=== PATIENT | female | born 1940 | race Caucasian/White ===

== ENCOUNTER 2017-01-10 18:18 | Emergency (ER) | payer OTHER ==
[~2017-01-10] VITALS: Ht 165.1 cm; Wt 108.5 kg
[~2017-01-10 18:18] MED LIST: BCTO EXT; CYAN1TAB4 PO; CYM/30 PO; EPP3/2 IM; FURO40TA3 PO; LEVO175T3 PO; LOSA50TA54 PO; OMEP40CA PO
[2017-01-10 18:26] VITALS: TEMP 36.3; Ht 165.1 cm; Wt 108.5 kg
[2017-01-10 19:00] VITALS: O2SAT 93
[2017-01-10 19:36] LABS: BASO % 0.5 %; BASO ABS # 0.05 K/uL (0-0.2); COMPLETE YES; EOS % 2.1 %; HEMATOCRIT 43.5 % (37-47); IG% 0.2 %; LYMPH % 28.7 %; LYMPH ABS # 3.02 K/uL (1.2-3.4); MEAN CELL VOLUME 85.1 fL (80-100); MEAN PLATELET VOLUME 12.6 fL (7.4-10.4); MONO % 10.7 %; NEUT % 57.8 %; PLATELET COUNT 202 K/uL (130-400); RED BLOOD COUNT 5.11 M/uL (4.2-5.4); WHITE BLOOD COUNT 10.53 K/uL (4.8-10.8)
[2017-01-10 19:45] LABS: ALT/SGPT 30 U/L (12-78); AST/SGOT 19 U/L (15-37); BLOOD UREA NITROGEN 15 mg/dl (7-18); BUN/CREATININE RATIO 13.4 (10-20); CALCIUM 8.9 mg/dl (8.5-10.1); CARBON DIOXIDE 29 mmol/L (21-32); CHLORIDE 103 mmol/L (98-107); GLUCOSE 190 mg/dl (70-99); POTASSIUM 3.9 mmol/L (3.5-5.1); SODIUM 136 mmol/L (136-145)
[2017-01-10 19:50] LABS: ALKALINE PHOSPHATASE 100 U/L (45-117)
--- NOTE | 2017-01-10 19:53 | DIAGNOSTIC IMAGING REPORT ---
CHEST ONE VIEW PORTABLE CLINICAL HISTORY: 76 years-old Female presenting with chest pain. TECHNIQUE: Portable upright AP view of the chest was obtained. COMPARISON: 06/24/2015. FINDINGS: Cardiac silhouette top normal in size allowing for AP technique. Lungs and pleural spaces clear. Degenerative changes of the thoracic spine. Upper abdomen normal. IMPRESSION: 1. No acute cardiopulmonary disease. Electronically signed by: Juan Mckay M.D. 01/10/2017 7:51 PM Dictated Date/Time: 01/10/2017 7:50 PM
[2017-01-10 19:54] LABS: URINE APPEARANCE CLEAR (CLEAR); URINE BILIRUBIN NEG (NEG); URINE COLOR YELLOW; URINE NITRITE NEG (NEG); URINE PH 5.5 (4.5-7.5); UROBILINOGEN NEG (NEG); ZZUR CULT IF INDIC CLEAN CATCH NO
[2017-01-10 19:56] LABS: MANUAL MICROSCOPIC REQUIRED? NO; REVIEW REQ? NO
--- NOTE | 2017-01-10 20:01 | DIAGNOSTIC IMAGING REPORT ---
HEAD WITHOUT CONTRAST (CT) CLINICAL HISTORY: 76 years-old Female presenting with headache, htn. TECHNIQUE: Multidetector CT imaging of the head was performed after the administration of intravenous contrast. IV contrast: None. A dose lowering technique was used consistent with the principles of ALARA (as low as reasonably achievable). COMPARISON: 06/24/2015. CT DOSE (mGy.cm): The estimated cumulative dose is 537.48 mGy.cm. FINDINGS: Spoon Maker topogram: Unremarkable. Proportional ventricular and sulcal prominence, likely age-related parenchymal volume loss. Periventricular and subcortical white matter hypoattenuation, nonspecific but likely indicative of chronic small vessel ischemic change. No mass effect or midline shift. No hemorrhage or acute territorial infarct. No extra-axial fluid collection. Paranasal sinuses and mastoid air cells clear. Calvarium intact. IMPRESSION: 1. No acute intracranial pathology. Electronically signed by: Juan Mckay M.D. 01/10/2017 8:00 PM Dictated Date/Time: 01/10/2017 7:57 PM
[2017-01-10] MEDS ORDERED: BUPR-79 PO (20:07)
--- NOTE | 2017-01-10 20:15 | DIAGNOSTIC IMAGING REPORT ---
ABD/PELVIS NO IV OR ORAL CONT CLINICAL HISTORY: 76 years-old Female presenting with back pain, urinary symptoms. TECHNIQUE: Multidetector CT of the abdomen and pelvis was performed without the use of intravenous contrast. IV contrast: None. A dose lowering technique was used consistent with the principles of ALARA (as low as reasonably achievable). COMPARISON: 06/08/2010. CT DOSE (mGy.cm): The estimated cumulative dose is 1254.29 mGy.cm. FINDINGS: Sprinkler Installer topogram: Unremarkable. Lung bases: Minimal dependent changes likely atelectasis. Irregular branching diminutive punctate nodule at the right lung base (series 3 image 67). Mild multichamber enlargement of the heart. No pericardial or pleural effusion. Liver: Normal morphology. Density consistent with hepatic steatosis. Biliary: No gross biliary ductal dilatation allowing for noncontrast technique. Normal gallbladder. Pancreas: Mild parenchymal atrophy. Spleen: Punctate calcification in the splenic parenchyma could be vascular in etiology or suggest prior granulomatous infection. Adrenal glands: Normal noncontrast appearance. Kidneys and ureters: Normal noncontrast appearance. No hydronephrosis. Bladder: Allowing for underdistention, mild circumferential bladder wall thickening. Pelvic organs: Uterus surgically absent. No adnexal masses. Bowel: Mild stool burden. Few scattered diverticula in the colon. No pericolonic fat stranding. No bowel obstruction. Persistent linear metallic density at the level of the pylorus, unchanged in position from prior and of uncertain etiology. Small duodenal diverticulum at the level of the pancreatic head. Peritoneal cavity: No free fluid or intraperitoneal gas. Lymph nodes: Multiple scattered subcentimeter lymph nodes in the small bowel mesentery with minimal associated fat infiltration. Vasculature: Atherosclerosis of the normal caliber abdominal aorta. Abdominal wall: Postsurgical changes of the midline infraumbilical abdominal wall. Musculoskeletal: Degenerative changes of the spine. IMPRESSION: 1. Bladder wall thickening could suggest cystitis correlate with urinalysis. 2. Hepatic steatosis. 3. Few prominent small bowel mesentery lymph nodes with minimal associated fat infiltration could suggest mesenteric panniculitis. This can be variably symptomatic. Electronically signed by: Juan Mckay M.D. 01/10/2017 8:13 PM Dictated Date/Time: 01/10/2017 8:05 PM
[2017-01-10] MEDS ORDERED: ACETAMINOPHEN 500 MG TAB PO STA (22:42)
[2017-01-10] MEDS ORDERED: CEPHALEXIN MONOHYDRATE 250 MG CAP PO ONE (22:45)
[2017-01-10] MEDS ORDERED: TPRSR/50 PO (22:54)
[2017-01-10] MEDS ORDERED: ASPI81TA28 PO (22:54)
[2017-01-10] MEDS ORDERED: PHENAZOPYRIDINE HCL 200 MG TAB PO STA (23:13)
--- NOTE | 2017-01-10 23:13 | EMERGENCY ROOM VISIT NOTE ---
History Report prepared by Cruz: Sommer Rivera Under the Supervision of: Dr. Jennifer Mercado D.O. First contact with patient: 18:48 Chief Complaint: HYPERTENSION Stated Complaint: HIGH BLOOD PRESSURE,HEADACHE, PAIN URINARY/BACK History of Present Illness The patient is a 76 year old female who presents to the Emergency Room with complaints of persistent hypertension starting earlier today. The patient went to urgent care this afternoon because she has been having sharp pain with urination. She also reports some itching. She went to urgent care and found that her blood pressure was 187. She has also had a headache so she was sent to the ED. She has had lower back pain for the past 1.5-2 weeks. She normally does not have headaches. She started having pressure on the top of her head a couple days ago. She has some incontinence at baseline, but it has worsened. She notes that her urine has a stronger odor. She has had UTIs in the past, but usually does not have the sharp pain. She had an episode of chest tightness several nights ago which she thinks might have been indigestion. She has had some leg swelling. She notes she is always thirsty. She denies any fever, chills, nausea , vomiting, change in bowel movements, or abdominal pain. She denies any history of kidney problems. She is on metoprolol and losartan. She denies any changes in medications. She denies any missed or skipped medications. She was borderline diabetic previously. Source of History: patient Onset: earlier today Position: other (global) Symptom Intensity: 187 Quality: other (hypertension) Timing: other (persistent) Associated Symptoms: + headache, + chest pain (episodic), + urinary symptoms , No fevers, No chills, No nausea, No vomiting, No abdominal pain Note: Pt reports thirst, leg swelling. Pt denies change in bowel movement. Review of Systems See HPI for pertinent positives & negatives. A total of 10 systems reviewed and were otherwise negative. Past Medical & Surgical Medical Problems: (1) Asthma (2) C1 cervical fracture (3) Depression (4) HTN (hypertension) (5) Hypothyroidism (6) Osteoporosis (7) Panic disorder (8) Sepsis Surgical Problems: (1) History of esophagogastroduodenoscopy (2) Hx of vaginal hysterectomy Family History No pertinent family history Social History Smoking Status: Never Smoker Marital Status: Housing Status: lives with family Current/Historical Medications Scheduled Aspirin (Aspirin Ec), 81 MG PO QAM Bupropion (Wellbutrin Sr), 150 MG PO QAM Cephalexin (Keflex), 1 CAP PO BID Cyanocobalamin (B-12), 1 TAB PO QD Duloxetine HCl (Cymbalta), 30 MG PO BID Levothyroxine Sodium (Levothyroxine Sodium), 175 MCG PO QAM Losartan Potassium (Cozaar), 50 MG PO QAM Metoprolol Succinate (Metoprolol Succinate ER), 50 MG PO QAM Scheduled PRN Epinephrine (Epipen), 0.3 MG IM UD PRN for ALLERGIC REACTION Furosemide (Lasix), 40 MG PO QAM PRN for EDEMA Allergies Coded Allergies: Sulfa Antibiotics (Verified Allergy, Intermediate, HIVES AND ITCHING, 06/23) BEE STING (Verified Allergy, Mild, ANAPHYLAXIS, 06/24/15) Amlodipine (Verified Allergy, Unknown, RASH, 06/24/15) Clarithromycin (Verified Allergy, Unknown, RASH, 06/24/15) Gabapentin (Verified Allergy, Unknown, UNKNOWN, 06/24/15) Iodine (Verified Allergy, Unknown, ANAPHYLAXIS, 06/24/15) Uncoded Allergies: INHALERS (Allergy, Unknown, SENSITIVE TO INHALERS, PERFUMES, ETC..., 06/08/10 ) PER PT, SHE HAS HX OF LEGIONAIRE'S PNX, NOT A TRUE ALLERGY SHELLED SEAFOOD (Allergy, Unknown, ., 04/12/15) Physical Exam Vital Signs Date Time Temp Pulse Resp B/P (MAP) Pulse Ox O2 Delivery O2 Flow Rate FiO2 01/10/17 23:18 73 18 179/89 92 Room Air 01/10/17 20:11 75 20 148/88 92 Room Air 01/10/17 19:12 78 01/10/17 19:00 93 Room Air 01/10/17 18:26 36.3 83 18 173/67 93 Room Air Physical Exam GENERAL: alert, well appearing, well nourished, no distress, non-toxic EYE EXAM: normal conjunctiva, PERRL and EOM's grossly intact OROPHARYNX: no exudate, no erythema, lips, buccal mucosa, and tongue normal and mucous membranes are moist NECK: supple, no nuchal rigidity, no adenopathy, non-tender LUNGS: Clear to auscultation. Normal chest wall mechanics HEART: no murmurs, S1 normal and S2 normal ABDOMEN: abdomen soft, non-tender, normo-active bowel sounds, no masses, no rebound or guarding. BACK: Back is symmetrical on inspection and there is no deformity, no CVA tenderness, bilateral low back pain. SKIN: no rashes and no bruising UPPER EXTREMITIES: upper extremities are grossly normal. LOWER EXTREMITIES: No pitting edema. NEURO EXAM: Normal sensorium, cranial nerves II-XII grossly intact, normal speech, no gross weakness of arms, no gross weakness of legs. Medical Decision & Procedures ER Provider Diagnostic Interpretation: Radiology results have been interpreted by the radiologist and reviewed by me. CHEST ONE VIEW PORTABLE CLINICAL HISTORY: 76 years-old Female presenting with chest pain. TECHNIQUE: Portable upright AP view of the chest was obtained. COMPARISON: 06/24/2015. FINDINGS: Cardiac silhouette top normal in size allowing for AP technique. Lungs and pleural spaces clear. Degenerative changes of the thoracic spine. Upper abdomen normal. IMPRESSION: 1. No acute cardiopulmonary disease. Electronically signed by: Juan Mckay M.D. 01/10/2017 7:51 PM Dictated Date/Time: 01/10/2017 7:50 PM ABD/PELVIS NO IV OR ORAL CONT CLINICAL HISTORY: 76 years-old Female presenting with back pain, urinary symptoms. TECHNIQUE: Multidetector CT of the abdomen and pelvis was performed without the use of intravenous contrast. IV contrast: None. A dose lowering technique was used consistent with the principles of ALARA (as low as reasonably achievable). COMPARISON: 06/08/2010. CT DOSE (mGy.cm): The estimated cumulative dose is 1254.29 mGy.cm. FINDINGS: Department Operations Manager topogram: Unremarkable. Lung bases: Minimal dependent changes likely atelectasis. Irregular branching diminutive punctate nodule at the right lung base (series 3 image 67). Mild multichamber enlargement of the heart. No pericardial or pleural effusion. Liver: Normal morphology. Density consistent with hepatic steatosis. Biliary: No gross biliary ductal dilatation allowing for noncontrast technique. Normal gallbladder. Pancreas: Mild parenchymal atrophy. Spleen: Punctate calcification in the splenic parenchyma could be vascular in etiology or suggest prior granulomatous infection. Adrenal glands: Normal noncontrast appearance. Kidneys and ureters: Normal noncontrast appearance. No hydronephrosis. Bladder: Allowing for underdistention, mild circumferential bladder wall thickening. Pelvic organs: Uterus surgically absent. No adnexal masses. Bowel: Mild stool burden. Few scattered diverticula in the colon. No pericolonic fat stranding. No bowel obstruction. Persistent linear metallic density at the level of the pylorus, unchanged in position from prior and of uncertain etiology. Small duodenal diverticulum at the level of the pancreatic head. Peritoneal cavity: No free fluid or intraperitoneal gas. Lymph nodes: Multiple scattered subcentimeter lymph nodes in the small bowel mesentery with minimal associated fat infiltration. Vasculature: Atherosclerosis of the normal caliber abdominal aorta. Abdominal wall: Postsurgical changes of the midline infraumbilical abdominal wall. Musculoskeletal: Degenerative changes of the spine. IMPRESSION: 1. Bladder wall thickening could suggest cystitis correlate with urinalysis. 2. Hepatic steatosis. 3. Few prominent small bowel mesentery lymph nodes with minimal associated fat infiltration could suggest mesenteric panniculitis. This can be variably symptomatic. Electronically signed by: Juan Mckay M.D. 01/10/2017 8:13 PM Dictated Date/Time: 01/10/2017 8:05 PM HEAD WITHOUT CONTRAST (CT) CLINICAL HISTORY: 76 years-old Female presenting with headache, htn. TECHNIQUE: Multidetector CT imaging of the head was performed after the administration of intravenous contrast. IV contrast: None. A dose lowering technique was used consistent with the principles of ALARA (as low as reasonably achievable). COMPARISON: 06/24/2015. CT DOSE (mGy.cm): The estimated cumulative dose is 537.48 mGy.cm. FINDINGS: Department Operations Manager topogram: Unremarkable. Proportional ventricular and sulcal prominence, likely age-related parenchymal volume loss. Periventricular and subcortical white matter hypoattenuation, nonspecific but likely indicative of chronic small vessel ischemic change. No mass effect or midline shift. No hemorrhage or acute territorial infarct. No extra-axial fluid collection. Paranasal sinuses and mastoid air cells clear. Calvarium intact. IMPRESSION: 1. No acute intracranial pathology. Electronically signed by: Juan Mckay M.D. 01/10/2017 8:00 PM Dictated Date/Time: 01/10/2017 7:57 PM Laboratory Results 01/10/17 18:57 Red Blood Count 5.11, Mean Corpuscular Volume 85.1, Mean Corpuscular Hemoglobin 29.0, Mean Corpuscular Hemoglobin Concent 34.0, Mean Platelet Volume 12.6, Neutrophils (%) (Auto) 57.8, Lymphocytes (%) (Auto) 28.7, Monocytes (%) (Auto) 10.7, Eosinophils (%) (Auto) 2.1, Basophils (%) (Auto) 0.5, Neutrophils # (Auto ) 6.09, Lymphocytes # (Auto) 3.02, Monocytes # (Auto) 1.13, Eosinophils # (Auto ) 0.22, Basophils # (Auto) 0.05 01/10/17 18:57 Test 01/10/17 18:57 01/10/17 19:40 01/10/17 21:14 White Blood Count 10.53 K/uL (4.8-10.8) Red Blood Count 5.11 M/uL (4.2-5.4) Hemoglobin 14.8 g/dL (12.0-16.0) Hematocrit 43.5 % (37-47) Mean Corpuscular Volume 85.1 fL (80-100) Mean Corpuscular Hemoglobin 29.0 pg (25-34) Mean Corpuscular Hemoglobin Concent 34.0 g/dl (32-36) Platelet Count 202 K/uL (130-400) Mean Platelet Volume 12.6 fL (7.4-10.4) Neutrophils (%) (Auto) 57.8 % Lymphocytes (%) (Auto) 28.7 % Monocytes (%) (Auto) 10.7 % Eosinophils (%) (Auto) 2.1 % Basophils (%) (Auto) 0.5 % Neutrophils # (Auto) 6.09 K/uL (1.4-6.5) Lymphocytes # (Auto) 3.02 K/uL (1.2-3.4) Monocytes # (Auto) 1.13 K/uL (0.11-0.59) Eosinophils # (Auto) 0.22 K/uL (0-0.5) Basophils # (Auto) 0.05 K/uL (0-0.2) RDW Standard Deviation 44.7 fL (36.4-46.3) RDW Coefficient of Variation 14.3 % (11.5-14.5) Immature Granulocyte % (Auto) 0.2 % Immature Granulocyte # (Auto) 0.02 K/uL (0.00-0.02) Anion Gap 4.0 mmol/L (3-11) Est Creatinine Clear Calc Drug Dose 55.0 ml/min Estimated GFR () 57.3 Estimated GFR (Non- 49.4 BUN/Creatinine Ratio 13.4 (10-20) Calcium Level 8.9 mg/dl (8.5-10.1) Total Bilirubin 0.4 mg/dl (0.2-1) Aspartate Amino Transf (AST/SGOT) 19 U/L (15-37) Alanine Aminotransferase (ALT/SGPT) 30 U/L (12-78) Alkaline Phosphatase 100 U/L (45-117) Troponin I < 0.015 ng/ml (0-0.045) Pro-B-Type Natriuretic Peptide 105 pg/ml (0-900) Total Protein 7.3 gm/dl (6.4-8.2) Albumin 3.6 gm/dl (3.4-5.0) Globulin 3.7 gm/dl (2.5-4.0) Albumin/Globulin Ratio 1.0 (0.9-2) Urine Color YELLOW Urine Appearance CLEAR (CLEAR) Urine pH 5.5 (4.5-7.5) Urine Specific Cameron 1.010 (1.000-1.030) Urine Protein NEG (NEG) Urine Glucose (UA) NEG (NEG) Urine Ketones NEG (NEG) Urine Occult Blood NEG (NEG) Urine Nitrite NEG (NEG) Urine Bilirubin NEG (NEG) Urine Urobilinogen NEG (NEG) Urine Leukocyte Esterase NEG (NEG) Lactic Acid Level 1.1 mmol/L (0.4-2.0) Laboratory results per my review. Medications Administered Medications (Trade) Dose Ordered Sig/Kristina Route Start Time Stop Time Status Last Admin Dose Admin Cephalexin Monohydrate (Keflex Cap) 500 mg NOW ONCE PO 01/10/17 22:45 01/10/17 22:46 DC 01/10/17 23:11 500 MG Acetaminophen (Tylenol Tab) 1,000 mg NOW STAT PO 01/10/17 22:42 01/10/17 22:43 DC 01/10/17 23:11 1,000 MG Phenazopyridine HCl (Pyridium Tab) 200 mg NOW STAT PO 01/10/17 23:13 01/10/17 23:14 DC 01/10/17 23:20 200 MG ECG Indication: chest pain Rate (beats per minute): 80 Rhythm: sinus rhythm Findings: Q waves (lead 3, aVF), no acute ischemic change, other (normal axis, normal intervals) ED Course 1900: The patient was evaluated in room C5. A complete history and physical exam was performed. 2215: Upon reevaluation, the patient is feeling better. I discussed the findings and the treatment plan with the patient. She verbalizes agreement and understanding. She was discharged home. 2242: Acetaminophen 1000 mg PO. 2245: Keflex Cap 500 mg PO. 2313: Pyridium Tab 200 mg PO. Medical Decision Differential diagnoses includes but is not limited to lumbar radiculopathy, muscle strain, facture, cauda equina, mass, and disc herniation. Patient with multiple complaints, most notably dysuria and back pain. Given urinary symptoms, patient underwent labs as well as CAT scan as precaution. Additional imaging and labs added due to patient's isolated episode of chest pain 4 days prior. Patient's UA here unremarkable, however given age and symptoms culture will be sent and patient treated as a precaution. Imaging otherwise unremarkable, no evidence of obstructing stone or pyelonephritis. No other acute pathology noted. Discussed with patient and daughter back pain could be due to arthritis and degenerative changes given advanced age as well as recent initiation of additional exercise program. Patient able to ambulate here, no other symptoms to suggest acute cauda equina, nerve impingement, epidural abscess or hematoma. No other acute GI pathology noted. No evidence of vascular etiology to explain back pain. No evidence of bacteremia/sepsis. Labs otherwise reassuring, mild hyperglycemia noted and this was discussed with patient and daughter states she was previously told she was a "borderline diabetic". No evidence of acute renal insufficiency. Discussed with patient use of antibiotics, close follow-up with family doctor, continued use of routine medications, symptoms to watch and return for, treatment of her back pain, she and daughter verbalized understanding were agreeable with plan. Medication Reconcilliation Current Medication List: was personally reviewed by me Blood Pressure Screening Patient's blood pressure: Elevated blood pressure Blood pressure disposition: Referred to PCP Impression Primary Impression: Dysuria Additional Impressions: Back pain Hypertension Headache Scribe Attestation The scribe's documentation has been prepared under my direction and personally reviewed by me in its entirety. I confirm that the note above accurately reflects all work, treatment, procedures, and medical decision making performed by me. Departure Information Dispostion Home / Self-Care Prescriptions Cephalexin (KEFLEX) 500 Mg Cap 1 CAP PO BID for 7 Days, #14 CAP Prov: Jennifer Mercado, DO 01/10/17 Referrals Larissa Manzo M.D. (PCP) Patient Instructions My [facility] Additional Instructions Please follow up with your family doctor. Please take the antibiotics as prescribed. You may use Tylenol or ibuprofen as needed for your back pain. If you have any worsening pain, develop fevers, noticed a change in your urine or stools, develop vomiting, vision changes, dizziness, or you've any other new concerns, please return the emergency room. Please have your family doctor recheck your blood pressure given the elevated levels seen yesterday and today. Please monitor the amount of salt in your diet as this can contribute to having high blood pressure. Problem Qualifiers Additional Impressions: Back pain Back pain location: low back pain Chronicity: acute Back pain laterality: bilateral Sciatica presence: without sciatica Qualified Codes: M54.5 - Low back pain Hypertension Hypertension type: essential hypertension Qualified Codes: I10 - Essential ( primary) hypertension Headache Headache type: unspecified Headache chronicity pattern: episodic headache Intractability: not intractable Qualified Codes: R51 - Headache
[2017-01-10] MEDS ORDERED: CEPH-571 PO (23:14)
[2017-01-10 23:18] VITALS: BP 179/89; PULSE 73; O2SAT 92
== END 2017-01-10 23:30 | disposition home or self-care (01) ==
LOC: C.EDB 18:20 → C.EDC 23:30
DX: R30.0 Dysuria (principal); M54.5 Low back pain; I10 Essential (primary) hypertension; R51 Headache; J45.909 Unspecified asthma, uncomplicated; F32.9 Major depressive disorder, single episode, unspecified; E03.9 Hypothyroidism, unspecified; M81.0 Age-related osteoporosis without current pathological fracture; F41.0 Panic disorder [episodic paroxysmal anxiety]; Z79.82 Long term (current) use of aspirin; Z79.899 Other long term (current) drug therapy

== ENCOUNTER 2018-02-25 16:13 | Inpatient (IN) ==
--- NOTE | 2018-02-25 17:01 | XRay Report ---
XR chest 1V portable HISTORY: 77 years-old Female Chest Pain acute atypical chest pain COMPARISON: Chest radiograph 01/10/2017 TECHNIQUE: Portable AP view of the chest FINDINGS: Cardiac silhouette is enlarged, unchanged. No pneumothorax, pleural effusion, focal airspace consolid ation or overt pulmonary edema. Degenerative changes of the shoulders and spine. IMPRESSION: No acute process. The above report was generated using voice recognition software. It may contain grammatical, syntax o r spelling errors. Electronically signed by: Silverio Tao M.D. 02/25/2018 5:00 PM
[2018-02-25 17:06] LABS: Base Excess VBG 1.9 mEq/L; Oxygen Saturation VBG 80.4 %; pH VBG 7.39 (7.36-7.41)
[2018-02-25 17:12] LABS: Basophils # (auto) 0.02 K/uL (0-0.2); Basophils % (auto) 0.1 %; Hematocrit (blood only) 41.3 % (37-47); Immature Granulocytes # (auto) 0.06 K/uL (0.00-0.02); Immature Granulocytes % (auto) 0.4 %; Lymphocytes # (auto) 1.59 K/uL (1.2-3.4); Lymphocytes % (auto) 9.4 %; Mean Corpuscular Hgb Conc 33.9 g/dL (32-36); Mean Corpuscular Volume 83.9 fL (80-100); Mean Platelet Volume 13.2 fL (7.4-10.4); Monocytes # (auto) 1.28 K/uL (0.11-0.59); Monocytes % (auto) 7.6 %; Neutrophils # (auto) 13.91 K/uL (1.4-6.5); Neutrophils % (auto) 82.5 %; Platelet Count 250 K/uL (130-400); RDW Coefficient of Variation 14.4 % (11.5-14.5); RDW Standard Deviation 44.2 fL (36.4-46.3); Red Blood Count 4.92 M/uL (4.2-5.4); White Blood Count 16.86 K/uL (4.8-10.8)
[2018-02-25 17:36] LABS: Alanine Aminotransferase 32 U/L (12-78); Albumin Globulin Ratio 0.9 (0.9-2); Albumin Level 3.2 gm/dl (3.4-5.0); Alkaline Phosphatase 107 U/L (45-117); Aspartate Aminotransferase 26 U/L (15-37); BUN Creatinine Ratio 17.9 (10-20); Bilirubin,Total 0.5 mg/dl (0.1-1); Blood Urea Nitrogen 24 mg/dl (7-18); Calcium 8.8 mg/dl (8.5-10.1); Carbon Dioxide 28 mmol/L (21-32); Chloride 98 mmol/L (98-107); Creatinine Clr Calc Pharmacy 44.1 ml/min; Est GFR (African American) 44.8; Est GFR (Non-African American) 38.7; Glucose 440 mg/dl (70-99); Magnesium 1.7 mg/dl (1.8-2.4); NT Pro B Type Natriuretic Pept 494 pg/ml (0-900); Potassium 4.2 mmol/L (3.5-5.1); Sodium 134 mmol/L (136-145); Total Protein 6.9 gm/dl (6.4-8.2); Troponin I < 0.015 ng/ml (0-0.045)
[2018-02-25 17:47] LABS: Influenza A virus by PCR Neg for Influ A (Neg); Influenza B virus by PCR Neg for Influ B (Neg)
[2018-02-25] MEDS ORDERED: MAGNESIUM SULFATE / D5W 1 GM/100 ML BAG IV ONE (18:04)
[2018-02-25] MEDS ORDERED: SODIUM CHLORIDE 0.9% 500 ML IV ONE (18:04)
[2018-02-25] MEDS ORDERED: ACETAMINOPHEN 1,000 MG/100 ML VIAL IV ONE (18:04)
[2018-02-25] MEDS ORDERED: KETOROLAC TROMETHAMINE 15 MG/ML VIAL IV STA (18:07)
[2018-02-25 18:28] LABS: Globulin 3.7 gm/dl (2.5-4.0)
[2018-02-25] MEDS ORDERED: ALBUT/IPRATROP 3MG/0.5MG NEB 3 ML VIAL NEB STA (18:55)
[2018-02-25] MEDS ORDERED: INSULIN ASPART 100 UNITS/ML 3 ML PEN SC STA (20:13)
[2018-02-25] MEDS ORDERED: INSULIN ASPART PER UNIT ONE (20:20)
[2018-02-25] MEDS ORDERED: KETOROLAC TROMETHAMINE 15 MG/ML VIAL ONE (21:28)
--- NOTE | 2018-02-26 00:21 | History and Physical Report ---
DATE OF ADMISSION: 02/25/2018 CHIEF COMPLAINT: Chest pain, not feeling well. HISTORY OF PRESENT ILLNESS: This is a 77-year-old female with past medical history significant for osteoporosis, hypothyroidism, depression, panic disorder, vitamin B12 deficiency, hypertension, chronic kidney stage III, and also borderline diabetes presents with chest pain and not feeling well. The patient had a steroid shot to her right knee yesterday and also she was eating lot of sugars lately for the holidays and today she was feeling very hot, not feeling well. Has some chest pain and she thought she could not breathe for 20 minutes. The daughter was at bedside. Daughter thinks that the patient might have had a panic attack.In the ER, her sugars are running in 440s. Troponin was negative. Currently, patient says she still does not feel that great, feels dry and hot, and patient also keeps on talking and daughter thinks that she might be developing some memory issues. She lives with her . She walks without any help. Appetite is okay. Currently, she says there is no chest pain, but she does not know how she feels when she walks. No dizziness. Has some blurred vision since the last 2 weeks. No sore throat. She says occasionally she has difficulty swallowing. She was treated recently for bronchitis, but she still has some dry cough. No nausea, no vomiting, no abdominal pain. Normal bowel and bladder movements. Currently, resting comfortably and hemodynamically stable. ALLERGIES: SHELLFISH, WASP VENOM, JACK INHIBITORS, AMLODIPINE, CLARITHROMYCIN, GABAPENTIN, INDERAL, IODINE, AND SULFA ANTIBIOTICS. PAST MEDICAL HISTORY: As mentioned above. PAST SURGICAL HISTORY: Endoscopic ultrasound, excision of lipoma of the left thigh, hysterectomy. MEDICATIONS: The patient is on diltiazem CD 240 mg p.o. daily, losartan 100 mg p.o. daily, levothyroxine 175 mcg p.o. daily, omeprazole 20 mg p.o. daily, Cymbalta 30 mg p.o. b.i.d., Fosamax 70 mg p.o. weekly, tramadol 50 mg p.o. q. 6 hours p.r.n., Wellbutrin SR 150 mg p.o. b.i.d., Lasix 40 mg p.o. daily, Enablex 7.5 mg p.o. daily, vitamin B12 500 mcg p.o. daily, epinephrine injection as needed, aspirin 81 mg p.o. daily. FAMILY HISTORY: Significant for father had heart disorder and mother had stroke. SOCIAL HISTORY: , no smoking abuse, no alcohol use, no drug use. REVIEW OF SYMPTOMS: As per HPI. Rest of the review of symptoms negative. PHYSICAL EXAMINATION: GENERAL: The patient is obese, not in acute distress. VITAL SIGNS: Temperature 36.8, pulse 78, respiratory rate 21, blood pressure 133/68, oxygen 93% on room air. HEENT: No pallor, no icterus. Pupils equal, round, and react to light. NECK: No JVD, no neck masses, no carotid bruits. CARDIOVASCULAR: S1, S2 heard, regular rate and rhythm, no murmur, no gallop. RESPIRATORY SYSTEM: Normal AP diameter. No accessory muscle use. No wheezing, no crackles. ABDOMEN: Soft, bowel sounds present. Nontender. No distention. CENTRAL NERVOUS SYSTEM: Cranial nerves II-XII grossly intact. Nonfocal. EXTREMITIES: No edema, no erythema. LABORATORY DATA: WBC 6.8, hemoglobin 14, hematocrit 41.3, platelets ____. Venous blood gases pH of 7.3, pCO2 of 47, pO2 of 46, bicarbonate 28. Sodium 134, potassium 4.2, chloride 98, bicarbonate 28, BUN 24, creatinine 1.34, serum glucose 440, calcium 8.8, phosphorus 3, magnesium 1.7, total bilirubin 0.5, AST 26, ALT 32, alkaline phosphatase 107. Troponin I less than 0.015. BNP 494, lipase 173, beta hydroxy acid 1.08. Influenza A and B negative. IMAGING DATA: Chest x-ray, no acute process seen. ASSESSMENT AND PLAN: This is a 77-year-old female who presents with not feeling well, chest pain, and possible panic attack and also hyperglycemia. 1. Chest pain, shortness of breath. Initial troponin negative. follow EKG . hemodynamically stable. Could be panic attack as per daughter. Because of her diabetes and risk factors, we will check serial troponins, monitor in tele floor. EKGs and echocardiogram and consult cardiology in the a.m. 2. Hyperglycemia, although her presenting symptoms could be from high blood sugars. Yesterday, she got a steroid shot to the right knee. Her HbA1c in september 2017 7.6 . She had a steroid shot yesterday. We will place on Lantus insulin sliding scale. The patient is not in DKA. pharmacy consult and diabetic education. We will closely monitor and give intravenous fluids. 3. Hypertension. The patient is on Cardizem. Recently metoprolol was changed to Cardizem by family doctor. Patient is also on losartan and diuretics. Diuretics on hold. We will monitor the blood pressure 4. History of major depression, on Cymbalta and Wellbutrin, which she will continue. 5. Osteoporosis, on Fosamax. 6. Vitamin B12 deficiency, on supplements. 7. Chronic kidney disease stage III. Will follow the labs. 8. Some questionable memory issues, could be from uncontrolled diabetes. Will monitor. If necessary, will consult neurology. 9. Deep venous thrombosis prophylaxis, sequential compression devices for now. 10. Disposition: Observation in tele floor. Expect to discharge home and follow with family doctor. Level 1 full code. MTDD
[2018-02-26] MEDS ORDERED: NITROGLYCERIN SL 0.4 MG/TAB TAB SL PRN (00:25)
[2018-02-26] MEDS ORDERED: INSULIN GLARGINE SOLOSTAR 100 UNITS/ML 3 ML PEN SC SCH ×3 (00:25→09:00)
[2018-02-26] MEDS ORDERED: EPINEPHRINE ADULT AUTO-INJECT 0.3 MG SYR IM PRN (00:25)
[2018-02-26] MEDS ORDERED: ONDANSETRON INJ 2 MG/ML 2 ML VIAL IV PRN (00:25)
[2018-02-26] MEDS ORDERED: ALUMINUM/MAGNESIUM SUSP 30 ML UDC PO PRN (00:25)
[2018-02-26] MEDS ORDERED: PHARMACY GLYCEMIC MGMT CONSULT PRN (00:38)
[2018-02-26] MEDS ORDERED: INSULIN ASPART 100 UNITS/ML 3 ML PEN SC SCH (01:00)
[2018-02-26] MEDS ORDERED: MoRPHine SULFATE 2 MG/ML CARP IV PRN (01:50)
[2018-02-26] MEDS ORDERED: LORazepam 1 MG TAB PO STA (01:51)
[2018-02-26] MEDS: SODIUM CHLORIDE 0.9% 1000ML 1,000 ML IV SCH ×3 (02:17→17:03)
[2018-02-26] MEDS: DULOXETINE HCL 30 MG CAP PO SCH ×3 (02:18→21:15)
[2018-02-26] MEDS: BuPROPion SR 150 MG TABCR PO SCH ×2 (02:19→21:15)
[2018-02-26] MEDS ORDERED: CARBOHYDRATES FOR HYPOGLYCEMIA PO PRN (02:41)
[2018-02-26] MEDS ORDERED: GLUCOSE 40% GEL 15 GM TUBE PO PRN (02:41)
[2018-02-26] MEDS ORDERED: GLUCAGON FOR INJ 1 MG VIAL SQ PRN (02:41)
[2018-02-26] MEDS ORDERED: DEXTROSE 50% 50 ML SYRINGE IV PRN (02:41)
[2018-02-26] MEDS ORDERED: GLUCOSE 10 TABS/TUBE PO PRN (02:41)
[2018-02-26] MEDS: LEVOTHYROXINE SODIUM 175 MCG TABLET PO SCH (05:17)
[2018-02-26 05:32] LABS: Basophils # (auto) 0.03 K/uL (0-0.2); Basophils % (auto) 0.2 %; Eosinophils # (auto) 0.04 K/uL (0-0.5); Eosinophils % (auto) 0.2 %; Hemoglobin 13.2 g/dL (12.0-16.0); Immature Granulocytes # (auto) 0.06 K/uL (0.00-0.02); Immature Granulocytes % (auto) 0.3 %; Lymphocytes # (auto) 2.51 K/uL (1.2-3.4); Lymphocytes % (auto) 14.5 %; Mean Corpuscular Hgb Conc 33.8 g/dL (32-36); Mean Corpuscular Volume 84.2 fL (80-100); Mean Platelet Volume 12.2 fL (7.4-10.4); Monocytes # (auto) 1.33 K/uL (0.11-0.59); Monocytes % (auto) 7.7 %; Neutrophils # (auto) 13.29 K/uL (1.4-6.5); Neutrophils % (auto) 77.1 %; Platelet Count 218 K/uL (130-400); RDW Coefficient of Variation 14.4 % (11.5-14.5); RDW Standard Deviation 44.7 fL (36.4-46.3); Red Blood Count 4.63 M/uL (4.2-5.4); White Blood Count 17.26 K/uL (4.8-10.8)
[2018-02-26 05:52] LABS: Estimated Average Glucose 206 mg/dl
[2018-02-26 05:57] LABS: BUN Creatinine Ratio 23.5 (10-20); Calcium 8.3 mg/dl (8.5-10.1); Creatinine Clr Calc Pharmacy 52.1 ml/min; Est GFR (African American) 56.9; Est GFR (Non-African American) 49.1; Magnesium 1.9 mg/dl (1.8-2.4); Potassium 3.9 mmol/L (3.5-5.1)
[2018-02-26 06:08] LABS: Troponin I 0.053 ng/ml (0-0.045)
--- NOTE | 2018-02-26 07:02 | Emergency Department Note ---
Entered by Jeffry Lockhart acting as a scribe for History of Present Illness General Chief complaint: Cardiac Assessment Stated complaint: CHEST TIGHTNESS, HOT, TROUBLE BREATHING Time Seen by Provider: 02/25/18 16:23 Source: patient and family (daughter) History of Present Illness Provider complaint: dyspnea Onset (ago): day(s) (today) Location: chest Pain Consistency: + other (sudden) Quality: + other (dyspnea) Exacerbated By: not by other (not exacerbated by laying down) Associated symptoms: + other (tightness in chest) The patient is a 77 year old female who presents to the Emergency Room with a complaints of difficulty breathing and tightness in her chest that started suddenly around 1300 today. The patient states she took a nap after lunch due to her symptoms and when she woke up she reports her face was hot and she couldn 't breathe. The patient reports no history of heart attacks. The patient reports that she has bronchitis for three weeks that she got over about a week ago through the use of an antibiotic. The patient reports that she is not on any blood thinners. She reports that she takes Lasix because she retains fluid. She reports that she was also taking high blood pressure medication, but her blood pressure last week was 130/100. The patient family reports that she had a traumatic head injury which resulted in a C1 cervical fracture and nerve damage about a year ago. The patient denies having any shortness of breath when laying down. The patient reports taking Tramadol at 0300 this morning for her knee that she got an injection in yesterday. Home Medications Home Medications Medication Instructions Recorded Confirmed Type Enablex 7.5 mg PO DAILY 02/25/18 02/25/18 History Fosamax 70 mg PO WK 02/25/18 02/25/18 History aspirin [Aspirin Low Dose] 81 mg PO DAILY 02/25/18 02/25/18 History bupropion HCl 150 mg PO BID 02/25/18 02/25/18 History cyanocobalamin (vitamin B-12) 1,000 mcg PO DAILY 02/25/18 02/25/18 History diltiazem HCl 240 mg PO DAILY 02/25/18 02/25/18 History duloxetine 30 mg PO BID 02/25/18 02/25/18 History epinephrine 0.3 mg IM UD PRN 02/25/18 02/25/18 History furosemide [Lasix] 40 mg PO DAILY 02/25/18 02/25/18 History levothyroxine 175 mg PO DAILY 02/25/18 02/25/18 History losartan 100 mg PO DAILY 02/25/18 02/25/18 History triamcinolone acetonide 1 applic TOPICAL DAILY 02/25/18 02/25/18 History Allergies Allergy/AdvReac Type Severity Reaction Status Date / Time Sulfa (Sulfonamide Allergy Intermediate HIVES AND Verified 02/25/18 17:17 Antibiotics) ITCHING bee venom protein (honey bee) Allergy Mild ANAPHYLAXIS Verified 02/25/18 17:17 amlodipine Allergy Unknown RASH Verified 02/25/18 17:17 clarithromycin Allergy Unknown RASH Verified 02/25/18 17:17 gabapentin Allergy Unknown UNKNOWN Verified 02/25/18 17:17 iodine Allergy Unknown ANAPHYLAXIS Verified 02/25/18 17:17 INHALERS Allergy Unknown SENSITIVE Uncoded 02/25/18 17:17 TO INHALERS, PERFUMES, ETC... SHELLED SEAFOOD Allergy Unknown . Uncoded 02/25/18 17:17 Past Med/Surg History Medical History Hypothyroidism (Acute) C1 cervical fracture (Resolved) Family History Other No pertinent family history Social History Current Living Situation: Spouse Other Information That Helps Us Care for You: No Feels Safe at Home: Yes Safety Concerns: Feels Safe At This Time Smoking Status: Never smoker Do You Dip or Chew Tobacco: No Hx Alcohol Use: No Hx Substance Use: No Beliefs That Will Affect Care: None Preferred Language: Chadian Communication Ability: Effective Review of Systems See HPI for pertinent positives & negatives. and A total of 10 systems reviewed and were otherwise negative Physical Exam Vital Signs Vital Signs - 24 hr 02/25/18 16:22 02/25/18 16:56 02/25/18 16:57 Temperature 36.8 C Temperature Source Oral Sepsis Recent Fever Within 48 Hours No Sepsis Action Taken by Nursing No Action Required Pulse Rate 91 H Pulse Rate [Left Finger] Pulse Rhythm [Left Finger] Pulse Strength [Left Finger] Respiratory Rate 22 Respiratory Effort / Characteristics Respiratory Depth Normal Blood Pressure 135/70 Blood Pressure [Right Arm] Blood Pressure Mean 91 Blood Pressure Mean [Right Arm] Blood Pressure Position [Right Arm] Pulse Oximetry 91 93 93 Pulse Oximetry [Right Index Finger] Oxygen Delivery Method Room Air Room Air Room Air Oxygen Delivery Method [Right Index Finger] 02/25/18 16:59 02/25/18 18:05 02/25/18 19:35 Temperature Temperature Source Sepsis Recent Fever Within 48 Hours Sepsis Action Taken by Nursing Pulse Rate Pulse Rate [Left Finger] 81 76 80 Pulse Rhythm [Left Finger] Pulse Strength [Left Finger] Respiratory Rate 19 18 22 Respiratory Effort / Characteristics Respiratory Depth Blood Pressure Blood Pressure [Right Arm] 152/61 H 125/60 143/70 H Blood Pressure Mean Blood Pressure Mean [Right Arm] 91 81 94 Blood Pressure Position [Right Arm] Pulse Oximetry 95 93 Pulse Oximetry [Right Index Finger] Oxygen Delivery Method Room Air Room Air Oxygen Delivery Method [Right Index Finger] 02/25/18 20:39 02/25/18 21:59 02/25/18 22:30 Temperature Temperature Source Sepsis Recent Fever Within 48 Hours Sepsis Action Taken by Nursing Pulse Rate Pulse Rate [Left Finger] 77 80 78 Pulse Rhythm [Left Finger] Pulse Strength [Left Finger] Respiratory Rate 26 H 20 21 Respiratory Effort / Characteristics Respiratory Depth Blood Pressure Blood Pressure [Right Arm] 151/65 H 126/76 133/68 Blood Pressure Mean Blood Pressure Mean [Right Arm] 93 92 89 Blood Pressure Position [Right Arm] Pulse Oximetry 94 93 Pulse Oximetry [Right Index Finger] Oxygen Delivery Method Room Air Room Air Oxygen Delivery Method [Right Index Finger] 02/25/18 23:32 02/26/18 00:45 02/26/18 00:47 Temperature 36.7 C Temperature Source Oral Sepsis Recent Fever Within 48 Hours Sepsis Action Taken by Nursing Pulse Rate 79 70 Pulse Rate [Left Finger] 77 Pulse Rhythm [Left Finger] Regular Pulse Strength [Left Finger] Normal Respiratory Rate 16 Respiratory Effort / Characteristics Non-Labored Spontaneous Respiratory Depth Normal Blood Pressure 132/61 Blood Pressure [Right Arm] 165/73 H Blood Pressure Mean Blood Pressure Mean [Right Arm] 103 Blood Pressure Position [Right Arm] Lying Pulse Oximetry 96 93 Pulse Oximetry [Right Index Finger] Oxygen Delivery Method Room Air Room Air Oxygen Delivery Method [Right Index Finger] 02/26/18 00:50 02/26/18 04:00 Temperature 36.5 C Temperature Source Oral Sepsis Recent Fever Within 48 Hours Sepsis Action Taken by Nursing Pulse Rate Pulse Rate [Left Finger] 77 Pulse Rhythm [Left Finger] Pulse Strength [Left Finger] Respiratory Rate 18 Respiratory Effort / Characteristics Respiratory Depth Blood Pressure Blood Pressure [Right Arm] 155/75 H Blood Pressure Mean Blood Pressure Mean [Right Arm] 101 Blood Pressure Position [Right Arm] Lying Pulse Oximetry 93 Pulse Oximetry [Right Index Finger] 93 Oxygen Delivery Method Room Air Oxygen Delivery Method [Right Index Finger] Room Air GENERAL: Awake, alert, anxious appearing, in no distress HENT: Normocephalic, atraumatic. Oropharynx with dry mucous membranes and otherwise unremarkable. EYES: Normal conjunctiva. Sclera non-icteric. NECK: Supple. No nuchal rigidity. FROM. No JVD. RESPIRATORY: Diminished breath sounds at the bases and otherwise clear. CARDIAC: Regular rate, normal rhythm. Extremities warm and well perfused. Pulses equal. ABDOMEN: Soft, non-distended. No tenderness to palpation. No rebound or guarding. No masses. RECTAL: Deferred. MUSCULOSKELETAL: Mild reproducible left anterior chest wall tenderness. The back is symmetrical on inspection without obvious abnormality. There is no CVA tenderness to palpation. No joint edema. LOWER EXTREMITIES: Calves are equal size bilaterally and non-tender. No edema. No discoloration. NEURO: Normal sensorium. No sensory or motor deficits noted. 1+ bilateral edema. SKIN: No rash or jaundice noted. Course 1625: Past medical records reviewed. The patient was evaluated in room A4B, and a complete history and physical examination were performed. 2339: Upon reevaluation, the patient appeared to have improvement of her symptoms. I discussed chiloight's findings with her. She verbalized agreement of the treatment plan. She was discharged home. Administered Medications Bupropion HCl (Wellbutrin-Sr) 150 mg PO BID [facility] Stop: 03/28/18 08:59 Last Admin: 02/26/18 02:19 Dose: 150 mg Duloxetine HCl (Cymbalta) 30 mg PO BID BRYCE Stop: 03/28/18 00:24 Last Admin: 02/26/18 02:18 Dose: 30 mg Sodium Chloride (Nss 1000ml) 1,000 mls @ 125 mls/hr IV .Q8H BRYCE Stop: 03/28/18 00:24 Last Admin: 02/26/18 02:17 Dose: 125 mls/hr Levothyroxine Sodium (Synthroid) 175 mcg PO DAILYBB BRYCE Stop: 03/28/18 06:29 Last Admin: 02/26/18 05:17 Dose: 175 mcg Discontinued Medications Albuterol (Duoneb) 3 ml NEB NOW STA Stop: 02/25/18 18:56 Last Admin: 02/25/18 22:09 Dose: Not Given Magnesium Sulfate/Dextrose (Magnesium Sulfate / D5w) 1 gm in 100 mls @ 100 mls/ hr IV ONE ONE Stop: 02/25/18 19:03 Last Infusion: 02/25/18 19:37 Dose: 0 mls/hr Admin: 02/25/18 18:37 Dose: 100 mls/hr Sodium Chloride (Nss) 500 mls @ 999 mls/hr IV .Q31M ONE Stop: 02/25/18 18:34 Last Infusion: 02/25/18 19:20 Dose: 0 mls/hr Admin: 02/25/18 18:41 Dose: 999 mls/hr Acetaminophen (Ofirmev) 1,000 mg in 100 mls @ 400 mls/hr IV NOW ONE Stop: 02/25/18 18:18 Last Infusion: 02/25/18 22:22 Dose: Admin: 02/25/18 21:58 Dose: 400 mls/hr Insulin Aspart (Novolog Flexpen) 8 units SC NOW STA Stop: 02/25/18 20:14 Last Admin: 02/25/18 21:27 Dose: Not Given Insulin Aspart (Novolog Per Unit) Confirm Administered Dose 1 units .ROUTE .STK- MED ONE Stop: 02/25/18 20:21 Last Admin: 02/25/18 20:21 Dose: 8 units Insulin Aspart (Novolog Flexpen) 0 units SC TODAY@0100 BRYCE Stop: 02/26/18 01:01 Last Admin: 02/26/18 02:25 Dose: 5 units Insulin Glargine (Lantus Solostar Pen) 10 units SC TODAY@0100 BRYCE Stop: 02/26/18 01:01 Last Admin: 02/26/18 02:20 Dose: 10 units Ketorolac Tromethamine (Toradol) 15 mg IV NOW STA Stop: 02/25/18 18:08 Last Admin: 02/25/18 21:58 Dose: 15 mg Ketorolac Tromethamine (Toradol) Confirm Administered Dose 15 mg .ROUTE .STK- MED ONE Stop: 02/25/18 21:29 Last Admin: 02/25/18 21:57 Dose: Not Given Lorazepam (Ativan) 1 mg PO NOW STA Stop: 02/26/18 01:52 Last Admin: 02/26/18 02:25 Dose: 1 mg Medical Decision Making Differential Diagnosis Differential diagnosis: Etiologies such as infections, reactive airway disease, pneumonia, pneumothorax , COPD, CHF, cardiac ischemia, pulmonary embolism, musculoskeletal, gastrointestinal, as well as others were entertained. Medical Records Attestation: I reviewed the patient's medical records. Home Medications Current Medication List: was personally reviewed by me Laboratory Data Attestation: I reviewed the patient's lab results. Result diagrams: 02/26/18 05:11 02/26/18 05:11 Lab Results 02/25/18 02/25/18 02/25/18 Range/Units 16:46 16:46 16:46 WBC 16.86 H (4.8-10.8) K/uL RBC 4.92 (4.2-5.4) M/uL Hgb 14.0 (12.0-16.0) g/dL Hct 41.3 (37-47) % MCV 83.9 (80-100) fL MCH 28.5 (25-34) pg MCHC 33.9 (32-36) g/dL RDW Std Deviation 44.2 (36.4-46.3) fL RDW Coeff of Papa 14.4 (11.5-14.5) % Plt Count 250 (130-400) K/uL MPV 13.2 H (7.4-10.4) fL Immature Gran % (Auto) 0.4 % Neut % (Auto) 82.5 % Lymph % (Auto) 9.4 % [place] % (Auto) 7.6 % Eos % (Auto) 0.0 % Baso % (Auto) 0.1 % Immature Gran # (Auto) 0.06 H (0.00-0.02) K/uL Neut # (Auto) 13.91 H (1.4-6.5) K/uL Lymph # (Auto) 1.59 (1.2-3.4) K/uL [place] # (Auto) 1.28 H (0.11-0.59) K/uL Eos # (Auto) 0.00 (0-0.5) K/uL Baso # (Auto) 0.02 (0-0.2) K/uL VBG pH 7.39 (7.36-7.41) VBG pCO2 47 (38-50) mmHg VBG pO2 46 mmHg VBG HCO3 28 mmol/L VBG O2 Saturation 80.4 % VBG Base Excess 1.9 mEq/L Barometric Pressure 739.3 mm/Hg Sodium 134 L (136-145) mmol/L Potassium 4.2 (3.5-5.1) mmol/L Chloride 98 (98-107) mmol/L Carbon Dioxide 28 (21-32) mmol/L Anion Gap 8.0 (3-11) BUN 24 H (7-18) mg/dl Creatinine 1.34 H (0.6-1.2) mg/dl Est Cr Clr Drug Dosing 44.1 ml/min Est GFR ( Amer) 44.8 Est GFR (Non-Af Amer) 38.7 BUN/Creatinine Ratio 17.9 (10-20) Glucose 440 H* (70-99) mg/dl POC Glucose (70-99) Estimat Average Glucose mg/dl Hemoglobin A1c (4.5-5.6) % Calcium 8.8 (8.5-10.1) mg/dl Phosphorus 3.0 (2.5-4.9) mg/dl Magnesium 1.7 L (1.8-2.4) mg/dl Total Bilirubin 0.5 (0.1-1) mg/dl AST 26 (15-37) U/L ALT 32 (12-78) U/L Alkaline Phosphatase 107 (45-117) U/L Troponin I < 0.015 (0-0.045) ng/ml NT-Pro-B Natriuret Pep 494 (0-900) pg/ml Total Protein 6.9 (6.4-8.2) gm/dl Albumin 3.2 L (3.4-5.0) gm/dl Globulin 3.7 (2.5-4.0) gm/dl Albumin/Globulin Ratio 0.9 (0.9-2) Triglycerides (0-150) mg/dl Cholesterol (0-200) mg/dl LDL Cholesterol, Calc mg/dl VLDL Cholesterol, Calc mg/dl HDL Cholesterol mg/dl Cholesterol/HDL Ratio Lipase 173 (73-393) U/L Beta-Hydroxybutyric Acd 1.08 (0.2-2.81) mg/dl Influenza Type A (PCR) (Neg) Influenza Type B (PCR) (Neg) 02/25/18 02/25/18 02/25/18 Range/Units 16:57 19:34 22:06 WBC (4.8-10.8) K/uL RBC (4.2-5.4) M/uL Hgb (12.0-16.0) g/dL Hct (37-47) % MCV (80-100) fL MCH (25-34) pg MCHC (32-36) g/dL RDW Std Deviation (36.4-46.3) fL RDW Coeff of Papa (11.5-14.5) % Plt Count (130-400) K/uL MPV (7.4-10.4) fL Immature Gran % (Auto) % Neut % (Auto) % Lymph % (Auto) % [place] % (Auto) % Eos % (Auto) % Baso % (Auto) % Immature Gran # (Auto) (0.00-0.02) K/uL Neut # (Auto) (1.4-6.5) K/uL Lymph # (Auto) (1.2-3.4) K/uL [place] # (Auto) (0.11-0.59) K/uL Eos # (Auto) (0-0.5) K/uL Baso # (Auto) (0-0.2) K/uL VBG pH (7.36-7.41) VBG pCO2 (38-50) mmHg VBG pO2 mmHg VBG HCO3 mmol/L VBG O2 Saturation % VBG Base Excess mEq/L Barometric Pressure mm/Hg Sodium (136-145) mmol/L Potassium (3.5-5.1) mmol/L Chloride (98-107) mmol/L Carbon Dioxide (21-32) mmol/L Anion Gap (3-11) BUN (7-18) mg/dl Creatinine (0.6-1.2) mg/dl Est Cr Clr Drug Dosing ml/min Est GFR ( Amer) Est GFR (Non-Af Amer) BUN/Creatinine Ratio (10-20) Glucose (70-99) mg/dl POC Glucose 347 H 279 H (70-99) Estimat Average Glucose mg/dl Hemoglobin A1c (4.5-5.6) % Calcium (8.5-10.1) mg/dl Phosphorus (2.5-4.9) mg/dl Magnesium (1.8-2.4) mg/dl Total Bilirubin (0.1-1) mg/dl AST (15-37) U/L ALT (12-78) U/L Alkaline Phosphatase (45-117) U/L Troponin I (0-0.045) ng/ml NT-Pro-B Natriuret Pep (0-900) pg/ml Total Protein (6.4-8.2) gm/dl Albumin (3.4-5.0) gm/dl Globulin (2.5-4.0) gm/dl Albumin/Globulin Ratio (0.9-2) Triglycerides (0-150) mg/dl Cholesterol (0-200) mg/dl LDL Cholesterol, Calc mg/dl VLDL Cholesterol, Calc mg/dl HDL Cholesterol mg/dl Cholesterol/HDL Ratio Lipase (73-393) U/L Beta-Hydroxybutyric Acd (0.2-2.81) mg/dl Influenza Type A (PCR) Neg for Influ A (Neg) Influenza Type B (PCR) Neg for Influ B (Neg) 02/26/18 02/26/18 02/26/18 Range/Units 00:08 00:47 02:20 WBC (4.8-10.8) K/uL RBC (4.2-5.4) M/uL Hgb (12.0-16.0) g/dL Hct (37-47) % MCV (80-100) fL MCH (25-34) pg MCHC (32-36) g/dL RDW Std Deviation (36.4-46.3) fL RDW Coeff of Papa (11.5-14.5) % Plt Count (130-400) K/uL MPV (7.4-10.4) fL Immature Gran % (Auto) % Neut % (Auto) % Lymph % (Auto) % [place] % (Auto) % Eos % (Auto) % Baso % (Auto) % Immature Gran # (Auto) (0.00-0.02) K/uL Neut # (Auto) (1.4-6.5) K/uL Lymph # (Auto) (1.2-3.4) K/uL [place] # (Auto) (0.11-0.59) K/uL Eos # (Auto) (0-0.5) K/uL Baso # (Auto) (0-0.2) K/uL VBG pH (7.36-7.41) VBG pCO2 (38-50) mmHg VBG pO2 mmHg VBG HCO3 mmol/L VBG O2 Saturation % VBG Base Excess mEq/L Barometric Pressure mm/Hg Sodium (136-145) mmol/L Potassium (3.5-5.1) mmol/L Chloride (98-107) mmol/L Carbon Dioxide (21-32) mmol/L Anion Gap (3-11) BUN (7-18) mg/dl Creatinine (0.6-1.2) mg/dl Est Cr Clr Drug Dosing ml/min Est GFR ( Amer) Est GFR (Non-Af Amer) BUN/Creatinine Ratio (10-20) Glucose (70-99) mg/dl POC Glucose 221 H 244 H (70-99) Estimat Average Glucose mg/dl Hemoglobin A1c (4.5-5.6) % Calcium (8.5-10.1) mg/dl Phosphorus (2.5-4.9) mg/dl Magnesium (1.8-2.4) mg/dl Total Bilirubin (0.1-1) mg/dl AST (15-37) U/L ALT (12-78) U/L Alkaline Phosphatase (45-117) U/L Troponin I 0.059 H* (0-0.045) ng/ml NT-Pro-B Natriuret Pep (0-900) pg/ml Total Protein (6.4-8.2) gm/dl Albumin (3.4-5.0) gm/dl Globulin (2.5-4.0) gm/dl Albumin/Globulin Ratio (0.9-2) Triglycerides (0-150) mg/dl Cholesterol (0-200) mg/dl LDL Cholesterol, Calc mg/dl VLDL Cholesterol, Calc mg/dl HDL Cholesterol mg/dl Cholesterol/HDL Ratio Lipase (73-393) U/L Beta-Hydroxybutyric Acd (0.2-2.81) mg/dl Influenza Type A (PCR) (Neg) Influenza Type B (PCR) (Neg) 02/26/18 02/26/18 02/26/18 Range/Units 05:11 05:11 05:11 WBC 17.26 H (4.8-10.8) K/uL RBC 4.63 (4.2-5.4) M/uL Hgb 13.2 (12.0-16.0) g/dL Hct 39.0 (37-47) % MCV 84.2 (80-100) fL MCH 28.5 (25-34) pg MCHC 33.8 (32-36) g/dL RDW Std Deviation 44.7 (36.4-46.3) fL RDW Coeff of Papa 14.4 (11.5-14.5) % Plt Count 218 (130-400) K/uL MPV 12.2 H (7.4-10.4) fL Immature Gran % (Auto) 0.3 % Neut % (Auto) 77.1 % Lymph % (Auto) 14.5 % [place] % (Auto) 7.7 % Eos % (Auto) 0.2 % Baso % (Auto) 0.2 % Immature Gran # (Auto) 0.06 H (0.00-0.02) K/uL Neut # (Auto) 13.29 H (1.4-6.5) K/uL Lymph # (Auto) 2.51 (1.2-3.4) K/uL [place] # (Auto) 1.33 H (0.11-0.59) K/uL Eos # (Auto) 0.04 (0-0.5) K/uL Baso # (Auto) 0.03 (0-0.2) K/uL VBG pH (7.36-7.41) VBG pCO2 (38-50) mmHg VBG pO2 mmHg VBG HCO3 mmol/L VBG O2 Saturation % VBG Base Excess mEq/L Barometric Pressure mm/Hg Sodium 136 (136-145) mmol/L Potassium 3.9 (3.5-5.1) mmol/L Chloride 100 (98-107) mmol/L Carbon Dioxide 32 (21-32) mmol/L Anion Gap 4.0 (3-11) BUN 26 H (7-18) mg/dl Creatinine 1.10 (0.6-1.2) mg/dl Est Cr Clr Drug Dosing 52.1 ml/min Est GFR ( Amer) 56.9 Est GFR (Non-Af Amer) 49.1 BUN/Creatinine Ratio 23.5 H (10-20) Glucose 223 H (70-99) mg/dl POC Glucose (70-99) Estimat Average Glucose 206 mg/dl Hemoglobin A1c 8.8 H (4.5-5.6) % Calcium 8.3 L (8.5-10.1) mg/dl Phosphorus (2.5-4.9) mg/dl Magnesium 1.9 (1.8-2.4) mg/dl Total Bilirubin (0.1-1) mg/dl AST (15-37) U/L ALT (12-78) U/L Alkaline Phosphatase (45-117) U/L Troponin I 0.053 H* (0-0.045) ng/ml NT-Pro-B Natriuret Pep (0-900) pg/ml Total Protein (6.4-8.2) gm/dl Albumin (3.4-5.0) gm/dl Globulin (2.5-4.0) gm/dl Albumin/Globulin Ratio (0.9-2) Triglycerides 67 (0-150) mg/dl Cholesterol 170 (0-200) mg/dl LDL Cholesterol, Calc 71 mg/dl VLDL Cholesterol, Calc 13 mg/dl HDL Cholesterol 86 mg/dl Cholesterol/HDL Ratio 2 Lipase (73-393) U/L Beta-Hydroxybutyric Acd (0.2-2.81) mg/dl Influenza Type A (PCR) (Neg) Influenza Type B (PCR) (Neg) Imaging Data Radiologist's Impression: Radiology results as stated below per my review and the radiologist's interpretation: XR chest 1V portable HISTORY: 77 years-old Female Chest Pain acute atypical chest pain COMPARISON: Chest radiograph 01/10/2017 TECHNIQUE: Portable AP view of the chest FINDINGS: Cardiac silhouette is enlarged, unchanged. No pneumothorax, pleural effusion, focal airspace consolidation or overt pulmonary edema. Degenerative changes of the shoulders and spine. IMPRESSION: No acute process. The above report was generated using voice recognition software. It may contain grammatical, syntax or spelling errors. Electronically signed by: Silverio Tao M.D. 02/25/2018 5:00 PM ECG Data Attestation: I personally reviewed and interpreted this ECG as follows: Indication: SOB/dyspnea Rate (beats per minute): 84 Rhythm: normal sinus Findings: + other (normal axis); no acute ischemic change Prescription Drug Monitoring Prescription Drug Findings: Radiology results as stated below per my review and the radiologist's interpretation: XR chest 1V portable HISTORY: 77 years-old Female Chest Pain acute atypical chest pain COMPARISON: Chest radiograph 01/10/2017 TECHNIQUE: Portable AP view of the chest FINDINGS: Cardiac silhouette is enlarged, unchanged. No pneumothorax, pleural effusion, focal airspace consolidation or overt pulmonary edema. Degenerative changes of the shoulders and spine. IMPRESSION: No acute process. The above report was generated using voice recognition software. It may contain grammatical, syntax or spelling errors. Electronically signed by: Silverio Tao M.D. 02/25/2018 5:00 PM Blood Pressure Blood Pressure Findings: Normal blood pressure Blood Pressure Disposition: did not require urgent referral MDM Narrative The patient is a pleasant 77 y/o woman with a pmhx of asthma, HTN, depression, hypothyroidism who presents to the emergency department with CP and SOB per HPI. On arrival the patient is in NAD, AFVSS. On exam the patient has mild reproducible left anterior CW tenderness. EKG without evidence of acute ischemia. CXR negative for acute process. WBC 16, nonspecific. H/H and platelets wnl. VBG unremarkable. Chemistry without evidence of acidosis. However , Cr. 1.34 and glucose 400s. Troponin negative. Flu negative. Given patient's elevated glucose in additional to mildly increased creatinine. Sx likely related to dehydration in the setting of undiagnosed DM2. Considering findings in the setting of patient's sx, patient and family agreeable for admission. Case d/w Dr. Miles, [facility] hospitalist, who will evalute the patient for admission. Impression & Plan Acute kidney injury, Hyperglycemia Discharge Plan Visit Data *Final* Discharge Date/Time: 02/25/18 23:32 Chief Complaint: Cardiac Assessment Stated Complaint: CHEST TIGHTNESS, HOT, TROUBLE BREATHING ED Provider: Rene Roach Discharge Problem: Acute kidney injury, Hyperglycemia Patient Disposition: Admitted As Inpatient Discharge Instructions Interventions: ED Discharge Assessment Last Done: 02/25/18 23:32 The scribe's documentation has been prepared under my direction and personally reviewed by me in its entirety. I confirm that the note above accurately reflects all work, treatment, procedures, and medical decision making performed by me.
[2018-02-26] MEDS: INSULIN ASPART 100 UNITS/ML 3 ML PEN SC SCH ×4 (08:09→21:17)
[2018-02-26] MEDS ORDERED: dilTIAZem HCL 240 MG CAPCR PO SCH (09:00)
--- NOTE | 2018-02-26 09:09 | Pharmacy Report ---
Glycemic Control Consultation - Date of Service February 26, 2018 - Scope Scope: Glycemic Pharmacist consulted by Dr Miles on 02/26/18 for glycemic control and to write orders per [facility] inpatient glycemic control protocol - Objective Weight: 108 kg Accuchecks BSG (last 24hrs): 02/25/18 02/25/18 02/25/18 16:46 19:34 22:06 Glucose 440 H* POC Glucose 347 H 279 H 02/26/18 02/26/18 02/26/18 00:08 02:20 05:11 Glucose 223 H POC Glucose 221 H 244 H 02/26/18 07:40 Glucose POC Glucose 199 H Laboratory Data (last 24hrs): 02/25/18 02/26/18 16:46 05:11 Potassium 4.2 3.9 Carbon Dioxide 28 32 Anion Gap 8.0 4.0 Creatinine 1.34 H 1.10 Est Cr Clr Drug Dosing 44.1 52.1 Beta-Hydroxybutyric Acd 1.08 HbA1c: Hemoglobin A1c 8.8 % (4.5-5.6) H 02/26/18 05:11 - Recent Pertinent Medications Outpatient Anti-diabetic Regimen: * n/a * A1c = 8.8 % 02/26/18 * Recent R knee steroid injection - Assessment & Plan Assessment & Plan: ASSESSMENT: * 77 yr old female with reported "borderline diabetes" admitted for chest pain. * A1c drawn on admission was 8.8% - meets criteria for diagnosis of diabetes. This is increased from 7.6% in September of this year. Of note, Glory did receive a steroid injection in her right knee this week which is likely contributing to severe hyperglycemia. BSG of 440 mg/dL at time of arrival. Patient reports poor dietary choices over the holidays. * Glory was given a one time dose of Lantus 10 units late last evening and was started on Novolog per correction factor and carb ratio. BSGs trending are trending downward. Fasting BSG of 199 mg/dL. * Changes made to insulin regimen today: * tightened correction factor and carb ratio based on weight/stress 2 * extra 5 units of Lantus given this morning, then dose per scale BID until insulin needs are better established PLAN FOR INPATIENT GLYCEMIC CONTROL: * Basal insulin * Lantus 5 units SQ this AM (received 10 units @0220), then per scale BID * 0 units for BSG less than 120 mg/dL * 10 units for BSG 120-180 mg/dL * 15 units for BSG greater than 180 mg/dL * Bolus insulin * NovoLog per scale ACHS or Q6hrs while NPO * Goal Range: Low 110 mg/dL - High 140 mg/dL * Correction Factor: 20 mg/dL/unit * Nutritional / Prandial insulin per carb ratio of 1 unit per 7 grams CHO consumed Thank you.
[2018-02-26] MEDS: ASPIRIN 81 MG ECTAB PO SCH (09:22)
[2018-02-26] MEDS: LOSARTAN POTASSIUM 50 MG TAB PO SCH (09:23)
[2018-02-26] MEDS: CYANOCOBALAMIN 500 MCG TABLET (VITAMIN B-12) PO SCH (09:23)
--- NOTE | 2018-02-26 12:32 | Consultation Report ---
DATE OF CONSULTATION: 02/26/2018 CARDIOLOGY CONSULTATION REFERRING PHYSICIAN: Dr. Miles. INDICATION: Elevated troponin. HISTORY OF PRESENT ILLNESS: The patient is a 77-year-old female with past history of osteoporosis, hypothyroidism, hypertension, chronic stage III renal insufficiency and borderline hyperglycemia. His recent history is notable for elevated blood pressures at last clinic examination on 02/17 with change in medications, specifically metoprolol was discontinued and patient was begun on diltiazem. Since that time, she is also continuing with complaints of difficulty with chronic knee and leg pain. She saw orthopedics just 2 days prior to presentation, underwent a corticosteroid injection into the right knee. On the date of admission, patient felt breathless, hot in her face, nauseated and subsequently was brought to the Emergency Room for symptoms and concerns. On presentation, glucoses were significantly elevated as were blood pressures. She denies any prior history of cardiac disease. Notes no syncope or near syncope. Notes no fevers, chills or productive cough. Has had chronic ongoing pain and swelling of her right lower extremity. Notes she is planning to undergo arterial vascular evaluation of the lower extremity later this week. She notes no history of rheumatic fever, scarlet fever, renal or hepatic disease. Other than as noted, notes no melena, hematochezia, dysuria or hematuria. Notes no rash or skin lesion. ALLERGIES: MULTIPLE, INCLUDE SHELLFISH, WASP VENOM, JACK INHIBITORS, AMLODIPINE, CLARITHROMYCIN, GABAPENTIN, INDERAL, IODINE AND SULFA. MEDICATIONS PRIOR TO HOSPITALIZATION: Diltiazem CD 240 mg p.o. daily, losartan 100 mg p.o. daily, levothyroxine 175 mcg p.o. daily, omeprazole 20 mg p.o. daily, Cymbalta 30 mg b.i.d., Fosamax 70 mg p.o. weekly, tramadol 50 mg q.6 hours, Wellbutrin 150 mg b.i.d., Lasix 40 mg p.o. daily, Enablex 7.5 mg p.o. daily, vitamin B12 500 mcg p.o. daily, epinephrine injection p.r.n. allergy, aspirin 81 mg per day. PAST SURGICAL HISTORY: Notable for remote hysterectomy, lipoma resection. FAMILY HISTORY: Positive for heart disease in uncle and cousins. SOCIAL HISTORY: The patient is a nonsmoker, nondrinker. She is sedentary about her home. PHYSICAL EXAMINATION: GENERAL: The patient is an obese, age-appropriate female, currently denying any acute distress other than hunger. VITAL SIGNS: Heart rate 76, blood pressure is 149/72. HEENT: Normocephalic and atraumatic. Nares without discharge. Throat was thick. NECK: There is no distinct jugular venous distention. There are no carotid bruits audible. LUNGS: Revealed mildly diminished breath sounds but no rhonchi, rale or wheeze. CARDIOVASCULAR: Regular with normal S1, S2. There is no murmur, gallop or rub. PMI is nondisplaced. ABDOMEN: Obese, soft, nontender. EXTREMITIES: Without cyanosis or clubbing. There are chronic stasis changes of the lower extremities with palpable pulses. There is no palpable cord or Homans sign. NEUROLOGIC: The patient is answering the questions appropriately. DATA: EKG on presentation revealed sinus rhythm, rate of 84, nonspecific ST segment changes, isolated Q-wave in lead III. EKG this morning demonstrates once again isolated Q-wave in lead III. There was no evolution of ST segment changes or progression. Echocardiogram demonstrates left ventricular hypertrophy and preserved LV systolic function on preliminary review. LABORATORY DATA: White cell count 17.2, hemoglobin is 13.2, hematocrit is 39.0, platelet count 218. Sodium is 136, potassium 3.9, chloride is 100, bicarbonate is 32, BUN 26, creatinine is 1.1, glucose is 191. Magnesium is 1.9. Troponins since admission were notable for initial troponin of 0.015, repeat 0.05 and 0.05. BNP was normal. Lipids reveal , LDL of 71, HDL of 86, on no therapies. Albumin level is 3.2. TSH as an outpatient on 09/30/2017 was 2.5. IMPRESSION AND PLAN: A 77-year-old female presents with acute episodes of flushing, nausea, facial and chest pressure in the setting of markedly elevated glucoses status post corticosteroid injection. Troponins are minimally elevated but no evidence of acute evolution by EKG and normal wall motion on echocardiogram. We will assess the patient's troponins with dobutamine stress echocardiogram as blood sugars and blood pressures come under better control, anticipate probably in the morning. The patient is agreeable to plan. Will follow antihypertensive regimen. Recent change from metoprolol to diltiazem noted. With complaints of worsening edema, will resume beta uma and discontinue diltiazem. We will follow her in the hospital. MONA
--- NOTE | 2018-02-26 17:20 | Hospitalist Progress Note ---
Date of Service February 26, 2018 Assessment & Plan (1) Chest pain: Patient is a very poor historian, presented with chest heaviness, associated with panic attack Symptom has resolved Only have localized chest wall tenderness, reproducible Minimally active at baseline, Mentions did not experience any dyspnea on exertion or orthopnea Mild elevation of troponin noted Cardiology eval requested, appreciate input Patient will have dobutamine stress test Blood sugar needs to be adequately controlled prior to cardiac stress test Present on Admission?: Yes (2) Type 2 diabetes mellitus: Does not follow dietary discretion diabetic diet/ Has been eating sweets, ice creams, cake for the holidays Like to have ice cream before going to sleep, as it helps her with upset stomach presented with hyperglycemia Also had right knee steroid injection on 02/24/2018 Hemoglobin A1c 8.8 reflecting poor glycemic management patient is counseled for Diabetic diet visual educator and dietitian consulted Pharmacy consulted for glycemic management Appreciate input Patient is started with basal Lantus, insulin sliding scale (3) Hyperglycemia: Due to above blood sugar improved after Utilizing basal Lantus and insulin sliding scale Continue to monitor (4) Acute kidney injury: Due to hyperglycemia, poorly controlled diabetes Baseline CKD stage III Renal function improved with IV fluid Avoid NSAIDs (5) Hypothyroidism: (6) HTN (hypertension): Cardizem discontinued secondary to lower extremity edema (7) Depression: On SSRI Disposition Lives at home with , has limited mobility, mentions of episode of fall PT OT evaluation requested (8) CKD (chronic kidney disease) stage 3, GFR 30-59 ml/min: Subjective Patient has multiple complaints, Chest wall hurts, Feels very tired, sleepy Food does not taste good Right knee still hurts after getting steroid shot Worried about poor circulation of her lower extremity No complaint of shortness of breath, no cough, no fever chills Physical Exam 2 Vital Signs (Past 24 Hours): Last Vital Signs Temp 36.6 C 02/26/18 15:11 Pulse 77 02/26/18 15:11 Resp 16 02/26/18 15:11 BP 156/70 H 02/26/18 15:11 Pulse Ox 94 02/26/18 15:11 Constitutional: WD/WN, vitals as above + obese Eyes: PERRL, conjunctivae normal, anicteric sclerae ENMT: external ear and nose normal, oropharynx normal Neck: trachea midline, no thyromegaly Respiratory: normal respiratory effort, lungs clear to auscultation Cardiovascular: Rate/Rhythm: regular rate Extremities: normal capillary refill, + pedal edema and + edema (+2 EDEMA ) Musculoskeletal: no cyanosis or clubbing, extremities motor strength 5/5 ( Chest wall tenderness) Head/Neck/Chest: + chest tenderness Skin: no rashes, warm and dry Neurologic: PERRL, EOMI, accommodation nl, no face palsy, no dysarthria Psychiatric: A+Ox3, euthymic affect _ (1) Type 2 diabetes mellitus Chronic kidney disease stage: stage 3 (moderate) Diabetes mellitus complication detail: with chronic kidney disease Diabetes mellitus complication status: with kidney complications Diabetes mellitus manager intermediate insulin use: without shelter use Qualified Code(s): E11.22 - Type 2 diabetes mellitus with diabetic chronic kidney disease; N18.3 - Chronic kidney disease, stage 3 (moderate) (2) Depression Depression Type: unspecified Qualified Code(s): F32.9 - Major depressive disorder, single episode, unspecified (3) Hypothyroidism Hypothyroidism type: unspecified Qualified Code(s): E03.9 - Hypothyroidism, unspecified (4) Chest pain Chest pain type: unspecified Qualified Code(s): R07.9 - Chest pain, unspecified (5) HTN (hypertension) Hypertension type: unspecified Qualified Code(s): I10 - Essential (primary) hypertension
[2018-02-26] MEDS: INSULIN GLARGINE SOLOSTAR 100 UNITS/ML 3 ML PEN SC SCH (21:16)
[2018-02-27] MEDS: LEVOTHYROXINE SODIUM 175 MCG TABLET PO SCH (05:14)
[2018-02-27] MEDS: BuPROPion SR 150 MG TABCR PO SCH ×2 (07:42→21:00)
[2018-02-27] MEDS: LOSARTAN POTASSIUM 50 MG TAB PO SCH (07:42)
[2018-02-27] MEDS: DULOXETINE HCL 30 MG CAP PO SCH ×2 (07:42→21:00)
[2018-02-27] MEDS: METOPROLOL SUCC 25MG EXT REL TAB PO SCH (07:43)
[2018-02-27] MEDS: ASPIRIN 81 MG ECTAB PO SCH (07:43)
[2018-02-27] MEDS: CYANOCOBALAMIN 500 MCG TABLET (VITAMIN B-12) PO SCH (07:44)
[2018-02-27] MEDS: INSULIN ASPART 100 UNITS/ML 3 ML PEN SC SCH ×4 (07:48→21:02)
[2018-02-27] MEDS: INSULIN GLARGINE SOLOSTAR 100 UNITS/ML 3 ML PEN SC SCH ×2 (07:49→21:04)
--- NOTE | 2018-02-27 08:23 | Hospitalist Progress Note ---
Date of Service February 27, 2018 Assessment & Plan (1) Chest pain: Pt is poor historian, presented with chest heaviness, associated with panic attack symptoms Now only anterior chest tenderness with palpation. Denies SOB, orthopnea, palpitations Troponins: 0.059, 0.053, 0.049 EKG: Q waves III, no other acute ST changes noted Cardiology consulted - diltiazem discontinued and metoprolol restarted dobutamine stress test negative for ishcemia (2) Type 2 diabetes mellitus: (3) Hyperglycemia: Does not follow dietary discretion diabetic diet. Had been eating sweets, ice creams, cake for the holidays Had right knee steroid injection 02/24/2018 HA1c 8.8 reflecting poor glycemic management Diabetic diet museum educator and dietitian consulted Pharmacy consulted for glycemic management and managing with basal Lantus, Novolog insulin sliding scale BSGs improved with fasting BSG of 126 this am (4) CKD (chronic kidney disease) stage 3, GFR 30-59 ml/min: (5) Acute kidney injury: Due to hyperglycemia, poorly controlled diabetes Baseline CKD stage III Renal function improve with IV fluid Avoid NSAIDs (6) Hypothyroidism: Continue levothyroxine (7) HTN (hypertension): Diltiazem discontinued and metoprolol restarted Continue losartan (8) Depression: Pt with anxiety symptoms also Continue bupropion, duloxetine Disposition Lives at home with , has limited mobility, mentions of episode of fall PT OT evaluation requested Anticipated discharge tomorrow Supervising Physician Co-Signing Physician Notes ATTENDING ADDENDUM : no complain of chest pain dobutamine stress test negative pt continues to worry about blood sugar wants to avoid insulin if possible appreciate pharmacy input for glycemic management PT/OT for concern of baseline ambulatory dysfunction Annemarie Lang MD Subjective F/U CP Pt seen and examined, lying in bed. States only has discomfort to left anterior chest with palpation of area. She states since its early in morning she "doesn't have too many complaints yet". Still with some right knee discomfort. Denies fever/chills, N/V/D, SIMONS, dizziness, SOB, orthopnea, palpitations, abdominal pain, s/p Dobutamine stress test negative for stress induced ischemia Physical Exam 2 Vital Signs (Past 24 Hours): Last Vital Signs Temp 36.8 C 02/27/18 07:55 Pulse 76 02/27/18 07:55 Resp 18 02/27/18 07:55 BP 134/69 02/27/18 07:55 Pulse Ox 96 02/27/18 07:55 Physical Exam: General: no distress, obese Head: normocephalic, atraumatic Eyes: conjunctiva non-injected, anicteric ENT: normal inspection external ears, nose, mucous membranes moist Neck: supple, trachea midline, non-tender Lungs: clear, no respiratory distress Chest: +tenderness to left anterior chest to palpation, no rashes noted CV: RRR, no murmur Abd: normal BS, soft, non-tender Ext: no cyanosis, no calf tenderness, no erythema, distal pulses palpable Neuro: A&O x 3, no focal deficits noted, anxious affect Skin: warm, dry _ (1) Type 2 diabetes mellitus Chronic kidney disease stage: stage 3 (moderate) Diabetes mellitus complication detail: with chronic kidney disease Diabetes mellitus complication status: with kidney complications Diabetes mellitus halfway insulin use: without computer terminal operator use Diabetes mellitus macular edema: Diabetic retinopathy severity: Laterality: Proliferative retinopathy type: Qualified Code(s): E11.22 - Type 2 diabetes mellitus with diabetic chronic kidney disease; N18.3 - Chronic kidney disease, stage 3 (moderate) (2) Depression Active/Remission status: Depression Type: unspecified Major depression episode severity: Major depression recurrence: Psychotic features: Trimester: Qualified Code(s): F32.9 - Major depressive disorder, single episode, unspecified (3) Hypothyroidism Hypothyroidism type: unspecified Qualified Code(s): E03.9 - Hypothyroidism, unspecified (4) Chest pain Chest pain type: unspecified Ischemic chest pain type: Qualified Code(s): R07.9 - Chest pain, unspecified (5) HTN (hypertension) Hypertension type: unspecified Qualified Code(s): I10 - Essential (primary) hypertension
[2018-02-27] MEDS ORDERED: DOBUTamine HCL 12.5 MG/ML 20 ML VIAL IV ONE (09:03)
[2018-02-27] MEDS ORDERED: METOPROLOL TARTRATE 1 MG/ML VIAL IV ONE ×2 (09:04)
[2018-02-27] MEDS ORDERED: ATROPINE SULFATE 0.1 MG/ML 10ML SYR IV ONE ×2 (09:04→09:05)
--- NOTE | 2018-02-27 09:47 | Pharmacy Report ---
Pharmacy Glycemic Short Note 2 - Date of Service February 27, 2018 - Glycemic Short BSG Results (Last 24 hours): 02/26/18 02/26/18 02/26/18 11:21 16:22 20:28 POC Glucose 191 H 137 H 182 H 02/27/18 02/27/18 01:22 07:34 POC Glucose 123 H 126 H OUTPATIENT ANTIDIABETIC REGIMEN: * n/a * A1c = 8.8 % 02/26/18 * Recent R knee steroid injection ASSESSMENT: * 77 yr old female with reported "borderline diabetes" admitted for chest pain. * A1c drawn on admission was 8.8% - meets criteria for diagnosis of diabetes. This is increased from 7.6% in September of this year. Of note, Glory did receive a steroid injection in her right knee this week which likely contributed to severe hyperglycemia at time of admission. Patient also reports poor dietary choices over the holidays. * Glory was made NPO for possible dobutamine stress test today. * Fasting BSG of 126 mg/dL is at goal. Will continue current Lantus scale. I suspect she will require around 25 units of basal insulin per day. * Post prandial BSGs are acceptable. Continue current Novolog CF and CR. PLAN FOR INPATIENT GLYCEMIC CONTROL: * Hold outpatient oral diabetes medications * Basal insulin * Lantus per scale BID * 0 units for BSG less than 120 mg/dL * 10 units for BSG 120-180 mg/dL * 15 units for BSG greater than 180 mg/dL * Bolus insulin * NovoLog per scale ACHS or Q6hrs while NPO * Goal Range: Low 110 mg/dL - High 140 mg/dL * Correction Factor: 20 mg/dL/unit * Nutritional / Prandial insulin per carb ratio of 1 unit per 7 grams CHO consumed PLAN FOR DISCHARGE: A1c of 8.8% indicates poor outpatient glycemic control Recommend dietary modifications and initiation of oral anti-diabetic agents * Metformin + glipizide or Exenatide ER (based on insurance coverage) * Initiate metformin ER at 500 mg daily at dinner - may increase by 500 mg per week as tolerated up to 1000 mg PO BID with meals Exenatide ER (Bydureon ER) * Benefits: weight loss, once weekly dosing, improved cardiovascular outcomes * Recommend checking insurance coverage - can be costly * Dose: 2 mg SQ once every 7 days * Cautious use in patients with CrCl 30-50 ml/min due to accumulation of drug - these patients should be monitoring more closely Glipizide * Benefits: low cost * Potential for hypoglycemia * Dose: 2.5 mg PO daily 30 minutes before breakfast Thank you.
--- NOTE | 2018-02-27 10:29 | Cardiology Progress Note ---
Date of Service February 27, 2018 Assessment & Plan (1) Elevated troponin: Pattern not consistent with acute myocardial ischemia or injury. Resting echocardiogram and stress echocardiogram revealed normal LV systolic function and no evidence of ischemia Would recommend treating hypertension, hyperglycemia As previously ordered discontinue diltiazem resume Toprol-XL 75 mg/day ( increased dose) Clarification patient not using furosemide at home Losartan recently changed to 100 mg / 25 mg hydrochlorothiazide would continue Add felodipine 2.5 mg/day (2) HTN (hypertension): As noted above under chest discomfort elevated troponin medications adjusted. Recommend follow-up with primary care physician closely (3) Hyperglycemia: Diabetic teaching ordered Subjective Examined chart medications telemetry reviewed. Patient had no cardiac complaints, chest discomfort or shortness of breath dizziness or lightheadedness overnight. Overall is feeling improved. Notes no fevers chills unexplained infections. Denies facial flushing. Blood sugars coming under better control. Physical Exam 2 Vital Signs (Past 24 Hours): Last Vital Signs Temp 36.8 C 02/27/18 07:55 Pulse 76 02/27/18 07:55 Resp 18 02/27/18 07:55 BP 134/69 02/27/18 07:55 Pulse Ox 96 02/27/18 07:55 Constitutional: + obese; no acute distress ENMT: external ear and nose normal, oropharynx normal Neck: + thick neck Respiratory: normal respiratory effort, lungs clear to auscultation Cardiovascular: RRR, no murmur, no edema Vessels: radial pulses present Extremities: no pedal edema Gastrointestinal (Abdomen): Percussion/Palpation: abdomen soft; abdomen nontender Musculoskeletal: Right knee without erythema Skin: no rashes, warm and dry Results & Data Laboratory Results Laboratory Results - last 24 hr 02/26/18 02/26/18 02/26/18 11:21 12:19 16:22 POC Glucose 191 H 137 H Troponin I 0.049 H* 02/26/18 02/27/18 02/27/18 20:28 01:22 07:34 POC Glucose 182 H 123 H 126 H Troponin I Diagnostic Findings Dobutamine stress echocardiography: Normal heart rate blood pressure response. No cardiac symptoms. No stress-induced EKG changes with normal resting and stress LV function. No significant valvular disease _ (1) HTN (hypertension) Hypertension type: unspecified Qualified Code(s): I10 - Essential (primary) hypertension
[2018-02-27] MEDS: ACETAMINOPHEN 325 MG TAB PO PRN (19:47)
[2018-02-28] MEDS: HydrALAZINE 10 MG TAB PO PRN ×2 (00:08→05:50)
[2018-02-28 05:41] LABS: Basophils # (auto) 0.06 K/uL (0-0.2); Basophils % (auto) 0.5 %; Eosinophils # (auto) 0.25 K/uL (0-0.5); Eosinophils % (auto) 2.2 %; Hemoglobin 13.3 g/dL (12.0-16.0); Immature Granulocytes # (auto) 0.03 K/uL (0.00-0.02); Immature Granulocytes % (auto) 0.3 %; Lymphocytes # (auto) 3.27 K/uL (1.2-3.4); Lymphocytes % (auto) 28.6 %; Mean Corpuscular Hgb Conc 33.3 g/dL (32-36); Mean Corpuscular Volume 84.4 fL (80-100); Mean Platelet Volume 12.1 fL (7.4-10.4); Monocytes # (auto) 1.11 K/uL (0.11-0.59); Monocytes % (auto) 9.7 %; Neutrophils # (auto) 6.71 K/uL (1.4-6.5); Neutrophils % (auto) 58.7 %; Platelet Count 184 K/uL (130-400); RDW Coefficient of Variation 14.4 % (11.5-14.5); RDW Standard Deviation 44.8 fL (36.4-46.3); Red Blood Count 4.74 M/uL (4.2-5.4); White Blood Count 11.43 K/uL (4.8-10.8)
[2018-02-28] MEDS: LEVOTHYROXINE SODIUM 175 MCG TABLET PO SCH (05:49)
[2018-02-28 06:25] LABS: BUN Creatinine Ratio 16.5 (10-20); Calcium 8.9 mg/dl (8.5-10.1); Creatinine Clr Calc Pharmacy 60.2 ml/min; Est GFR (African American) 68.8; Est GFR (Non-African American) 59.3
[2018-02-28] MEDS: LOSARTAN POTASSIUM 50 MG TAB PO SCH (08:05)
[2018-02-28] MEDS: DULOXETINE HCL 30 MG CAP PO SCH ×2 (08:05→20:32)
[2018-02-28] MEDS: METOPROLOL SUCC 25MG EXT REL TAB PO SCH (08:06)
[2018-02-28] MEDS: ASPIRIN 81 MG ECTAB PO SCH (08:06)
[2018-02-28] MEDS: BuPROPion SR 150 MG TABCR PO SCH ×2 (08:06→21:18)
[2018-02-28] MEDS: CYANOCOBALAMIN 500 MCG TABLET (VITAMIN B-12) PO SCH (08:06)
[2018-02-28] MEDS: INSULIN GLARGINE SOLOSTAR 100 UNITS/ML 3 ML PEN SC SCH ×2 (08:07→20:34)
[2018-02-28] MEDS: INSULIN ASPART 100 UNITS/ML 3 ML PEN SC SCH ×4 (08:07→20:34)
--- NOTE | 2018-02-28 12:02 | Hospitalist Progress Note ---
Date of Service February 28, 2018 Assessment & Plan (1) Chest pain: Pt is poor historian, presented with chest heaviness, associated with panic attack symptoms Reproducible CP with palpation. Denies CP today. Denies SOB, orthopnea, palpitations Troponins: 0.059, 0.053, 0.049 EKG: Q waves III, no other acute ST changes noted Cardiology consulted - diltiazem discontinued and metoprolol succinate restarted and increased to 75mg daily Dobutamine stress test negative for ischemia (2) Type 2 diabetes mellitus: (3) Hyperglycemia: Does not follow diabetic diet Had right knee steroid injection on 02/24/2018. Increased eating of sugary foods over the holidays Hemoglobin A1c 8.8 reflecting poor glycemic management Diabetic diet special education paraeducator and dietitian consulted Pharmacy consulted for glycemic management Appreciate input Patient is started with basal Lantus, insulin sliding scale while in hospital with BSGs controlled Plan to start pt on metformin 500mg with evening meal upon discharge, which will need titrated (4) CKD (chronic kidney disease) stage 3, GFR 30-59 ml/min: (5) Acute kidney injury: Due to hyperglycemia, poorly controlled diabetes Baseline CKD stage III HELEN resolved, Renal function improve with IV fluid Avoid NSAIDs (6) HTN (hypertension): BP under better control. Did have high of SBP 176 early this morning. BP now 149/80 Diltiazem was discontinued metoprolol succinate was restarted and titrated to 75mg daily Continue losartan Monitor BP Today pt very anxious which may be elevating BP (7) Hypothyroidism: Continue levothyroxine (8) Headache: Today with SIMONS Acetaminophen prn Monitor (9) Depression: Depression and Anxiety Pt very anxious today with multiple stresses (daughter out of town, new medications, diagnosis hyperglycemia) Continue bupropion, duloxetine Disposition Pt not comfortable with discharge home today. Will monitor overnight. Anticipated discharge tomorrow Pt would benefit from home health, diabetic teaching. Pt seen with Dr Lang, see addendum. Supervising Physician Co-Signing Physician Notes Attending addendum: Patient seen and examined, care coordinated with Poonam Hester PA-C Patient's is very anxious, worried about her blood pressure was elevated last night, Wants to make sure she does not have a similar episode at home Very reluctant to start on metformin, after lengthy counseling patient is willing to give it a try Upset that we have been changing her medications which Dr. Manzo just adjusted Patient is counseled, her blood pressure medication dose increased by cardiology , secondary to hypertensive episodes She is scheduled to have a hospital follow-up with Dr. Manzo after hospital discharge Dr. Manzo will continue to follow up with her for the blood pressure management, Patient remains very anxious and apprehensive regarding her diabetes, does not believe she is truly diabetic Worried that she will not be able to use the glucometer correctly Nursing instructed to help patient with continued teaching, and allow her to have at least 1-2 back testing to be done, glucometer is at bedside given by certified diabetes educator Plan for possible discharge home tomorrow Patient's present at bedside, updated Annemarie Lang MD Subjective F/U CP Pt seen and examined, lying in bed. Denies CP today C/O SIMONS during night and this morning. Also c/o dizziness today. Pt very anxious and concerned that she had elevated BP reading during the night. She is concerned about her BP meds. Pt also anxious about elevated BSGs and being on medication She does not feel comfortable being discharged today and concerned that her daughter is out of town today. Expresses concern about knowing her medications, however does not want her medications discussed with her , wants to wait for her daughter. Denies fever/chills, N/V/D, SOB, orthopnea, palpitations, abdominal pain. Prolonged discussion and counseling with pt, as she is upset about dx hyperglycemia, being on medications for diabetes, BP meds, family being out of town. Physical Exam 2 Vital Signs (Past 24 Hours): Last Vital Signs Temp 36.7 C 02/28/18 07:59 Pulse 62 02/28/18 08:00 Resp 20 02/28/18 07:59 BP 149/80 H 02/28/18 07:59 Pulse Ox 93 02/28/18 10:17 Physical Exam: General: no distress, obese Head: normocephalic, atraumatic Eyes: conjunctiva non-injected, anicteric ENT: normal inspection external ears, nose, mucous membranes moist Neck: supple, trachea midline, non-tender Lungs: clear, no respiratory distress CV: RRR, no murmur, 1+pedal edema bilaterally Abd: normal BS, soft, non-tender Ext: no cyanosis, no calf tenderness, no erythema, distal pulses palpable Neuro: A&O x 3, no focal deficits noted, anxious affect Skin: warm, dry Results & Data Laboratory Results Short CBC 02/28/18 Range/Units 05:25 WBC 11.43 H (4.8-10.8) K/uL Hgb 13.3 (12.0-16.0) g/dL Hct 40.0 (37-47) % Plt Count 184 (130-400) K/uL BMP 02/28/18 05:25 Sodium 138 Potassium 4.0 Chloride 101 Carbon Dioxide 33 H BUN 15 Creatinine 0.94 Glucose 111 H Calcium 8.9 _ (1) Type 2 diabetes mellitus Chronic kidney disease stage: stage 3 (moderate) Diabetes mellitus complication detail: with chronic kidney disease Diabetes mellitus complication status: with kidney complications Diabetes mellitus prison insulin use: without prison use Diabetes mellitus macular edema: Diabetic retinopathy severity: Laterality: Proliferative retinopathy type: Qualified Code(s): E11.22 - Type 2 diabetes mellitus with diabetic chronic kidney disease; N18.3 - Chronic kidney disease, stage 3 (moderate) (2) Depression Active/Remission status: Depression Type: unspecified Major depression episode severity: Major depression recurrence: Psychotic features: Trimester: Qualified Code(s): F32.9 - Major depressive disorder, single episode, unspecified (3) Hypothyroidism Hypothyroidism type: unspecified Qualified Code(s): E03.9 - Hypothyroidism, unspecified (4) Chest pain Chest pain type: unspecified Ischemic chest pain type: Qualified Code(s): R07.9 - Chest pain, unspecified (5) HTN (hypertension) Hypertension type: unspecified Qualified Code(s): I10 - Essential (primary) hypertension
--- NOTE | 2018-02-28 12:26 | Pharmacy Report ---
Pharmacy Glycemic Short Note 2 - Date of Service February 28, 2018 - Glycemic Short BSG Results (Last 24 hours): 02/27/18 02/27/18 02/28/18 16:21 20:21 05:25 Glucose 111 H POC Glucose 103 H 120 H 02/28/18 02/28/18 07:35 11:10 Glucose POC Glucose 107 H 124 H ASSESSMENT: * BSGs over the previous 24hrs have been in fine order. [phone]/ dL. She required 25 units of insulin yesterday, 02/27/18. She is basal heavy. Will continue with standing insulin orders. PLAN FOR INPATIENT GLYCEMIC CONTROL: * Basal insulin * Lantus per scale BID * 0 units for BSG less than 120 mg/dL * 10 units for BSG 120-180 mg/dL * 15 units for BSG greater than 180 mg/dL * Bolus insulin * NovoLog per scale ACHS or Q6hrs while NPO * Goal Range: Low 110 mg/dL - High 140 mg/dL * Correction Factor: 20 mg/dL/unit * Nutritional / Prandial insulin per carb ratio of 1 unit per 7 grams CHO consumed PLAN FOR DISCHARGE: Please see d/c recs from 02/27/18 progress note Thank you.
[2018-03-01] MEDS: ACETAMINOPHEN 325 MG TAB PO PRN (03:22)
[2018-03-01] MEDS: LEVOTHYROXINE SODIUM 175 MCG TABLET PO SCH (06:40)
[2018-03-01] MEDS: BuPROPion SR 150 MG TABCR PO SCH (08:22)
[2018-03-01] MEDS: METOPROLOL SUCC 25MG EXT REL TAB PO SCH (08:22)
[2018-03-01] MEDS: LOSARTAN POTASSIUM 50 MG TAB PO SCH (08:22)
[2018-03-01] MEDS: CYANOCOBALAMIN 500 MCG TABLET (VITAMIN B-12) PO SCH (08:22)
[2018-03-01] MEDS: DULOXETINE HCL 30 MG CAP PO SCH (08:22)
[2018-03-01] MEDS: ASPIRIN 81 MG ECTAB PO SCH (08:23)
[2018-03-01] MEDS: INSULIN ASPART 100 UNITS/ML 3 ML PEN SC SCH ×2 (08:26→13:03)
[2018-03-01] MEDS: INSULIN GLARGINE SOLOSTAR 100 UNITS/ML 3 ML PEN SC SCH (08:29)
[2018-03-01 12:02] VITALS: O2SAT 92
[2018-03-01 15:42] VITALS: PULSE 62; TEMP 97.9
[2018-03-01 15:51] VITALS: BP 132/65
--- NOTE | 2018-03-01 17:51 | Hospitalist Progress Note ---
Date of Service March 01, 2018 Assessment & Plan (1) Chest pain: no further episode Pt is poor historian, presented with chest heaviness, associated with panic attack symptoms Reproducible CP with palpation. Denies CP today. Denies SOB, orthopnea, palpitations Troponins: 0.059, 0.053, 0.049 EKG: Q waves III, no other acute ST changes noted Cardiology consulted - diltiazem discontinued and metoprolol succinate restarted and increased to 75mg daily Dobutamine stress test negative for ischemia (2) Type 2 diabetes mellitus: Does not follow dietary discretion diabetic diet/ Has been eating sweets, ice creams, cake for the holidays Like to have ice cream before going to sleep, as it helps her with upset stomach presented with hyperglycemia Also had right knee steroid injection on 02/24/2018 Hemoglobin A1c 8.8 reflecting poor glycemic management patient is counseled for Diabetic diet telehealth nurse educator and dietitian consulted Pharmacy consulted for glycemic management Appreciate input Patient is started with basal Lantus, insulin sliding scale will be dischraged with PO Metfomin 500 mg daily , can be titrated up as out pt will benefit with diatetician and diabetic clinic referral pt is counselled for diabeteic management initally was reluctant to continue metformin after counselling willing to continue all her medications as instructed and will follow up with Dr Manzo her family physician for continued care (3) Hyperglycemia: Does not follow diabetic diet Had right knee steroid injection on 02/24/2018. Increased eating of sugary foods over the holidays Hemoglobin A1c 8.8 reflecting poor glycemic management Diabetic diet telehealth nurse educator and dietitian consulted Pharmacy consulted for glycemic management Appreciate input Patient is started with basal Lantus, insulin sliding scale while in hospital with BSGs controlled discharged metformin 500mg with evening meal upon discharge, which will need titrated Hospital follow up scheduled with family physician (4) CKD (chronic kidney disease) stage 3, GFR 30-59 ml/min: (5) Acute kidney injury: Due to hyperglycemia, poorly controlled diabetes Baseline CKD stage III HELEN resolved, Renal function improve with IV fluid Avoid NSAIDs (6) HTN (hypertension): BP stsable Diltiazem was discontinued metoprolol succinate was restarted and titrated to 75mg daily Continue losartan (7) Hypothyroidism: Continue levothyroxine (8) Headache: no further episode possible due to anxiety related (9) Depression: Depression and Anxiety Pt very anxious today with multiple stresses (daughter out of town, new medications, diagnosis hyperglycemia) Continue bupropion, duloxetine Disposition stable to be discharged home today Subjective BP remains stable glucometer blood sugar check teaching provided by Nursing pt is counselled for BSG monitoring Diabetes management feels much more comfortable stable to be discharged home today Physical Exam 2 Vital Signs (Past 24 Hours): Last Vital Signs Temp 36.6 C 03/01/18 15:48 Pulse 62 03/01/18 15:48 Resp 18 03/01/18 15:48 BP 132/65 03/01/18 15:48 Pulse Ox 92 03/01/18 15:48 Constitutional: WD/WN, vitals as above + obese Eyes: PERRL, conjunctivae normal, anicteric sclerae ENMT: external ear and nose normal, oropharynx normal Neck: trachea midline, no thyromegaly Respiratory: normal respiratory effort, lungs clear to auscultation Cardiovascular: Rate/Rhythm: regular rate Extremities: normal capillary refill, + pedal edema and + edema (+2 EDEMA ) Musculoskeletal: no cyanosis or clubbing, extremities motor strength 5/5 ( Chest wall tenderness) Head/Neck/Chest: + chest tenderness Skin: no rashes, warm and dry Neurologic: PERRL, EOMI, accommodation nl, no face palsy, no dysarthria Psychiatric: A+Ox3, euthymic affect _ (1) Type 2 diabetes mellitus Chronic kidney disease stage: stage 3 (moderate) Diabetes mellitus complication detail: with chronic kidney disease Diabetes mellitus complication status: with kidney complications Diabetes mellitus long-term insulin use: without terminal superintendent use Diabetes mellitus macular edema: Diabetic retinopathy severity: Laterality: Proliferative retinopathy type: Qualified Code(s): E11.22 - Type 2 diabetes mellitus with diabetic chronic kidney disease; N18.3 - Chronic kidney disease, stage 3 (moderate) (2) Depression Active/Remission status: Depression Type: unspecified Major depression episode severity: Major depression recurrence: Psychotic features: Trimester: Qualified Code(s): F32.9 - Major depressive disorder, single episode, unspecified (3) Hypothyroidism Hypothyroidism type: unspecified Qualified Code(s): E03.9 - Hypothyroidism, unspecified (4) Chest pain Chest pain type: unspecified Ischemic chest pain type: Qualified Code(s): R07.9 - Chest pain, unspecified (5) HTN (hypertension) Hypertension type: unspecified Qualified Code(s): I10 - Essential (primary) hypertension
--- NOTE | 2018-03-02 18:20 | Discharge Summary ---
Date of Service March 02, 2018 Admission HPI Per Admitting Provider DICTATED BY: Ze Miles MD DATE OF ADMISSION: 02/25/2018 CHIEF COMPLAINT: Chest pain, not feeling well. HISTORY OF PRESENT ILLNESS: This is a 77-year-old female with past medical history significant for osteoporosis, hypothyroidism, depression, panic disorder, vitamin B12 deficiency, hypertension, chronic kidney stage III, and also borderline diabetes presents with chest pain and not feeling well. The patient had a steroid shot to her right knee yesterday and also she was eating lot of sugars lately for the holidays and today she was feeling very hot, not feeling well. Has some chest pain and she thought she could not breathe for 20 minutes. The daughter was at bedside. Daughter thinks that the patient might have had a panic attack.In the ER, her sugars are running in 440s. Troponin was negative. Currently, patient says she still does not feel that great, feels dry and hot, and patient also keeps on talking and daughter thinks that she might be developing some memory issues. She lives with her . She walks without any help. Appetite is okay. Currently, she says there is no chest pain, but she does not know how she feels when she walks. No dizziness. Has some blurred vision since the last 2 weeks. No sore throat. She says occasionally she has difficulty swallowing. She was treated recently for bronchitis, but she still has some dry cough. No nausea, no vomiting, no abdominal pain. Normal bowel and bladder movements. Currently, resting comfortably and hemodynamically stable. ALLERGIES: SHELLFISH, WASP VENOM, JACK INHIBITORS, AMLODIPINE, CLARITHROMYCIN, GABAPENTIN, INDERAL, IODINE, AND SULFA ANTIBIOTICS. PAST MEDICAL HISTORY: As mentioned above. PAST SURGICAL HISTORY: Endoscopic ultrasound, excision of lipoma of the left thigh, hysterectomy. MEDICATIONS: The patient is on diltiazem CD 240 mg p.o. daily, losartan 100 mg p.o. daily, levothyroxine 175 mcg p.o. daily, omeprazole 20 mg p.o. daily, Cymbalta 30 mg p.o. b.i.d., Fosamax 70 mg p.o. weekly, tramadol 50 mg p.o. q. 6 hours p.r.n., Wellbutrin SR 150 mg p.o. b.i.d., Lasix 40 mg p.o. daily, Enablex 7.5 mg p.o. daily, vitamin B12 500 mcg p.o. daily, epinephrine injection as needed, aspirin 81 mg p.o. daily. FAMILY HISTORY: Significant for father had heart disorder and mother had stroke. SOCIAL HISTORY: , no smoking abuse, no alcohol use, no drug use. Admission Exam Per Admitting Provider REVIEW OF SYMPTOMS: As per HPI. Rest of the review of symptoms negative. PHYSICAL EXAMINATION: GENERAL: The patient is obese, not in acute distress. VITAL SIGNS: Temperature 36.8, pulse 78, respiratory rate 21, blood pressure 133/68, oxygen 93% on room air. HEENT: No pallor, no icterus. Pupils equal, round, and react to light. NECK: No JVD, no neck masses, no carotid bruits. CARDIOVASCULAR: S1, S2 heard, regular rate and rhythm, no murmur, no gallop. RESPIRATORY SYSTEM: Normal AP diameter. No accessory muscle use. No wheezing, no crackles. ABDOMEN: Soft, bowel sounds present. Nontender. No distention. CENTRAL NERVOUS SYSTEM: Cranial nerves II-XII grossly intact. Nonfocal. EXTREMITIES: No edema, no erythema. Principal Diagnosis Chest pain-non cardiac /Dobutamine stress test negative/type 2 diabetes/ Hypertension Discharge Exam Constitutional WD/WN, vitals as above + obese Eyes PERRL, conjunctivae normal, anicteric sclerae ENMT external ear and nose normal, oropharynx normal Neck trachea midline, no thyromegaly Respiratory normal respiratory effort, lungs clear to auscultation Cardiovascular Rate/Rhythm: regular rate Extremities: normal capillary refill, + pedal edema and + edema (+2 EDEMA ) Musculoskeletal no cyanosis or clubbing, extremities motor strength 5/5 (Chest wall tenderness) Head/Neck/Chest: + chest tenderness Skin no rashes, warm and dry Neurologic PERRL, EOMI, accommodation nl, no face palsy, no dysarthria Psychiatric A+Ox3, euthymic affect Discharge Data Allergies Allergy/AdvReac Type Severity Reaction Status Date / Time Sulfa (Sulfonamide Allergy Intermediate HIVES AND Verified 02/25/18 17:17 Antibiotics) ITCHING bee venom protein (honey bee) Allergy Mild ANAPHYLAXIS Verified 02/25/18 17:17 amlodipine Allergy Unknown RASH Verified 02/25/18 17:17 clarithromycin Allergy Unknown RASH Verified 02/25/18 17:17 gabapentin Allergy Unknown UNKNOWN Verified 02/25/18 17:17 iodine Allergy Unknown ANAPHYLAXIS Verified 02/25/18 17:17 shellfish derived Allergy Verified 02/26/18 09:22 INHALERS Allergy Unknown SENSITIVE Uncoded 02/25/18 17:17 TO INHALERS, PERFUMES, ETC... Consultations 02/25/18 20:13 ED Decision to Admit Stat 02/26/18 08:00 Consult Cardiology Routine Hospital Course (1) Chest pain: no further episode Pt is poor historian, presented with chest heaviness, associated with panic attack symptoms Reproducible CP with palpation. Denies CP today. Denies SOB, orthopnea, palpitations Troponins: 0.059, 0.053, 0.049 EKG: Q waves III, no other acute ST changes noted Cardiology consulted - diltiazem discontinued and metoprolol succinate restarted and increased to 75mg daily Dobutamine stress test negative for ischemia (2) Type 2 diabetes mellitus: Does not follow dietary discretion diabetic diet/ Has been eating sweets, ice creams, cake for the holidays Like to have ice cream before going to sleep, as it helps her with upset stomach presented with hyperglycemia Also had right knee steroid injection on 02/24/2018 Hemoglobin A1c 8.8 reflecting poor glycemic management patient is counseled for Diabetic diet adult educator and dietitian consulted Pharmacy consulted for glycemic management Appreciate input Patient is started with basal Lantus, insulin sliding scale will be dischraged with PO Metfomin 500 mg daily , can be titrated up as out pt will benefit with diatetician and diabetic clinic referral pt is counselled for diabeteic management initally was reluctant to continue metformin after counselling willing to continue all her medications as instructed and will follow up with Dr Manzo her family physician for continued care (3) Hyperglycemia: Does not follow diabetic diet Had right knee steroid injection on 02/24/2018. Increased eating of sugary foods over the holidays Hemoglobin A1c 8.8 reflecting poor glycemic management Diabetic diet adult educator and dietitian consulted Pharmacy consulted for glycemic management Appreciate input Patient is started with basal Lantus, insulin sliding scale while in hospital with BSGs controlled discharged metformin 500mg with evening meal upon discharge, which will need titrated Hospital follow up scheduled with family physician (4) CKD (chronic kidney disease) stage 3, GFR 30-59 ml/min: (5) Acute kidney injury: Due to hyperglycemia, poorly controlled diabetes Baseline CKD stage III HELEN resolved, Renal function improve with IV fluid Avoid NSAIDs (6) HTN (hypertension): BP stsable Diltiazem was discontinued metoprolol succinate was restarted and titrated to 75mg daily Continue losartan (7) Hypothyroidism: Continue levothyroxine (8) Headache: no further episode possible due to anxiety related (9) Depression: Depression and Anxiety Pt very anxious today with multiple stresses (daughter out of town, new medications, diagnosis hyperglycemia) Continue bupropion, duloxetine Disposition stable to be discharged home today Total Time Total Time Spent Total Time Spent (In Minutes): 35 mins Total Time Includes: Examination of the Patient, Discharge Planning, Medication Reconciliation and Communication With Other Providers Discharge Plan Discharge Items Patient Disposition: Home - Home Health Services Reason For Visit: CHEST PAIN Discharge Diagnosis: Chest pain-non cardiac /Dobutamine stress test negative/ type 2 diabetes/Hypertension Discharge Goals: Improve disease control, Improve function and Improve nutritional status Activity: Resume your previous activity Non-emergency contact: Primary Care Provider Call non-emergency contact if: you have any medication questions and your symptoms worsen Follow-up/Referrals: Larissa Manzo MD [Primary Care Provider] - 03/03/18 11:05 am Diet: Carb Consistent or DM2 and Heart Healthy Addtl Provider Instructions: Monitor blood sugars twice daily at different times. Glucose goal is less than 180 after a meal and before meal 80-130. Call family physician if blood sugar is consistently above goal. Initiate metformin ER at 500 mg daily at dinner. Please have referral to diabetic clinic. Prescriptions: New metoprolol succinate 50 mg tablet extended release 24 hr 50 mg PO DAILY 30 Days Qty: 30 RF: 1 metoprolol succinate 25 mg tablet extended release 24 hr 25 mg PO DAILY 30 Days Qty: 30 RF: 1 metformin 500 mg tablet extended release 24 hr 500 mg PO DAILY Qty: 30 RF: 0 blood sugar diagnostic [OneTouch Verio] strip .ROUTE .MEDSUPPLY Qty: 100 RF: 0 lancets [OneTouch Delica Lancets] 30 gauge misc .ROUTE .MEDSUPPLY Qty: 100 RF: 0 Continue levothyroxine 175 mcg tablet 175 mg PO DAILY RF: 0 bupropion HCl 150 mg tablet sustained-release 12 hr 150 mg PO BID RF: 0 cyanocobalamin (vitamin B-12) 1,000 mcg Tablet 1,000 mcg PO DAILY RF: 0 aspirin [Aspirin Low Dose] 81 mg Tablet,Delayed Release (Dr/Ec) 81 mg PO DAILY RF: 0 triamcinolone acetonide 0.1 % ointment 1 applic topical DAILY RF: 0 epinephrine 0.3 mg/0.3 mL Auto-Injector 0.3 mg IM UD PRN (Reason: Allergic Reaction) RF: 0 duloxetine 30 mg capsule,delayed release(DR/EC) 30 mg PO BID RF: 0 furosemide [Lasix] 40 mg Tablet 40 mg PO DAILY RF: 0 Fosamax 70 mg 70 mg PO WK RF: 0 losartan 100 mg 100 mg PO DAILY RF: 0 Enablex 7.5 mg 7.5 mg PO DAILY RF: 0 Discontinued diltiazem HCl 240 mg capsule,extended release 24hr 240 mg PO DAILY RF: 0 Stand-Alone Forms: [facility] [employer] [facility]/Other Patient Handouts: Diabetes Detention Complications, Blood Sugar Check, Diabetes Healthy Meals, Blood Sugar Manage Exercise, Diabetes Check Blood Sugar Ch, Diabetes Meal Planning, Diabetes Carbs Fats Protein, Glucose Check Steps Discharge Orders: Discharge Order (Routine); Ordered 03/01/18 Ordered By: Annemarie Lang Admission Data Admit Date/Time: 02/27/18 22:57 Attending Provider: Annemarie Lang Admit Provider: Ze Miles Primary Care Provider: Larissa Manzo Other Providers: Ze Miles ; Darwin Shah ; Jhonny Rondon ; Ge Gonzalez ; Michael Vasquez ; Jagdish Ruvalcaba ; Ti Nair ; Aylin Dunn ; Sandra Paulson Service: Telemetry Medical Other Interventions: Discharge Summary Assessment (RN) Last Done: 03/01/18 15:48 DC Date/Time DO NOT enter until pt leaves facility: 03/01/18 17:25
== END 2018-03-01 17:25 | disposition home or self-care (01) | DRG 313 ==
LOC: ED 16:13 → 2N 16:13 → 2S 23:32

== ENCOUNTER 2019-04-03 19:44 | Inpatient (IN) ==
--- NOTE | 2019-04-03 20:11 | XRay Report ---
XR ankle LT min 3V routine HISTORY: 78 years-old Female Extremity Trama acute left ankle pain status post trauma COMPARISON: Left tibia and fibula radiographs 03/08/2011 TECHNIQUE: 3 views of the left ankle FINDINGS: Cortical irregularity with ill-defined obliquely oriented lucency involves the distal fibular metadia physis. Moderate soft tissue swelling, most pronounced anterolaterally. Small joint effusion. The dis rosalino tibia and talus appear intact. No dislocation. Prominent spurring of the calcaneus. IMPRESSION: 1. No acute displaced fracture or dislocation. 2. Ill-defined oblique lucency with cortical regularity of the distal fibular metadiaphysis is suspic ious for subtle acute nondisplaced fracture. Correlate with point tenderness. 3. Moderate soft tissue swelling, most pronounced anterolaterally with small joint effusion. ACT 112: Negative or not required by law. The above report was generated using voice recognition software. It may contain grammatical, syntax o r spelling errors. Electronically signed by: Silverio Tao M.D. 04/03/2019 8:10 PM
[2019-04-03 20:23] LABS: Basophils # (auto) 0.03 K/uL (0-0.2); Basophils % (auto) 0.3 %; Eosinophils # (auto) 0.21 K/uL (0-0.5); Eosinophils % (auto) 1.8 %; Hematocrit (blood only) 43.2 % (37-47); Hemoglobin 14.4 g/dL (12.0-16.0); Immature Granulocytes # (auto) 0.04 K/uL (0.00-0.02); Immature Granulocytes % (auto) 0.4 %; Lymphocytes # (auto) 2.74 K/uL (1.2-3.4); Lymphocytes % (auto) 24.1 %; Mean Corpuscular Hemoglobin 28.6 pg (25-34); Mean Corpuscular Hgb Conc 33.3 g/dL (32-36); Mean Corpuscular Volume 85.7 fL (80-100); Mean Platelet Volume 12.5 fL (7.4-10.4); Monocytes # (auto) 1.14 K/uL (0.11-0.59); Neutrophils # (auto) 7.23 K/uL (1.4-6.5); Neutrophils % (auto) 63.4 %; Platelet Count 205 K/uL (130-400); RDW Coefficient of Variation 14.5 % (11.5-14.5); RDW Standard Deviation 45.1 fL (36.4-46.3); Red Blood Count 5.04 M/uL (4.2-5.4); White Blood Count 11.39 K/uL (4.8-10.8)
[2019-04-03 20:44] LABS: Alanine Aminotransferase 22 U/L (12-78); Albumin Level 3.4 gm/dl (3.4-5.0); Aspartate Aminotransferase 16 U/L (15-37); BUN Creatinine Ratio 15.4 (10-20); Blood Urea Nitrogen 15 mg/dl (7-18); Calcium 8.9 mg/dl (8.5-10.1); Carbon Dioxide 31 mmol/L (21-32); Chloride 101 mmol/L (98-107); Creatinine Clr Calc Pharmacy 56.5 ml/min; Est GFR (African American) 64.9; Glucose 112 mg/dl (70-99); Potassium 3.8 mmol/L (3.5-5.1); Sodium 137 mmol/L (136-145)
[2019-04-03 20:55] LABS: Albumin Globulin Ratio 0.9 (0.9-2); Alkaline Phosphatase 91 U/L (45-117); Bilirubin,Total 0.4 mg/dl (0.2-1); Globulin 3.6 gm/dl (2.5-4.0); Troponin I < 0.015 ng/ml (0-0.045)
[2019-04-03 21:25] LABS: Appearance Urine Clear (Clear); Bilirubin Urine Negative (Negative); Blood Urine Negative (Negative); Color Urine Dark Yellow; Epithelial Cell Urine Auto 20-30 /lpf (0-5); Glucose Urine UA Negative (Negative); Ketones Urine Negative (Negative); Leukocyte Esterase Urine Trace (Negative); Nitrite Urine Negative (Negative); Protein Urine Trace (Negative); Specific Gravity Urine 1.018 (1.000-1.030); Urobilinogen Urine Negative (Negative)
[2019-04-03 21:34] LABS: Bacteria Urine Automated 1+ (Negative)
[2019-04-03 21:35] LABS: RBC Urine Automated 0-4 /hpf (0-4)
--- NOTE | 2019-04-03 22:46 | CT Scan Report ---
CT head/brain wo con CLINICAL HISTORY: 78 years-old Female with fall. syncope. Acute head injury status post fall with sy ncope TECHNIQUE: Multiple axial CT images of the head were obtained without contrast. A dose lowering tech nique was utilized adhering to the principles of ALARA. CT DOSE: 958.31 mGy.cm COMPARISON: CT cervical spine of same day, head CT 01/10/2017 FINDINGS: No acute intracranial hemorrhage, midline shift, intracranial mass, hydrocephalus, territorial ischem ia or abnormal extra-axial collection. Age-related involutional changes with ex vacuo ventriculomegal y. Patchy white matter hypodensities suggest chronic microvascular ischemic disease. Senescent calcif ications of the lentiform nuclei. Cerebral vascular calcifications also noted. The calvarium is intact. The paranasal sinuses, mastoid air cells, and middle ear cavities are clear . IMPRESSION: No acute intracranial abnormality or calvarial fracture. ACT 112: Negative or not required by law. The above report was generated using voice recognition software. It may contain grammatical, syntax o r spelling errors. Electronically signed by: Silverio Tao M.D. 04/03/2019 10:44 PM
--- NOTE | 2019-04-03 22:52 | CT Scan Report ---
CT cervical spine wo con CLINICAL HISTORY: 78 years-old Female with fall, left neck pain. Acute head and neck injury status p ost fall. History of prior C1 and C2 cervical spine fractures. COMPARISON: CT cervical spine 06/24/2015 TECHNIQUE: Multiple axial CT images of the cervical spine were obtained without contrast. A dose low ering technique was utilized adhering to the principles of ALARA. FINDINGS: Sclerosis related to remote C1 and C2 vertebral body fractures redemonstrated. Fusion of the left C2- C3 facets. Stepwise grade 1 anterolisthesis C3 on C4, C4 on C5, C5 on C6 and C6 on C7 is likely secon shira to long-standing severe facet arthrosis. Multilevel spondylitic spurring with mostly mild and mi ld to moderate disc space narrowing. Posterior disc osteophyte complex formation also noted at multip le levels. No acute cervical spine fracture or subluxation identified. Evaluation of the central figueroa l and neuroforamina is better assessed by MRI. Multilevel foraminal narrowing noted. Lung apices are clear without pneumothorax. No prevertebral soft tissue swelling. Calcified plaque of the carotid bulbs. No adenopathy. IMPRESSION: 1. No acute cervical spine fracture or subluxation. 2. Chronic findings as above. ACT 112: Negative or not required by law. The above report was generated using voice recognition software. It may contain grammatical, syntax o r spelling errors. Electronically signed by: Silverio Tao M.D. 04/03/2019 10:51 PM
[2019-04-04] MEDS ORDERED: LOSARTAN POTASSIUM 50 MG TAB PO STA (00:13)
[2019-04-04 01:08] LABS: Magnesium 1.5 mg/dl (1.8-2.4)
[2019-04-04] MEDS ORDERED: PIPERACILLIN/TAZOBACTAM 4.5 GM/120 ML BAG IV ONE (01:53)
[2019-04-04] MEDS ORDERED: PIPERACILL/TAZOBAC CONSULT ACTIVE PRN (01:53)
[2019-04-04] MEDS ORDERED: PIPERACILLIN/TAZOBACTAM 4.5 GM/120ML D5W ONE (02:04)
--- NOTE | 2019-04-04 02:04 | Emergency Department Note ---
Entered by Lida Bean acting as a scribe for Linwood Escobedo MD ED Provider Note CHIEF COMPLAINT: Fall HISTORY OF PRESENT ILLNESS: The patient is a 78 year old female who presents to the Emergency Room with complaints of a fall. The patient states that she was at the store today when she got out of her car and suddenly hit the parking lot pavement. She explains that she did not trip on anything nor feel like she was going to lose her balance. She admits there is a possibility that she passed out though she was not feeling overheated or ill today. The patient was too weak to get up on her own. However, she managed to get back up only to fall again hitting the left side of her body on the pavement including her head. ED nurses report a laceration to her left elbow and state that the patient complained of left ankle and left trapezius pain. She was given ice by ED nurses for relief. The patient states that she cannot currently bare weight on her left foot and that her left ankle is swollen. Of note, the patient has baseline swelling to her bilateral ankles. She also includes that she has been experiencing recent bladder control issues and had an episode of urinary incontinence 1 day ago. Pt denies LOC, headache, fevers, chills, diaphoresis, visual changes, neck pain, chest pain, breathing difficulties, nausea, vomiting, abdominal pain, back pain, melena, hematochezia, urinary symptoms, numbness, lymphadenopathy, rash, or other complaints. REVIEW OF SYSTEMS: See HPI for pertinent positives and negatives. A total of ten systems were reviewed and were otherwise negative. PMHx/PSHx: C1 cervical fracture, CKD stage 3 (GFR 30-59 ml/min), DM2, hyperglycemia, sepsis, HTN, osteoporosis SOCIAL HISTORY: Patient lives alone. PHYSICAL EXAM: GENERAL: Awake, alert, well-appearing, in no distress HENT: Normocephalic, atraumatic. Oropharynx unremarkable. EYES: PERRL. Normal conjunctiva. Sclera non-icteric. NECK: Inspection normal. Non-tender. Supple. No nuchal rigidity. FROM. No mas ses. RESPIRATORY: Clear to auscultation. No wheezes. No rales. Normal respiratory effort. CARDIAC: Normal rate. Normal rhythm. No murmurs. No rubs. Extremities warm and well perfused. Pulses equal. No JVD. GI: Soft, non-distended. No tenderness to palpation. No rebound or guarding. No masses. RECTAL: Deferred. MUSCULOSKELETAL: Contusion and abrasion to the left elbow. Chest examination reveals no tenderness. The back is symmetrical on inspection without obvious abnormality. There is no CVA tenderness to palpation. No joint edema. Left cervical paraspinal muscle tenderness, left trapezius tenderness. LOWER EXTREMITIES: Calves are equal size bilaterally. Tenderness in the lateral aspect of the left knee with contusion. No edema. No discoloration. NEURO: Normal sensorium. No sensory or motor deficits noted. SKIN: No rash or jaundice noted. EMERGENCY DEPARTMENT COURSE: 2117: Past medical records reviewed. The patient was evaluated in room C09, and a complete history and physical examination were performed. 2350: I checked on the patient and she states that she is feeling improved. I will call Dr. Jean to admit. The patient verbally expressed understanding and agreement of the treatment plan. The patient will be evaluated for further treatment. 2352: I spoke with Dr. Jean who will further evaluate the patient. MEDICAL DECISION MAKING: Prior records/ancillary studies reviewed. Triage Nursing notes reviewed and agree them. Additional history obtained from the family. The patient's history was concerning for syncope as well as neck, and left-sided pain. Differential diagnosis: Etiologies such as infection, hypoglycemia, electrolyte abnormalities, cardiac sources, intracerebral event, toxicologic, neurologic, fracture, contusion, dislocation as well as others were entertained. Physical examination: Moderate left lateral malleolus pain. ER treatment provided: Ice pack Ortho-Glass splint On reassessment the patient felt better. Diagnostics interpretation by me: ECG: No ischemia or dysrhythmia. The labs revealed a slight leukocytosis on CBC. Chemistry panel, troponin, LFTs, and TSH unremarkable. Urinalysis no clear evidence of infection. Imaging studies: CT imaging of the head and neck did not reveal any acute findings. X-ray imaging of the left ankle concerning finding for possible fracture of the lateral malleolus. This does correlate with the patient's point tenderness. The patient has suffered a left ankle fracture as well as a syncopal event. She was monitored in emergency department. She will need further management in the hospital. Consultation: A consultation was placed with the hospitalist. The case was discussed and diagnostics were reviewed. The patient was evaluated in the ER for further keith tment. SPLINTING: Indication: Fracture The injured extremity was identified. The patient was prepped and measured for the placement of a short leg posterior orthoglass splint. Splint applied in the standard fashion over a layer of webril and secured using an elastic bandage. Set into a position of function. Normal neurovascular status after placement verified by me. The patient tolerated the procedure well and the care of the splint was discussed with the patient. No complications. IMPRESSION: Syncope, left ankle fracture, cervical strain PLAN: Admitted; Being evaluated by hospitalist The scribe's documentation has been prepared under my direction and personally reviewed by me in its entirety. I confirm that the note above accurately reflects all work, treatment, procedures, and medical decision making performed by me. Impression & Plan Syncope, Ankle fracture, left, Cervical strain Past Med/Surg History Medical History C1 cervical fracture (Resolved) Hypothyroidism (Acute) Family History Other No pertinent family history Social History Preferred Language: Swiss Communication Ability: Effective Beliefs That Will Affect Care: None Current Living Situation: Spouse Feels Safe at Home: Yes Smoking Status: Never smoker Hx Alcohol Use: No Hx Substance Use: No Results & Data Vital Signs Vital Signs - 24 hr 04/03/19 19:55 04/03/19 20:30 04/03/19 21:01 Temperature 36.7 C Temperature Source Oral Pulse Rate - Lying Pulse Rate - Sitting Pulse Rate - Standing Pulse Rate 84 75 73 Respiratory Rate 17 21 15 Respiratory Effort / Characteristics Non-Labored Spontaneous Respiratory Depth Normal Blood Pressure - Lying Blood Pressure - Sitting Blood Pressure- Standing Blood Pressure 181/77 H 160/93 H 183/71 H Blood Pressure Mean 111 128 108 Blood Pressure Position Sitting Pulse Oximetry 93 93 93 Oxygen Delivery Method Room Air Sepsis Recent Fever Within 48 Hours No Sepsis Action Taken by Nursing No Action Required 04/03/19 21:30 04/04/19 01:13 04/04/19 01:18 Temperature Temperature Source Pulse Rate - Lying 71 Pulse Rate - Sitting 72 Pulse Rate - Standing 74 Pulse Rate 73 79 Respiratory Rate 22 17 Respiratory Effort / Characteristics Respiratory Depth Blood Pressure - Lying 149/69 H Blood Pressure - Sitting 171/118 H Blood Pressure- Standing 155/87 H Blood Pressure 167/93 H 155/87 H Blood Pressure Mean 111 107 Blood Pressure Position Pulse Oximetry 92 Oxygen Delivery Method Sepsis Recent Fever Within 48 Hours Sepsis Action Taken by Custodial Medications Current Medication List: was personally reviewed by me Laboratory Data Attestation: I reviewed the patient's lab results. Result diagrams: 04/03/19 20:00 04/03/19 20:00 Lab Results 04/03/19 04/03/19 04/03/19 Range/Units 20:00 20:00 21:10 WBC 11.39 H (4.8-10.8) K/uL RBC 5.04 (4.2-5.4) M/uL Hgb 14.4 (12.0-16.0) g/dL Hct 43.2 (37-47) % MCV 85.7 (80-100) fL MCH 28.6 (25-34) pg MCHC 33.3 (32-36) g/dL RDW Std Deviation 45.1 (36.4-46.3) fL RDW Coeff of Papa 14.5 (11.5-14.5) % Plt Count 205 (130-400) K/uL MPV 12.5 H (7.4-10.4) fL Immature Gran % (Auto) 0.4 % Neut % (Auto) 63.4 % Lymph % (Auto) 24.1 % Rich % (Auto) 10.0 % Eos % (Auto) 1.8 % Baso % (Auto) 0.3 % Immature Gran # (Auto) 0.04 H (0.00-0.02) K/uL Neut # (Auto) 7.23 H (1.4-6.5) K/uL Lymph # (Auto) 2.74 (1.2-3.4) K/uL Rich # (Auto) 1.14 H (0.11-0.59) K/uL Eos # (Auto) 0.21 (0-0.5) K/uL Baso # (Auto) 0.03 (0-0.2) K/uL Sodium 137 (136-145) mmol/L Potassium 3.8 (3.5-5.1) mmol/L Chloride 101 (98-107) mmol/L Carbon Dioxide 31 (21-32) mmol/L Anion Gap 5.0 (3-11) BUN 15 (7-18) mg/dl Creatinine 0.98 (0.6-1.2) mg/dl Est Cr Clr Drug Dosing 56.5 ml/min Est GFR ( Amer) 64.9 Est GFR (Non-Af Amer) 56.0 BUN/Creatinine Ratio 15.4 (10-20) Glucose 112 H (70-99) mg/dl Calcium 8.9 (8.5-10.1) mg/dl Magnesium 1.5 L (1.8-2.4) mg/dl Total Bilirubin 0.4 (0.2-1) mg/dl AST 16 (15-37) U/L ALT 22 (12-78) U/L Alkaline Phosphatase 91 (45-117) U/L Troponin I < 0.015 (0-0.045) ng/ml Total Protein 7.0 (6.4-8.2) gm/dl Albumin 3.4 (3.4-5.0) gm/dl Globulin 3.6 (2.5-4.0) gm/dl Albumin/Globulin Ratio 0.9 (0.9-2) TSH 1.600 (0.300-4.500) uIu/ml Urine Color Dark Yellow Urine Appearance Clear (Clear) Urine pH 7.0 (4.5-7.5) Ur Specific [place] 1.018 (1.000-1.030) Urine Protein Trace H (Negative) Urine Glucose (UA) Negative (Negative) Urine Ketones Negative (Negative) Urine Blood Negative (Negative) Urine Nitrite Negative (Negative) Urine Bilirubin Negative (Negative) Urine Urobilinogen Negative (Negative) Ur Leukocyte Esterase Trace H (Negative) Urine WBC (Auto) 1-5 (0-5) /hpf Urine RBC (Auto) 0-4 (0-4) /hpf U Hyaline Cast (Auto) 1-5 (0-5) /lpf U Epithel Cells (Auto) 20-30 H (0-5) /lpf Urine Bacteria (Auto) 1+ H (Negative) Urine Yeast Not Reportable Administered Medications Discontinued Medications Losartan Potassium (Cozaar) 100 mg PO NOW STA Stop: 04/04/19 00:14 Last Admin: 04/04/19 01:08 Dose: 100 mg Documented by: [id number] Imaging Data Radiologist's Impression: Radiology results as stated below per my review and the radiologist's interpretation: XR ankle LT min 3V routine HISTORY: 78 years-old Female Extremity Trama acute left ankle pain status post trauma COMPARISON: Left tibia and fibula radiographs 03/08/2011 TECHNIQUE: 3 views of the left ankle FINDINGS: Cortical irregularity with ill-defined obliquely oriented lucency involves the distal fibular metadiaphysis. Moderate soft tissue swelling, most pronounced anterolaterally. Small joint effusion. The distal tibia and talus appear intact. No dislocation. Prominent spurring of the calcaneus. IMPRESSION: 1. No acute displaced fracture or dislocation. 2. Ill-defined oblique lucency with cortical regularity of the distal fibular metadiaphysis is suspicious for subtle acute nondisplaced fracture. Correlate with point tenderness. 3. Moderate soft tissue swelling, most pronounced anterolaterally with small joint effusion. ACT 112: Negative or not required by law. The above report was generated using voice recognition software. It may contain grammatical, syntax or spelling errors. Electronically signed by: Silverio Tao M.D. 04/03/2019 8:[address] cervical spine wo con CLINICAL HISTORY: 78 years-old Female with fall, left neck pain. Acute head and neck injury status post fall. History of prior C1 and C2 cervical spine fractures. COMPARISON: CT cervical spine 06/24/2015 TECHNIQUE: Multiple axial CT images of the cervical spine were obtained without contrast. A dose lowering technique was utilized adhering to the principles of ALARA. FINDINGS: Sclerosis related to remote C1 and C2 vertebral body fractures redemonstrated. Fusion of the left C2-C3 facets. Stepwise grade 1 anterolisthesis C3 on C4, C4 on C5, C5 on C6 and C6 on C7 is likely secondary to long-standing severe facet arthrosis. Multilevel spondylitic spurring with mostly mild and mild to moderate disc space narrowing. Posterior disc osteophyte complex formation also noted at multiple levels. No acute cervical spine fracture or subluxation identified. Evaluation of the central canal and neuroforamina is better assessed by MRI. Multilevel foraminal narrowing noted. Lung apices are clear without pneumothorax. No prevertebral soft tissue swelling. Calcified plaque of the carotid bulbs. No adenopathy. IMPRESSION: 1. No acute cervical spine fracture or subluxation. 2. Chronic findings as above. ACT 112: Negative or not required by law. The above report was generated using voice recognition software. It may contain grammatical, syntax or spelling errors. Electronically signed by: Silverio Tao M.D. 04/03/2019 10:[address] head/brain wo con CLINICAL HISTORY: 78 years-old Female with fall. syncope. Acute head injury status post fall with syncope TECHNIQUE: Multiple axial CT images of the head were obtained without contrast. A dose lowering technique was utilized adhering to the principles of ALARA. CT DOSE: 958.31 mGy.cm COMPARISON: CT cervical spine of same day, head CT 01/10/2017 FINDINGS: No acute intracranial hemorrhage, midline shift, intracranial mass, hydrocephalus, territorial ischemia or abnormal extra-axial collection. Age- related involutional changes with ex vacuo ventriculomegaly. Patchy white matter hypodensities suggest chronic microvascular ischemic disease. Senescent calcifications of the lentiform nuclei. Cerebral vascular calcifications also noted. The calvarium is intact. The paranasal sinuses, mastoid air cells, and middle ear cavities are clear. IMPRESSION: No acute intracranial abnormality or calvarial fracture. ACT 112: Negative or not required by law. The above report was generated using voice recognition software. It may contain grammatical, syntax or spelling errors. Electronically signed by: Silverio Tao M.D. 04/03/2019 10:44 PM ECG Data Attestation: I personally reviewed and interpreted this ECG as follows: Indication: + weakness Rate (beats per minute): 73 Rhythm: normal sinus ECG ST segments: no ST depression and no ST elevation ECG Findings: no PACs and no PVCs Blood Pressure Blood Pressure Findings: Elevated blood pressure Blood Pressure Disposition: further management by hospitalist Discharge Plan Visit Data Chief Complaint: Fall ED Provider: Linwood Escobedo Discharge Problem: Syncope, Ankle fracture, left, Cervical strain Patient Disposition: Being Evaluated by Hospitalist Forms Stand Alone Forms: My [facility] TBS Prescriptions Prescriptions: No Action levothyroxine 175 mcg tablet 175 mg PO DAILYBB RF: 0 bupropion HCl 150 mg tablet sustained-release 12 hr 150 mg PO BID RF: 0 aspirin [Aspirin Low Dose] 81 mg Tablet,Delayed Release (Dr/Ec) 81 mg PO DAILY RF: 0 triamcinolone acetonide 0.1 % ointment 1 applic topical DAILY RF: 0 epinephrine 0.3 mg/0.3 mL Auto-Injector 0.3 mg IM UD PRN (Reason: Allergic Reaction) RF: 0 duloxetine 30 mg capsule,delayed release(DR/EC) 30 mg PO BID RF: 0 furosemide [Lasix] 40 mg Tablet 40 mg PO DAILY RF: 0 (DME) blood sugar diagnostic [MountvacationTouch Verio] strip See Dose Instructions .ROUTE .MEDSUPPLY Qty: 100 RF: 0 (DME) lancets [MountvacationTouch Delica Lancets] 30 gauge misc See Dose Instructions .ROUTE .MEDSUPPLY Qty: 100 RF: 0 metoprolol succinate 50 mg Tablet Extended Release 24 Hr 50 mg PO DAILY RF: 0 phenazopyridine [Pyridium] 200 mg Tablet 200 mg PO TID PRN (Reason: BLADDER PAIN) RF: 0 tramadol 50 mg Tablet 50 mg PO Q6H PRN (Reason: Pain) RF: 0 Premarin 0.625 mg/gram Cream 0.625 mg VAGINAL 2XWK RF: 0 metoprolol succinate 25 mg Tablet Extended Release 24 Hr 25 mg PO DAILY RF: 0 losartan 100 mg Tablet 100 mg PO DAILY RF: 0 rosuvastatin [Crestor] 10 mg Tablet 10 mg PO DAILY RF: 0 darifenacin [Enablex] 7.5 mg Tablet Extended Release 24 Hr 7.5 mg PO DAILY RF: 0 omeprazole 20 mg Tablet,Delayed Release (Dr/Ec) 20 mg PO DAILYBB RF: 0 guaifenesin 600 mg Tablet Extended Release 12hr 600 mg PO Q12H RF: 0 metformin 500 mg tablet extended release 24 hr 500 mg PO BIDM RF: 0 Referrals Referrals: Larissa Manzo MD [Primary Care Provider] - Discharge Problem: Syncope Qualifiers: Syncope type: unspecified Qualified Code(s): R55 - Syncope and collapse Ankle fracture, left Qualifiers: Encounter type: initial encounter Fracture type: closed Qualified Code(s): S82.892A - Other fracture of left lower leg, initial encounter for closed fracture Cervical strain Qualifiers: Encounter type: initial encounter Qualified Code(s): S16.1XXA - Strain of muscle, fascia and tendon at neck level, initial encounter The scribe's documentation has been prepared under my direction and personally reviewed by me in its entirety. I confirm that the note above accurately reflects all work, treatment, procedures, and medical decision making performed by me.
--- NOTE | 2019-04-04 02:13 | History & Physical Report ---
Date of Service April 04, 2019 Assessment & Plan (1) Syncope: Recurrent event Syncope work-up (TTE, EEG) from 2016 was unremarkable Rule out orthostasis from possible mild clinical dehydration from complicated UTI (patient not septic for now) ? Home neuropsychotropic medications medicatio ns contributory Rule out arrhythmia Traumatic left ankle fracture hypertension, elevated secondary to anxiety, recent trauma DM2 oral medications, well-controlled as of recent outpatient hemoglobin A1c of 6.08 August 2018 anxiety/mood disorder, some degree of anxiety/mood lability during encounter hypothyroidism, euthyroid as of today's TSH OBS Medical telemetry Check orthostatic vitals IVF, hold home diuretic for now until hydration status improved Follow urine cultures, IV Ceftriaxone Orthopedics consult left ankle fracture (Patient known to Dr. Alexis) ISS BG goal [id number], update hemoglobin A1c PT OT eval DVT prophylaxis SCDs for now RE possible orthopedic procedure Lovenox 30 mg subcutaneous daily once bleeding risk is deemed to be minimal/negligible. Full code Patient's daughter requesting updates providers. Ms. Tennille Malik, contact numbers [phone]. History of Present Illness Chief Complaint: Fall Primary Care Provider: None (Patient currently in search for [facility] PCP either at [facility] or [facility] locations.) History obtained from patient and records. Medical history significant for asthma, hypertension, DM2 oral medications, anxiety/mood disorder, hypothyroidism. Recent admission February 2018 for chest pain. DSE negative for ischemia. Patient not feeling well the last few days. Increased urinary frequency without fever, chills. Somewhat irritable/agitated at home. Patient was getting out of her car last night when she had a momentary blank episode causing her to fall down on her left side. Achy left ankle pain. Patient had trouble getting up. Patient denies chest pain, S OB. Left-sided headache from head trauma. No LOC after head trauma. Patient brought to the ER for evaluation. MEDICAL HISTORY: As above. SURGICAL HISTORY: Hysterectomy, lipoma surgery, wrist surgery FAMILY HISTORY: Heart disease. Stroke PERSONAL AND SOCIAL HISTORY: Nonsmoker, no chronic intake of alcoholic beverages, retired realtor, lives with her . Allergies Allergy/AdvReac Type Severity Reaction Status Date / Time bee venom protein (honey bee) Allergy Severe ANAPHYLAXIS Verified 04/03/19 21:20 iodine Allergy Severe ANAPHYLAXIS Verified 04/03/19 21:20 shellfish derived Allergy Severe SOB, HIVES Verified 04/03/19 21:20 Sulfa (Sulfonamide Allergy Intermediate HIVES AND Verified 04/03/19 21:20 Antibiotics) ITCHING amlodipine Allergy Mild RASH Verified 04/03/19 21:20 clarithromycin Allergy Mild RASH Verified 04/03/19 21:20 gabapentin Allergy Unknown UNKNOWN Verified 04/03/19 21:20 amoxicillin AdvReac Unknown Verified 04/04/19 02:23 INHALERS AdvReac Unknown SENSITIVE Uncoded 04/03/19 21:20 TO INHALERS, PERFUMES, ETC... Home Medications Home Medications Medication Instructions Recorded Confirmed Type aspirin [Aspirin Low Dose] 81 mg PO DAILY 02/25/18 04/03/19 History bupropion HCl 150 mg PO BID 02/25/18 04/03/19 History duloxetine 30 mg PO BID 02/25/18 04/03/19 History epinephrine 0.3 mg IM UD PRN 02/25/18 04/03/19 History furosemide [Lasix] 40 mg PO DAILY 02/25/18 04/03/19 History levothyroxine 175 mg PO DAILYBB 02/25/18 04/03/19 History triamcinolone acetonide 1 applic TOPICAL DAILY 02/25/18 04/03/19 History blood sugar diagnostic [OneTouch #100 ea 02/28/18 Rx Verio strips] lancets [OneTouch Delica Lancets] #100 ea 02/28/18 Rx conjugated estrogens [Premarin] 0.625 mg VAGINAL 2XWK 04/03/19 04/03/19 History darifenacin [Enablex] 7.5 mg PO DAILY 04/03/19 04/03/19 History guaifenesin 600 mg PO Q12H 04/03/19 04/03/19 History losartan 100 mg PO DAILY 04/03/19 04/03/19 History metformin 500 mg PO BIDM 04/03/19 04/03/19 History metoprolol succinate 25 mg PO DAILY 04/03/19 04/03/19 History metoprolol succinate 50 mg PO DAILY 04/03/19 04/03/19 History omeprazole 20 mg PO DAILYBB 04/03/19 04/03/19 History phenazopyridine [Pyridium] 200 mg PO TID PRN 04/03/19 04/03/19 History rosuvastatin [Crestor] 10 mg PO DAILY 04/03/19 04/03/19 History tramadol 50 mg PO Q6H PRN 04/03/19 04/03/19 History Past Med/Surg History Medical History C1 cervical fracture (Resolved) Hypothyroidism (Acute) Family History Other No pertinent family history Social History Preferred Language: Irish Communication Ability: Effective 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 Beliefs That Will Affect Care: None Current Living Situation: Spouse Current Living Situation Comment: with Feels Safe at Home: Yes Safety Concerns: Feels Safe At This Time Smoking Status: Never smoker Hx Alcohol Use: No Hx Substance Use: No Review of Systems Review of Systems: As per HPI, all 10 systems reviewed, all other ROS negative Physical Exam Physical Exam: GENERAL: Slightly uncomfortable, slightly anxious, obese, no respiratory distress SKIN: Normal color, warm HEENT: [place] palpebral conjunctivae, no ptosis, dry buccal mucosa NECK : Supple, short neck, no tenderness CHEST : CTA, no tenderness HEART : RRR, no obvious murmurs ABDOMEN: Some distention, nontender EXTREMITIES : LLE splint, no other conspicuous deformities noted NEUROLOGIC : Coherent, no facial asymmetry, no other gross focality Results & Data Vital Signs (Past 12 Hours) Vital Signs Temp Pulse Resp BP Pulse Ox 04/04/19 01:18 79 17 155/87 H 92 04/03/19 21:30 73 22 167/93 H 04/03/19 21:01 73 15 183/71 H 93 04/03/19 20:30 75 21 160/93 H 93 04/03/19 19:55 36.7 C 84 17 181/77 H 93 Laboratory Results Laboratory Results WBC 11.39 K/uL (4.8-10.8) H 04/03/19 20:00 RBC 5.04 M/uL (4.2-5.4) 04/03/19 20:00 Hgb 14.4 g/dL (12.0-16.0) 04/03/19 20:00 Hct 43.2 % (37-47) 04/03/19 20:00 MCV 85.7 fL (80-100) 04/03/19 20:00 MCH 28.6 pg (25-34) 04/03/19 20:00 MCHC 33.3 g/dL (32-36) 04/03/19 20:00 RDW Std Deviation 45.1 fL (36.4-46.3) 04/03/19 20:00 RDW Coeff of Papa 14.5 % (11.5-14.5) 04/03/19 20:00 Plt Count 205 K/uL (130-400) 04/03/19 20:00 MPV 12.5 fL (7.4-10.4) H 04/03/19 20:00 Immature Gran % (Auto) 0.4 % 04/03/19 20:00 Neut % (Auto) 63.4 % 04/03/19 20:00 Lymph % (Auto) 24.1 % 04/03/19 20:00 [place] % (Auto) 10.0 % 04/03/19 20:00 Eos % (Auto) 1.8 % 04/03/19 20:00 Baso % (Auto) 0.3 % 04/03/19 20:00 Immature Gran # (Auto) 0.04 K/uL (0.00-0.02) H 04/03/19 20:00 Neut # (Auto) 7.23 K/uL (1.4-6.5) H 04/03/19 20:00 Lymph # (Auto) 2.74 K/uL (1.2-3.4) 04/03/19 20:00 [place] # (Auto) 1.14 K/uL (0.11-0.59) H 04/03/19 20:00 Eos # (Auto) 0.21 K/uL (0-0.5) 04/03/19 20:00 Baso # (Auto) 0.03 K/uL (0-0.2) 04/03/19 20:00 Sodium 137 mmol/L (136-145) 04/03/19 20:00 Potassium 3.8 mmol/L (3.5-5.1) 04/03/19 20:00 Chloride 101 mmol/L (98-107) 04/03/19 20:00 Carbon Dioxide 31 mmol/L (21-32) 04/03/19 20:00 Anion Gap 5.0 (3-11) 04/03/19 20:00 BUN 15 mg/dl (7-18) 04/03/19 20:00 Creatinine 0.98 mg/dl (0.6-1.2) 04/03/19 20: Est Cr Clr Drug Dosing 56.5 ml/min 04/03/19 20:00 Est GFR ( Amer) 64.9 04/03/19 20:00 Est GFR (Non-Af Amer) 56.0 04/03/19 20:00 BUN/Creatinine Ratio 15.4 (10-20) 04/03/19 20:00 Glucose 112 mg/dl (70-99) H 04/03/19 20:00 Calcium 8.9 mg/dl (8.5-10.1) 04/03/19 20: Magnesium 1.5 mg/dl (1.8-2.4) L 04/03/19 20: Total Bilirubin 0.4 mg/dl (0.2-1) 04/03/19 20: AST 16 U/L (15-37) 04/03/19 20:00 ALT 22 U/L (12-78) 04/03/19 20:00 Alkaline Phosphatase 91 U/L (45-117) 04/03/19 20: Troponin I < 0.015 ng/ml (0-0.045) 04/03/19 20: Total Protein 7.0 gm/dl (6.4-8.2) 04/03/19 20: Albumin 3.4 gm/dl (3.4-5.0) 04/03/19 20: Globulin 3.6 gm/dl (2.5-4.0) 04/03/19 20: Albumin/Globulin Ratio 0.9 (0.9-2) 04/03/19 20: TSH 1.600 uIu/ml (0.300-4.500) 04/03/19 20: Urine Color Dark Yellow 04/03/19 21:10 Urine Appearance Clear (Clear) 04/03/19: Urine pH 7.0 (4.5-7.5) 04/03/19 21:10 Ur Specific [place] 1.018 (1.000-1.030) 04/03/19 21:10 Urine Protein Trace (Negative) H 04/03/19 21:10 Urine Glucose (UA) Negative (Negative) 04/03/19 21:10 Urine Ketones Negative (Negative) 04/03/19 21:10 Urine Blood Negative (Negative) 04/03/19 21:10 Urine Nitrite Negative (Negative) 04/03/19 21:10 Urine Bilirubin Negative (Negative) 04/03/19 21:10 Urine Urobilinogen Negative (Negative) 04/03/19 21:10 Ur Leukocyte Esterase Trace (Negative) H 04/03/19 21:10 Urine WBC (Auto) 1-5 /hpf (0-5) 04/03/19 21:10 Urine RBC (Auto) 0-4 /hpf (0-4) 04/03/19 21:10 U Hyaline Cast (Auto) 1-5 /lpf (0-5) 04/03/19 21:10 U Epithel Cells (Auto) 20-30 /lpf (0-5) H 04/03/19 21:10 Urine Bacteria (Auto) 1+ (Negative) H 04/03/19 21:10 Urine Yeast Not Reportable 04/03/19 21:[address] head: No acute intracranial abnormality or calvarial fracture. CT cervical spine: 1. No acute cervical spine fracture or subluxation. 2. Chronic findings as above. Left ankle x-ray: 1. No acute displaced fracture or dislocation. 2. Ill-defined oblique lucency with cortical regularity of the distal fibular metadiaphysis is suspicious for subtle acute nondisplaced fracture. Correlate with point tenderness. 3. Moderate soft tissue swelling, most pronounced anterolaterally with small joint effusion. EKG as per my interpretation: Rate 75, NSR, normal axis, no ischemia (1) Syncope Syncope type: unspecified Qualified Code(s): R55 - Syncope and collapse
[2019-04-04] MEDS ORDERED: cefTRIAXone SODIUM 1,000 MG/50 ML BAG IV STA ×2 (02:22→02:57)
[2019-04-04] MEDS ORDERED: cefTRIAXone SODIUM 1000MG/50ML D5W IV ONE (02:33)
[2019-04-04] MEDS ORDERED: GLUCOSE 10 TABS/TUBE PO PRN (04:34)
[2019-04-04] MEDS ORDERED: CARBOHYDRATES FOR HYPOGLYCEMIA PO PRN (04:34)
[2019-04-04] MEDS ORDERED: PROMETHAZINE HCL 12.5 MG in SODIUM CHLORIDE 0.9% 50 ML IV PRN (04:34)
[2019-04-04] MEDS ORDERED: GLUCOSE 40% GEL 15 GM TUBE PO PRN (04:34)
[2019-04-04] MEDS ORDERED: GLUCAGON FOR INJ 1 MG VIAL SQ PRN (04:34)
[2019-04-04] MEDS ORDERED: PHENAZOPYRIDINE HCL 200 MG TAB PO PRN (04:34)
[2019-04-04] MEDS ORDERED: OXYCODONE HCL IR 5 MG TAB (IMMEDIATE RELEASE) PO PRN (04:34)
[2019-04-04] MEDS ORDERED: DEXTROSE 50% 50 ML SYRINGE IV PRN (04:34)
[2019-04-04] MEDS ORDERED: NSS + 20MEQ KCL 20 MEQ/1,000 ML BAG IV ONE (05:30)
[2019-04-04] MEDS: PANTOprazole 40 MG TAB PO SCH (05:52)
[2019-04-04] MEDS: LEVOTHYROXINE SODIUM 175 MCG TABLET PO SCH (05:52)
[2019-04-04] MEDS: ACETAMINOPHEN 325 MG TAB PO PRN (06:03)
[2019-04-04] MEDS: INSULIN ASPART 100 UNITS/ML 3 ML PEN SC SCH ×5 (06:20→20:34)
[2019-04-04 08:11] LABS: Basophils # (auto) 0.05 K/uL (0-0.2); Basophils % (auto) 0.4 %; Eosinophils % (auto) 1.6 %; Hematocrit (blood only) 41.9 % (37-47); Hemoglobin 13.9 g/dL (12.0-16.0); Immature Granulocytes # (auto) 0.02 K/uL (0.00-0.02); Immature Granulocytes % (auto) 0.2 %; Lymphocytes # (auto) 2.61 K/uL (1.2-3.4); Lymphocytes % (auto) 21.1 %; Mean Corpuscular Hemoglobin 28.7 pg (25-34); Mean Corpuscular Hgb Conc 33.2 g/dL (32-36); Mean Corpuscular Volume 86.6 fL (80-100); Mean Platelet Volume 12.6 fL (7.4-10.4); Monocytes # (auto) 1.15 K/uL (0.11-0.59); Monocytes % (auto) 9.3 %; Neutrophils # (auto) 8.33 K/uL (1.4-6.5); Neutrophils % (auto) 67.4 %; Platelet Count 183 K/uL (130-400); RDW Coefficient of Variation 14.5 % (11.5-14.5); RDW Standard Deviation 45.8 fL (36.4-46.3); Red Blood Count 4.84 M/uL (4.2-5.4); White Blood Count 12.36 K/uL (4.8-10.8)
[2019-04-04 08:20] LABS: Estimated Average Glucose 146 mg/dl; Hemoglobin A1C 6.7 % (4.5-5.6)
[2019-04-04 08:30] LABS: BUN Creatinine Ratio 14.8 (10-20); Calcium 8.9 mg/dl (8.5-10.1); Creatinine Clr Calc Pharmacy 60.2 ml/min; Est GFR (African American) 69.2; Est GFR (Non-African American) 59.7; Potassium 3.8 mmol/L (3.5-5.1)
[2019-04-04] MEDS: ASPIRIN 81 MG ECTAB PO SCH (08:44)
[2019-04-04] MEDS: METOPROLOL SUCC 25MG EXT REL TAB PO SCH (08:44)
[2019-04-04] MEDS: DULOXETINE HCL 30 MG CAP PO SCH ×2 (08:44→20:35)
[2019-04-04] MEDS: BuPROPion SR 150 MG TABCR PO SCH ×2 (08:44→20:35)
[2019-04-04] MEDS: ROSUVASTATIN CALCIUM 10 MG TAB PO SCH (08:47)
--- NOTE | 2019-04-04 09:23 | Orthopedic Consultation ---
Date of Consultation April 04, 2019 Assessment & Plan (1) Ankle fracture, left: Images: X-ray of the left ankle evaluated in detail there is mild osteopenia. I saw no definitive evidence of a fracture. The ankle mortise is well-maintained with no disruption Cervical spine: Some degenerative changes but no acute injury Assessment: Moderate sprain of the left ankle with no definitive fracture Syncope Plan: The ankle situation is treated nonoperatively surgical indications. Put an order in for physical therapy she can be full weightbearing on the left-hand side. No treatment needed for the cervical spine Present on Admission?: Yes History of Present Illness Reason for Consultation: Reason for consultation: Possible left ankle fracture the distal fibula. Question over cervical spine injury History: Glory is a delightful patient she is 78 years of age known her for several years. Had a fairly complicated cervical spine injury several years ago which was treated nonoperatively which was appropriate at the time and she is recovered quite nicely. Also has significant wrist fracture treated conservatively as well. He had a fall yesterday late evening led to her hospital admission. Describes no associated neck pain currently some ankle pain. Not exactly sure the reason for her fall which is being worked up currently by the hospital staff Attending Physician: Karen Rodriguez MD Allergies Allergy/AdvReac Type Severity Reaction Status Date / Time bee venom protein (honey bee) Allergy Severe ANAPHYLAXIS Verified 04/03/19 21:20 iodine Allergy Severe ANAPHYLAXIS Verified 04/03/19 21:20 shellfish derived Allergy Severe SOB, HIVES Verified 04/03/19 21:20 Sulfa (Sulfonamide Allergy Intermediate HIVES AND Verified 04/03/19 21:20 Antibiotics) ITCHING amlodipine Allergy Mild RASH Verified 04/03/19 21:20 clarithromycin Allergy Mild RASH Verified 04/03/19 21:20 gabapentin Allergy Unknown UNKNOWN Verified 04/03/19 21:20 amoxicillin AdvReac Unknown Verified 04/04/19 02:23 INHALERS AdvReac Unknown SENSITIVE Uncoded 04/03/19 21:20 TO INHALERS, PERFUMES, ETC... Home Medications Home Medications Medication Instructions Recorded Confirmed Type aspirin [Aspirin Low Dose] 81 mg PO DAILY 02/25/18 04/03/19 History bupropion HCl 150 mg PO BID 02/25/18 04/03/19 History duloxetine 30 mg PO BID 02/25/18 04/03/19 History epinephrine 0.3 mg IM UD PRN 02/25/18 04/03/19 History furosemide [Lasix] 40 mg PO DAILY 02/25/18 04/03/19 History levothyroxine 175 mg PO DAILYBB 02/25/18 04/03/19 History triamcinolone acetonide 1 applic TOPICAL DAILY 02/25/18 04/03/19 History blood sugar diagnostic [OneTouch #100 ea 02/28/18 Rx Verio strips] lancets [OneTouch Delica Lancets] #100 ea 02/28/18 Rx conjugated estrogens [Premarin] 0.625 mg VAGINAL 2XWK 04/03/19 04/03/19 History darifenacin [Enablex] 7.5 mg PO DAILY 04/03/19 04/03/19 History guaifenesin 600 mg PO Q12H 04/03/19 04/03/19 History losartan 100 mg PO DAILY 04/03/19 04/03/19 History metformin 500 mg PO BIDM 04/03/19 04/03/19 History metoprolol succinate 25 mg PO DAILY 04/03/19 04/03/19 History metoprolol succinate 50 mg PO DAILY 04/03/19 04/03/19 History omeprazole 20 mg PO DAILYBB 04/03/19 04/03/19 History phenazopyridine [Pyridium] 200 mg PO TID PRN 04/03/19 04/03/19 History rosuvastatin [Crestor] 10 mg PO DAILY 04/03/19 04/03/19 History tramadol 50 mg PO Q6H PRN 04/03/19 04/03/19 History Patient History Medical History C1 cervical fracture (Resolved) Hypothyroidism (Acute) Family History Other No pertinent family history Social History Preferred Language: Nepali Communication Ability: Effective Financial Advisor Required: No Beliefs That Will Affect Care: None Current Living Situation: Spouse Current Living Situation Comment: with Feels Safe at Home: Yes Safety Concerns: Feels Safe At This Time Smoking Status: Never smoker Hx Alcohol Use: No Hx Substance Use: No Review of Systems Review of Systems: She denies any fever sweats chills to me here today Does not appear confused alert oriented No chest pain shortness of breath Denies musculoskeletal neck pain Mildly positive left ankle pain Physical Exam Physical Exam: Vital signs stable blood pressure slightly elevated Afebrile HEENT examination normal No adenopathy Lungs clear Her neck is relatively stable as well with no neck tenderness no ecchymosis bruising or discoloration Her left ankle is well supported in a well-padded ankle brace posterior support. There is minimal tenderness about the lateral aspect She has good circulation good vascularity Results & Data ([facility]) Vital Signs (Past 12 Hours) Vital Signs Temp Pulse Pulse Resp BP BP Pulse Ox 04/04/19 07:30 36.7 C 70 18 159/67 H 92 04/04/19 05:38 84 04/04/19 05:10 36.6 C 72 20 164/76 H 90 04/04/19 03:01 75 17 163/84 H 91 04/04/19 02:00 72 16 145/72 H 92 04/04/19 01:18 79 17 155/87 H 92 04/03/19 21:30 73 22 167/93 H PG Care Time/CCT Total # of Minutes Spent Total Time Spent with Patient: Total time spent is greater than 50% in coordina tion of care (as documented) at patient's floor/unit and/or counseling patient: Coding Level of Care Code 74141 Initial Inpt Care Lvl 2 Diagnoses Ankle fracture, left S82.892A Encounter type: initial encounter Fracture type: closed (1) Ankle fracture, left Encounter type: initial encounter Fracture type: closed Qualified Code(s): S82.892A - Other fracture of left lower leg, initial encounter for closed fracture
--- NOTE | 2019-04-04 15:01 | Hospitalist Progress Note ---
Date of Service April 04, 2019 Assessment & Plan (1) Syncope: He had recurrent syncope in the past Possible related to orthostatic due to dehydration and UTI Syncope work-up back in 2016 (TTE, EEG) was unremarkable CT head showed no acute intracranial abnormality or calvarial fracture. CT cervical showed no acute cervical spine fracture or subluxation. No arrhythmia on tele monitor noted Clinically stable Left ankle tenderness Fell during syncope episode Xray of left ankle showed No acute displaced fracture or dislocation. Ill- defined oblique lucency with cortical regularity of the distal fibular metadiaphysis is suspicious for subtle acute nondisplaced fracture. Ortho on board recommended nonoperatively management Full weightbearing on the left-hand side. PT/OT eval Pain control Fall precaution UTI She has been having urinary incontinence and dysuria Urine cx positive for Ecoli Continue IV Rocephin Follow up final urine cx Hx Cervical Fracture Cervical CT showed No acute cervical spine fracture or subluxation. Chronic findings as above. stable Hypertension BP elevates Continue Lasartan and Metoprolol Continue monitor BP DM2 HBA1c 6.7 on 04/04/19 Well controlled Metformin on hold Continue insulin sliding scale Hypothyroidism TSH WNL Continue levothyroxine DVT px will start on pharmacology anticoagulant prophylaxis CODE STATUS FULL CODE Disposition Possible discharge tomorrow Ms. Tennille Malik, contact numbers [phone]. Subjective Pt was seen and examined Lying in bed with no distress with family member at bedside Pt said that she continues to have tenderness in her L ankle area She said that she is not sure if she can bear weight in her left lower extremity Denies any chest pain, palpitation and SOB Physical Exam Physical Exam: General- No acute distress Head- atraumatic Eyes- PERRL, EOMI, ENT- oropharynx clear Neck- supple, no JVD Lungs- clear to auscultation Heart- regular rhythm Abdomen- normal bowel sounds, soft, nontender Extremities- Left ankle tenderness, able to move all 5 toes Neuro- alert, oriented x 3; PERRL, EOMI; no facial palsy; no dysarthria Skin- warm & dry Results & Data ([facility]) Vital Signs (Past 12 Hours) Vital Signs Temp Pulse Pulse Resp BP BP Pulse Ox 04/04/19 11:55 36.7 C 67 18 130/73 92 04/04/19 07:30 36.7 C 70 18 159/67 H 92 04/04/19 05:38 84 04/04/19 05:10 36.6 C 72 20 164/76 H 90 04/04/19 03:01 75 17 163/84 H 91 (1) Syncope Syncope type: unspecified Qualified Code(s): R55 - Syncope and collapse
[2019-04-04] MEDS: ENOXAPARIN INJ 40 MG/0.4 ML SYR SQ SCH (20:36)
--- NOTE | 2019-04-04 21:36 | Electrocardiogram Report ---
Test Reason : Blood Pressure : / mmHG Vent. Rate : 073 BPM Atrial Rate : 073 BPM P-R Int : 170 ms QRS Dur : 086 ms QT Int : 396 ms P-R-T Axes : 031 003 028 degrees QTc Int : 436 ms Normal sinus rhythm Normal ECG When compared with ECG of 26-FEB-2018 01:55, No significant change was found Confirmed by Delfino Balderrama ([id number]) on 04/04/2019 9:36:06 PM Referred By: REFERRED SELF Confirmed By:Delfino Balderrama
[2019-04-04] MEDS: TRAMADOL HCL 50 MG TABLET PO PRN (23:49)
[2019-04-05] MEDS: LEVOTHYROXINE SODIUM 175 MCG TABLET PO SCH (06:10)
[2019-04-05] MEDS: PANTOprazole 40 MG TAB PO SCH (06:10)
[2019-04-05 07:10] LABS: Hematocrit (blood only) 42.1 % (37-47); Mean Corpuscular Hemoglobin 28.3 pg (25-34); Mean Corpuscular Hgb Conc 33.3 g/dL (32-36); Mean Corpuscular Volume 85.2 fL (80-100); Mean Platelet Volume 12.5 fL (7.4-10.4); Platelet Count 182 K/uL (130-400); RDW Coefficient of Variation 14.6 % (11.5-14.5); RDW Standard Deviation 45.4 fL (36.4-46.3); Red Blood Count 4.94 M/uL (4.2-5.4); White Blood Count 9.57 K/uL (4.8-10.8)
[2019-04-05] MEDS: METOPROLOL SUCC 25MG EXT REL TAB PO SCH (07:56)
[2019-04-05] MEDS: ASPIRIN 81 MG ECTAB PO SCH (07:57)
[2019-04-05] MEDS: LOSARTAN POTASSIUM 50 MG TAB PO SCH (07:57)
[2019-04-05] MEDS: ROSUVASTATIN CALCIUM 10 MG TAB PO SCH (07:57)
[2019-04-05] MEDS: BuPROPion SR 150 MG TABCR PO SCH ×2 (07:57→21:31)
[2019-04-05] MEDS: cefTRIAXone SODIUM 2,000 MG in DEXTROSE 5% 50 ML IV SCH (08:30)
[2019-04-05] MEDS: INSULIN ASPART 100 UNITS/ML 3 ML PEN SC SCH ×4 (08:30→21:44)
[2019-04-05] MEDS: DULOXETINE HCL 30 MG CAP PO SCH ×2 (08:30→21:31)
--- NOTE | 2019-04-05 16:17 | Hospitalist Progress Note ---
Date of Service April 05, 2019 Assessment & Plan (1) Syncope: He had recurrent syncope in the past Possible related to orthostatic due to dehydration and UTI Syncope work-up back in 2016 (TTE, EEG) was unremarkable CT head showed no acute intracranial abnormality or calvarial fracture. CT cervical showed no acute cervical spine fracture or subluxation. No arrhythmia on tele monitor noted Clinically stable Left ankle tenderness Fell during syncope episode Xray of left ankle showed No acute displaced fracture or dislocation. Ill- defined oblique lucency with cortical regularity of the distal fibular metadiaphysis is suspicious for subtle acute nondisplaced fracture. Ortho on board recommended nonoperatively management Full weightbearing on the left LE side. case disccused with Dr. Alexis Will follow up with Dr. Alexis outpatient PT/OT evcarmelita Pt is afraid to go back [place] and fall Waiting for PT/OT assessment to see if she will need any rehab stay Updates provided to her daughter at bedside and all questions answered Complaint of left vaughn tenderness, will get an xray of LLE Pain control Fall precaution UTI She has been having urinary incontinence and dysuria Urine cx positive for Ecoli On IV Rocephin, Will transition to Keflex in am Hx Cervical Fracture Cervical CT showed No acute cervical spine fracture or subluxation. Chronic findings as above. stable Hypertension BP elevates Continue Lasartan and Metoprolol Continue monitor BP DM2 HBA1c 6.7 on 04/04/19 Well controlled Metformin on hold Continue insulin sliding scale Hypothyroidism TSH WNL Continue levothyroxine DVT px on Lovenox CODE STATUS FULL CODE Disposition Possible discharge tomorrow Ms. Tennille Malik, contact numbers [phone]. Subjective Pt was seen and examined Lying in bed complaint of left ankle pain She is very frustrated because at first in the ER they told her there was a fracture Now we said that she had a strain ankle and there was no fracture in the Xray Pt said that she is having so much pain in her L ankle and her L leg I reviewed the xray ankle report and orthopedic note with the daughter at bedside logging in patient chart Pt said that she is afraid to go home and fall She said that she wants therapy to show him how to ambulate around She said that she is willing to go to rehab if recommends by therapy I removed the bandage that wrapped her Left leg to assess her leg Denies any chest pain, palpitation, dizziness and SOB Physical Exam Physical Exam: General- No acute distress Head- atraumatic Eyes- PERRL, EOMI, ENT- oropharynx clear Neck- supple, no JVD Lungs- clear to auscultation Heart- regular rhythm Abdomen- normal bowel sounds, soft, nontender Extremities- Left ankle tenderness, decrease ROM in left ankle, tenderness around the left vaughn area Neuro- alert, oriented x 3; PERRL, EOMI; no facial palsy; no dysarthria Skin- warm & dry Results & Data ([facility]) Vital Signs (Past 12 Hours) Vital Signs Temp Pulse Pulse Resp BP BP Pulse Ox 04/05/19 16:00 70 04/05/19 11:00 36.7 C 73 20 156/75 H 91 04/05/19 08:16 77 04/05/19 07:00 36.5 C 70 20 168/77 H 156/72 H 91 (1) Syncope Syncope type: unspecified Qualified Code(s): R55 - Syncope and collapse
[2019-04-05] MEDS: ENOXAPARIN INJ 40 MG/0.4 ML SYR SQ SCH (21:31)
[2019-04-06] MEDS: TRAMADOL HCL 50 MG TABLET PO PRN ×2 (00:53→21:07)
[2019-04-06] MEDS: PANTOprazole 40 MG TAB PO SCH (06:36)
[2019-04-06] MEDS: LEVOTHYROXINE SODIUM 175 MCG TABLET PO SCH (06:36)
[2019-04-06] MEDS: ACETAMINOPHEN 325 MG TAB PO PRN (06:37)
[2019-04-06] MEDS: INSULIN ASPART 100 UNITS/ML 3 ML PEN SC SCH ×4 (08:31→21:27)
[2019-04-06] MEDS: LOSARTAN POTASSIUM 50 MG TAB PO SCH (08:32)
[2019-04-06] MEDS: BuPROPion SR 150 MG TABCR PO SCH ×2 (08:32→21:10)
[2019-04-06] MEDS: ROSUVASTATIN CALCIUM 10 MG TAB PO SCH (08:32)
[2019-04-06] MEDS: METOPROLOL SUCC 25MG EXT REL TAB PO SCH (08:32)
[2019-04-06] MEDS: DULOXETINE HCL 30 MG CAP PO SCH ×2 (08:32→21:10)
[2019-04-06] MEDS: ASPIRIN 81 MG ECTAB PO SCH (08:33)
[2019-04-06] MEDS: cefTRIAXone SODIUM 2,000 MG in DEXTROSE 5% 50 ML IV SCH (08:37)
--- NOTE | 2019-04-06 09:04 | Hospitalist Progress Note ---
Date of Service April 06, 2019 Assessment & Plan (1) Syncope: Has had recurrent syncope in the past Possible related to orthostatic due to dehydration and UTI Syncope work-up back in 2016 (TTE, EEG) was unremarkable CT head showed no acute intracranial abnormality or calvarial fracture. CT cervical showed no acute cervical spine fracture or subluxation. No arrhythmia on tele monitor noted Clinically stable Left ankle tenderness Fell during syncope episode Xray of left ankle showed No acute displaced fracture or dislocation. Ill- defined oblique lucency with cortical regularity of the distal fibular metadiaphysis is suspicious for subtle acute nondisplaced fracture. Ortho on board recommended nonoperatively management. States that imaging findings of initial ankle XR are consistent with a moderate sprain of the left ankle with no definitive fracture. Some TTP of left anterior vaughn yesterday on exam. Will obtain tib/fib XR prior to PT evaluation today. Awaiting PT/OT evaluation. Patient is willing to go to rehab if recommends by therapy. Pain control. Fall precautions. UTI She has been having urinary incontinence and dysuria Urine cx positive for Ecoli On IV Rocephin, Will transition to Keflex prior to discharge Hx Cervical Fracture Cervical CT showed No acute cervical spine fracture or subluxation. Chronic findings as above. Stable Hypertension BP mildly elevated Continue Losartan and Metoprolol Continue monitor BP DM2 HBA1c 6.7 on 04/04/19 Well controlled Metformin on hold Continue insulin sliding scale Hypothyroidism TSH WNL Continue levothyroxine DVT px on Lovenox CODE STATUS FULL CODE Disposition Possible discharge tomorrow Ms. Tennille Malik, contact numbers [phone]. Patient seen in collaboration with Dr. Rodriguez. Please see addendum. Supervising Physician Co-Signing Physician Notes Pt was seen and examined. Agreed with Mary Jo OSULLIVAN exam assessment and plan. Pt said that she continues to have pain in her Left ankle pain. She said that pain worsening when move her LLE. She said that she cannot stand on her L jaleesa. Xray of LLE done showed nondistracted spiral fracture of the distal fibula. Foot Xray showed no acute fracture or dislocation of the left foot identified. PT/OT recommended inpatient rehab. Ortho recommended to continue non operative management. OK for full weightbearing on the left LE side. Continue to wear the cam boot. Pain control. Fall precaution. For her UTI with urine cx grew Ecoli, will transition from Rocephin to Keflex. Continue to monitor closely. Waiting for placement to rehab. MD Jennifer Subjective Pt was seen and examined in -1. Feels frustrated today about explanations for ankle pain. Discussed findings of initial ankle XR with no acute displaced fracture or dislocation but ill-defined oblique lucency with cortical regularity of the distal fibular metadiaphysis is suspicious for subtle acute nondisplaced fracture. Orthopedic service has seen patient and reviewed imaging, stating that there is no definitive evidence of a fracture and that findings are consistent with a moderate sprain of the left ankle with no definitive fracture. Will obtain tib/fib XR prior to PT evaluation today. Patient is willing to go to rehab if recommends by therapy. Endorses continued intermittent ankle pain improved with Tylenol this morning. Denies fever, chills, chest pain, SOB, nausea, vomiting, abdominal pain, diarrhea or constipation. Still experiencing urinary symptoms like increased frequency and urgency. Review of Systems Review of Systems: At least ten systems reviewed and negative except as noted in the HPI. Physical Exam Physical Exam: General- No acute distress, sitting on side of bed eating breakfast Head- atraumatic Eyes- PERRL, EOMI, ENT- oropharynx clear Neck- supple, no JVD Lungs- clear to auscultation, no rales, rhonchi or wheezes Heart- regular rhythm, no MGR Abdomen- normal bowel sounds, soft, nontender Extremities- Left ankle wrapped, decrease ROM in left ankle, neurovascularly intact distal to wrap Neuro- alert, oriented x 3; PERRL, EOMI; no facial palsy; no dysarthria Skin- warm & dry Results & Data ([facility]) Vital Signs (Past 12 Hours) Vital Signs Temp Pulse Resp BP BP Pulse Ox 04/06/19 07:46 36.5 C 69 18 185/89 H 94 04/06/19 04:14 36.7 C 70 20 143/83 H 94 04/06/19 00:00 36.7 C 78 20 155/79 H 95 (1) Syncope Syncope type: unspecified Qualified Code(s): R55 - Syncope and collapse
--- NOTE | 2019-04-06 09:34 | XRay Report ---
LEFT TIBIA AND FIBULA 2 VIEWS CLINICAL HISTORY: Left leg pain. FINDINGS: AP and lateral views of the left tibia and fibula are compared to study dated 03/08/2011 and correlated with left ankle radiographs dated 04/03/2019. The skeletal structures are osteopenic. Again seen is a nondistracted spiral fracture of the distal fibula. No additional fracture is seen involvi ng the tibia or fibula. The knee and ankle joints appear maintained. Soft tissue edema is noted in th e distal calf and a splint is present around the ankle. IMPRESSION: 1. Again seen is a nondistracted spiral fracture of the distal fibula. 2. No additional tibial or fibular fracture is identified. Electronically signed by: Ivan Love M.D. 04/06/2019 9:33 AM
--- NOTE | 2019-04-06 12:59 | XRay Report ---
XR foot LT 2V HISTORY: 78 years-old Female pain acute left foot pain without reported trauma COMPARISON: Left tibia and fibular radiographs of same day TECHNIQUE: 2 views of the left foot FINDINGS: Overlying cast material limits evaluation of fine bony detail. Acute nondisplaced fracture of the dis rosalino fibular metadiaphysis redemonstrated with unchanged alignment. No additional acute fracture or di slocation. Demineralized appearance the bones. Mild multifocal osteoarthritis. Large enthesophyte of the calcaneus. Soft tissue swelling of the ankle and dorsal forefoot. IMPRESSION: 1. Acute nondisplaced fracture of the distal fibula redemonstrated with unchanged alignment. 2. No acute fracture or dislocation of the left foot identified. ACT 112: Negative or not required by law. The above report was generated using voice recognition software. It may contain grammatical, syntax o r spelling errors. Electronically signed by: Silverio Tao M.D. 04/06/2019 12:57 PM
[2019-04-06] MEDS ORDERED: ACETAMINOPHEN 500 MG TAB PO PRN (14:17)
[2019-04-06] MEDS: ENOXAPARIN INJ 40 MG/0.4 ML SYR SQ SCH (21:10)
[2019-04-07] MEDS: TRAMADOL HCL 50 MG TABLET PO PRN (04:11)
[2019-04-07] MEDS: PANTOprazole 40 MG TAB PO SCH (06:24)
[2019-04-07] MEDS: LEVOTHYROXINE SODIUM 175 MCG TABLET PO SCH (06:24)
[2019-04-07 06:25] LABS: Hematocrit (blood only) 42.6 % (37-47); Hemoglobin 14.3 g/dL (12.0-16.0); Mean Corpuscular Hemoglobin 28.8 pg (25-34); Mean Corpuscular Hgb Conc 33.6 g/dL (32-36); Mean Corpuscular Volume 85.7 fL (80-100); Mean Platelet Volume 12.6 fL (7.4-10.4); Platelet Count 166 K/uL (130-400); RDW Coefficient of Variation 14.3 % (11.5-14.5); RDW Standard Deviation 44.2 fL (36.4-46.3); Red Blood Count 4.97 M/uL (4.2-5.4); White Blood Count 9.14 K/uL (4.8-10.8)
[2019-04-07 06:54] LABS: BUN Creatinine Ratio 22.2 (10-20); Creatinine Clr Calc Pharmacy 59.6 ml/min; Est GFR (African American) 68.3; Est GFR (Non-African American) 58.9; Potassium 3.8 mmol/L (3.5-5.1)
[2019-04-07] MEDS: ROSUVASTATIN CALCIUM 10 MG TAB PO SCH (07:50)
[2019-04-07] MEDS: BuPROPion SR 150 MG TABCR PO SCH (07:51)
[2019-04-07] MEDS: LOSARTAN POTASSIUM 50 MG TAB PO SCH (07:51)
[2019-04-07] MEDS: DULOXETINE HCL 30 MG CAP PO SCH (07:52)
[2019-04-07] MEDS: METOPROLOL SUCC 25MG EXT REL TAB PO SCH (07:52)
[2019-04-07] MEDS: ASPIRIN 81 MG ECTAB PO SCH (07:53)
[2019-04-07] MEDS ORDERED: cephALEXin 500 MG CAP PO SCH (09:00)
[2019-04-07] MEDS: INSULIN ASPART 100 UNITS/ML 3 ML PEN SC SCH ×2 (09:10→12:19)
--- NOTE | 2019-04-07 11:07 | Hospitalist Progress Note ---
Date of Service April 07, 2019 Assessment & Plan (1) Syncope: -Has had recurrent syncope in the past -Possibly related to orthostatic due to dehydration and UTI -Syncope work-up back in 2016 (TTE, EEG) was unremarkable -CT head showed no acute intracranial abnormality or calvarial fracture. -CT cervical showed no acute cervical spine fracture or subluxation. -Clinically stable LEFT ANKLE SPRAIN/NONDISPLACED FRACTURE OF DISTAL FIBULA -Fell during syncope episode -Xray of left ankle showed No acute displaced fracture or dislocation. Ill- defined oblique lucency with cortical regularity of the distal fibular metadiaphysis is suspicious for subtle acute nondisplaced fracture. -Tibia/fibula x-ray showing nondistracted spiral fracture of the distal fibula. -Ortho on board recommended nonoperatively management. States that imaging findings of initial ankle XR are consistent with a moderate sprain of the left ankle with no definitive fracture. -PT OT eval's, rehab recommended. Patient for discharge to [facility] today. -Patient fitted for a cam boot. Can fully weight-bear on LLE with walker. UTI -Urine culture growing pansensitive E. coli -Received IV Rocephin, transition to p.o. Keflex today HTN -BP elevated, likely due to pain/anxiety -Continue Losartan and Metoprolol -if BP does not improve after AM meds, consider addition of Norvasc DM2 -HBA1c 6.7 on 04/04/19 -oral agents on hold, utilize Novolog per protocol while hospitalized -Blood sugars controlled HYPOTHYROIDISM -TSH WNL -Continue levothyroxine DVT PROPHYLAXIS -SQ Lovenox Subjective Patient seen and examined. Sitting up on the edge of the bed this morning. Reports left ankle pain is improving. No chest pain or shortness of breath. Denies lightheadedness and dizziness. No abdominal pain or nausea. Physical Exam Constitutional: no acute distress Sitting up on the edge of the bed Respiratory: normal respiratory effort, lungs clear to auscultation Cardiovascular: Rate/Rhythm: regular rate and regular rhythm Vessels: normal peripheral pulses Extremities: + edema (chronic BL foot and ankle edema noted) Musculoskeletal: no deformity noted to left ankle Psychiatric: Orientation: alert and oriented x 3 Affect: + anxious affect Results & Data ([facility]) Vital Signs (Past 12 Hours) Vital Signs Temp Pulse Resp BP BP Pulse Ox 02/04/20 07:00 36.5 C 73 18 182/93 H 92 04/06/19 23:21 36.4 C L 69 18 163/70 H 91 Laboratory Results Short CBC 04/07/19 Range/Units 05:36 WBC 9.14 (4.8-10.8) K/uL Hgb 14.3 (12.0-16.0) g/dL Hct 42.6 (37-47) % Plt Count 166 (130-400) K/uL BMP 04/07/19 05:36 Sodium 138 Potassium 3.8 Chloride 103 Carbon Dioxide 31 BUN 21 H Creatinine 0.94 Glucose 104 H Calcium 9.0 (1) Syncope Syncope type: unspecified Qualified Code(s): R55 - Syncope and collapse
--- NOTE | 2019-04-07 12:15 | Discharge Summary ---
Date of Service April 07, 2019 Admission HPI Per Admitting Provider History obtained from patient and records. Medical history significant for asthma, hypertension, DM2 oral medications, anxiety/mood disorder, hypothyroidism. Recent admission February 2018 for chest pain. DSE negative for ischemia. Patient not feeling well the last few days. Increased urinary frequency without fever, chills. Somewhat irritable/agitated at home. Patient was getting out of her car last night when she had a momentary blank episode causing her to fall down on her left side. Achy left ankle pain. Patient had trouble getting up. Patient denies chest pain, S OB. Left-sided headache from head trauma. No LOC after head trauma. Patient brought to the ER for evaluation. MEDICAL HISTORY: As above. SURGICAL HISTORY: Hysterectomy, lipoma surgery, wrist surgery FAMILY HISTORY: Heart disease. Stroke PERSONAL AND SOCIAL HISTORY: Nonsmoker, no chronic intake of alcoholic beverages, retired realtor, lives with her . Admission Exam Per Admitting Provider GENERAL: Slightly uncomfortable, slightly anxious, obese, no respiratory distress SKIN: Normal color, warm HEENT: [place] palpebral conjunctivae, no ptosis, dry buccal mucosa NECK : Supple, short neck, no tenderness CHEST : CTA, no tenderness HEART : RRR, no obvious murmurs ABDOMEN: Some distention, nontender EXTREMITIES : LLE splint, no other conspicuous deformities noted NEUROLOGIC : Coherent, no facial asymmetry, no other gross focality Principal Diagnosis Syncope Discharge Data Allergies Allergy/AdvReac Type Severity Reaction Status Date / Time bee venom protein (honey bee) Allergy Severe ANAPHYLAXIS Verified 04/03/19 21:20 iodine Allergy Severe ANAPHYLAXIS Verified 04/03/19 21:20 shellfish derived Allergy Severe SOB, HIVES Verified 04/03/19 21:20 Sulfa (Sulfonamide Allergy Intermediate HIVES AND Verified 04/03/19 21:20 Antibiotics) ITCHING amlodipine Allergy Mild RASH Verified 04/03/19 21:20 clarithromycin Allergy Mild RASH Verified 04/03/19 21:20 gabapentin Allergy Unknown UNKNOWN Verified 04/03/19 21:20 amoxicillin AdvReac Unknown Verified 04/04/19 02:23 INHALERS AdvReac Unknown SENSITIVE Uncoded 04/03/19 21:20 TO INHALERS, PERFUMES, ETC... Consultations Dr. Alexis, orthopedics Ordered Studies LEFT ANKLE X-RAY IMPRESSION: 1. No acute displaced fracture or dislocation. 2. Ill-defined oblique lucency with cortical regularity of the distal fibular metadiaphysis is suspicious for subtle acute nondisplaced fracture. Correlate with point tenderness. 3. Moderate soft tissue swelling, most pronounced anterolaterally with small joint effusion. CERVICAL SPINE CT IMPRESSION: 1. No acute cervical spine fracture or subluxation. 2. Chronic findings as above. HEAD CT IMPRESSION: No acute intracranial abnormality or calvarial fracture. LEFT TIBIA/FIBULA X-RAY IMPRESSION: 1. Again seen is a nondistracted spiral fracture of the distal fibula. 2. No additional tibial or fibular fracture is identified. LEFT FOOT X-RAY IMPRESSION: 1. Acute nondisplaced fracture of the distal fibula redemonstrated with unchanged alignment. 2. No acute fracture or dislocation of the left foot identified. Hospital Course (1) Syncope: -Has had recurrent syncope in the past -Possibly related to orthostatic due to dehydration and UTI -Syncope work-up back in 2016 (TTE, EEG) was unremarkable -CT head showed no acute intracranial abnormality or calvarial fracture. -CT cervical showed no acute cervical spine fracture or subluxation. -Clinically stable LEFT ANKLE SPRAIN/NONDISPLACED FRACTURE OF DISTAL FIBULA -Fell during syncope episode -Xray of left ankle showed No acute displaced fracture or dislocation. Ill- defined oblique lucency with cortical regularity of the distal fibular metadiaphysis is suspicious for subtle acute nondisplaced fracture. -Tibia/fibula x-ray showing nondistracted spiral fracture of the distal fibula. -Ortho on board recommended nonoperatively management. States that imaging findings of initial ankle XR are consistent with a moderate sprain of the left ankle with no definitive fracture. -PT OT eval's, rehab recommended. Patient for discharge to [facility] today. -Patient fitted for a cam boot. Can fully weight-bear on LLE with walker. UTI -Urine culture growing pansensitive E. coli -Received IV Rocephin, transition to p.o. Keflex today to complete 7 days of treatment HTN -BP elevated at times, likely due to pain/anxiety -Continue Losartan and Metoprolol DM2 -HBA1c 6.7 on 04/04/19 -oral agents on hold, utilize Novolog per protocol while hospitalized; resume metformin at discharge -Blood sugars controlled HYPOTHYROIDISM -TSH WNL -Continue levothyroxine Total Time Total Time Spent Total Time Spent (In Minutes): 45 minutes Discharge Plan Discharge Items Patient Disposition: Transfer Inpatient Rehab Fac Reason For Visit: SYNCOPE Discharge Diagnosis: Syncope, left fibular fracture, UTI Activity: As commented below Activity Comment: Use cam boot, may fully weight-bear as tolerated with walker Weightbearing: Full weightbearing Non-emergency contact: Primary Care Provider Call non-emergency contact if: you have any medication questions, your pain is not controlled and you have a fever Follow-up/Referrals: Larissa Manzo MD [Primary Care Provider] - Diet: Carb Consistent or DM2 and Heart Healthy Addtl Attending Provider Instructions: Admitted for left ankle pain 2/2 syncopal event and found to have an acute nondisplaced fracture of the distal fibula. No additional acute fracture or dislocation of the left foot, tibial or fibula identified. Discussed findings with Dr. Alexis, who agrees to continue plan for nonoperatively management with cam boot, walker and ortho follow up with him in the office. Can be fully weight bearing on LLE. Evaluated by PT, who recommend discharge to rehab facility. Please call [phone] to schedule follow up with Dr. Alexis of [facility] ortho later this week. Found to have a moses sensitive E coli UTI during admission. Has completed 2 days of IV Rocephin as of 04/06/19. Transitioning to p.o. Keflex on 04/07. Recommend 7 days of total treatment. Pending Studies at Discharge: No Stand-Alone Forms: My [facility] Skilled Items Patient informed of condition?: Yes DNR: No Discharge Level of Care: Acute rehab Communicable Disease: No Discharge Prognosis: Stable Lines: None Urinary Catheter: No Medications and DC Order Prescriptions: New cephalexin 500 mg Capsule 500 mg PO BID Qty: 9 RF: 0 Continued levothyroxine 175 mcg tablet 175 mg PO DAILYBB RF: 0 bupropion HCl 150 mg tablet sustained-release 12 hr 150 mg PO BID RF: 0 aspirin [Aspirin Low Dose] 81 mg Tablet,Delayed Release (Dr/Ec) 81 mg PO DAILY RF: 0 triamcinolone acetonide 0.1 % ointment 1 applic topical DAILY RF: 0 epinephrine 0.3 mg/0.3 mL Auto-Injector 0.3 mg IM UD PRN (Reason: Allergic Reaction) RF: 0 duloxetine 30 mg capsule,delayed release(DR/EC) 30 mg PO BID RF: 0 metoprolol succinate 50 mg Tablet Extended Release 24 Hr 50 mg PO DAILY RF: 0 phenazopyridine [Pyridium] 200 mg Tablet 200 mg PO TID PRN (Reason: BLADDER PAIN) RF: 0 Premarin 0.625 mg/gram Cream 0.625 mg VAGINAL 2XWK RF: 0 metoprolol succinate 25 mg Tablet Extended Release 24 Hr 25 mg PO DAILY RF: 0 losartan 100 mg Tablet 100 mg PO DAILY RF: 0 rosuvastatin [Crestor] 10 mg Tablet 10 mg PO DAILY RF: 0 darifenacin [Enablex] 7.5 mg Tablet Extended Release 24 Hr 7.5 mg PO DAILY RF: 0 omeprazole 20 mg Tablet,Delayed Release (Dr/Ec) 20 mg PO DAILYBB RF: 0 guaifenesin 600 mg Tablet Extended Release 12hr 600 mg PO Q12H RF: 0 metformin 500 mg tablet extended release 24 hr 500 mg PO BIDM RF: 0 tramadol 50 mg Tablet 50 mg PO Q6H PRN (Reason: Pain) Qty: 7 RF: 0 Changed furosemide [Lasix] 40 mg Tablet 40 mg PO DAILY PRN (Reason: edema) Qty: 0 RF: 0 No Action (DME) blood sugar diagnostic [OneTouch Verio] strip See Dose Instructions .ROUTE .MEDSUPPLY Qty: 100 RF: 0 (DME) lancets [OneTouch Delica Lancets] 30 gauge misc See Dose Instructions .ROUTE .MEDSUPPLY Qty: 100 RF: 0 Discharge Orders: Discharge Order (Routine); Ordered 04/07/19 Ordered By: Chelo Ford Admission Data Admit Date/Time: 04/05/19 17:47 Attending Provider: Karen Rodriguez Admit Provider: Chandler Jean Primary Care Provider: Larissa Manzo Other Providers: Chandler Jean ; Linwood Alexis ; [facility] Other Interventions: Discharge Summary Assessment (RN) Last Done: 04/07/19 12:35 DC Date/Time DO NOT enter until pt leaves facility: 04/07/19 15:14
--- NOTE | 2019-04-09 13:27 | Coding Query ---
To promote full compliance with coding requirements relating to patient care, physician participation is requested in all cases of engineering test specialist uncertainty. Please assist us with the question(s) below: Coding Question(s): It was noted in the record on the ER H&P that the patient has history of osteoporosis and the Orthopedic Consultation on 04/04/19 documents regarding the left Ankle x-ray a mild osteopenia. According to coding guidelines "a code for osteoporotic fracture, and not a traumatic fracture, should be used for any patient with known osteoporosis who suffers a fracture, even if the patient had a minor fall or trauma, if that fall or trauma would not usually break a normal, healthy bone.". Also is is unclear from the documentation if the fracture was ruled-out and is Left Ankle Sprian. Please indicate below the type of fracture, if possible fracture, or clarify otherwise: Physician's Response(s): ( ) Osteoporotic fracture of left fibula ( x ) Traumatic fracture of left fibula ( ) fracture was ruled out and it was found to be a left ankle sprain ( ) Other, please specify ( ) Unable to be determined MTDD
--- NOTE | 2019-04-09 13:33 | Coding Query ---
CODING QUERY To promote full compliance with coding requirements relating to patient care, provider participation is requested in all cases of debug technician uncertainty. Please assist us with the question(s) below: Coding Question(s): The Discharge Summary documents, regarding Syncope, that is is possibly related to Orthostasis due to dehydration and UTI. Please clarify, in your clinical opinion, regarding the Orthostasis. ( x ) Orthostasis is Orthostatic Hypotension ( ) Orthostasis is Other: Please Specify ( ) Orthostasis is Unknown Physician's Response(s): Thank you Martha Menard Principal Diagnosis: "that condition established after study, to be chiefly responsible for occasioning the admission of the patient to the hospital for care." Co-Existing Principal Diagnosis: "when two or more diagnoses equally meet the criteria for principal diagnosis as determined by the circumstances of admission, diagnostic work up, and/or therapy provided, and the Alphabetic Index, Tabular List, or another coding guideline does not provide sequencing direction, any one of the diagnoses may be sequenced first." "When the physician has documented what appears to be a current diagnosis in the body of the record, but has not included the diagnosis in the final diagnostic statement, the physician should be asked whether the diagnosis should be added." ([facility] 2 QTR90. p3-4) MONA
== END 2019-04-07 15:14 | DRG 563 ==
LOC: 2N 19:44 → ED 19:44 → 2N 04-04 03:12

== ENCOUNTER 2023-05-14 20:59 | Inpatient (IN) ==
[2023-05-14 21:56] LABS: Hemoglobin 13.7 g/dl (12.0-16.0); Mean Corpuscular Hemoglobin 28.1 pg (25.0-34.0); Mean Corpuscular Hgb Conc 32.6 g/dL (32.0-36.0); Mean Corpuscular Volume 86.2 fL (80.0-100.0); Mean Platelet Volume 12.8 fL (9.4-12.4); Platelet Count 213 K/uL (130-400); RDW Coefficient of Variation 13.6 % (11.5-14.5); RDW Standard Deviation 42.7 fL (36.4-46.3); Red Blood Count 4.87 M/uL (4.20-5.40); White Blood Count 12.23 K/ul (4.8-10.8)
[2023-05-14 22:16] LABS: Albumin Globulin Ratio 1.3 (0.9-2); Albumin Level 3.9 gm/dl (3.4-5.0); BUN Creatinine Ratio 16.4 (10-20); Bilirubin,Total 0.4 mg/dl (0.2-1.0); Calcium 9.1 mg/dl (8.6-10.3); Creatinine Clr Calc Pharmacy 46.6 ml/min; Est GFR (African American) 54.9 ml/min; Est GFR (Non-African American) 47.4 ml/min; Globulin 3.1 gm/dl (2.5-4.0); Magnesium 1.3 mg/dl (1.7-2.4); Potassium 4.2 mmol/L (3.5-5.1)
[2023-05-14 22:27] LABS: INR 0.9 (0.9-1.1); Partial Thromboplastin Ratio 0.9; Partial Thromboplastin Time 25 Seconds (21-31); Prothrombin Time 10.1 Seconds (9.0-12.0)
[2023-05-14] MEDS: ACETAMINOPHEN 1,000 MG/100 ML VIAL IV STA (22:46)
[2023-05-14] MEDS: SODIUM CHLORIDE 0.9% 500 ML IV ONE (22:47)
--- NOTE | 2023-05-14 23:40 | CT Scan Report ---
Exam(s): CT HEAD Without Contrast EXAM: CT Head Without Intravenous Contrast CLINICAL HISTORY: Reason for exam: Neuro deficit, acute, stroke suspected. TECHNIQUE: Axial computed tomography images of the head/brain without intravenous contrast. Automated exposure control was utilized for the study. A dose lowering technique was utilized adhering to the principles of ALARA. COMPARISON: Comparison made to prior brain MRI from March 17, 2020. FINDINGS: Brain: Unremarkable. No hemorrhage. Moderate nonspecific white matter changes. No edema. Ventricles: Mild to moderate ventriculomegaly. Bones/joints: Unremarkable. No acute fracture. Soft tissues: Unremarkable. Sinuses: Unremarkable as visualized. No acute sinusitis. Mastoid air cells: Unremarkable as visualized. No mastoid effusion. IMPRESSION: No evidence of acute intracranial pathology. Electronically signed by: Maryse Baker MD 05/14/23 23:39 PM
--- NOTE | 2023-05-15 00:23 | Emergency Department Note ---
History of Present Illness General Chief Complaint: TIA Symptoms Stated Complaint: DIZZY, VISION ZIG-ZAGY, HEAD PAIN Time Seen by Provider: 05/14/23 22:00 History of Present Illness Provider complaint: + headache Time: 20:15 Onset description: + sudden Severity: moderate Maximum Pain Intensity: 35 Current Pain Intensity: 3 Quality: + aching, + throbbing and + dull Relieved By: + nothing Exacerbated By: + none Context: no occurred with exertion/activity, no recent head injury, no known CO exposure, no tick bite or no recent URI Associated symptoms: + other (Patient reports she was having blurry vision and seeing "zigzags"); no fever, no nausea, no vomiting, no neck stiffness, no photophobia, no sensitivity to sound, no rash, no seizure, no vision loss, no confusion, no chest pain, no cough or no shortness of breath Home Medications Medication Instructions Recorded Confirmed Type aspirin 81 mg tablet,delayed 81 mg PO QAM 02/25/18 05/15/23 History release (Sadie Low Dose Aspirin) epinephrine 0.3 mg/0.3 mL 0.3 mg IM UD PRN Allergic Reaction 02/25/18 05/15/23 History injection, auto-injector levothyroxine 175 mcg tablet 175 mg PO DAILYBB 02/25/18 05/15/23 History blood sugar diagnostic (ValnevaTouch #100 ea 02/28/18 05/15/23 Rx Verio test strips) lancets 30 gauge (ValnevaTouch Delica #100 ea 02/28/18 05/15/23 Rx Lancets) omeprazole 20 mg tablet,delayed 20 mg PO DAILYBB 04/03/19 05/15/23 History release losartan 100 mg tablet 100 mg PO QAM 02/11/20 05/15/23 History furosemide 40 mg tablet (Lasix) 40 mg PO QAM 10/05/20 05/15/23 History metoprolol succinate 100 mg 100 mg PO QAM 10/05/20 05/15/23 History tablet,extended release 24 hr acetaminophen 650 mg 650 mg PO AMHS 05/15/23 05/15/23 History tablet,extended release duloxetine 60 mg capsule,delayed 60 mg PO AMHS 05/15/23 05/15/23 History release Allergies Allergy/AdvReac Type Severity Reaction Status Date / Time bee venom protein (honey bee) Allergy Severe ANAPHYLAXIS Verified 05/15/23 00:18 iodine Allergy Severe ANAPHYLAXIS Verified 05/15/23 00:18 shellfish derived Allergy Severe SOB, HIVES Verified 05/15/23 00:18 Sulfa (Sulfonamide Allergy Intermediate HIVES AND Verified 05/15/23 00:18 Antibiotics) ITCHING amlodipine Allergy Mild RASH Verified 05/15/23 00:18 clarithromycin Allergy Mild RASH Verified 05/15/23 00:18 gabapentin Allergy Unknown UNKNOWN Verified 05/15/23 00:18 amoxicillin AdvReac Unknown Unknown Verified 05/15/23 00:18 INHALERS AdvReac Unknown SENSITIVE Uncoded 05/15/23 00:18 TO INHALERS, PERFUMES, ETC... 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 Beliefs That Will Affect Care: None marital status: Current Living Situation: Spouse Current Living Situation Comment: with Feels Safe at Home: Yes Assistive Devices: Brace/Splint/Immobilizer Physical Exam Vital Signs Vital Signs - 24 hr 05/14/23 21:03 05/14/23 22:33 05/14/23 22:33 Temperature 36.8 C Temperature Source Temporal Artery Scan Pulse Rate 86 77 79 Pulse Rate from SpO2 Sensor 78 Respiratory Rate 17 21 Respiratory Effort / Characteristics Non-Labored Spontaneous Respiratory Depth Normal Respiratory Pattern Regular Blood Pressure 143/81 H 145/61 H Blood Pressure Mean 101 89 Pulse Oximetry 94 92 Oxygen Delivery Method Room Air Room Air Sepsis Recent Fever Within 48 Hours No Sepsis New/Unexplained Change in Mental Status Yes Sepsis Action Taken by Nursing No Action Required 05/14/23 22:48 05/14/23 23:00 05/14/23 23:30 Temperature Temperature Source Pulse Rate 77 75 72 Pulse Rate from SpO2 Sensor 76 75 Respiratory Rate 19 15 17 Respiratory Effort / Characteristics Respiratory Depth Respiratory Pattern Blood Pressure 134/72 136/74 132/66 Blood Pressure Mean 92 94 88 Pulse Oximetry 93 93 92 Oxygen Delivery Method Room Air Room Air Room Air Sepsis Recent Fever Within 48 Hours Sepsis New/Unexplained Change in Mental Status Sepsis Action Taken by Nursing 05/15/23 00:00 Temperature Temperature Source Pulse Rate 76 Pulse Rate from SpO2 Sensor Respiratory Rate 22 Respiratory Effort / Characteristics Respiratory Depth Respiratory Pattern Blood Pressure 147/66 H Blood Pressure Mean 93 Pulse Oximetry Oxygen Delivery Method Sepsis Recent Fever Within 48 Hours Sepsis New/Unexplained Change in Mental Status Sepsis Action Taken by Nursing Physical Exam HENT: Exam performed. -Head: Normocephalic and atraumatic. -Right Ear: External ear normal. No mastoid erythema -Left Ear: External ear normal. No mastoid erythema -Mouth/Throat: The oropharynx is clear and moist. No trismus in the jaw. No dental abscesses or uvula swelling. No oropharyngeal exudate or tonsillar abscesses. EYES: Conjunctivae and EOM are normal. Pupils are equal, round, and reactive to light. Right eye exhibits no discharge. Left eye exhibits no discharge. No scleral icterus. NECK: Normal range of motion. Neck supple. No JVD present. No rigidity. No tracheal deviation and normal range of motion present. CV: Normal rate, regular rhythm, normal heart sounds and intact distal pulses. There is no peripheral edema. Palpable radial pulses bue. PULM/CHEST: Effort normal and breath sounds normal. No respiratory distress. No stridor. She has no wheezes. She has no rales. MUSC/SKEL: Normal range of motion. There is no peripheral edema, tenderness or deformity. NEURO: She is alert and oriented to person, place, and time. She has normal strength. No cranial nerve deficit or sensory deficit. Coordination and gait normal. GCS eye subscore is 4. GCS verbal subscore is 5. GCS motor subscore is 6. Cerebellar tests wnl. No clonus. NIHSS: 0 SKIN: Skin is warm and dry. She is not diaphoretic. PSYCH: She has a normal mood and affect. Behavior is normal. Judgment and thought content normal. Course Course 220: The patient was evaluated in room B10. A complete history and physical exam was performed Administered Medications Discontinued Medications Acetaminophen (Ofirmev) 1,000 mg in 100 mls @ 400 mls/hr IV NOW STA Stop: 05/14/23 22:28 Last Infusion: 05/14/23 23:12 Dose: Infused [place]ed [place] [facility]: 05/14/23 22:46 Dose: 400 mls/hr Documented By: [facility] Sodium Chloride (Nss) 500 mls @ 999 mls/hr IV .Q31M ONE Stop: 05/14/23 22:44 Last Admin: 05/14/23 22:47 Dose: 999 mls/hr Documented By: [facility] Medical Decision Making Laboratory Data Attestation: I reviewed the patient's lab results. 05/14/23 21:30 05/14/23 21:30 Lab Results 05/14/23 05/14/23 Range/Units 21:30 23:20 WBC 12.23 H (4.8-10.8) K/ul RBC 4.87 (4.20-5.40) M/uL Hgb 13.7 (12.0-16.0) g/dl Hct 42.0 (37.0-47.0) % MCV 86.2 (80.0-100.0) fL MCH 28.1 (25.0-34.0) pg MCHC 32.6 (32.0-36.0) g/dL RDW Std Deviation 42.7 (36.4-46.3) fL RDW Coeff of Papa 13.6 (11.5-14.5) % Plt Count 213 (130-400) K/uL MPV 12.8 H (9.4-12.4) fL PT 10.1 (9.0-12.0) Seconds INR 0.9 (0.9-1.1) APTT 25 (21-31) Seconds PTT Ratio 0.9 Sodium 136 (136-145) mmol/L Potassium 4.2 (3.5-5.1) mmol/L Chloride 96 L (98-107) mmol/L Carbon Dioxide 32 (21-32) mmol/L Anion Gap 8 (3-11) BUN 18 (6-23) mg/dl Creatinine 1.10 (0.6-1.2) mg/dl Est Cr Clr Drug Dosing 46.6 ml/min Est GFR ( Amer) 54.9 ml/min Est GFR (Non-Af Amer) 47.4 ml/min BUN/Creatinine Ratio 16.4 (10-20) Glucose 266 H (70-99(Fasting)) mg/dl POC Glucose 213 H (70-99) mg/dl Calcium 9.1 (8.6-10.3) mg/dl Magnesium 1.3 L (1.7-2.4) mg/dl Total Bilirubin 0.4 (0.2-1.0) mg/dl AST 18 (13-39) U/L ALT 14 (7-52) U/L Alkaline Phosphatase 102 (34-104) U/L Total Protein 7.0 (6.0-8.3) gm/dl Albumin 3.9 (3.4-5.0) gm/dl Globulin 3.1 (2.5-4.0) gm/dl Albumin/Globulin Ratio 1.3 (0.9-2) MDM Narrative Cardiac monitoring: An order was placed for continuous cardiac monitoring. The monitor shows a rate of 80 with sinus rhythm interpreted by me Vital signs stable. CT of the head within normal limits, CT of the head was performed within 6 hours of symptom onset effectively ruling out SAH. Labs show leukocytosis of 12.2 magnesium 1.3. Magnesium repletion will be started in the emergency department patient will be admitted for her low magnesium. Dr. Morse notified. Impression & Plan Hypomagnesemia Discharge Plan Visit Data Chief Complaint: TIA Symptoms Stated Complaint: DIZZY, VISION ZIG-ZAGY, HEAD PAIN ED Provider: Ted Yancey Discharge Problem: Hypomagnesemia Patient Disposition: Admitted As Inpatient Forms Stand Alone Forms: [facility] Prescriptions Prescriptions: No Action levothyroxine 175 mcg tablet 175 mg PO DAILYBB aspirin [Sadie Low Dose Aspirin] 81 mg Tablet,Delayed Release (Dr/Ec) 81 mg PO QAM epinephrine 0.3 mg/0.3 mL Auto-Injector 0.3 mg IM UD PRN (Reason: Allergic Reaction) (DME) OneTouch Verio test strips strip See Dose Instructions .ROUTE .MEDSUPPLY Qty: 100 0RF Dose Instruction: As directed Rx Instructions: use to test twice daily. Dx: E11.9 (DME) lancets [OneTouch Delica Lancets] 30 gauge misc See Dose Instructions .ROUTE .MEDSUPPLY Qty: 100 0RF Dose Instruction: As directed Rx Instructions: Use to test twice daily. Dx code: E11.9 omeprazole 20 mg Tablet,Delayed Release (Dr/Ec) 20 mg PO DAILYBB losartan 100 mg tablet 100 mg PO QAM metoprolol succinate 100 mg tablet extended release 24 hr 100 mg PO QAM furosemide [Lasix] 40 mg tablet 40 mg PO QAM duloxetine 60 mg capsule,delayed release(DR/EC) 60 mg PO AMHS acetaminophen [Tylenol Arthritis] 650 mg Tablet Extended Release 650 mg PO AMHS Referrals Referrals: Radha Suarez DO [Primary Care Provider] -
[2023-05-15] MEDS: DULoxetine HCL 60 MG CAP PO SCH ×2 (01:18→08:04)
[2023-05-15] MEDS: MAGNESIUM SULFATE / D5W 1 GM/100 ML BAG IV SCH (01:18)
[2023-05-15 01:35] LABS: Appearance Urine Clear (Clear); Bilirubin Urine Negative (Negative); Blood Urine Negative (Negative); Color Urine Yellow; Glucose Urine UA Negative (Negative); Ketones Urine Negative (Negative); Leukocyte Esterase Urine Negative (Negative); Nitrite Urine Negative (Negative); Protein Urine Negative (Negative); Specific Gravity Urine 1.013 (1.000-1.030); Urobilinogen Urine Negative (Negative); pH Urine 5.5 (4.5-7.5)
--- NOTE | 2023-05-15 03:52 | History & Physical Report ---
Date of Service May 15, 2023 Assessment & Plan (1) Headache: Plan: Possible migraine with transient visual phenomena Patient currently asymptomatic. Hypomagnesemia possibly contributory hypertension, slightly elevated bronchial asthma, not in acute exacerbation Cognitive impairment as per records, patient mentating well currently patient follows with [facility] neurologist DM2 oral medications, suboptimal control as of recent hemoglobin A1c of 8 last January 2023 anxiety/mood disorder, patient follows with [facility] psychiatrist hypothyroidism, euthyroid as of recent outpatient TSH this year OBS Medical telemetry Consider MRI brain, Neurology consult if with recurrence of headache with visual phenomena Replace magnesium Basal insulin, ISS BG goal [id number], update hemoglobin A1c PT OT eval DVT prophylaxis Lovenox 40 mg subcutaneous daily Full code Patient's daughter requesting updates providers. Ms. Tennille Malik, contact numbers [phone]. Text document was generated using [employer] voice recognition software. It may contain grammatical or spelling errors. Kindly contact undersigned for clarification of any documentation item in question. History of Present Illness Chief Complaint: Headache, vision problems Primary Care Provider: Radha Suarez, History obtained from patient and records. Medical history significant for bronchial asthma, hypertension, DM2 oral medications, anxiety/mood disorder, cognitive impairment as per records, hypothyroidism, postherpetic neuralgia. Last confinement April 2019 for syncope attributed to orthostasis and UTI. Yesterday, patient noted achy posterior headache symptoms associated with transient blurred zigzaggy vision. Some pain from residual shingles lesions on her scalp from a few months ago which patient picks on from time to time. No facial droop, arm or leg weakness, or slurred speech witnessed at home. No prior episodes. No chest pain, no SOB. BP kind of high at home. Compliant with home medications. No recent head trauma. Myrbetriq discontinued 2 weeks ago due to hallucinations. Patient brought to the ER for evaluation. Patient currently comfortable. MEDICAL HISTORY: As above. SURGICAL HISTORY: Hysterectomy, lipoma surgery, wrist surgery, FAMILY HISTORY: Heart disease. Stroke PERSONAL AND SOCIAL HISTORY: Nonsmoker, no chronic intake of alcoholic beverages, retired realtor, lives with her . Allergies Allergy/AdvReac Type Severity Reaction Status Date / Time bee venom protein (honey bee) Allergy Severe ANAPHYLAXIS Verified 05/15/23 00:18 iodine Allergy Severe ANAPHYLAXIS Verified 05/15/23 00:18 shellfish derived Allergy Severe SOB, HIVES Verified 05/15/23 00:18 Sulfa (Sulfonamide Allergy Intermediate HIVES AND Verified 05/15/23 00:18 Antibiotics) ITCHING amlodipine Allergy Mild RASH Verified 05/15/23 00:18 clarithromycin Allergy Mild RASH Verified 05/15/23 00:18 gabapentin Allergy Unknown UNKNOWN Verified 05/15/23 00:18 [email or web address] [From Myrbetriq] AdvReac Intermediate Hallucinati Verified 05/15/23 11:13 ng amoxicillin AdvReac Unknown Unknown Verified 05/15/23 00:18 INHALERS AdvReac Unknown SENSITIVE Uncoded 05/15/23 00:18 TO INHALERS, PERFUMES, ETC... Home Medications Medication Instructions Recorded Confirmed Type aspirin 81 mg tablet,delayed 81 mg PO QAM 02/25/18 05/15/23 History release (Sadie Low Dose Aspirin) epinephrine 0.3 mg/0.3 mL 0.3 mg IM UD PRN Allergic Reaction 02/25/18 05/15/23 History injection, auto-injector levothyroxine 175 mcg tablet 175 mg PO DAILYBB 02/25/18 05/15/23 History blood sugar diagnostic (NeuroVistaTouch #100 ea 02/28/18 05/15/23 Rx Verio test strips) lancets 30 gauge (NeuroVistaTouch Delica #100 ea 02/28/18 05/15/23 Rx Lancets) omeprazole 20 mg tablet,delayed 20 mg PO DAILYBB 04/03/19 05/15/23 History release losartan 100 mg tablet 100 mg PO QAM 02/11/20 05/15/23 History furosemide 40 mg tablet (Lasix) 40 mg PO QAM 10/05/20 05/15/23 History metoprolol succinate 100 mg 100 mg PO QAM 10/05/20 05/15/23 History tablet,extended release 24 hr acetaminophen 650 mg 650 mg PO AMHS 05/15/23 05/15/23 History tablet,extended release duloxetine 60 mg capsule,delayed 60 mg PO AMHS 05/15/23 05/15/23 History release Past Med/Surg History Medical History CKD (chronic kidney disease) stage 3, GFR 30-59 ml/min Type 2 diabetes mellitus Hypothyroidism C1 cervical fracture Depression HTN (hypertension) Asthma Family History Other No pertinent family history Social History Smoking Status: Never smoker Do You Dip or Chew Tobacco: No; Hx Alcohol Use: No Hx Substance Use: No Preferred Language: Maltese Communication Ability: Effective 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 Beliefs That Will Affect Care: None marital status: Current Living Situation: Spouse Current Living Situation Comment: with Feels Safe at Home: Yes Assistive Devices: Brace/Splint/Immobilizer Review of Systems Review of Systems: As per HPI, all other systems reviewed and negative Physical Exam Physical Exam: GENERAL: Slightly uncomfortable, slightly anxious, obese, no respiratory distress SKIN: Normal color, warm HEENT: Dried ulcerated lesions, left scalp, pink palpebral conjunctivae, no ptosis, dry buccal mucosa NECK : Supple, short neck, no tenderness CHEST : CTA, no tenderness HEART : RRR, no obvious murmurs ABDOMEN: Some distention, nontender EXTREMITIES : Minimal LE swelling, no LE tenderness, no other conspicuous deformities noted NEUROLOGIC : Coherent, no facial asymmetry, no other gross focality Results & Data Results & Data Vital Signs (Past 12 Hours) Vital Signs Temp Pulse Resp BP Pulse Ox O2 Del Method 05/15/23 02:37 77 05/15/23 02:30 77 17 90 Room Air 05/15/23 02:00 79 20 132/77 92 Room Air 05/15/23 01:30 74 20 92 Room Air 05/15/23 01:00 78 17 151/75 H 91 Room Air 05/15/23 00:30 74 17 141/75 H 92 Room Air 05/15/23 00:00 76 22 147/66 H 05/14/23 23:30 72 17 132/66 92 Room Air 05/14/23 23:00 75 15 136/74 93 Room Air 05/14/23 22:48 77 19 134/72 93 Room Air 05/14/23 22:33 79 21 145/61 H 92 Room Air 05/14/23 22:33 77 05/14/23 21:03 36.8 C 86 17 143/81 H 94 Room Air Laboratory Results Laboratory Results WBC 12.23 K/ul (4.8-10.8) H 05/14/23 21:30 RBC 4.87 M/uL (4.20-5.40) 05/14/23 21:30 Hgb 13.7 g/dl (12.0-16.0) 05/14/23 21:30 Hct 42.0 % (37.0-47.0) 05/14/23 21:30 MCV 86.2 fL (80.0-100.0) 05/14/23 21: MCH 28.1 pg (25.0-34.0) 05/14/23 21: MCHC 32.6 g/dL (32.0-36.0) 05/14/23: RDW Std Deviation 42.7 fL (36.4-46.3) 05/14/23: RDW Coeff of Papa 13.6 % (11.5-14.5) 05/14/23 21: Plt Count 213 K/uL (130-400) 05/14/23 21: MPV 12.8 fL (9.4-12.4) H 05/14/23 21:30 PT 10.1 Seconds (9.0-12.0) 05/14/23 21:30 INR 0.9 (0.9-1.1) 05/14/23 21: APTT 25 Seconds (21-31) 05/14/23 21: PTT Ratio 0.9 05/14/23 21:30 Sodium 136 mmol/L (136-145) 05/14/23 21:30 Potassium 4.2 mmol/L (3.5-5.1) 05/14/23 21:30 Chloride 96 mmol/L (98-107) L 05/14/23 21:30 Carbon Dioxide 32 mmol/L (21-32) 05/14/23 21:30 Anion Gap 8 (3-11) 05/14/23 21:30 BUN 18 mg/dl (6-23) 05/14/23 21:30 Creatinine 1.10 mg/dl (0.6-1.2) 05/14/23 21:30 Est Cr Clr Drug Dosing 46.6 ml/min 05/14/23 21:30 Est GFR ( Amer) 54.9 ml/min 05/14/23 21:30 Est GFR (Non-Af Amer) 47.4 ml/min 05/14/23 21:30 BUN/Creatinine Ratio 16.4 (10-20) 05/14/23 21:30 Glucose 266 mg/dl (70-99(Fasting)) H 05/14/23 21:30 POC Glucose 213 mg/dl (70-99) H 05/14/23 23:20 Calcium 9.1 mg/dl (8.6-10.3) 05/14/23 21:30 Magnesium 1.3 mg/dl (1.7-2.4) L 05/14/23 21:30 Total Bilirubin 0.4 mg/dl (0.2-1.0) 05/14/23 21:30 AST 18 U/L (13-39) 05/14/23 21:30 ALT 14 U/L (7-52) 05/14/23 21:30 Alkaline Phosphatase 102 U/L (34-104) 05/14/23 21:30 Total Protein 7.0 gm/dl (6.0-8.3) 05/14/23 21:30 Albumin 3.9 gm/dl (3.4-5.0) 05/14/23 21: Globulin 3.1 gm/dl (2.5-4.0) 05/14/23 21:30 Albumin/Globulin Ratio 1.3 (0.9-2) 05/14/23 21:30 Urine Color Yellow 05/14/23 22:34 Urine Appearance Clear (Clear) 05/14/23 22:34 Urine pH 5.5 (4.5-7.5) 05/14/23 22:34 Ur Specific [place] 1.013 (1.000-1.030) 05/14/23 22:34 Urine Protein Negative (Negative) 05/14/23 22:34 Urine Glucose (UA) Negative (Negative) 05/14/23 22:34 Urine Ketones Negative (Negative) 05/14/23 22:34 Urine Blood Negative (Negative) 05/14/23 22:34 Urine Nitrite Negative (Negative) 05/14/23 22:34 Urine Bilirubin Negative (Negative) 05/14/23 22:34 Urine Urobilinogen Negative (Negative) 05/14/23 22:34 Ur Leukocyte Esterase Negative (Negative) 05/14/23 22:[address] 05/14/23 21:07 Exam(s): CT HEAD Without Contrast EXAM: CT Head Without Intravenous Contrast CLINICAL HISTORY: Reason for exam: Neuro deficit, acute, stroke suspected. TECHNIQUE: Axial computed tomography images of the head/brain without intravenous contrast. Automated exposure control was utilized for the study. A dose lowering technique was utilized adhering to the principles of ALARA. COMPARISON: Comparison made to prior brain MRI from March 17, 2020. FINDINGS: Brain: Unremarkable. No hemorrhage. Moderate nonspecific white matter changes. No edema. Ventricles: Mild to moderate ventriculomegaly. Bones/joints: Unremarkable. No acute fracture. Soft tissues: Unremarkable. Sinuses: Unremarkable as visualized. No acute sinusitis. Mastoid air cells: Unremarkable as visualized. No mastoid effusion. IMPRESSION: No evidence of acute intracranial pathology. Electronically signed by: Maryse Baker MD 05/14/23 23:39 PM Diagnostic Findings EKG as per my interpretation : Rate 85, NSR, normal axis, no ischemia
[2023-05-15] MEDS ORDERED: PROMETHAZINE HCL 12.5 MG in SODIUM CHLORIDE 0.9% 50 ML IV PRN (03:54)
[2023-05-15] MEDS ORDERED: traMADol HCL 50 MG TABLET PO PRN (03:54)
[2023-05-15] MEDS ORDERED: GLUCOSE 40% GEL 15 GM TUBE PO PRN (03:55)
[2023-05-15] MEDS ORDERED: GLUCAGON FOR INJ 1 MG VIAL SQ PRN (03:55)
[2023-05-15] MEDS ORDERED: DEXTROSE 50% 50 ML SYRINGE IV PRN (03:55)
[2023-05-15] MEDS ORDERED: CARBOHYDRATES FOR HYPOGLYCEMIA PO PRN (03:55)
[2023-05-15] MEDS ORDERED: GLUCOSE 10 TAB/TUBE PO PRN (03:55)
[2023-05-15 04:41] LABS: Basophils # (auto) 0.07 K/uL (0.00-0.20); Basophils % (auto) 0.6 %; Eosinophils # (auto) 0.29 K/uL (0.00-0.50); Eosinophils % (auto) 2.4 %; Hematocrit (blood only) 38.3 % (37.0-47.0); Hemoglobin 12.5 g/dl (12.0-16.0); Immature Granulocytes # (auto) 0.04 K/uL (0.01-0.20); Immature Granulocytes % (auto) 0.3 %; Lymphocytes # (auto) 3.39 K/uL (1.20-3.40); Lymphocytes % (auto) 28.4 %; Mean Corpuscular Hemoglobin 28.2 pg (25.0-34.0); Mean Corpuscular Hgb Conc 32.6 g/dL (32.0-36.0); Mean Corpuscular Volume 86.3 fL (80.0-100.0); Mean Platelet Volume 12.3 fL (9.4-12.4); Monocytes # (auto) 1.24 K/uL (0.11-0.59); Monocytes % (auto) 10.4 %; Neutrophils # (auto) 6.91 K/uL (1.40-6.50); Neutrophils % (auto) 57.9 %; Platelet Count 178 K/uL (130-400); RDW Coefficient of Variation 13.6 % (11.5-14.5); RDW Standard Deviation 42.6 fL (36.4-46.3); Red Blood Count 4.44 M/uL (4.20-5.40); White Blood Count 11.94 K/ul (4.8-10.8)
[2023-05-15 04:58] LABS: BUN Creatinine Ratio 16.5 (10-20); Calcium 8.9 mg/dl (8.6-10.3); Creatinine Clr Calc Pharmacy 48.9 ml/min; Est GFR (Non-African American) 50.9 ml/min; Magnesium 1.9 mg/dl (1.7-2.4)
[2023-05-15] MEDS: MAGNESIUM SULFATE / D5W 1 GM/100 ML BAG IV ONE (05:15)
[2023-05-15] MEDS: traMADol HCL 50 MG TABLET PO STA (05:16)
[2023-05-15] MEDS: MAGNESIUM SULFATE 1GM / D5W BAG IV ONE (05:35)
[2023-05-15] MEDS: INSULIN ASPART PER UNIT CHARGE SC SCH (05:52)
[2023-05-15] MEDS: LANTUS PER UNIT CHARGE SQ SCH (05:53)
--- NOTE | 2023-05-15 07:18 | XRay Report ---
XR chest 1V not portable CLINICAL HISTORY: stroke alert COMPARISON STUDY: Chest radiograph August 29, 2021. FINDINGS: Patient is mildly rotated. Lung volumes are normal. Lungs are clear. There is no pneumothor ax or pleural effusion. Cardiac size is stable. Mediastinal contours are normal. There is no evidence for pulmonary edema. IMPRESSION: No acute cardiopulmonary findings. ACT 112: Negative or not required by law. Electronically signed by: Lucien Saleh M.D. 05/15/2023 7:17 AM
[2023-05-15] MEDS: LEVOTHYROXINE SODIUM 175 MCG TABLET PO SCH (07:39)
[2023-05-15] MEDS: PANTOprazole 40 MG TAB PO SCH (07:39)
[2023-05-15] MEDS: LOSARTAN POTASSIUM 50 MG TAB PO SCH (08:04)
[2023-05-15] MEDS: ASPIRIN 81 MG ECTAB PO SCH (08:05)
[2023-05-15] MEDS: METOPROLOL SUCC 50MG EXT REL TAB PO SCH (08:05)
[2023-05-15] MEDS: ACETAMINOPHEN 325 MG TAB PO SCH (08:06)
[2023-05-15] MEDS: ENOXAPARIN INJ 40 MG/0.4 ML SYR SQ SCH (09:14)
[2023-05-15] MEDS ORDERED: Nursing to Pharmacy Communication SCH (10:45)
[2023-05-15] MEDS: INSULIN ASPART PER UNIT CHARGE SQ STA (10:53)
--- NOTE | 2023-05-15 12:52 | Hospitalist Progress Note ---
Date of Service May 15, 2023 Assessment & Plan (1) Headache: Plan: Strokelike symptoms Presents with headache, transient visual changes Headaches uncommon per patient. Admits to have poor sleep usually. Myrbetriq discontinued 2 weeks ago due to hallucinations. DD:Complex Migraine Infection with shingles in Jan 24 per family --CT Head:No evidence of acute intracranial pathology. Patient refuses IV contrast, will obtain MRI brain without contrast PT OT, fall precautions Consulted neurology for further recommendations May need follow-up with ophthalmology on discharge Hypomagnesemia Replete electrolytes as needed Monitor Hypertension BP elevated likely situational Continue losartan, metoprolol Monitor BP Hypothyroidism Check TSH Continue levothyroxine GERD Continue PPI DM Type II: Was on metformin previously Update HbA1c ISS, basal Insulin, Accu checks, Diabetic diet Monitor BGs Bronchial asthma No signs of exacerbation Monitor Cognitive impairment as per records Follows with [facility] [place] Currently seem to have no issues Anxiety/mood disorder Follows with [facility] [place] Continue home medications DVT Px: Lovenox SQ Code Status Full code Disposition PT OT prior to discharge Admission and Anticipated Discharge Date Admission Date: May 15, 2023 Subjective Patient is seen and examined at bedside States having headache associated with visual changes which she describes as "Zig Zag" Reports chronic upper extremity numbness, unchanged Poor sleep overnight Denies any chest pain, dyspnea, focal weakness, dizziness, nausea, vomiting, abdominal pain Review of Systems Review of Systems: All systems reviewed & are unremarkable except as noted in Subjective Physical Exam Physical Exam: Physical Exam: Vitals signs as noted above General Appearance:Obese, no apparent distress Head: normocephalic, Atraumatic, +Scalp lesions Eyes: normal inspection, EOMI Neck: supple, Trachea midline Respiratory/Chest: Normal breath sounds, CTA, No accessory muscle use Cardiovascular: S1, S2, No murmur Abdomen/GI:Soft, Non tender, Bowel sounds present Extremities/Musculoskeletal:normal inspection, Trace edema Neurologic/Psych:AAOX3, grossly no focal neurological deficits Skin: normal color, warm Results & Data Results & Data Vital Signs (Past 12 Hours) Vital Signs Pulse Pulse Resp BP BP Pulse Ox Pulse Ox 05/15/23 08:14 93 05/15/23 08:00 73 23 141/89 H 94 05/15/23 07:17 74 05/15/23 06:45 79 20 152/82 H 94 05/15/23 05:00 81 14 05/15/23 04:00 77 14 93 05/15/23 03:00 78 17 05/15/23 02:37 77 05/15/23 02:30 77 17 90 05/15/23 02:00 79 20 132/77 92 05/15/23 01:30 74 20 92 05/15/23 01:00 78 17 151/75 H 91 O2 Del Method O2 Del Method 05/15/23 08:14 Room Air 05/15/23 08:00 Room Air 05/15/23 07:17 05/15/23 06:45 Room Air 05/15/23 05:00 05/15/23 04:00 Room Air 05/15/23 03:00 05/15/23 02:37 05/15/23 02:30 Room Air 05/15/23 02:00 Room Air 05/15/23 01:30 Room Air 05/15/23 01:00 Room Air Laboratory Results Short CBC 05/14/23 05/15/23 Range/Units 21:30 04:23 WBC 12.23 H 11.94 H (4.8-10.8) K/ul Hgb 13.7 12.5 (12.0-16.0) g/dl Hct 42.0 38.3 (37.0-47.0) % Plt Count 213 178 (130-400) K/uL BMP 05/14/23 05/15/23 21:30 04:23 Sodium 136 136 Potassium 4.2 4.0 Chloride 96 L 98 Carbon Dioxide 32 33 H BUN 18 17 Creatinine 1.10 1.03 Glucose 266 H 214 H Calcium 9.1 8.9 Liver Function 05/14/23 Range/Units 21:30 Total Bilirubin 0.4 (0.2-1.0) mg/dl AST 18 (13-39) U/L ALT 14 (7-52) U/L Alkaline Phosphatase 102 (34-104) U/L Albumin 3.9 (3.4-5.0) gm/dl Urine 05/14/23 Range/Units 22:34 Urine Color Yellow Urine Appearance Clear (Clear) Urine pH 5.5 (4.5-7.5) Ur Specific [place] 1.013 (1.000-1.030) Urine Protein Negative (Negative) Urine Glucose (UA) Negative (Negative)
--- OUTSIDE RECORDS SUMMARY | 2023-05-15 13:16 | External Medical Summary | Summary of Care ---
Author Name Unknown Organization [facility] Address [address] [place] [address] Phone [phone] Care Team Providers Care Artist Model Name Role Phone Erick Radha Rosalino PORTER Primary Care Provider [phone] Encounter Details Date Type Department Care Team (Late st Contact Info) Description 04/22/2023 9:00 AM EST [facility] [address] [place] [address] Mario Yu MD [address] [place] [address] GABBY (generalized anxiety disorder)*; Depressive disorder Allergies Active Allergy Reactions Criticality Noted Date Comments Pelon Inhibitors Other (Please comment) Medium 8 cough Amlodipine Besylate Rash 08/27/2008 Clarithromycin 11/12/2000 ? Gabapentin Neuro complications (Please comment) 08/27/2014 confusion Propranolol Hcl Er Other (Please comment) 02/03 Nerve pain and joint stiffness Iodine Hives 08/31/1998 Nutritional Supplements High 11/19/2007 Swelling, problems breathing Shellfish Allergy Hives High 04/30/2016 Sulfa Antibiotics Hives 04/24/2007 Tetanus Toxoid 04/25/2018 Wasp Venom High 11/07/2011 Swelling, problems breathing documented as of this encounter (statuses as of 04/22/2023) Medications Medication Sig Dispensed Refills Start Date End Date Status ASPIRIN 81 MG PO TABS one tablet by mouth daily 0 03/07/2013 Active TYLENOL 325 MG PO TABS Take by mouth . 0 Active Blood Glucose Monitoring Suppl (D-CARE GLUCOMETER) w/Device KIT Patient needs the One touch Ultra 2 Glucometer. Patient is to test 4 times per day; E11.9 1 Kit 0 03/06/2018 Active Additional Information Patient not taking.Reported on 01/23/2023 estrogens, conjugated (PREMARIN) 0.625 MG/GM vaginal cream Administer 0.5 g into the vagina once a day Saturday and only. Use 0.5 g with applicator at bedtime 30 g 6 08/10/2019 Active EpiPen 2-Neymar 0.3 MG/0.3ML Injection Solution Auto-injector ONE INJECTION INTO THIGH NEEDED FOR SEVERE ALLERGIC REACTION 1 Each 2 09/25/2021 Active Premarin 0.625 MG/GM Vaginal Cream (Estrogens Conjugated)Indica tions:Urinary incontinence, mixed Administer 0.5 g into the vagina at bedtime. As directed. 42.5 g 5 04/18/2022 Active Omeprazole 20 MG Oral Capsule Delayed Release (PriLOSEC) TAKE 1 CAPSULE BY MOUTH ONCE DAILY ONE HOUR BEFORE THE FIRST MEAL OF THE DAY 90 Capsule 2 10/02/2022 Active Metoprolol Succinate ER 100 MG Oral Tablet Extended Release 24 Hour (toPROL XL)Indications:Es sential hypertension with goal blood pressure less than 140/90 Take 1 Tablet by mouth in the morning. 90 Tablet 2 10/02/2022 Active OneTouch Delroselia Lancets 33GIndications:Ty pe 2 diabetes mellitus with hemoglobin A1c goal of less than 8.0% (HCC) Test 1 time per day. Dx: E11.9 100 Each 3 01/23/2023 Active OneTouch Verio In Vitro Strip (Glucose Blood)Indications :Type 2 diabetes mellitus with hemoglobin A1c goal of less than 8.0% (HCC) USE TO TEST once daily Dx: E11.9 100 Strip 3 01/23/2023 Active Furosemide 40 MG Oral Tablet (Lasix) Take 1 Tablet by mouth in the morning. 90 Tablet 1 04/09/2023 Active Losartan Potassium 100 MG Oral Tablet (Cozaar)Indicatio ns:HTN, goal below 130/80 Take 1 Tablet by mouth in the morning. 90 Tablet 2 04/09/2023 Active Mirabegron ER 50 MG Oral Tablet Extended Release 24 Hour (Myrbetriq)Indica tions:OAB (overactive bladder) Take 1 Tablet by mouth in the morning. 30 Tablet 1 04/09/2023 Active Levothyroxine Sodium 175 MCG Oral Tablet TAKE 1 TABLET BY MOUTH ONCE DAILY AT LEAST 30 MINUTES BEFORE BREAKFAST OR OTHER MEDICATIONS 90 Tablet 3 04/20/2023 Active DULoxetine HCl 60 MG Oral Capsule Delayed Release Particles (Cymbalta) Take 1 Capsule by mouth in the morning and 1 Capsule before bedtime. 180 Capsule 1 04/22/2023 Active DULoxetine HCl 60 MG Oral Capsule Delayed Release Particles (Cymbalta) Take 1 Capsule by mouth in the morning and 1 Capsule before bedtime. 180 Capsule 1 11/28/2022 Discontinue d(Refill) documented as of this encounter (statuses as of 04/22/2023) Active Problems Problem Noted Date Diagnosed Date Type 2 diabetes mellitus wit h stage 3a chronic kidney disease, without long-term current use of insulin 04/13/2023 Depression with anxiety 04/01/2023 OAB (overactive bladder) 04/01/2023 Gastroesophageal reflux disease without esophagi tis 09/25/2021 Frequent falls 09/25/2021 Mass of left parotid gland 09/25/2021 Persistent insomnia 09/25/2021 Urinary incontinence, mixed 09/25/2021 High risk for fracture due to osteoporosis by DE XA scan 06/12/2021 Diabetic retinopathy of left eye associated with type 2 diabetes mellitus 11/15/2020 Chronic kidney disease, stage 3a 07/12/2020 Overview: Per CKD protocol Type 2 diabetes mellitus wit h hemoglobin A1c goal of less than 8.0% 03/03/2018 Vitamin B 12 deficiency 07/04/2015 Panic disorder 09/17/2008 HTN, goal below 130/80 06/08/2008 Overview: Modified per HTN protocol #16. Hypothyroidism due to acquired atrophy of thyroi d 11/30/2004 documented as of this encounter (statuses as of 04/22/2023) Resolved Problems Problem Noted Date Diagnosed Date Resolved Date MDD (major depressive disord er), recurrent episode, moderate 04/30/2022 04/01/2023 Type 2 diabetes mellitus wit h stage 3a chronic kidney disease, without long-term current use of insulin 04/30/2022 04/01/2023 Obesity, Class II, BMI 35-39 .9, isolated (see actual BMI) 09/25/2021 04/01/2023 Type 2 diabetes mellitus wit h stage 3a chronic kidney disease 07/12/2020 09/25/2021 Overview: Per CKD protocol Type 2 diabetes mellitus wit h stage 3a chronic kidney disease 07/12/2020 08/18/2020 Overview: Per CKD protocol Post-traumatic osteoarthritis of right wrist 09/25/2021 Carpal tunnel syndrome of right wrist 07/06/2020 09/25/2021 Type 2 diabetes mellitus wit h stage 3 chronic kidney disease, without long-term current use of insulin 04/06/2020 07/14/2020 Overview: Per CKD protocol Hypertensive kidney disease with stage 3a chronic kidney disease 03/14/2020 09/25/2021 Overview: Per CKD protocol Diabetes mellitus with stage 3 chronic kidney disease 03/14/2020 07/14/2020 Overview: Per CKD protocol ADVANCE DIRECTIVE INFORMATION 08/07/2019 09/25/2021 Overview: Information offered-declined Hypertensive kidney disease with chronic kidney disease stage III 08/11/2018 03/17/2020 Overview: Per CKD protocol Type 2 diabetes mellitus wit h stage 3 chronic kidney disease 08/11/2018 03/17/2020 Overview: Per CKD protocol Kidney disease, chronic, sta ge III (GFR 30-59 ml/min) 06/11/2017 09/11/2018 Overview: Per CKD protocol #1 Essential hypertension with goal blood pressure less than 140/90 02/21/2016 09/25/2021 Wrist fracture, bilateral 05/11/2014 C1 cervical fracture 05/11/2014 01/30/2 018 Other seborrheic keratosis 01/05/2013 0 04/02/2017 Edema 02/21/2011 04/02/2017 Cellulitis of foot 02/19/2011 8 Pain in right foot 02/19/2011 8 Kidney disease, chronic, sta ge III (GFR 30-59 ml/min) 04/21/2010 10/08/2014 Major depressive disorder, s melvin episode, moderate 09/17/2008 04/01/2023 Anxiety state 09/17/2008 01/03/2009 Acute stress reaction 09/17/20082008 EXTRINSIC ASTHMA, UNSPEC 01/22/2006 Hypothyroidism 11/17/2004 01/22/2006 Menopause 11/17/2004 11/17/2004 Osteoporosis 11/17/2004 09/25/2021 LIPOMA SKIN NEC 06/20/2004 01/22/2006 Bronchitis 01/22/2006 Menopause 01/03/2009 documented as of this encounter (statuses as of 04/22/2023) Immunizations Name Administration Dates Next Due COVID-19 mRNA, LNP-s, No Pre serve, 2-Dose Series ([employer]) 05/24/2020,05/03/2020 Pneumococcal Conjugate Vacc, 13 Valent (Prevnar) 07/04/2015 Pneumococcal Polysaccharide PPV23 (Pneumovax) ,03/04/2000 documented as of this encounter Social History Tobacco Use Types Packs/Day Years Used Date Smoking Tobacco: Never Smokeless Tobacco: Never Alcohol Use Standard Drinks/Week Comments No 0 (1 standard drink = 0.6 oz pur e alcohol) PHQ-2 Answer Date Recorded PHQ Adult Total Score 0 01/23/2023 Hunger Vital Sign Answer Date Recorded Within the past 12 months, y ou worried that your food would run out before you got the money to buy more. Never true 04/22/19 24 Within the past 12 months, t he food you bought just didn't last and you didn't have money to get more. Never true 04/22/2023 Sex and Gender Information Value Date Recorded Sex Assigned at Female 07/18/2021 1:06 PM EDT Gender Identity Female 07/18/2021 1:06 PM EDT Sexual Orientation Straight 07/18/2021 1: 06 PM EDT Job Start Date Occupation Industry Not on file Not on file Not on file documented as of this encounter Progress Notes * Mario Yu MD - 04/22/2023 9:08 AM EST OUTPATIENT PSYCHIATRY RETURN VISIT DIVISION OF PSYCHIATRY [address] [address] Name: Glory Tee : 1940 Date and Time Patient was Seen: 04/22/2023 at 9:08 AM After connecting through [employer], patient was verified with two unique identifiers. Patient (or authorized legal school admissions representative) was then informed that this was a Telemedicine visit and that the exam was being conducted confidentially over secure lines. My office door was closed. No one else was in the room with me. Patient acknowledged consent and understanding of privacy and security of the Telemedicine visit and gave permission to have a telemedicine presenter stay in the room in order to assist with the history and to conduct the exam as needed. I informed the patient that I have reviewed their record in [employer] and presented the opportunity for them to ask any questions regarding the visit today. The patient agreed to participate. Additional telemed for psych required: Provider reviewed elements of Outpatient Services Description including limits of confidentiality, how to contact the department, risks and benefits of treatment and consent for treatment. Patient isunable to sign acknowledgment receiving form. Signature will be obtained when Covid 19 crisis has passed and in person services resume. For [facility] members, Encounter Form unable to be signed, signature exempt - Telehealth, and will beobtained when Covid 19 crisis has passed and in person services resume. Treatment plan signature page document signatures may be marked "signature exempt - Telehealth" with a provider policy to obtain signatures as soon as possible after the COVID-19 crisis has passed and in person services resume. This note was completed, in part, utilizing [employer] (now [employer] Direct voice recognition software. Grammatical errors, random word insertions, pronoun errors and incomplete sentences are an occasional consequence of using this system due to software limitations, ambient noise and hardware issues. Any formal questions or concerns about the content, text, or information contained within the body of this dictation should be directly addresses to the provider for clarification. Start Time: 0900 Stop Time: 924 Total direct absc-yw-ceir time: 25 minutes Physical Location of patient: Home CC: Follow-up Glory Tee is a 82 year old female referred by primary care provider. She has a history of depression, anxiety, DM2, CKD, HTN, osteoporosis and current arm fracture. She used to work as a realtor. She has 3 children. INTERVAL HISTORY: Glory reports that she is doing okay. She had some issues with delirium when she had an UTI. She was seeing bugs coming out of the sprinklers. This resolved with UTI treatment. She notes that her anxiety has been okay. She has been practicing "listening." She notes that this is helpful. She would like to see a therapist again. She notes that her appetite has been down. She is sleeping okay. Her hu pantera has some issues with TIAs. Pt reports good adherence with medication. Pt denies SI. No manic symptoms, psychotic symptoms, AH, VH or HI elicited. [place]ICIDE SEVERITY RATING SCALE Frequent Screener Ask questions that are bold and underlined Since Last Contact (Ti with an X) YES NO Have you actually had thoughts about killing yourself? x If YES, ask the following questions. If NO, go directly to the last question Have you been thinking about how you might do this? Have you had these thoughts and had some intention of acting on them? E.g. I thought about taking an overdose, but I never made a specific plan as to when where or how I would actually do it.and I would never go through with it. Have you started to work out or worked out the details of how to kill yourself? Do you intend to carry out this plan? As opposed to I have the thoughts, but I definitely will not do anything about them. Have you done anything, started to do anything, or prepared to do anything to end your life? Examples: Collected pills, obtained a gun, gave away valuables, wrote a will or suicide note, took out pills but didn't swallow any, held a gun but changed your mind or it was grabbed from your hand,went to the roof but didn't jump; or actually took pills, tried to shoot yourself, cut yourself, tried to hang yourself, etc. x Low Risk Complete or review crisis plan with patient Discuss risk/protective factors and reasons for living Moderate Risk Complete or review crisis plan with patient Discuss risk/protective factors and reasons for living Discuss removal of means High Risk Maintain 1 to 1 monitoring until assessment is completed Evaluate for higher level of care (Inpatient or PHP) Consultation with Emergency Services as appropriate If patient not admitted: Complete or review crisis plan with patient Discuss risk/protective factors and reasons for living Advise removal of means Consider family or collateral contact to promote safety Schedule follow up care consistent with assessment ALLERGIES Review of patient's allergies indicates: Allergen Reactions Nutritional Supplements Swelling, problems breathing Shellfish Allergy Hives Wasp Venom Swelling, problems breathing Pelon Inhibitors Other (Please comment) cough Amlodipine Besylate Rash Clarithromycin ? Gabapentin Neuro complications (Please comment) confusion Inderal La [Propranolol Hcl Er] Other (Please comment) Nerve pain and joint stiffness Iodine Hives Sulfa Antibiotics Hives Tetanus Toxoid CURRENT MEDICATIONS: Current Outpatient Medications Medication Sig Dispense Refill ASPIRIN 81 MG PO TABS one tablet by mouth daily TYLENOL 325 MG PO TABS Take by mouth . Blood Glucose Monitoring Suppl ([employer] GLUCOMETER) w/Device KIT Patient needs the One touch Ultra 2Glucometer. Patient is to test 4 times per day; E11.9 (Patient not taking: Reported on 01/23/2023) 1 Kit 0 estrogens, conjugated (PREMARIN) 0.625 MG/GM vaginal cream Administer 0.5 g into the vagina once a day Saturday and only. Use 0.5 g with applicator at bedtime 30 g 6 EpiPen 2-Neymar 0.3 MG/0.3ML Injection Solution Auto-injector ONE INJECTION INTO THIGH NEEDED FOR SEVERE ALLERGIC REACTION 1 Each 2 Premarin 0.625 MG/GM Vaginal Cream (Estrogens Conjugated) Administer 0.5 g into the vagina at bedtime. As directed. 42.5 g 5 Omeprazole 20 MG Oral Capsule Delayed Release (PriLOSEC) TAKE 1 CAPSULE BY MOUTH ONCE DAILY ONE HOUR BEFORE THE FIRST MEAL OF THE DAY 90 Capsule 2 Metoprolol Succinate ER 100 MG Oral Tablet Extended Release 24 Hour (toPROL XL) Take 1 Tablet by mouth in the morning. 90 Tablet 2 DULoxetine HCl 60 MG Oral Capsule Delayed Release Particles (Cymbalta) Take 1 Capsule by mouth in the morning and 1 Capsule before bedtime. 180 Capsule 1 iTracsTouch Delica Lancets 33G Test 1 time per day. Dx: E11.9 100 Each 3 OneTouch Verio In Vitro Strip (Glucose Blood) USE TO TEST once daily Dx: E11.9 100 Strip 3 Furosemide 40 MG Oral Tablet (Lasix) Take 1 Tablet by mouth in the morning. 90 Tablet 1 Losartan Potassium 100 MG Oral Tablet (Cozaar) Take 1 Tablet by mouth in the morning. 90 Tablet 2 Mirabegron ER 50 MG Oral Tablet Extended Release 24 Hour (Myrbetriq) Take 1 Tablet by mouth in the morning. 30 Tablet 1 Levothyroxine Sodium 175 MCG Oral Tablet TAKE 1 TABLET BY MOUTH ONCE DAILY AT LEAST 30 MINUTES BEFORE BREAKFAST OR OTHER MEDICATIONS 90 Tablet 3 No current facility-administered medications for this visit. RECENT LABS/IMAGING: Recent Results (from the past 672 hour(s)) TSH WITH FREE T4 IF INDICATED Collection Time: 04/01/23 9:34 AM Result Value Ref Range TSH 2.07 0.27 - 4.20 uIU/mL ALBUMIN / CREATININE RATIO, URINE Collection Time: 04/01/23 9:35 AM Result Value Ref Range Albumin, Random Urine 2.15 mg/dL Creatinine, Random Urine 168 mg/dL Albumin / Creatinine Ratio, Urine 13 <30 mg/g Creat VITALS There were no vitals filed for this visit. Wt Readings from Last 3 Encounters: 04/09/23 97.5 kg (215 lb) 01/17/23 93 kg (205 lb) 07/06/22 96.6 kg (213 lb) There is no height or weight on file to calculate BMI. CURRENT MEDICATIONS: Current Outpatient Medications Medication Sig Dispense Refill ASPIRIN 81 MG PO TABS one tablet by mouth daily TYLENOL 325 MG PO TABS Take by mouth . Blood Glucose Monitoring Suppl (D-CARE GLUCOMETER) w/Device KIT Patient needs the One touch Ultra 2Glucometer. Patient is to test 4 times per day; E11.9 (Patient not taking: Reported on 01/23/2023) 1 Kit 0 estrogens, conjugated (PREMARIN) 0.625 MG/GM vaginal cream Administer 0.5 g into the vagina once a day Saturday and only. Use 0.5 g with applicator at bedtime 30 g 6 EpiPen 2-Neymar 0.3 MG/0.3ML Injection Solution Auto-injector ONE INJECTION INTO THIGH NEEDED FOR SEVERE ALLERGIC REACTION 1 Each 2 Premarin 0.625 MG/GM Vaginal Cream (Estrogens Conjugated) Administer 0.5 g into the vagina at bedtime. As directed. 42.5 g 5 Omeprazole 20 MG Oral Capsule Delayed Release (PriLOSEC) TAKE 1 CAPSULE BY MOUTH ONCE DAILY ONE HOUR BEFORE THE FIRST MEAL OF THE DAY 90 Capsule 2 Metoprolol Succinate ER 100 MG Oral Tablet Extended Release 24 Hour (toPROL XL) Take 1 Tablet by mouth in the morning. 90 Tablet 2 DULoxetine HCl 60 MG Oral Capsule Delayed Release Particles (Cymbalta) Take 1 Capsule by mouth in the morning and 1 Capsule before bedtime. 180 Capsule 1 iTracsTouch IntroFly Lancets 33G Test 1 time per day. Dx: E11.9 100 Each 3 OneTouch Verio In Vitro Strip (Glucose Blood) USE TO TEST once daily Dx: E11.9 100 Strip 3 Furosemide 40 MG Oral Tablet (Lasix) Take 1 Tablet by mouth in the morning. 90 Tablet 1 Losartan Potassium 100 MG Oral Tablet (Cozaar) Take 1 Tablet by mouth in the morning. 90 Tablet 2 Mirabegron ER 50 MG Oral Tablet Extended Release 24 Hour (Myrbetriq) Take 1 Tablet by mouth in the morning. 30 Tablet 1 Levothyroxine Sodium 175 MCG Oral Tablet TAKE 1 TABLET BY MOUTH ONCE DAILY AT LEAST 30 MINUTES BEFORE BREAKFAST OR OTHER MEDICATIONS 90 Tablet 3 No current facility-administered medications for this visit. FAMILY HISTORY: Family History Problem Relation Age of Onset Stroke Mother Anxiety Disorder Mother Heart Disorder Father [place] Alcohol and Other Disorders Associated Grandmother (Paternal) PAST MEDICAL HISTORY: Past Medical History: Diagnosis Date Asthma, non-allergic mild, PFT Chronic anxiety Chronic depression Chronic pain Depression with anxiety 04/01/2023 Frequent falls 09/25/2021 Gastroesophageal reflux disease without esophagitis 09/25/2021 Lacunar stroke (HCC) front frontal Lipoma of skin 1995 Mass of left parotid gland 09/25/2021 OAB (overactive bladder) 04/01/2023 Obesity, Class II, BMI 35-39.9, isolated (see actual BMI) 09/25/2021 Persistent insomnia 09/25/2021 Poor sleep pattern Subjective cognitive impairment Urinary incontinence, mixed 09/25/2021 Vitamin B 12 deficiency 07/04/2015 SUMMARY OF/CHANGES TO PAST PSYCHIATRIC, MEDICAL, FAMILY, OR SOCIAL HISTORY: See interval history MEDICAL REVIEW OF SYSTEMS: Constitutional: (-) fever chills sweats or weight loss Eyes: (-) negative, no amaurosis fugax, pain, blurred vision, or redness Cardiovascular: (-) negative: no chest pain, dyspnea, syncope, or palpitations Pulmonary: (-) negative: no cough, wheezing, or shortness of breath Abdominal/GI: (-) negative: no pain, heartburn, dysphagia, bleeding, change in bowel habits, nauseaor vomiting Musculoskeletal: (-) negative: no pain Endocrine: (-) negative: no weight change, heat or cold intolerance, polyuria Skin: (-) negative: no rash or new or changing moles Neurology: (-) negative: no focal neurologic defect MENTAL STATUS EVALUATION Appearance: age-appropriate and casually dressed Muscle strength and tone: no abnormal involuntary movement or gross abnormality of muscle strength and tone noticeable via tele-medicine encounter Gait and Station: No abnormalities noted via tele-medicine encounter Behavior: cooperative Speech: normal, rate, tone and volume Mood: "okay" Affect: type - euthymic; range - full range; lability - no Associations: intact Thought Process: goal directed and logical Abstract Reasoning: intact Thought Content: denies suicidal ideations, homicidal ideations, auditory hallucinations, visual hallucinations, delusions, impulsivity to act out or preoccupation with violence Orientation: alert and oriented to person, place, time and situation Attention span/concentration as evidenced by: ability to sustain attention to examiner - intact Insight: good Judgment: good ASSESSMENT AND PLAN: Diagnosis: The primary encounter diagnosis was GABBY (generalized anxiety disorder). A diagnosis of Depressive disorder was also pertinent to this visit. Glory Tee is a 82 year old female referred by primary care provider. She has a history of depression, anxiety, DM2, CKD, HTN, osteoporosis and arm fracture. Information provided by the patient, her daughter Susi who was present with the patient's permission, and her medical record. The patient gives a history consistent with GABBY and MDD. She also has had some cognitive decline. 1. Cymbalta 60mg BID Consider antipsychotic if delirious again. Discussed when it's appropriate to go to the ER. Treatment options and alternatives reviewed with patient who agrees with the above plan. Information about current medications was provided to the patient including reasons why medications are being used. Patient understood the risks, benefits, side-effects, and potential complications associated with changes in medications being proposed (both medications being started, and medications being discontinued or having dose changed). Patient is making an informed medical decision to follow the recommendations outlined in this note. Directed pt to call with any questions or concerns, worsening symptoms and/or ask for earlier appointment. Greater than 50% of the time was spent counseling or coordinating the care of the patient Risk assessment was performed. This is a patient being treated for chronic mental health conditionsand/or substance use disorder as characterized above; at the time of this visit, there was no indication that this patient was either a risk to self, others, or gravely disabled by symptoms of a mental illness or substance use disorder. At the time of this evaluation, pt did not appear to be an acute risk to self or others, there were enough protective factors in place, and it was deemed safe andappropriate to continue with treatment on an outpatient basis with return to clinic in the timeframe described above. We reviewed previous crisis plan should he/she experience worsening of symptoms before next follow-up appointment, including being aware of what resources to use according to the urgency and severityof symptoms. Glory Edmond Tee was able to verbalize understanding of the steps necessary to obtain help between appointments should be needed, from requesting a phone call, to requesting an appointment sooner, including reaching clinic after hours, accessing our system, and accessing emergency mental health and medical services, either at a local emergency department or by activating mobile crisis teams and EMS. Time Spent on Visit: 30 minutes TREATMENT PLAN: Treatment plan was developed on 09/23/21, treatment will continue to focus on goals below; Treatment update will occur when clinically indicated or by 03/26/2023. Patient's goals captured in patient's words: "get better" Crisis Planning: Patient and/or family aware of how to contact provider between sessions Patient/Family Received Copy of Treatment Plan: Patient has access to [facility] system Signature Obtained on Treatment Plan: Treatment plan developed with patient and/or family during telemedicine/telephonic visit. No treatment plan signature page was signed. Will obtain signatures once sessions resume in clinic. Expected family or significant other involvement: Participate in visits and Offer Support Patient Identified Needs/Goals Interventions/Type of Service Duration of Treatment Frequency of Treatment Patients strengths and facilitating factors to care Objective/ Discharge Criteria Problem/Need1: Medication Mangement Medication Management 1 year Monthly Seeking help Achieved maintenance treatment phase at full therapeutic dosage for 6-12 months Please choose a method to track patient's improvement based on clinical assessment: [place] Suicide Screen Mario Yu MD Psychiatrist, [facility] 04/22/2023 documented in this encounter Plan of Treatment Upcoming Encounters Date Type Department Care Team (Late st Contact Info) Description 04/30/2023 10:00 AM EST Telemedicine Psychology, [place] [address] [place] [address] Claritza Jean LCSW [address] [place] [address] 06/24/2023 3:15 PM EDT Office Visit Urogynecology [facility] [address] [place], [place] [id number] Guy Nicole MD [address] [place] [address] Nurse Chevy Finley [facility] [address] [place] [address] 07/15/2023 9:00 AM EDT Telemedicine Psychiatry, [place] [address] [place] [address] Mario Yu MD [address] [place] [address] 10/16/2023 2:20 PM EDT Office Visit Family Practice [facility] [address] [place] [address] Radha Suarez DO [address] [place] [address] Health Maintenance Due Date Last Done Comments Zoster Vaccines (1 of 2) 1992 FOBT ANNUALLY,AGES 18-90 04/20/2012 012 (Not indicated), 06/22/1998 *BISPHONATE OR OTHER ACCEPTABLE MEDICATION NEEDED FOR OSTEOPOROSIS (REFER TO SMARTSET #1146) 10/13/2018 DXA Scan 07/17/2019 07/16/2017, 02/02, 02/21/2009, Additional history exists COVID-19 Vaccine ( season) 2022 05/24/2020, 05/03/2020 Influenza Vaccine (FLU shot) (#1) 2022 GFR 07/24/2023 01/23/2023, 05/0 05/2022, 09/18/2021, Additional history exists HbA1c 07/24/2023 01/23/2023, 05/0 05/2022, 09/18/2021, Additional history exists CKD HGB USE SMARTSET 94870 01/24/202401/23, 01/23/2023, 09/18/2021, Additional history exists CKD PHOS USE SMARTSET 26058 01/24/202401/03, 09/18/2021, 03/31/2021, Additional history exists Depression Screening 01/24/2024 01/23/2023 Diabetic Eye Exam 01/27/2024 01/26/2023, , 01/26/2023, Additional history exists Albumin/Creatinine Ratio 04/01/2024 024, 09/18/2021, 07/05/2014, Additional history exists TSH 04/01/2024 04/01/2023, 09/01, 03/31/2021, Additional history exists Diabetic Foot Exam 04/09/2024 04/09/2023, 0 07/18/2021, 08/13/2019, Additional history exists Pneumococcal Vaccine: 65+ Years Completed 07/04/2015, 01/03/2009, 03/04/2000 VITAMIN D LEVEL ONCE IN A LIFETIME-USE SMARTSET# [id number] Completed 09/30/2017, 05/21/2017, 04/21/2010, Additional history exists GARDASIL-HPV IMMUNIZATION SERIES Aged Out No longer eligible based on patient's age to complete this topic Hepatitis B Aged Out No longer eligi ble based on patient's age to complete this topic MENINGOCOCCAL (MENACTRA/MENVEO) Aged Out No longer eligible based on patient's age to complete this topic documented as of this encounter Medical Devices Not on filedocumented as of this encounter Visit Diagnoses Diagnosis GABBY (generalized anxiety disorder)- Primary Generalized anxiety disorder Depressive disorder Depressive disorder, not elsewhere classified documented in this encounter Care Teams Artist Model Relationship Specialty Start Date End Date Radha Suarez DO [address] [place] [address] PCP - General Family Medicine 09/15/21 documented as of this encounter
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
--- OUTSIDE RECORDS SUMMARY | 2023-05-15 13:17 | External Medical Summary | Summary of Care ---
Author Name Unknown Organization [facility] Address [address] [place] [address] Phone [phone] Care Team Providers Care Gericare Aide Teacher Name Role Phone Radha Suarez DO Primary Care Provider [phone] Reason for Visit * Reason Comments Shingles Pt states she was di agnosed with shingles a month ago, states the pain has worsened Encounter Details Date Type Department Care Team (Late st Contact Info) Description 04/01/2023 12:40 PM EST Office Visit Family Practice [facility] [address] [facility] [place] [address] Alvarez Cortes MD [address] [place] [address] Herpes zoster without complication* Allergies Active Allergy Reactions Criticality Noted Date [...] as of this encounter (statuses as of 04/01/2023) Medications Medication Sig Dispensed Refills Start Date [...] Active Premarin 0.625 MG/GM Vaginal Cream (Estrogens Conjugated)Indicat ions:Urinary incontinence, mixed Administer 0.5 g into the vagina at bedtime. As directed. 42.5 g 5 04/18/2022 Active Losartan Potassium 100 MG Oral Tablet (Cozaar) Take 1 Tablet by mouth in the morning. 90 Tablet 2 07/14/2022 Active Omeprazole 20 MG Oral Capsule Delayed Release (PriLOSEC) TAKE 1 CAPSULE BY MOUTH ONCE DAILY ONE HOUR BEFORE THE FIRST MEAL OF THE DAY 90 Capsule 2 10/02/2022 Active Metoprolol Succinate ER 100 MG Oral Tablet Extended Release 24 Hour (toPROL XL)Indications:Ess ential hypertension with goal blood pressure less than 140/90 Take 1 Tablet by mouth in the morning. 90 Tablet 2 10/02/2022 Active Furosemide 40 MG Oral Tablet (Lasix) Take 1 tablet by mouth once daily 90 Tablet 1 10/09/2022 Active Gemtesa 75 MG Oral Tablet (Vibegron) Take 1 Tablet by mouth in the morning. 90 Tablet 2 10/15/2022 Active DULoxetine HCl 60 MG Oral Capsule Delayed Release Particles (Cymbalta) Take 1 Capsule by mouth in the morning and 1 Capsule before bedtime. 180 Capsule 1 11/28/2022 Active Levothyroxine Sodium 175 MCG Oral Tablet TAKE 1 TABLET BY MOUTH ONCE DAILY AT LEAST 30 MINUTES BEFORE BREAKFAST OR OTHER MEDICATIONS 90 Tablet 0 01/21/2023 Active Essence Group HoldingsTouch Delica Lancets 33GIndications:Typ e 2 diabetes mellitus with hemoglobin A1c goal of less than 8.0% ([facility]) Test 1 time per day. Dx: E11.9 100 Each 3 01/23/2023 Active OneTouch Verio In Vitro Strip (Glucose Blood)Indications: Type 2 diabetes mellitus with hemoglobin A1c goal of less than 8.0% (HCC) USE TO TEST once daily Dx: E11.9 100 Strip 3 01/23/2023 Active Mupirocin 2 % External Ointment (Bactroban) Apply topically to affected area 3 times a day for 14 days. To affected area for up to 14 days. 22 g 1 04/01/2023 04/15/2023 Active documented as of this encounter (statuses as of 04/01/2023) Active Problems Problem Noted Date Diagnosed Date Depression with anxiety 04/01/2023 OAB (overactive bladder) [...] as of this encounter (statuses as of 04/01/2023) Resolved Problems Problem Noted Date Diagnosed Date [...] as of this encounter (statuses as of 04/01/2023) Immunizations Name Administration Dates Next Due COVID-19 mRNA, LNP-s, No Pre serve, 2-Dose Series ([employer]) 05/24/2020,05/03/2020 Pneumococcal Conjugate Vacc, 13 Valent (Prevnar) [...] 01/23/2023 Hunger Vital Sign Answer Date Recorded Worried About Running Out of Food in the Last Ye ar Never true 09/17/2019 Ran Out of Food in the Last Year Never true 09/17/2019 Sex and Gender Information Value Date Recorded Sex Assigned at Female 07/18/2021 1:06 PM EDT Gender Identity Female 07/18/2021 1:06 PM EDT Sexual Orientation Straight 07/18/2021 1: 06 PM EDT Job Start Date Occupation Industry Not on file Not on file Not on file documented as of this encounter Last Filed Vital Signs Vital Sign Reading Time Taken Comments Blood Pressure 120/78 04/01/2023 10:04 AM EST Pulse 76 04/01/2023 10:04 AM EST Temperature 36.3 C (97.3 F) 04/01/2023 10:[address] Respiratory Rate - - Oxygen Saturation - - Inhaled Oxygen Concentration - - Weight - - Height - - Body Mass Index - - documented in this encounter Progress Notes * Alvarez Cortes MD - 04/01/2023 10:15 AM EST SUBJECTIVE: Glory Tee is a 82 year old female. Chief Complaint Patient presents with Shingles Pt states she was diagnosed with shingles a month ago, states the pain has worsened HPI: Glory is a cognitively impaired 82 year old female who was at the office getting blood work done when a laborer concrete paving noticed a rash on her head and wanted her to be seen today. She had shingles several months ago but by report never ended up taking the valtrex she was prescribed. The rash has generallyresolved, however she does have on sore open lesion on her left anterior scalp. No other symptoms. 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 ([facility]) E11.319 High risk for fracture due to osteoporosis by DEXA scan M81.0 Gastroesophageal reflux disease without esophagitis K21.9 Frequent falls R29.6 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 As directed. 42.5 g 5 Losartan Potassium 100 MG Oral Tablet (Cozaar) Take 1 Tablet by mouth in the morning. 90 Tablet 2 Omeprazole 20 MG Oral Capsule Delayed Release (PriLOSEC) TAKE 1 CAPSULE BY MOUTH ONCE DAILY ONE HOUR BEFORE THE FIRST MEAL OF THE DAY 90 Capsule 2 Metoprolol Succinate ER 100 MG Oral Tablet Extended Release 24 Hour (toPROL XL) Take 1 Tablet by mouth in the morning. 90 Tablet 2 Furosemide 40 MG Oral Tablet (Lasix) Take 1 tablet by mouth once daily 90 Tablet 1 Gemtesa 75 MG Oral Tablet (Vibegron) Take 1 Tablet by mouth in the morning. 90 Tablet 2 DULoxetine HCl 60 MG Oral Capsule Delayed Release Particles (Cymbalta) Take 1 Capsule by mouth in the morning and 1 Capsule before bedtime. 180 Capsule 1 Levothyroxine Sodium 175 MCG Oral Tablet TAKE 1 TABLET BY MOUTH ONCE DAILY AT LEAST 30 MINUTES BEFORE BREAKFAST OR OTHER MEDICATIONS 90 Tablet 0 Mupirocin 2 % External Ointment (Bactroban) Apply topically to affected area 3 times a day for 14 days. To affected area for up to 14 days. 22 g 1 TYLENOL 325 MG PO TABS Take by mouth . Blood Glucose Monitoring Suppl ([employer] GLUCOMETER) w/Device KIT Patient needs the One touch Ultra 2Glucometer. Patient is to test 4 times per day; E11.9 (Patient not taking: Reported on 01/23/2023) 1 Kit 0 estrogens, conjugated (PREMARIN) 0.625 MG/GM vaginal cream Administer 0.5 g into the vagina once a day Saturday and only. Use 0.5 g with applicator at bedtime 30 g 6 OneTouch Delica Lancets 33G Test 1 time per day. Dx: E11.9 100 Each 3 OneTouch Verio In Vitro Strip (Glucose Blood) USE TO TEST once daily Dx: E11.9 100 Strip 3 No current facility-administered medications for this visit. Allergy: Review of patient's allergies indicates: Allergen Reactions Nutritional Supplements Swelling, problems breathing Shellfish Allergy Hives Wasp Venom Swelling, problems breathing Pelon Inhibitors Other (Please comment) cough Amlodipine Besylate Rash Clarithromycin ? Gabapentin Neuro complications (Please comment) confusion Inderal La [Propranolol Hcl Er] Other (Please comment) Nerve pain and joint stiffness Iodine Hives Sulfa Antibiotics Hives Tetanus Toxoid OBJECTIVE: BP 120/78 | Pulse 76 | Temp 36.3 C (97.3 F) (Tympanic) Gen: nad Skin: one unroofed vesicle on left anterior forehead; no drainage ASSESSMENT AND PLAN: (B02.9) Herpes zoster without complication (primary encounter diagnosis) Plan: mupirocin to prevent secondary infection Follow up as needed. No other complaints were offered at this time. Alvarez Cortes MD documented in this encounter Nursing Notes * Sherry Hoyos LPN - 04/01/2023 10:04 AM EST The patient has been properly identified by confirmation of name and date of . Chief Complaint Patient presents with Shingles Pt states she was diagnosed with shingles a month ago, states the pain has worsened documented in this encounter Plan of Treatment Upcoming Encounters Date Type Department Care Team (Late st Contact Info) Description 04/16/2023 10:00 AM EST Telemedicine Sleep Disorders Ctr [facility] [address] [place] [id number] Gayatri Small DO [address] [place] [address] 04/22/2023 9:00 AM EST [facility] [address] [place] [address] Mario Yu MD [address] [place] [address] 04/24/2023 2:20 PM EST Office Visit Family Practice [facility] [address] [place] [address] Radha Suarez, DO [address] [place] [address] 05/10/2023 1:35 PM EST Office Visit Urogynecology [facility] [address] [place] [id number] nAn Esparza PA-C [address] [place] [phone] Nurse Chevy Finley [address] [place] [address] Health Maintenance Due Date Last Done Comments Zoster Vaccines (1 of 2) 1992 Hepatitis B (1 of 3 - Risk 3-dose series) 2002 FOBT ANNUALLY,AGES 18-90 04/20/2012 012 (Not indicated), 06/22/1998 *BISPHONATE OR OTHER ACCEPTABLE MEDICATION NEEDED FOR OSTEOPOROSIS (REFER TO SMARTSET #1146) 10/13/2018 DXA Scan 07/17/2019 07/16/2017, 02/02, 02/21/2009, Additional history exists Diabetic Foot Exam 07/18/2022 07/18/2021, 0 08/13/2019, 08/25/2018 Albumin/Creatinine Ratio 09/18/2022 022, 07/05/2014, 06/12/2013, Additional history exists TSH 09/18/2022 09/18/2021, 03/05, 02/19/2020, Additional history exists COVID-19 Vaccine ( season) 2022 05/24/2020, 05/03/2020 Influenza Vaccine (FLU shot) (#1) 2022 GFR 07/24/2023 01/23/2023, 05/0 05/2022, 09/18/2021, Additional history exists HbA1c 07/24/2023 01/23/2023, 05/0 05/2022, 09/18/2021, Additional history exists CKD HGB USE SMARTSET 60824 01/24/202401/23, 01/23/2023, 09/18/2021, Additional history exists CKD PHOS USE SMARTSET 00079 01/24/202401/03, 09/18/2021, 03/31/2021, Additional history exists Depression Screening 01/24/2024 01/23/2023 Diabetic Eye Exam 01/27/2024 01/26/2023, , 01/26/2023, Additional history exists Pneumococcal Vaccine: 65+ Years Completed 07/04/2015, 01/03/2009, 03/04/2000 VITAMIN D LEVEL ONCE IN A LIFETIME-USE SMARTSET# 22151 Completed 09/30/2017, 05/21/2017, 04/21/2010, Additional history exists GARDASIL-HPV IMMUNIZATION SERIES Aged Out No longer eligible based on patient's age to complete this topic MENINGOCOCCAL (MENACTRA/MENVEO) Aged Out No longer eligible based on patient's age to complete this topic documented as of this encounter Medical Devices Not on filedocumented as of this encounter Visit Diagnoses Diagnosis Herpes zoster without complication- Primary Herpes zoster without mention of complication documented in this encounter Care Teams Gericare Aide Teacher Relationship Specialty Start Date End Date Radha Suarez DO [address] [place] [address] PCP - General Family Medicine 09/15/21 documented as of this encounter"
--- OUTSIDE RECORDS SUMMARY | 2023-05-15 13:17 | External Medical Summary | Summary of Care ---
Author Name Unknown Organization [facility] Address [address] [place] [address] Phone [phone] Care Team Providers Care Doctor Assistant Name Role Phone Radha Suarez DO Primary Care Provider [phone] Reason for Visit * Reason Onset Date Comments Appointment 01/18/2023 Encounter Details Date Type Department Care Team (Late st Contact Info) Description 01/18/2023 Telephone Family Practice [facility] [address] [facility] [address] Radha [facility] [address] [facility] [phone] Appointment Allergies Active Allergy Reactions Criticality Noted Date [...] as of this encounter (statuses as of 04/19/2023) Medications Medication Sig Dispensed Refills Start Date [...] the morning. 90 Tablet 2 10/02/2022 Active DULoxetine HCl 60 MG Oral Capsule Delayed Release Particles (Cymbalta) Take 1 Capsule by mouth in the morning and 1 Capsule before bedtime. 180 Capsule 1 11/28/2022 Active documented as of this encounter (statuses as of 04/19/2023) Active Problems Problem Noted Date Diagnosed Date [...] as of this encounter (statuses as of 04/19/2023) Resolved Problems Problem Noted Date Diagnosed Date [...] as of this encounter (statuses as of 04/19/2023) Immunizations Name Administration Dates Next Due COVID-19 mRNA, LNP-s, No Pre serve, 2-Dose Series ([employer]) 05/24/2020,05/03/2020 Pneumococcal Conjugate Vacc, 13 Valent (Prevnar) [...] on file documented as of this encounter Miscellaneous Notes * Telephone Encounter - Hitesh Martin OSA - 01/22/2023 11:00 AM EST Called pt, scheduled acute appt for tomorrow * Telephone Encounter - Glory Isabel RN - 01/22/2023 9:57 AM EST Any available appts? * Telephone Encounter - Hitesh Martin OSA - 01/18/2023 3:11 PM EST Those won't open until tomorrow morning, but I can request an override if he's agreeable. Or pt canbe advised to call 1st thing tomorrow morning to try to schedule. * Telephone Encounter - Gisel Dickens LPN - 01/18/2023 3:04 PM EST Sebastian has open appointment tomorrow can she be added to one of those * Telephone Encounter - Hitesh Martin OSA - 01/18/2023 2:16 PM EST No acute openings available today or tomorrow, cannot schedule acute for Saturday yet either. Please advise * Telephone Encounter - Viola Quiroz OSA - 01/18/2023 11:03 AM EST Pt was seen at as advised for UTI & Shingles. Pt is being treated but was advised to have 3 day f/u appt. No appts available. Please call pt back to assist at [phone]. documented in this encounter Plan of Treatment Upcoming Encounters Date Type Department Care Team (Late st Contact Info) Description 04/22/2023 9:00 AM EST [facility] [address] [place] [address] Mario Yu MD [address] [place] [address] 06/24/2023 3:15 PM EDT Office Visit Urogynecology [facility] [address] [place] [address] Guy Nicole MD [address] [place] [address] Nurse Chevy Finley [address] [place] [address] 10/16/2023 2:20 PM EDT Office Visit Family Practice [facility] [address] [place] [address] Radha Suarez DO [address] [place] [address] Health Maintenance Due Date Last Done Comments [...] Additional history exists CKD HGB USE SMARTSET 03400 01/24/202401/23, 01/23/2023, 09/18/2021, Additional history exists CKD PHOS USE SMARTSET 98415 01/24/202401/03, 09/18/2021, 03/31/2021, Additional history exists Depression [...] D LEVEL ONCE IN A LIFETIME-USE SMARTSET# [id number] Completed 09/30/2017, 05/21/2017, 04/21/2010, Additional history exists GARDASIL-HPV IMMUNIZATION SERIES Aged Out No longer eligible based on patient's age to complete this topic MENINGOCOCCAL (MENACTRA/MENVEO) Aged Out No longer eligible based on patient's age to complete this topic documented as of this encounter Medical Devices Not on filedocumented as of this encounter Care Teams Doctor Assistant Relationship Specialty Start Date End Date Radha Suarez DO [address] [place] [address] PCP - General Family Medicine 09/15/21 documented as of this encounter
--- OUTSIDE RECORDS SUMMARY | 2023-05-15 13:17 | External Medical Summary | Summary of Care ---
Author Name Unknown Organization [facility] Address [address] [place] [address] Phone [phone] Care Team Providers Care Manager [employer] Name Role Phone Radha Suarez DO Primary Care Provider [phone] Encounter Details Date Type Department Care Team (Late st Contact Info) Description 02/11/2023 Telephone Urogynecology [facility] [address] [place] [address] Ann Esparza PA-C [address] [place] [address] Allergies Active Allergy Reactions Criticality Noted Date Comments Eplon Inhibitors Other (Please comment) Medium 8 cough [...] as of this encounter (statuses as of 02/13/2023) Medications Medication Sig Dispensed Refills Start Date [...] OTHER MEDICATIONS 90 Tablet 0 01/21/2023 Active Nelly Swift 33GIndications:Typ e 2 diabetes mellitus with hemoglobin A1c goal of less than 8.0% ([facility]) Test 1 time per day. Dx: E11.9 100 Each 3 01/23/2023 Active OneTouch Verio In Vitro Strip (Glucose Blood)Indications: Type 2 diabetes mellitus with hemoglobin A1c goal of less than 8.0% ([facility]) USE TO TEST once daily Dx: E11.9 100 Strip 3 01/23/2023 Active Mupirocin 2 % External Ointment (Bactroban) Apply topically to affected area 3 times a day for 14 days. To affected area for up to 14 days. 22 g 1 02/06/2023 02/20/2023 Active Cephalexin 500 MG Oral Capsule (Keflex)Indication s:UTI symptoms Take 1 Capsule by mouth in the morning and 1 Capsule before bedtime. Do all this for 7 days. Until gone.. 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 Hypothyroidism due to acquired atrophy of thyroi d 11/30/2004 documented as of this encounter (statuses as of 02/13/2023) Resolved Problems Problem Noted Date Diagnosed Date Resolved Date Type 2 diabetes mellitus wit h [...] ge III (GFR 30-59 ml/min) 04/21/2010 10/08/2014 Anxiety state 09/17/2008 01/03/2009 Acute stress reaction 09/17/20082008 EXTRINSIC ASTHMA, UNSPEC 01/22/2006 Hypothyroidism 11/17/2004 01/22/2006 Menopause 11/17/2004 11/17/2004 Osteoporosis 11/17/2004 09/25/2021 LIPOMA SKIN NEC 06/20/2004 01/22/2006 Bronchitis 01/22/2006 Menopause 01/03/2009 documented as of this encounter (statuses as of 02/13/2023) Immunizations Name Administration Dates Next Due COVID-19 mRNA, LNP-s, No Pre serve, 2-Dose Series (Pfizer) 05/24/2020,05/03/2020 Pneumococcal Conjugate Vacc, 13 Valent (Prevnar) 07/04/2015 Pneumococcal Polysaccharide PPV23 (Pneumovax) ,03/04/2000 TD - Tetanus/Diptheria (ADULT) 05/02/1996 documented as of this encounter Social History [...] encounter Miscellaneous Notes * Telephone Encounter - Gale Moise LPN - 02/12/2023 4:49 PM EST Call placed to patient to return her call. No answer. LM making pt aware we got her message and that message was sent to Ann that patient was returning her call. Callback number provided. * Telephone Encounter - Gale Moise LPN - 02/12/2023 4:12 PM EST Patient LM returning call to provider. Will make provider aware. * Telephone Encounter - Ann Esparza PA-C - 02/12/2023 11:32 AM EST TC to patient. LM on to return call. * Telephone Encounter - Ted Eduardo RN - 02/11/2023 11:37 AM EST Patient returned call, patient requesting a breakdown of urine results, ok to send via MyG. Thanks Ted Eduardo, RN * Telephone Encounter - Ann Esparza PA-C - 02/11/2023 11:32 AM EST TC to patient. No answer. MyG sent. documented in this encounter Plan of Treatment Upcoming Encounters Date Type Department Care Team (Late st Contact Info) Description 04/16/2023 10:00 AM EST Telemedicine Sleep Disorders Ctr [facility] [address] [facility] [place] [phone] Gayatri Small, [address] [place] [address] 04/22/2023 9:00 AM EST Telemedicine Psychiatry[address] [address] Mario Yu MD [address] [facility] [place] [address] 04/24/2023 2:20 PM EST Office Visit Family Practice [facility] [address] [place] [address] Radha Suarez DO [address] [place] [address] 05/10/2023 1:35 PM EST Office Visit Urogynecology [facility] [address] [place] [address] Ann Esparza PA-C [address] [place] [address] Nurse Chevy Finley [facility] [address] [place] [address] Health Maintenance Due Date Last Done Comments [...] Additional history exists CKD HGB USE SMARTSET 27258 01/24/202401/23, 01/23/2023, 09/18/2021, Additional history exists CKD PHOS USE SMARTSET 19965 01/24/202401/03, 09/18/2021, 03/31/2021, Additional history exists Depression Screening 01/24/2024 01/23/2023 Diabetic Eye Exam 01/27/2024 01/26/2023, , 01/26/2023, Additional history exists Pneumococcal Vaccine: 65+ Years Completed 07/04/2015, 01/03/2009, 03/04/2000 VITAMIN D LEVEL ONCE IN A LIFETIME-USE SMARTSET# 37618 Completed 09/30/2017, 05/21/2017, 04/21/2010, Additional history exists GARDASIL-HPV IMMUNIZATION SERIES Aged Out No longer eligible based on patient's age to complete this topic MENINGOCOCCAL (MENACTRA/MENVEO) Aged Out No longer eligible based on patient's age to complete this topic documented as of this encounter Medical Devices Not on filedocumented as of this encounter Care Teams Manager [employer] Sales Relationship Specialty Start Date End Date Radha Suarez DO [address] [place] [address] PCP - General Family Medicine 09/15/21 documented as of this encounter
--- OUTSIDE RECORDS SUMMARY | 2023-05-15 13:17 | External Medical Summary ---
Author Name Unknown Address Unknown Organization K01:[facility] [place] [address] [place] [address] Laboratory Report Ordering Provider Test Date Status CLARISSA VARGAS 04/01/2023 09:35:07 Final Normal: <30 mg/g creatinine< br/>High: 30-300 mg/g creatinine
Very High: >300 mg/g creatinine
Nephrotic: >2200 mg/g creatinine Observation Date Value Abnormality Reference (Units ) Status Albumin, Urine 04/01/2023 09:35:07 2.15 (mg/dL) Final Creatinine, Urine 04/01/2023 09:35:07 168 (mg/dL) Final Albumin/Creatinine [Mass Ratio] in Urine 04/01/2023 09:35:07 13 <30 (mg/g Creat) Final Performing Location [facility] [place] [address] [place] [address]
--- OUTSIDE RECORDS SUMMARY | 2023-05-15 13:17 | External Medical Summary | Summary of Care ---
Author Name Unknown Organization [facility] Address [address] [place] [address] Phone [phone] Care Team Providers Care Hat Sizer Name Role Phone Goyo Velasco DO Primary Care Provider [phone] Reason for Visit * Reason Comments eRx-Medication Refill Encounter Details Date Type Department Care Team (Late st Contact Info) Description 04/20/2023 Refill Family Practice [facility] [address] [facility] [place] [address] Goyo Velasco DO [address] [facility] [address] Allergies Active Allergy Reactions Criticality Noted Date [...] as of this encounter (statuses as of 04/20/2023) Medications Medication Sig Dispensed Refills Start Date End Date Status ASPIRIN 81 MG PO TABS one tablet by mouth daily 0 4 Active TYLENOL 325 MG PO TABS Take by mouth . 0 Active Blood Glucose Monitoring Suppl (D-CARE GLUCOMETER) w/Device KIT Patient needs the One touch Ultra 2 Glucometer. Patient is to test 4 times per day; E11.9 1 Kit 0 9 Active Additional Information Patient not taking.Reported on 01/23/2023 estrogens, conjugated (PREMARIN) 0.625 MG/GM vaginal cream Administer 0.5 g into the vagina once a day Saturday and only. Use 0.5 g with applicator at bedtime 30 g 6 0 Active EpiPen 2-Neymar 0.3 MG/0.3ML Injection Solution Auto-injector ONE INJECTION INTO THIGH NEEDED FOR SEVERE ALLERGIC REACTION 1 Each 2 2 Active Premarin 0.625 MG/GM Vaginal Cream (Estrogens Conjugated)Indica tions:Urinary incontinence, mixed Administer 0.5 g into the vagina at bedtime. As directed. 42.5 g 5 3 Active Omeprazole 20 MG Oral Capsule Delayed Release (PriLOSEC) TAKE 1 CAPSULE BY MOUTH ONCE DAILY ONE HOUR BEFORE THE FIRST MEAL OF THE DAY 90 Capsule 2 3 Active Metoprolol Succinate ER 100 MG Oral Tablet Extended Release 24 Hour (toPROL XL)Indications:Es sential hypertension with goal blood pressure less than 140/90 Take 1 Tablet by mouth in the morning. 90 Tablet 2 3 Active DULoxetine HCl 60 MG Oral Capsule Delayed Release Particles (Cymbalta) Take 1 Capsule by mouth in the morning and 1 Capsule before bedtime. 180 Capsule 1 3 Active OneTouch Delroselia Lancets 33GIndications:Ty pe 2 diabetes mellitus with hemoglobin A1c goal of less than 8.0% (HCC) Test 1 time per day. Dx: E11.9 100 Each 3 3 Active OneTouch Verio In Vitro Strip (Glucose Blood)Indications :Type 2 diabetes mellitus with hemoglobin A1c goal of less than 8.0% (HCC) USE TO TEST once daily Dx: E11.9 100 Strip 3 3 Active Furosemide 40 MG Oral Tablet (Lasix) Take 1 Tablet by mouth in the morning. 90 Tablet 1 4 Active Losartan Potassium 100 MG Oral Tablet (Cozaar)Indicatio ns:HTN, goal below 130/80 Take 1 Tablet by mouth in the morning. 90 Tablet 2 4 Active Mirabegron ER 50 MG Oral Tablet Extended Release 24 Hour (Myrbetriq)Indica tions:OAB (overactive bladder) Take 1 Tablet by mouth in the morning. 30 Tablet 1 4 Active Levothyroxine Sodium 175 MCG Oral Tablet TAKE 1 TABLET BY MOUTH ONCE DAILY AT LEAST 30 MINUTES BEFORE BREAKFAST OR OTHER MEDICATIONS 90 Tablet 3 4 Active Levothyroxine Sodium 175 MCG Oral Tablet TAKE 1 TABLET BY MOUTH ONCE DAILY AT LEAST 30 MINUTES BEFORE BREAKFAST OR OTHER MEDICATIONS 90 Tablet 0 3 04/20/19 24 Discontinued documented as of this encounter (statuses as of 04/20/2023) Active Problems Problem Noted Date Diagnosed Date [...] as of this encounter (statuses as of 04/20/2023) Resolved Problems Problem Noted Date Diagnosed Date [...] as of this encounter (statuses as of 04/20/2023) Immunizations Name Administration Dates Next Due COVID-19 mRNA, LNP-s, No Pre serve, 2-Dose Series (Resilience) 05/24/2020,05/03/2020 Pneumococcal Conjugate Vacc, 13 Valent (Prevnar) [...] encounter Miscellaneous Notes * Telephone Encounter - Carin Li, [facility] - 04/20/2023 9:27 PM ESTSigned Prescriptions: Disp Refills Levothyroxine Sodium 175 MCG Oral Tablet 90 Tab*3 Sig: TAKE 1 TABLET BY MOUTH ONCE DAILY AT LEAST 30 MINUTES BEFORE BREAKFAST OR OTHER MEDICATIONSAuthorizing Provider: GOYO VELASCO User: CARIN LI Electronically signed by Carin Li [facility] at 04/20/2023 9:27 PM EST documented in this encounter Plan of Treatment Upcoming Encounters Date Type Department Care Team (Late st Contact Info) Description 04/22/2023 9:00 AM EST [facility] Psychiatry, [place] [address] [place] [address] Mario Yu MD [address] [place] [address] 06/24/2023 3:15 PM EDT Office Visit Urogynecology [facility] [address] [place] [address] Guy Nicole MD [address] [place] [address] Nurse Chevy Finley [address] [place] [address] 10/16/2023 2:20 PM EDT Office Visit Family Practice [facility] [address] [place] [address] Goyo Velasco DO [address] [place] [address] Health Maintenance Due Date Last Done Comments [...] Additional history exists CKD HGB USE SMARTSET 76571 01/24/202401/23, 01/23/2023, 09/18/2021, Additional history exists CKD PHOS USE SMARTSET 55956 01/24/202401/03, 09/18/2021, 03/31/2021, Additional history exists Depression [...] D LEVEL ONCE IN A LIFETIME-USE SMARTSET# [id number] Completed 09/30/2017, 05/21/2017, 04/21/2010, Additional history exists [...] filedocumented as of this encounter Care Teams Hat Sizer Relationship Specialty Start Date End Date Goyo Velasco DO [address] [place] [address] PCP - General Family Medicine 09/15/21 documented as of this encounter
--- OUTSIDE RECORDS SUMMARY | 2023-05-15 13:17 | External Medical Summary | Summary of Care ---
Author Name Unknown Organization [facility] Address [address] [place] [address] Phone [phone] Care Team Providers Care Information Technology Administrator Name Role Phone Radha Suarez DO Primary Care Provider [phone] Reason for Visit * Reason Comments Follow Up Pt here for general wellness check up, has some issues with shingles seeing urology for issues. Encounter Details Date Type Department Care Team (Late st Contact Info) Description 04/09/2023 11:20 AM EST Office Visit Family Practice [facility] [address] [facility] [place] [address] Radha Suarez, [address] [place] [address] Type 2 diabetes mellitus with stage 3a chronic kidney disease, without long-term current use of insulin (HCC)*; Post herpetic neuralgia; OAB (overactive bladder); HTN, goal below 130/80; High risk for fracture due to osteoporosis by DEXA scan; DM type 2 nursing care encounter ([facility]) Allergies Active Allergy Reactions Criticality Noted Date [...] as of this encounter (statuses as of 04/13/2023) Medications Medication Sig Dispensed Refills Start Date [...] OTHER MEDICATIONS 90 Tablet 0 01/21/2023 Active OneTouch Delica Lancets 33GIndications:Ty pe 2 diabetes mellitus with hemoglobin A1c goal of less than 8.0% ([facility]) Test 1 time per day. [...] to 14 days. 22 g 1 04/01/2023 4 Active Furosemide 40 MG Oral Tablet (Lasix) [...] the morning. 30 Tablet 1 04/09/2023 Active Losartan Potassium 100 MG Oral Tablet (Cozaar) Take 1 Tablet by mouth in the morning. 90 Tablet 2 07/14/2022 4 Discontinue d(Refill) Furosemide 40 MG Oral Tablet (Lasix) Take 1 tablet by mouth once daily 90 Tablet 1 10/09/2022 4 Discontinue d(Refill) Gemtesa 75 MG Oral Tablet (Vibegron) Take 1 Tablet by mouth in the morning. 90 Tablet 2 10/15/2022 4 Discontinue d(Medicatio n List Clean Up) documented as of this encounter (statuses as of 04/13/2023) Active Problems Problem Noted Date Diagnosed Date [...] as of this encounter (statuses as of 04/13/2023) Resolved Problems Problem Noted Date Diagnosed Date [...] as of this encounter (statuses as of 04/13/2023) Immunizations Name Administration Dates Next Due COVID-19 mRNA, LNP-s, No Pre serve, 2-Dose Series (Pfizer) 05/24/2020,05/03/2020 Pneumococcal Conjugate Vacc, 13 Valent (Prevnar) 07/04/2015 Pneumococcal Polysaccharide PPV23 (Pneumovax) ,03/04/2000 documented as of this encounter Social History Tobacco Use Types Packs/Day Years Used Date Smoking Tobacco: Never Smokeless Tobacco: Never Tobacco Cessation:Counseling Given: Not Answered Alcohol Use Standard Drinks/Week Comments No 0 [...] Sign Reading Time Taken Comments Blood Pressure 124/60 04/09/2023 11:11 AM EST Pulse 72 04/09/2023 11:11 AM EST Temperature 36.4 C (97.6 F) 04/09/2023 11:[address] Respiratory Rate 16 04/09/2023 11:11 AM EST Oxygen Saturation - - Inhaled Oxygen Concentration - - Weight 97.5 kg (215 lb) 04/09/2023 11:11 AM EST Height 165.1 cm (5' 5") 04/09/2023 11:11 AM EST Body Mass Index 35.78 04/09/2023 11:11 AM EST documented in this encounter Patient Instructions * Patient Instructions* Pilar Cheatham LPN - 04/09/2023 11:17 AM EST Diabetes: Keeping Feet Healthy Inspect your feet every day for signs of a problem. Diabetes can damage nerves in your feet and cause neuropathy. This condition makes it hard for you to feel injuries or sore spots. Diabetes can also change blood flow, making it harder for small problems, like a blister, to heal properly. In fact, minor injuries can quickly become serious infections that send you to the hospital. Practice self-care to protect your feet and keep them healthy. Take Special Care Inspect your feet daily for problems such as redness, blisters, cracks, dry skin, or numbness. Use a mirror to see the bottoms of your feet. Or, ask for help. Manage your diabetes. Monitor and control your blood sugar. Take all your medications as prescribed. Avoid walking barefoot, even indoors. Wash your feet with warm water and mild soap. Dry well, especially between toes. Dont treat corns or calluses yourself. Talk to your doctor or improvement advisor (a doctor who specializes in foot care) if you need assistance trimming your toenails. Use moisturizing cream or lotion if you have dry skin, but dont use it between toes. Dont use heating pads on your feet. If you have neuropathy, you could get a burn and not feel it. Stop smoking. Smoking restricts blood flow and can make it harder for wounds to heal. Have Regular Checkups Foot problems can develop quickly. So be sure to follow your healthcare teams schedule for regular checkups. During office visits, take off your shoes and socks as soon as you get in the exam room. Ask your healthcare provider to examine your feet for problems. This will make it easier to find and treat small skin irritations before they get worse. Regular checkups can also help keep track of the blood flow and feeling in your feet. If you have neuropathy, you may need to have checkups more often. Wear Proper Footwear Wearing proper footwear is very important. If areas of your feet have been damaged by too much pressure, your healthcare provider may recommend changing your footwear. In some cases, avoiding high heels or tight work boots may be all thats needed. Or, your healthcare provider may recommend special shoes or custom inserts. These help protect your feet and keep existing irritations from getting worse. If you need special footwear, ask your healthcare provider if you qualify for [employer] diabetic shoe program. Make Sure Shoes and Socks Fit Any pair of shoes--new or old--should feel comfortable as soon as you put them on. There shouldnt be any rubbing when you walk. Wear the right shoe for any activity. For instance, a running shoe is designed to keep your feet injury-free while jogging. Buy shoes at the end of the day, when your feet are larger. Make sure they provide support without feeling too loose. Make sure your socks fit, t oo. Wear soft, seamless, well-padded socks for activity. Cotton or microfiber socks are best to help to absorb sweat. To protect your feet, avoid shoes that are open-toed or open-heeled. If you have questions about what kinds of shoes and socks are best, talk to your healthcare team. Get Regular Exercise Regular exercise improves blood flow in your feet. It also increases foot strength and flexibility.Gentle exercises, like walking or riding a stationary bicycle, are best. You can also do special foot exercises. Just be sure to talk with your healthcare provider before starting any exercise program. Also mention if any exercise causes pain, redness, or other signs of foot problems. Note: If you have any kind of break in the skin of your foot or ankle, keep the area clean. Then call your doctor--especially if the area doesnt appear to be healing. [phone] [employer], [address] [place] [address], [place] [address]. All rights reserved. This information is not intended as a substitute for professional medical care. Always follow your healthcare professional's instructions. documented in this encounter Progress Notes * Radha Suarez, - 04/09/2023 11:40 AM EST Subjective: Glory Tee is a 82 year old female. Chief Complaint Patient presents with Follow Up Pt here for general wellness check up, has some issues with shingles seeing urology for issues. HPI: Pt presents for follow up and general physical today. Hx of shingles on L temporal scalp, has lesions that are healing but picks at time, feels irritated. About a week ago she was having pain in her scalp but that has improved this week. No has flaking of the scalp. Also has a skin lesion above her L ear that is hard/dry. Had been seeing things that weren't there a few week ago, better now. 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 estrogens, conjugated (PREMARIN) 0.625 MG/GM vaginal cream [...] BREAKFAST OR OTHER MEDICATIONS 90 Tablet 0 OneTouch Delica Lancets 33G Test 1 time per day. Dx: E11.9 100 Each 3 OneTouch Verio In Vitro Strip (Glucose Blood) USE TO TEST once daily Dx: E11.9 100 Strip 3 Mupirocin 2 % External Ointment (Bactroban) Apply topically to affected area 3 times a day for 14 days. To affected area for up to 14 days. 22 g 1 Blood Glucose Monitoring Suppl (D-CARE GLUCOMETER) w/Device KIT Patient needs the One touch Ultra 2Glucometer. Patient is to test 4 times per day; E11.9 (Patient not taking: Reported on 01/23/2023) 1 Kit 0 No current facility-administered medications for this visit. Past Medical History: Diagnosis Date Asthma, non-allergic [...] mixed 09/25/2021 Vitamin B 12 deficiency 07/04/2015 Past Surgical History: Procedure Laterality Date EGD, W/ENDOSCOPIC US 08/31/2010 a linear forein body found in antrum of the stomuch, area was tatooed for ID if there is need for surgical excision in the future EXCISE BENIGN LESION, TRUNK, ARM, LEG, 1.1 - 2.0 CM 07/11/04 Excision of lipoma of the left thigh by Dr. Oshea IR BIOPSY 06/18/2022 VAGINAL HYSTERECTOMY, W/TUBE/OVARY 1967 Hysterectomy Vaginalw/,Rmv Tube/Ovary Review of patient's allergies indicates: Allergen Reactions Nutritional Supplements Swelling, problems breathing Shellfish Allergy Hives Wasp Venom Swelling, problems breathing Pelon Inhibitors Other (Please comment) cough Amlodipine Besylate Rash Clarithromycin ? Gabapentin Neuro complications (Please comment) confusion Inderal La [Propranolol Hcl Er] Other (Please comment) Nerve pain and joint stiffness Iodine Hives Sulfa Antibiotics Hives Tetanus Toxoid Objective: BP 124/60 | Pulse 72 | Temp 36.4 C (97.6 F) (Tympanic) | Resp 16 | Ht 1.651 m (5' 5") | Wt 97.5 kg (215 lb) | BMI 35.78 kg/m | BSA 2.11 m Review of Systems: As per HPI, all other ROS neg. Physical Exam: General: alert, healthy and no distress Skin: + scabs, healing L temporal scalp w/o drainage or erythema Heart: regular rate & rhythm, no murmurs and no gallops Lungs: chest symmetric with normal AP diameter, no chest deformities noted, lungs clear to auscultation Extremities: no joint deformities, effusion, or inflammation, trace edema Type 2 diabetes mellitus with stage 3a chronic kidney disease, without long-term current use of insulin ([facility]) (Primary) Most recent A1c 8, cont current meds Post herpetic neuralgia Improving OAB (overactive bladder) - Mirabegron ER 50 MG Oral Tablet Extended Release 24 Hour (Myrbetriq); Take 1 Tablet by mouth in the morning. HTN, goal below 130/80 - Losartan Potassium 100 MG Oral Tablet (Cozaar); Take 1 Tablet by mouth in the morning. High risk for fracture due to osteoporosis by DEXA scan - DEXA SCAN/BONE MINERAL AXIAL DM type 2 nursing care encounter ([facility]) - DIABETES FOOT EXAM Other orders - Furosemide 40 MG Oral Tablet (Lasix); Take 1 Tablet by mouth in the morning. Follow up: in 6 month(s). Radha Suarez DO * Pilar Cheatham LPN - 04/09/2023 11:15 AM EST Socks and Shoes Removed for Annual Diabetic Foot Screening RIGHT FOOT: No Reddened, Cracking, Or Open Areas Noted. RIGHT Dorsalis Pedis Pulse: Palpable RIGHT Posterior Tibial Pulse: Palpable RIGHT Monofilament:Patient reports feeling monofilament pressure on plantar surface of foot LEFT FOOT: No Reddened, Cracking or Open Areas Noted. LEFT Dorsalis Pedis Pulse: Palpable LEFT Posterior Tibial Pulse: Palpable LEFT Monofilament:Patient reports feeling monofilament pressure on plantar surface of foot Do you need diabetic shoes: No DM Foot Exam completed today. Provider aware. Pilar Cheatham LPN documented in this encounter Plan of Treatment Upcoming Encounters Date Type Department Care Team (Late st Contact Info) Description 04/22/2023 9:00 AM EST [facility] [address] [place] [address] Mario Yu MD [address] [place] [address] 06/24/2023 3:15 PM EDT Office Visit Urogynecology [facility] [address] [place] [address] Guy Nicole MD [address] [place] [address] Nurse Chevy Finley [address] [place] [address] 10/16/2023 2:20 PM EDT Office Visit Family Practice [facility] [address] [place] [address] Radha Suarez DO [address] [place] [address] Scheduled Orders Name Type Priority Associated Diagnoses Orde r Schedule DEXA SCAN/BONE MINERAL AXIAL Medical Imaging Routine High risk for fracture due to osteoporosis by DEXA scan Ordered: 04/09/2023 Health Maintenance Due Date Last Done Comments [...] Additional history exists CKD HGB USE SMARTSET 48833 01/24/202401/23, 01/23/2023, 09/18/2021, Additional history exists CKD PHOS USE SMARTSET 98644 01/24/202401/03, 09/18/2021, 03/31/2021, Additional history exists Depression [...] D LEVEL ONCE IN A LIFETIME-USE SMARTSET# [id number] Completed 09/30/2017, 05/21/2017, 04/21/2010, Additional history exists GARDASIL-HPV IMMUNIZATION SERIES Aged Out No longer eligible based on patient's age to complete this topic MENINGOCOCCAL (MENACTRA/MENVEO) Aged Out No longer eligible based on patient's age to complete this topic documented as of this encounter Medical Devices Not on filedocumented as of this encounter Visit Diagnoses Diagnosis Type 2 diabetes mellitus with stage 3a chronic kidney disease, without long-term current use of insulin (HCC)- Primary Post herpetic neuralgia Herpes zoster with other nervous system complications OAB (overactive bladder) Hypertonicity of bladder HTN, goal below 130/80 Unspecified essential hypertension High risk for fracture due to osteoporosis by DEXA scan Osteoporosis, unspecified DM type 2 nursing care encounter (HCC) Type II or unspecified type diabetes mellitus without mention of complication, not stated as uncontrolled documented in this encounter Care Teams Information Technology Administrator Relationship Specialty Start Date End Date Radha Suarez DO [address] [address] PCP - General Family Medicine 09/15/21 documented as of this encounter
--- OUTSIDE RECORDS SUMMARY | 2023-05-15 13:17 | External Medical Summary | Summary of Care ---
Author Name Unknown Organization [facility] Address [address] [place] [address] Phone [phone] Care Team Providers Care Lining Stitcher Name Role Phone Radha Suarez DO Primary Care Provider [phone] Reason for Visit * Reason Onset Date Comments Test Results 02/11/2023 Encounter Details Date Type Department Care Team (Late st Contact Info) Description 02/11/2023 Telephone Urogynecology [facility] [address] [place] [address] Ann Esparza PA-C [address] [place] [address] Test Results Allergies Active Allergy Reactions Criticality Noted Date [...] as of this encounter (statuses as of 02/15/2023) Medications Medication Sig Dispensed Refills Start Date [...] Tablet 0 01/21/2023 Active OneTouch Delica Lancets 33GIndications:Typ e 2 diabetes mellitus [...] as of this encounter (statuses as of 02/15/2023) Active Problems Problem Noted Date Diagnosed Date [...] as of this encounter (statuses as of 02/15/2023) Resolved Problems Problem Noted Date Diagnosed Date [...] as of this encounter (statuses as of 02/15/2023) Immunizations Name Administration Dates Next Due COVID-19 [...] encounter Miscellaneous Notes * Telephone Encounter - Debra Alvarado RN - 02/15/2023 10:12 AM EST Call placed to the patient to discuss her concerns regarding the UA results. Message left for her to call back. * Telephone Encounter - Gale Moise LPN [...] 10:00 AM EST [facility] Finley, [place] [address] [place] [address] Gayatri Small, DO [address] [place] [address] 04/22/2023 9:00 AM EST Telemedicine Psychiatry, [place] [address] [place] [address] Mario Yu MD [address] [place] [address] 04/24/2023 2:20 PM EST Office Visit Family Practice [facility] [address] [place] [address] Radha Suarez, [address] [place] [address] 05/10/2023 1:35 PM EST Office Visit Urogynecology [facility] [address] [place] [address] Ann Esparza PA-C [address] [place] [address] Nurse Chevy Finley [email or web address] [address] [place] [address] Health Maintenance Due Date Last Done Comments [...] Additional history exists CKD HGB USE SMARTSET 76185 01/24/202401/23, 01/23/2023, 09/18/2021, Additional history exists CKD PHOS USE SMARTSET 74500 01/24/202401/03, 09/18/2021, 03/31/2021, Additional history exists Depression Screening 01/24/2024 01/23/2023 Diabetic Eye Exam 01/27/2024 01/26/2023, , 01/26/2023, Additional history exists Pneumococcal Vaccine: 65+ Years Completed 07/04/2015, 01/03/2009, 03/04/2000 VITAMIN D LEVEL ONCE IN A LIFETIME-USE SMARTSET# [id number] Completed 09/30/2017, 05/21/2017, 04/21/2010, Additional history exists GARDASIL-HPV IMMUNIZATION SERIES Aged Out No longer eligible based on patient's age to complete this topic MENINGOCOCCAL (MENACTRA/MENVEO) Aged Out No longer eligible based on patient's age to complete this topic documented as of this encounter Medical Devices Not on filedocumented as of this encounter Care Teams Lining Stitcher Relationship Specialty Start Date End Date Radha Suarez DO [address] [place] [address] PCP - General Family Medicine 09/15/21 documented as of this encounter
--- OUTSIDE RECORDS SUMMARY | 2023-05-15 13:17 | External Medical Summary | Summary of Care ---
Author Name Unknown Organization [facility] Address [address] [place] [address] Phone [phone] Care Team Providers Care Box Car Bracer Name Role Phone Radha Suarez DO Primary Care Provider +1 [phone] Reason for Visit * Reason Onset Date Comments Test Results 02/11/2023 Encounter Details Date Type Department Care Team (Late st Contact Info) Description 02/11/2023 Telephone Urogynecology [facility] [address] [place] [address] Ann Esparza PA-C [address] [place] [address] Test Results Allergies Active Allergy [...] EST Telemedicine Sleep Disorders Ctr Florina Finley, [place] [address] [place] [address] Gayatri Small, DO [address] [place] [address] 04/22/2023 9:00 AM EST Telemedicine Psychiatry, [place] [address] [place] [address] Mario Yu MD [address] [place] [address] 04/24/2023 2:20 PM EST Office Visit Family Practice [facility] [address] [place] [address] Radha Suarez, [address] [place] [address] 05/10/2023 1:35 PM EST Office Visit Urogynecology [facility] [address] [place] [address] Ann Esparza PA-C [address] [place] [address] Nurse Chevy Finley [facility] [address] [place] [address] Health Maintenance Due Date Last Done Comments [...] Additional history exists CKD HGB USE SMARTSET 03754 01/24/202401/23, 01/23/2023, 09/18/2021, Additional history exists CKD PHOS USE SMARTSET 60790 01/24/202401/03, 09/18/2021, 03/31/2021, Additional history exists Depression Screening 01/24/2024 01/23/2023 Diabetic Eye Exam 01/27/2024 01/26/2023, , 01/26/2023, Additional history exists Pneumococcal Vaccine: 65+ Years Completed 07/04/2015, 01/03/2009, 03/04/2000 VITAMIN D LEVEL ONCE IN A LIFETIME-USE SMARTSET# [id number] Completed 09/30/2017, 05/21/2017, 04/21/2010, Additional history exists GARDASIL-HPV IMMUNIZATION SERIES Aged Out No longer eligible based on patient's age to complete this topic MENINGOCOCCAL (MENACTRA/MENVEO) Aged Out No longer eligible based on patient's age to complete this topic documented as of this encounter Medical Devices Not on filedocumented as of this encounter Care Teams Box Car Bracer Relationship Specialty Start Date End Date Radha Suarez DO [address] [place] [address] PCP - General Family Medicine 09/15/21 documented as of this encounter
--- OUTSIDE RECORDS SUMMARY | 2023-05-15 13:17 | External Medical Summary | Summary of Care ---
Author Name Unknown Organization [facility] Address [address] [place] [address] Phone [phone] Care Team Providers Care Funeral Service Apprentice Name Role Phone Radha Suarez DO Primary Care Provider [phone] Reason for Visit * Reason Comments Outpatient Testing Encounter Details Date Type Department Care Team (Late st Contact Info) Description 04/01/2023 10:10 AM EST Laboratory Laboratory, [facility] [address] [place] [id number] [facility] [address] [place] [address] Hypothyroidism due to acquired atrophy of thyroid; Encounter for long-term (current) use of medications; Preventative health care Allergies Active Allergy Reactions Criticality Noted Date [...] OTHER MEDICATIONS 90 Tablet 0 01/21/2023 Active Propel FuelsTouch Lobo Lancets 33GIndications:Type 2 diabetes mellitus with hemoglobin A1c goal of less than 8.0% ([facility]) Test 1 time per day. Dx: E11.9 100 Each 3 01/23/2023 Active OneTouch Verio In Vitro Strip (Glucose Blood)Indications:T ype 2 diabetes mellitus with hemoglobin A1c goal of less than 8.0% (HCC) USE TO TEST once daily Dx: E11.9 100 Strip 3 01/23/2023 Active documented as of this encounter (statuses [...] on file documented as of this encounter Plan of Treatment Upcoming Encounters Date Type Department Care Team (Late st Contact Info) Description 04/16/2023 10:00 AM EST Telemedicine Sleep Disorders Ctr [facility] [address] [place] [address] Gayatri Small DO [address] [place] [address] 04/22/2023 9:00 AM EST Telemedicine Psychiatry, [place] [address] [facility] [place] [address] Mario Yu MD [address] [facility] [place] [address] 04/24/2023 2:20 PM EST Office Visit Family Practice [facility] [address] [place] [address] Radha Suarez DO [address] [place] [address] 05/10/2023 1:35 PM EST Office Visit Urogynecology [facility] [address] [place] [address] Ann Esparza PA-C [address] [place], [place] [phone] Nurse Chevy Finley [facility] [address] [place], [place] [phone] Pending Results Name Type Priority Associated Diagnoses Date /Time TSH WITH FREE T4 IF INDICATED Lab Routine Hypothyroidism due to acquired atrophy of thyroid Encounter for long-term (current) use of medications 04/01/2023 9:34 AM EST ALBUMIN / CREATININE RATIO, URINE Lab Routine Preventative health care 04/01/2023 9:35 AM EST Health Maintenance Due Date Last Done Comments [...] Additional history exists CKD HGB USE SMARTSET 92819 01/24/202401/23, 01/23/2023, 09/18/2021, Additional history exists CKD PHOS USE SMARTSET 35545 01/24/202401/03, 09/18/2021, 03/31/2021, Additional history exists Depression Screening 01/24/2024 01/23/2023 Diabetic Eye Exam 01/27/2024 01/26/2023, , 01/26/2023, Additional history exists Pneumococcal Vaccine: 65+ Years Completed 07/04/2015, 01/03/2009, 03/04/2000 VITAMIN D LEVEL ONCE IN A LIFETIME-USE SMARTSET# 39148 Completed 09/30/2017, 05/21/2017, 04/21/2010, Additional history exists GARDASIL-HPV IMMUNIZATION SERIES Aged Out No longer eligible based on patient's age to complete this topic MENINGOCOCCAL (MENACTRA/MENVEO) Aged Out No longer eligible based on patient's age to complete this topic documented as of this encounter Medical Devices Not on filedocumented as of this encounter Visit Diagnoses Diagnosis Hypothyroidism due to acquired atrophy of thyroid Encounter for long-term (current) use of medications Encounter for long-term (current) use of other medications Preventative health care Routine general medical examination at a health care facility documented in this encounter Care Teams Funeral Service Apprentice Relationship Specialty Start Date End Date Radha Suarez DO [address] [place] [address] PCP - General Family Medicine 09/15/21 documented as of this encounter
--- OUTSIDE RECORDS SUMMARY | 2023-05-15 13:17 | External Medical Summary ---
Author Name Unknown Address Unknown Organization K01:[facility] [place] - [address] [place] [address] Laboratory Report Ordering Provider Test Date Status CLARISSA VARGAS 04/01/2023 09:34:56 Final Observation Date Value Abnormality Reference (Units ) Status TSH 04/01/2023 09:34:56 2.07 0.27-4.20 (uIU/mL) Final Performing Location LAB[facility] - [address] [place] [address]
--- OUTSIDE RECORDS SUMMARY | 2023-05-15 13:18 | External Medical Summary | Summary of Care ---
Author Name Unknown Organization [facility] Address [address] [place] [address] Phone [phone] Care Team Providers Care Cytogenetic Technician Name Role Phone Radha Suarez DO Primary Care Provider [phone] Encounter Details Date Type Department Care Team (Late st Contact Info) Description 02/08/2023 Telephone Urogynecology [facility] [address] [place] [address] Ann Esparza PA-C [address] [place] [address] Allergies Active Allergy Reactions Criticality Noted Date [...] as of this encounter (statuses as of 02/08/2023) Medications Medication Sig Dispensed Refills Start Date [...] hemoglobin A1c goal of less than 8.0% ([facility]) Test 1 time per day. Dx: E11.9 100 Each 3 01/23/2023 Active OneTouch Verio In Vitro Strip (Glucose Blood)Indications: Type 2 diabetes mellitus with hemoglobin A1c goal of less than 8.0% ([facility]) USE TO TEST once daily Dx: E11.9 [...] as of this encounter (statuses as of 02/08/2023) Active Problems Problem Noted Date Diagnosed Date [...] as of this encounter (statuses as of 02/08/2023) Resolved Problems Problem Noted Date Diagnosed Date [...] as of this encounter (statuses as of 02/08/2023) Immunizations Name Administration Dates Next Due COVID-19 [...] encounter Miscellaneous Notes * Telephone Encounter - Ann Esparza PA-C - 02/08/2023 1:42 PM EST TC to patient. UA suggestive of UTI. Discussed will send Keflex and may need to change antibiotic once C&S results and will contact if needs to change. Discussed completion of antibiotic. All questions answered. documented in this encounter Plan of Treatment Upcoming Encounters Date Type Department Care Team (Late st Contact Info) Description 02/11/2023 1:00 PM EST PulmDiagnostic Sleep Lab [facility] [address] [place] [address] [facility] Home Study [facility] [address] [place] [address] 04/16/2023 10:00 AM EST Telemedicine Sleep Disorders Ctr [facility] [address] [place] [phone] Gayatri Small DO [address] [place] [address] 04/22/2023 9:00 AM EST Telemedicine Psychiatry, [place] [address] [place] [address] Mario Yu MD [address] [place] [address] 04/24/2023 2:20 PM EST Office Visit Family Practice [facility] [address] [place] [address] Radha Suarez DO [address] [place] [address] 05/10/2023 1:35 PM EST Office Visit Urogynecology [facility] [address] [place] [address] Ann Esparza PA-C [address] [place] [address] Nurse Chevy Finley [address] [place] [address] Health Maintenance Due Date Last Done Comments [...] Additional history exists CKD HGB USE SMARTSET 13586 01/24/202401/23, 01/23/2023, 09/18/2021, Additional history exists CKD PHOS USE SMARTSET 04107 01/24/202401/03, 09/18/2021, 03/31/2021, Additional history exists Depression Screening 01/24/2024 01/23/2023 Diabetic Eye Exam 01/27/2024 01/26/2023, , 01/26/2023, Additional history exists Pneumococcal Vaccine: 65+ Years Completed 07/04/2015, 01/03/2009, 03/04/2000 VITAMIN D LEVEL ONCE IN A LIFETIME-USE SMARTSET# [id number] Completed 09/30/2017, 05/21/2017, 04/21/2010, Additional history exists GARDASIL-HPV IMMUNIZATION SERIES Aged Out No longer eligible based on patient's age to complete this topic MENINGOCOCCAL (MENACTRA/MENVEO) Aged Out No longer eligible based on patient's age to complete this topic documented as of this encounter Medical Devices Not on filedocumented as of this encounter Visit Diagnoses Diagnosis UTI symptoms- Primary Other symptoms involving urinary system documented in this encounter Care Teams Cytogenetic Technician Relationship Specialty Start Date End Date Radha Suarez DO [address] [place] [address] PCP - General Family Medicine 09/15/21 documented as of this encounter
--- OUTSIDE RECORDS SUMMARY | 2023-05-15 13:18 | External Medical Summary | Summary of Care ---
Author Name Unknown Organization [facility] Address [address] [place] [address] Phone [phone] Care Team Providers Care Bankman Name Role Phone Radha Suarez DO Primary Care Provider [phone] Encounter Details Date Type Department Care Team (Late st Contact Info) Description 02/11/2023 Telephone Urogynecology [facility] [address] [place] [address] Ann Esparza PA-C [address] [place] [address] Allergies Active Allergy Reactions Criticality Noted Date [...] as of this encounter (statuses as of 02/12/2023) Medications Medication Sig Dispensed Refills Start Date [...] hemoglobin A1c goal of less than 8.0% ([facility]) Test 1 time per day. Dx: E11.9 100 Each 3 01/23/2023 Active OneTouch Verio In Vitro Strip (Glucose Blood)Indications: Type 2 diabetes mellitus with hemoglobin A1c goal of less than 8.0% ([facility]) USE TO TEST once daily Dx: E11.9 [...] as of this encounter (statuses as of 02/12/2023) Active Problems Problem Noted Date Diagnosed Date [...] as of this encounter (statuses as of 02/12/2023) Resolved Problems Problem Noted Date Diagnosed Date [...] as of this encounter (statuses as of 02/12/2023) Immunizations Name Administration Dates Next Due COVID-19 [...] 10:00 AM EST Telemedicine Sleep Disorders Ctr [facility] [address] [facility] [place] [address] Gayatri Small, [address] [place] [address] 04/22/2023 9:00 AM EST Telemedicine Psychiatry[address] [address] Mario Yu MD [address] [facility] [place] [address] 04/24/2023 2:20 PM EST Office Visit Family Practice [facility] [address] [place] [address] Radha Suarez DO [address] [place] [address] 05/10/2023 1:35 PM EST Office Visit Urogynecology [facility] [address] [place] [address] Ann Esparza PA-C [address] [place] [address] Nurse Chevy Finley [facility] [address] [place] [address] Health Maintenance Due Date Last Done Comments [...] Additional history exists CKD HGB USE SMARTSET 33323 01/24/202401/23, 01/23/2023, 09/18/2021, Additional history exists CKD PHOS USE SMARTSET 40277 01/24/202401/03, 09/18/2021, 03/31/2021, Additional history exists Depression Screening 01/24/2024 01/23/2023 Diabetic Eye Exam 01/27/2024 01/26/2023, , 01/26/2023, Additional history exists Pneumococcal Vaccine: 65+ Years Completed 07/04/2015, 01/03/2009, 03/04/2000 VITAMIN D LEVEL ONCE IN A LIFETIME-USE SMARTSET# 29920 Completed 09/30/2017, 05/21/2017, 04/21/2010, Additional history exists GARDASIL-HPV IMMUNIZATION SERIES Aged Out No longer eligible based on patient's age to complete this topic MENINGOCOCCAL (MENACTRA/MENVEO) Aged Out No longer eligible based on patient's age to complete this topic documented as of this encounter Medical Devices Not on filedocumented as of this encounter Care Teams Bankman Relationship Specialty Start Date End Date Radha Suarez DO [address] [place] [address] PCP - General Family Medicine 09/15/21 documented as of this encounter
--- OUTSIDE RECORDS SUMMARY | 2023-05-15 13:18 | External Medical Summary | Summary of Care ---
Author Name Unknown Organization [facility] Address [address] [place] [address] Phone [phone] Care Team Providers Care Lead Custodian Name Role Phone Radha Suarez DO Primary Care Provider [phone] [phone] Encounter Details Date Type Department Care Team (Late st Contact Info) Description 02/11/2023 Telephone Urogynecology [facility] [address] [place] [address] Ann Esparza PA-C [address] [place] [address] Allergies Active Allergy Reactions Criticality Noted Date [...] hemoglobin A1c goal of less than 8.0% ([facility]) Test 1 time per day. Dx: E11.9 100 Each 3 01/23/2023 Active OneTouch Verio In Vitro Strip (Glucose Blood)Indications: Type 2 diabetes mellitus with hemoglobin A1c goal of less than 8.0% ([facility]) USE TO TEST once daily Dx: [...] 10:00 AM EST Telemedicine Sleep Disorders Ctr [facility] [address] [place] [address] Gayatri Small, DO [address] [place] [address] 04/22/2023 9:00 AM [facility] [address] [place] [address] Mario Yu MD [address] [place] [address] 04/24/2023 2:20 PM EST Office Visit Family Practice [facility] [address] [place] [address] Radha Suarez, DO [address] [place] [address] 05/10/2023 1:35 PM EST Office Visit Urogynecology [facility] [address] [place] [address] Ann Espraza PA-C [address] [place] [address] Nurse Chevy Finley [address] [place] [address] Health Maintenance Due Date Last Done Comments [...] Additional history exists CKD HGB USE SMARTSET 21386 01/24/202401/23, 01/23/2023, 09/18/2021, Additional history exists CKD PHOS USE SMARTSET 08127 01/24/202401/03, 09/18/2021, 03/31/2021, Additional history exists Depression Screening 01/24/2024 01/23/2023 Diabetic Eye Exam 01/27/2024 01/26/2023, , 01/26/2023, Additional history exists Pneumococcal Vaccine: 65+ Years Completed 07/04/2015, 01/03/2009, 03/04/2000 VITAMIN D LEVEL ONCE IN A LIFETIME-USE SMARTSET# 96329 Completed 09/30/2017, 05/21/2017, 04/21/2010, Additional history exists GARDASIL-HPV IMMUNIZATION SERIES Aged Out No longer eligible based on patient's age to complete this topic MENINGOCOCCAL (MENACTRA/MENVEO) Aged Out No longer eligible based on patient's age to complete this topic documented as of this encounter Medical Devices Not on filedocumented as of this encounter Care Teams Lead Custodian Relationship Specialty Start Date End Date Radha Suarez DO [address] [place] [address] PCP - General Family Medicine 09/15/21 documented as of this encounter
--- OUTSIDE RECORDS SUMMARY | 2023-05-15 13:18 | External Medical Summary | Summary of Care ---
Author Name Unknown Organization [facility] Address [address] [place] [address] Phone [phone] Care Team Providers Care Fermenter Champagne Name Role Phone Radha Suarez DO Primary Care Provider [phone] Encounter Details Date Type Department Care Team (Late st Contact Info) Description 02/11/2023 Telephone Urogynecology [facility] [address] [place] [address] Ann Esparza PA-C [address] [place] [address] Allergies Active Allergy Reactions Criticality Noted Date [...] as of this encounter (statuses as of 02/11/2023) Medications Medication Sig Dispensed Refills Start Date [...] A1c goal of less than 8.0% ([facility]) Test 1 time per day. Dx: E11.9 100 Each 3 01/23/2023 Active OneTouch Verio In Vitro Strip (Glucose Blood)Indications: Type 2 diabetes mellitus with hemoglobin A1c goal of less than 8.0% ([facility]) USE TO TEST once daily Dx: E11.9 [...] as of this encounter (statuses as of 02/11/2023) Active Problems Problem Noted Date Diagnosed Date [...] as of this encounter (statuses as of 02/11/2023) Resolved Problems Problem Noted Date Diagnosed Date [...] as of this encounter (statuses as of 02/11/2023) Immunizations Name Administration Dates Next Due COVID-19 [...] encounter Miscellaneous Notes * Telephone Encounter - Ted Eduardo RN - 02/11/2023 11:37 AM EST Patient returned call, patient requesting a breakdown of urine results, ok to send via My. Thanks Ted Eduardo, RN * Telephone Encounter - Ann Esparza PA-C - 02/11/2023 11:32 AM EST TC to patient. No answer. MyG sent. documented in this encounter Plan of Treatment Upcoming Encounters Date Type Department Care Team (Late st Contact Info) Description 02/11/2023 1:00 PM EST PulmDiagnostic Sleep Lab [facility] [address] [place] [address] [place], Sleep Med Home Study [facility] [address] [place] [address] 04/16/2023 10:00 AM EST Telemedicine Sleep Disorders Ctr [facility] [address] [place] [phone] Gayatri Small, DO [address] [place] [address] 04/22/2023 9:00 AM EST Telemedicine Psychiatry, [place] [address] [place] [address] Mario Yu MD [address] [place], [place] [address] 04/24/2023 2:20 PM EST Office Visit Family Practice [facility] [address] [place] [address] Radha Suarez, DO [address] [place] [address] 05/10/2023 1:35 PM EST Office Visit Urogynecology [facility] [address] [place] [phone] Ann Esparza PA-C [address] [place] [address] Nurse Chevy Finley [address] [place] [address] Health Maintenance Due Date Last Done Comments [...] Additional history exists CKD HGB USE SMARTSET 87601 01/24/202401/23, 01/23/2023, 09/18/2021, Additional history exists CKD PHOS USE SMARTSET 33627 01/24/202401/03, 09/18/2021, 03/31/2021, Additional history exists Depression Screening 01/24/2024 01/23/2023 Diabetic Eye Exam 01/27/2024 01/26/2023, , 01/26/2023, Additional history exists Pneumococcal Vaccine: 65+ Years Completed 07/04/2015, 01/03/2009, 03/04/2000 VITAMIN D LEVEL ONCE IN A LIFETIME-USE SMARTSET# 33433 Completed 09/30/2017, 05/21/2017, 04/21/2010, Additional history exists GARDASIL-HPV IMMUNIZATION SERIES Aged Out No longer eligible based on patient's age to complete this topic MENINGOCOCCAL (MENACTRA/MENVEO) Aged Out No longer eligible based on patient's age to complete this topic documented as of this encounter Medical Devices Not on filedocumented as of this encounter Care Teams Fermenter Champagne Relationship Specialty Start Date End Date Radha Suarez DO [address] [place] [address] PCP - General Family Medicine 09/15/21 documented as of this encounter
--- OUTSIDE RECORDS SUMMARY | 2023-05-15 13:18 | External Medical Summary | Summary of Care ---
Author Name Unknown Organization [facility] Address [address] [place] [address] Phone [phone] Care Team Providers Care Spray Machine Operator Name Role Phone Radha Suarez DO Primary Care Provider [phone] Encounter Details Date Type Department Care Team (Late st Contact Info) Description 02/11/2023 Telephone Urogynecology [facility] [address] [place] [address] Ann Esparza PA-C [address] [place] [address] Allergies Active Allergy Reactions Criticality Noted Date [...] hemoglobin A1c goal of less than 8.0% ([facility]) Test 1 time per day. Dx: E11.9 100 Each 3 01/23/2023 Active OneTouch Verio In Vitro Strip (Glucose Blood)Indications: Type 2 diabetes mellitus with hemoglobin A1c goal of less than 8.0% ([facility]) USE TO TEST once daily Dx: [...] results, ok to send via My. Thanks eTd Eduardo, RN * Telephone Encounter - Ann Esparza PA-C - 02/11/2023 11:32 AM EST TC to patient. No answer. MyG sent. documented in this encounter Plan of Treatment Upcoming Encounters Date Type Department Care Team (Late st Contact Info) Description 02/11/2023 1:00 PM EST PulmDiagnostic Sleep Lab [facility] [address] [place] [address] [place], Sleep Med Home Study [facility] [place] [address] [place] [address] 04/16/2023 10:00 AM EST Telemedicine Sleep Disorders Ctr [facility] [address] [place] [phone] Gayatri Small, DO [address] [place] [address] 04/22/2023 9:00 AM EST Telemedicine Psychiatry, [place] [address] [place] [address] Mario Yu MD [address] [place], [place] [id number] 04/24/2023 2:20 PM EST Office Visit Family Practice [facility] [address] [place] [address] Radha Suarez, DO [address] [place] [address] 05/10/2023 1:35 PM EST Office Visit Urogynecology [facility] [address] [place] [phone] Ann Esparza PA-C [address] [place] [address] Nurse Chevy Fin[place] [address] [place] [address] Health Maintenance Due Date Last Done Comments [...] Additional history exists CKD HGB USE SMARTSET 53970 01/24/202401/23, 01/23/2023, 09/18/2021, Additional history exists CKD PHOS USE SMARTSET 07415 01/24/202401/03, 09/18/2021, 03/31/2021, Additional history exists Depression Screening 01/24/2024 01/23/2023 Diabetic Eye Exam 01/27/2024 01/26/2023, , 01/26/2023, Additional history exists Pneumococcal Vaccine: 65+ Years Completed 07/04/2015, 01/03/2009, 03/04/2000 VITAMIN D LEVEL ONCE IN A LIFETIME-USE SMARTSET# [id number] Completed 09/30/2017, 05/21/2017, 04/21/2010, Additional history exists GARDASIL-HPV IMMUNIZATION SERIES Aged Out No longer eligible based on patient's age to complete this topic MENINGOCOCCAL (MENACTRA/MENVEO) Aged Out No longer eligible based on patient's age to complete this topic documented as of this encounter Medical Devices Not on filedocumented as of this encounter Care Teams Spray Machine Operator Relationship Specialty Start Date End Date Radha Suarez DO [address] [place] [address] PCP - General Family Medicine 09/15/21 documented as of this encounter
--- OUTSIDE RECORDS SUMMARY | 2023-05-15 13:18 | External Medical Summary | Summary of Care ---
Author Name Unknown Organization [facility] Address [address] [place] [address] Phone [phone] Care Team Providers Care Fire Alarm Operator Name Role Phone Radha Suarez DO Primary Care Provider [phone] Encounter Details Date Type Department Care Team (Late st Contact Info) Description 02/11/2023 Telephone Urogynecology [facility] [address] [place] [address] Ann Esparza PA-C [address] [place] [address] Allergies Active Allergy Reactions Criticality Noted Date [...] less than 8.0% ([facility]) USE TO TEST once daily [...] AM EST TC to patient. LM on VM to return call. * Telephone Encounter - [...] 10:00 AM EST Telemedicine Sleep Disorders Ctr [facility] [address] [place] [phone] Gayatri Small, [address] [place] [address] 04/22/2023 9:00 AM EST Telemedicine Psychiatry, [place] [address] [place] [address] Mario Yu MD [address] [place] [address] 04/24/2023 2:20 PM EST Office Visit Family Practice [facility] [address] [place] [address] Radha Suarez, DO [address] [place] [address] 05/10/2023 1:35 PM EST Office Visit Urogynecology [facility] [address] [place] [address] Ann Esparza PA-C [address] [place] [address] Nurse Chevy Fin[place] [address] [place] [address] Health Maintenance Due Date Last Done Comments [...] Additional history exists CKD HGB USE SMARTSET 60284 01/24/202401/23, 01/23/2023, 09/18/2021, Additional history exists CKD PHOS USE SMARTSET 50179 01/24/202401/03, 09/18/2021, 03/31/2021, Additional history exists Depression Screening 01/24/2024 01/23/2023 Diabetic Eye Exam 01/27/2024 01/26/2023, , 01/26/2023, Additional history exists Pneumococcal Vaccine: 65+ Years Completed 07/04/2015, 01/03/2009, 03/04/2000 VITAMIN D LEVEL ONCE IN A LIFETIME-USE SMARTSET# [id number] Completed 09/30/2017, 05/21/2017, 04/21/2010, Additional history exists GARDASIL-HPV IMMUNIZATION SERIES Aged Out No longer eligible based on patient's age to complete this topic MENINGOCOCCAL (MENACTRA/MENVEO) Aged Out No longer eligible based on patient's age to complete this topic documented as of this encounter Medical Devices Not on filedocumented as of this encounter Care Teams Fire Alarm Operator Relationship Specialty Start Date End Date Radha Suarez DO [address] [place] [address] PCP - General Family Medicine 09/15/21 documented as of this encounter
--- OUTSIDE RECORDS SUMMARY | 2023-05-15 13:19 | External Medical Summary | Summary of Care ---
Author Name Unknown Organization [facility] Address [address] [place] [address] Phone [phone] Care Team Providers Care Heating Element Repairer Name Role Phone Erick Radha Rosalino PORTER Primary Care Provider [phone] Encounter Details Date Type Department Care Team (Late st Contact Info) Description 01/29/2023 9:00 AM EST Telemedicine Psychiatry, [place] [address] [place] [address] Mario Yu MD [address] [place] [address] GABBY (generalized anxiety disorder)*; Depressive [...] as of this encounter (statuses as of 01/29/2023) Medications Medication Sig Dispensed Refills Start Date [...] 90 Tablet 0 01/21/2023 Active Nelly Swift 33GIndications:Type 2 diabetes mellitus with hemoglobin A1c goal of less than 8.0% ([facility]) Test 1 time per day. Dx: E11.9 100 Each 3 01/23/2023 Active OneDreamerz Foodsio In Vitro Strip (Glucose Blood)Indications:T ype 2 diabetes mellitus with hemoglobin A1c goal of less than 8.0% ([facility]) USE TO TEST once daily Dx: E11.9 100 Strip 3 01/23/2023 Active documented as of this encounter (statuses as of 01/29/2023) Active Problems Problem Noted Date Diagnosed Date [...] as of this encounter (statuses as of 01/29/2023) Resolved Problems Problem Noted Date Diagnosed Date [...] as of this encounter (statuses as of 01/29/2023) Immunizations Name Administration Dates Next Due COVID-19 [...] Progress Notes * Mario Yu MD - 01/29/2023 9:11 AM EST OUTPATIENT PSYCHIATRY RETURN VISIT DIVISION OF PSYCHIATRY [address] [address] Name: Glory Tee : 1940 Date and Time Patient was Seen: 01/29/2023 at 9:11 AM After connecting through [employer], patient was verified with two unique identifiers. Patient (or authorized legal vaccine customer representative) was then informed that this was [...] that I have reviewed their record in [employer] and presented the opportunity for them to [...] This note was completed, in part, utilizing Thinkspeed Direct voice recognition software. Grammatical errors, random word insertions, pronoun errors and incomplete sentences are an occasional consequence of using this system due to software limitations, ambient noise and hardware issues. Any formal questions or concerns about the content, text, or information contained within the body of this dictation should be directly addresses to the provider for clarification. Start Time: 0900 Stop Time: 919 Total direct [id number] time: 20 minutes Physical Location of patient: Home CC: Follow-up Glory Tee is a 82 year old female referred by primary care provider. She has a history of depression, anxiety, DM2, CKD, HTN, osteoporosis and current arm fracture. She used to work as a realtor. She has 3 children. INTERVAL HISTORY: Visit completed on the phone due to technical problems. Glory reports that she has had some medical problems. She notes that she had shingles and an UTI. Her had a TIA. Her has been having some issues with his vision. He has some memory issues as well. She notes that her daughter has been helping out. She notes that her anxiety was somewhat increased with the above stressors. The patient notes that she is sleeping okay. Her energy has been somewhat down with her medical problems. The patient notes that she is eating okay. Pt reports good adherence with medication. Pt [...] BREAKFAST OR OTHER MEDICATIONS 90 Tablet 0 [employer] Lancets 33G Test 1 time per day. Dx: E11.9 100 Each 3 OneTouch Verio In Vitro Strip (Glucose Blood) USE TO TEST once daily Dx: E11.9 100 Strip 3 No current facility-administered medications for this visit. RECENT LABS/IMAGING: Recent Results (from the past 672 hour(s)) URINALYSIS, POINT OF CARE (ENTER/EDIT) Collection Time: 01/17/23 5:16 PM Result Value Ref Range Color, Urine Kathrin Yellow or Light Yellow Clarity, Urine Cloudy (A) Clear Glucose, Urine Negative Negative mg/dL Bilirubin, Urine Negative Negative Ketone, Urine Negative Negative mg/dL Specific [place], Urine 1.020 1.003 - 1.030 Blood, Urine Negative Negative pH, Urine 6.0 5.0 - 7.5 units Protein, Urine Negative Negative mg/dL Urobilinogen, Urine 0.2 0.2 - 1.0 mg/dL Nitrite, Urine Positive (A) Negative Esterase, Urine Small (A) Negative CULTURE, URINE, QUANTITATIVE Collection Time: 01/17/23 5:17 PM Specimen: Urine, Clean Catch Result Value Ref Range Culture Growth >100,000 colonies/mL Escherichia coli (A) Susceptibility Escherichia coli - MICROBROTH DILUTIONS Ampicillin Susceptible Cefazolin Susceptible Cefepime Susceptible Ceftriaxone Susceptible Ciprofloxacin* Susceptible * Due to serious side effects, the FDA has advised against using Ciprofloxacin to treat uncomplicated UTIs and respiratory tract infections unless there are no alternative treatment options. Gentamicin Susceptible Nitrofurantoin Susceptible Piperacillin Tazobactam Susceptible Trimeth/Sulfamethoxazole Susceptible HERPES SIMPLEX 1/2 AND VARICELLA ZOSTER, PCR Collection Time: 01/17/23 5:31 PM Result Value Ref Range Herpes Simplex Virus Type 1 Result Negative Negative Herpes Simplex Virus Type 2 Result Negative Negative Varicella Zoster Virus Result Negative Negative. No Varicella Zoster Virus detected by PCR (amplified Probe). HEMOGLOBIN A1C Collection Time: 01/23/23 3:52 PM Result Value Ref Range Hemoglobin A1C 8.0 (H) 4.0 - 5.6 % Estimated Average Glucose 183 (H) <126 mg/dL BASIC METABOLIC PANEL Collection Time: 01/23/23 3:52 PM Result Value Ref Range BUN 18 6 - 20 mg/dL Creatinine 1.0 0.5 - 1.0 mg/dL Estimated Glomerular Filtration Rate 59 (L) >=60 mL/min Sodium 139 135 - 146 mmol/L Potassium 4.6 3.5 - 5.1 mmol/L Chloride 98 98 - 107 mmol/L CO2 31 22 - 32 mmol/L Anion Gap 10 7 - 15 mmol/L Glucose 129 (H) 70 - 120 mg/dL Calcium 9.7 8.4 - 10.2 mg/dL PHOSPHORUS Collection Time: 01/23/23 3:52 PM Result Value Ref Range Phosphorus 3.9 2.5 - 4.8 mg/dL VITAMIN B12 Collection Time: 01/23/23 3:52 PM Result Value Ref Range Vitamin B12 323 232 - 1,245 pg/mL VARICELLA-ZOSTER VIRUS ANTIBODY, IGG Collection Time: 01/23/23 3:52 PM Result Value Ref Range Varicella-Zoster Virus IgG Antibody Positive (A) Negative VARICELLA-ZOSTER VIRUS ANTIBODY, IGM Collection Time: 01/23/23 3:52 PM Result Value Ref Range VZV Antibody (IGM) <=0.90 <=0.90 CBC Collection Time: 01/23/23 3:52 PM Result Value Ref Range WBC 9.60 4.00 - 10.80 K/uL RBC 5.13 3.85 - 5.15 M/uL HGB 14.6 12.0 - 15.3 g/dL HCT 47.5 (H) 36.0 - 45.2 % MCV 92.6 81.5 - 97.5 fL MCH 28.5 27.0 - 34.0 pg MCHC 30.7 32.0 - 36.0 g/dL RDW 14.3 11.5 - 15.5 % PLT 215 140 - 400 K/uL MPV 13.4 6.6 - 11.1 fL nRBCs 0 <=0 /100 WBCs DIFFERENTIAL, AUTOMATED Collection Time: 01/23/23 3:52 PM Result Value Ref Range WBC 9.60 4.00 - 10.80 K/uL Neutrophils % 57.3 40.0 - 75.0 % Lymphocytes % 27.6 18.0 - 42.0 % Monocytes % 11.5 (H) 1.0 - 11.0 % Eosinophils % 2.4 0.0 - 6.0 % Basophils % 0.8 0.0 - 2.0 % Immature Granulocytes % 0.4 0.0 - 2.0 % Absolute Neutrophils 5.50 1.80 - 7.70 K/uL Absolute Lymphocytes 2.65 1.00 - 4.80 K/ul Absolute Monocytes 1.10 0.00 - 1.10 K/uL Absolute Eosinophils 0.23 0.00 - 0.70 K/uL Absolute Basophils 0.08 0.00 - 0.20 K/uL Absolute Immature Granulocytes 0.04 0.00 - 0.20 K/uL VITALS There were no vitals filed for this visit. Wt Readings from Last 3 Encounters: 01/17/23 93 kg (205 lb) 07/06/22 96.6 kg (213 lb) 07/04/22 96.9 kg (213 lb 11.2 oz) There is no height or weight on [...] Mother Anxiety Disorder Mother Heart Disorder Father MA Alcohol and Other Disorders Associated Grandmother (Paternal) PAST MEDICAL HISTORY: Past Medical History: Diagnosis Date Asthma, non-allergic mild, PFT Chronic anxiety Chronic depression Chronic pain Frequent falls 09/25/2021 Gastroesophageal reflux disease without esophagitis 09/25/2021 Lacunar stroke (HCC) front frontal Lipoma of skin 1995 Mass of left parotid gland 09/25/2021 Obesity, Class II, BMI 35-39.9, isolated (see [...] no focal neurologic defect MENTAL STATUS EVALUATION (phone): Behavior: cooperative Speech: normal, rate, tone and volume Mood: "better" Associations: intact Thought Process: goal directed and logical Abstract Reasoning: intact Thought Content: denies suicidal ideations, homicidal ideations, auditory hallucinations, visual hallucinations, delusions, impulsivity to act out or preoccupation with violence Orientation: alert Attention span/concentration as evidenced by: ability to sustain attention to examiner - intact Insight: fair Judgment: fair ASSESSMENT AND PLAN: Diagnosis: The primary encounter [...] some cognitive decline. 1. Cymbalta 60mg BID Treatment options and alternatives reviewed with patient [...] to the urgency and severityof symptoms. Glory Tee was able to verbalize understanding of [...] of Treatment Plan: Patient has access to [employer] Signature Obtained on Treatment Plan: Treatment plan [...] track patient's improvement based on clinical assessment: [place] Suicide Screen Mario Yu MD Psychiatrist, [facility] 01/29/2023 documented in this encounter Plan of Treatment Upcoming Encounters Date Type Department Care Team (Late st Contact Info) Description 02/11/2023 1:00 PM EST PulmDiagnostic Sleep Lab [facility] [address] [place] [address] [place] Sleep Med Home Study [place] [address] [address] [place] [address] 04/16/2023 10:00 AM EST Telemedicine Sleep Disorders Ctr [facility] [address] [place] [phone] Gayatri Small, DO [address] [place] [address] 04/22/2023 9:00 AM EST Telemedicine Psychiatry, [place] [address] [place] [address] Mario Yu MD [address] [place] [address] 04/24/2023 2:20 PM EST Office Visit Family Practice [facility] [address] [place] [address] Radha Suarez, DO [address] [place] [address] Health Maintenance Due Date Last Done Comments [...] Additional history exists CKD HGB USE SMARTSET 07858 01/24/202401/23, 01/23/2023, 09/18/2021, Additional history exists CKD PHOS USE SMARTSET 61421 01/24/202401/03, 09/18/2021, 03/31/2021, Additional history exists Depression Screening 01/24/2024 01/23/2023 Diabetic Eye Exam 01/27/2024 01/26/2023, , 01/26/2023, Additional history exists Pneumococcal Vaccine: 65+ Years Completed 07/04/2015, 01/03/2009, 03/04/2000 VITAMIN D LEVEL ONCE IN A LIFETIME-USE SMARTSET# [id number] Completed 09/30/2017, 05/21/2017, 04/21/2010, Additional history exists [...] classified documented in this encounter Care Teams Heating Element Repairer Relationship Specialty Start Date End Date Radha Suarez DO [address] [place] [address] PCP - General Family Medicine 09/15/21 documented as of this encounter
--- OUTSIDE RECORDS SUMMARY | 2023-05-15 13:19 | External Medical Summary | Summary of Care ---
Author Name Unknown Organization [facility] Address [address] [place] [address] Phone [phone] Care Team Providers Care Photograph Retoucher Name Role Phone Radha Suarez DO Primary Care Provider [phone] Reason for Visit * Evaluate & Treat - Unlimited Visits (Within 3 days (urgent)) - Authorized Specialty Diagnoses / Procedures Referred By Frederick lazcano Referred To Contact Optometry Diagnoses Herpes zoster with complication Radha Suarez DO [address] [place] [address] Referral ID Status Reason Start Date Expiration Date Visits Requested Visits Authorized [id number] Authorized Specialty Services Required 3 [phone] Encounter Details Date Type Department Care Team (Late st Contact Info) Description 01/26/2023 9:00 AM EST Office Visit [place] [address] Matthew Yanez DO [address] [place] [address] Herpes zoster dermatitis of eyelid*; Combined forms of age-related cataract of both eyes; Type 2 diabetes mellitus with hemoglobin A1c goal of less than 7.0% ([facility]) Allergies Active Allergy Reactions Criticality [...] as of this encounter (statuses as of 01/26/2023) Medications Medication Sig Dispensed Refills Start Date End Date Status ASPIRIN 81 MG PO TABS one tablet by mouth daily 0 03/07/2013 Active TYLENOL 325 MG PO TABS Take by mouth . 0 Active Blood Glucose Monitoring Suppl (D-Mindjet GLUCOMETER) w/Device KIT Patient needs the One [...] Tablet 0 01/21/2023 Active OneTouch Delica Lancets 33GIndications:Type 2 diabetes mellitus with hemoglobin [...] as of this encounter (statuses as of 01/26/2023) Active Problems Problem Noted Date Diagnosed Date [...] as of this encounter (statuses as of 01/26/2023) Resolved Problems Problem Noted Date Diagnosed Date [...] as of this encounter (statuses as of 01/26/2023) Immunizations Name Administration Dates Next Due COVID-19 mRNA, LNP-s, No Pre serve, 2-Dose Series ([email or web address]) 05/24/2020,05/03/2020 Pneumococcal Conjugate Vacc, 13 Valent (Prevnar) [...] as of this encounter Progress Notes * Matthew Yanez DO - 01/26/2023 8:45 AM EST 01/26/2023 [facility] Ophthalmology Clinic Note HPI: Glory Tee is a 82 year old pt who presents to the eye clinic today as a new patient to me for evaluation. Location: OS Severity: Mild Quality: Concern over shingles in the left eye Exacerbating/Remitting Factors: Denies Associated Sx: Denies Past Ocular History: Cataract OU T2DM without hx of retinopathy Refractive error Eye Medications:Denies Family Ocular History: Denies ROS: Pt denies acute vision changes Pt denies new onset double vision Pt denies new SIMONS Pt denies new issues surrounding eyes Pt admits to above Please see below for full exam details. Base Eye Exam Visual Acuity (Snellen - Linear) Right Left Dist sc 20/40 20/40 Dist ph sc 20/30 20/30 Pupils Pupils Right PERRL Left PERRL Visual [place] Right Left Full Full Extraocular Movement Right Left Full Full Slit Lamp and Fundus Exam External Exam Right Left External Normal Normal Slit Lamp Exam Right Left Lids/Lashes Brow ptosis, DCL, lower lid laxity Brow ptosis, DCL, lower lid laxity Conjunctiva/Sclera White and quiet White and quiet Cornea Decreased TBUT Decreased TBUT Anterior Chamber Deep and quiet Deep and quiet Iris Round and reactive Round and reactive Lens 2+ NSC, vacuoles 2+ NSC, vacuoles Fundus Exam Right Left Vitreous PVD PVD Disc Normal Normal Macula Normal Normal Vessels Normal Normal Periphery Normal Normal A/P: Zoster dermatitis, V1, left side -Suspected secondary to zoster IgG positivity and location of rash No ophthalmic sequelae Monitor Cataract, OU -Present, if symptomatic, recommend removal Diabetic Eye Exam -No evidence of Diabetic changes on anterior or posterior exam -Cont blood glucose control and HTN control -Explained pathophysiology of how diabetes affects eyes -RTC in 1 year for routine f/u RTC routine with NEI or sooner prn. Matthew Yanez DO 01/26/2023 I spent a total of 20-29 minutes (exact time 25 mins) on the date of service in preparation, delivery, and documentation of the care provided to Glory Tee excluding any time spent in the performance of separately billed services. documented in this encounter Plan of Treatment Upcoming Encounters Date Type Department Care Team (Late st Contact Info) Description 01/29/2023 9:00 AM EST Telemedicine Psychiatry, [place] [address] [place] [address] Mario Yu MD [address] [place] [address] 02/11/2023 1:00 PM EST PulmDiagnostic Sleep Lab [facility] [address] [facility] [place] [address] [facility] Sleep Med Home Study [facility] [address] [place] [address] 04/16/2023 10:00 AM EST Telemedicine Sleep Disorders Ctr [facility] [address] [place] [phone] Gayatri Small, DO [address] [place] [address] 04/24/2023 2:20 PM EST Office Visit Family Practice [facility] [address] [place] [address] Radha Suarez, DO [address] [facility] [place] [address] Scheduled Referrals Name Type Priority Associated Diagnoses Orde r Schedule ADULT/PEDS OPHTHALMOLOGY/OPTO METRY REFERRAL OP Referral Within 3 days (urgent) Herpes zoster with complication Ordered: 01/23/2023 Health Maintenance Due Date Last Done Comments [...] Additional history exists CKD HGB USE SMARTSET 77508 01/24/202401/23, 01/23/2023, 09/18/2021, Additional history exists CKD PHOS USE SMARTSET 97483 01/24/202401/03, 09/18/2021, 03/31/2021, Additional history exists Depression Screening 01/24/2024 01/23/2023 Diabetic Eye Exam 01/27/2024 01/26/2023, , 01/26/2023, Additional history exists Pneumococcal Vaccine: 65+ Years Completed 07/04/2015, 01/03/2009, 03/04/2000 VITAMIN D LEVEL ONCE IN A LIFETIME-USE SMARTSET# [id number] Completed 09/30/2017, 05/21/2017, 04/21/2010, Additional history exists GARDASIL-HPV IMMUNIZATION SERIES Aged Out No longer eligible based on patient's age to complete this topic MENINGOCOCCAL (MENACTRA/MENVEO) Aged Out No longer eligible based on patient's age to complete this topic documented as of this encounter Medical Devices Not on filedocumented as of this encounter Visit Diagnoses Diagnosis Herpes zoster dermatitis of eyelid- Primary Combined forms of age-related cataract of both eyes Other and combined forms of senile cataract Type 2 diabetes mellitus with hemoglobin A1c goal of less than 7.0% (HCC) documented in this encounter Care Teams Photograph Retoucher Relationship Specialty Start Date End Date Radha Suarez DO [address] [place] [address] PCP - General Family Medicine 09/15/21 documented as of this encounter
--- OUTSIDE RECORDS SUMMARY | 2023-05-15 13:19 | External Medical Summary | Summary of Care ---
Author Name Unknown Organization [facility] Address [address] [place] [address] Phone [phone] Care Team Providers Care Swing Manager Name Role Phone Radha Suarez DO Primary Care Provider [phone] Reason for Visit * Reason Comments Outpatient Testing Encounter Details Date Type Department Care Team (Late st Contact Info) Description 01/23/2023 9:30 AM EST Laboratory Laboratory, [facility] [address] [place] [id number] [facility] [address] [place] [address] Encounter for long-term (current) use of medications; Type 2 diabetes mellitus with hemoglobin A1c goal of less than 8.0% ([facility]); Urinary frequency; Herpes zoster with complication Allergies Active Allergy Reactions Criticality Noted Date [...] as of this encounter (statuses as of 01/23/2023) Medications Medication Sig Dispensed Refills Start Date [...] before bedtime. 180 Capsule 1 11/28/2022 Active valACYclovir HCl 1 GM Oral Tablet (Valtrex)Indicatio ns:Herpes zoster without complication Take 1 Tablet by mouth in the morning and 1 Tablet at noon and 1 Tablet before bedtime. Do all this for 7 days. For 7 days for shingles. 21 Tablet 0 01/17/2023 01/24/2023 Active Additional Information Patient not taking.Reported on 01/23/2023 Cephalexin 500 MG Oral CapsuleIndications :UTI symptoms,Acute UTI Take 1 Capsule by mouth in the morning and 1 Capsule before bedtime. Do all this for 7 days. 14 Capsule 0 01/17/2023 01/24/2023 Active Levothyroxine Sodium 175 MCG Oral Tablet TAKE 1 TABLET BY MOUTH ONCE DAILY AT LEAST 30 MINUTES BEFORE BREAKFAST OR OTHER MEDICATIONS 90 Tablet 0 01/21/2023 Active OneTouch Delica Lancets 33GIndications:Typ e 2 diabetes mellitus with hemoglobin A1c goal of less than 8.0% (HCC) Test 1 time per day. Dx: E11.9 100 Each 3 01/23/2023 Active Marucci SportsTouch Verio In Vitro Strip (Glucose Blood)Indications: Type 2 diabetes mellitus with hemoglobin A1c goal of less than 8.0% (HCC) USE TO TEST once daily Dx: E11.9 100 Strip 3 01/23/2023 Active documented as of this encounter (statuses as of 01/23/2023) Active Problems Problem Noted Date Diagnosed Date [...] as of this encounter (statuses as of 01/23/2023) Resolved Problems Problem Noted Date Diagnosed Date [...] as of this encounter (statuses as of 01/23/2023) Immunizations Name Administration Dates Next Due COVID-19 mRNA, LNP-s, No Pre serve, 2-Dose Series ([employer]) 05/24/2020,05/03/2020 Pneumococcal Conjugate Vacc, 13 Valent (Prevnar) 07/04/2015 Pneumococcal Polysaccharide PPV23 (Pneumovax) ,03/04/2000 documented as of this encounter Social History Tobacco Use Types Packs/Day Years Used Date Smoking Tobacco: Never Smokeless Tobacco: Never Alcohol Use Standard Drinks/Week Comments No 0 (1 standard drink = 0.6 oz pur e alcohol) PHQ-2 Answer Date Recorded PHQ Adult Total Score 1 07/18/2021 Hunger Vital Sign Answer Date Recorded Worried [...] Description 01/29/2023 9:00 AM EST Telemedicine Psychiatry, [place] [address] [place] [address] Mario Yu MD [address] [place] [address] 02/11/2023 1:00 PM EST PulmDiagnostic Sleep Lab [facility] [address] [place] [address] [facility] [address] [place] [address] 04/16/2023 10:00 AM EST Telemedicine Sleep Disorders Ctr [facility] [address] [place] [phone] Gayatri Small, DO [address] [place] [address] 04/24/2023 2:20 PM EST Office Visit Family Practice [facility] [address] [place] [id number] Radha Suarez, DO [address] [place] [address] Pending Results Name Type Priority Associated Diagnoses Date /Time HEMOGLOBIN A1C Lab Routine Encounter for long-term (current) use of medications 01/23/2023 3:52 PM EST BASIC METABOLIC PANEL Lab Routine Encounter for long-term (current) use of medications 01/23/2023 3:52 PM EST PHOSPHORUS Lab Routine Encounter for long-term (current) use of medications 01/23/2023 3:52 PM EST VITAMIN B12 Lab Routine Encounter for long-term (current) use of medications 01/23/2023 3:52 PM EST VARICELLA-ZOSTER VIRUS ANTIBODY, IGG Lab Routine Herpes zoster with complication 01/23/2023 3:52 PM EST VARICELLA-ZOSTER VIRUS ANTIBODY, IGM Lab Routine Herpes zoster with complication 01/23/2023 3:52 PM EST CBC WITH WBC DIFFERENTIAL Lab Routine Urinary frequency 01/23/2023 3:52 PM EST CBC Lab Routine Urinary frequency 01/23/2023 3:52 PM EST DIFFERENTIAL, AUTOMATED Lab Routine Urinary frequency 01/23/2023 3:52 PM EST Health Maintenance Due Date Last Done Comments Zoster Vaccines (1 of 2) 1992 Hepatitis B (1 of 3 - Risk 3-dose series) 2002 FOBT ANNUALLY,AGES 18-90 04/20/2012 012 (Not indicated), 06/22/1998 *BISPHONATE OR OTHER ACCEPTABLE MEDICATION NEEDED FOR OSTEOPOROSIS (REFER TO SMARTSET #1146) 10/13/2018 DXA Scan 07/17/2019 07/16/2017, 02/02, 02/21/2009, Additional history exists Depression Screening 07/18/2022 07/18/2021 Diabetic Foot Exam 07/18/2022 07/18/2021, 0 08/13/2019, 08/25/2018 Albumin/Creatinine Ratio 09/18/2022 022, 07/05/2014, 06/12/2013, Additional history exists CKD HGB USE SMARTSET 79046 09/18/202209/18, 09/18/2021, 03/31/2021, Additional history exists CKD PHOS USE SMARTSET 17874 09/18/202209/01, 03/31/2021, 02/25/2018, Additional history exists TSH 09/18/2022 09/18/2021, 03/05, 02/19/2020, Additional history exists Diabetic Eye Exam 10/09/2022 10/09/2021, , 07/19/2020, Additional history exists COVID-19 Vaccine ( season) 2022 05/24/2020, 05/03/2020 Influenza Vaccine (FLU shot) (#1) 2022 GFR 01/04/2023 07/04/2022, 09/01, 03/31/2021, Additional history exists HbA1c 01/04/2023 07/04/2022, 09/01, 06/12/2021, Additional history exists Pneumococcal Vaccine: 65+ Years Completed 07/04/2015, 01/03/2009, 03/04/2000 VITAMIN D LEVEL ONCE IN A LIFETIME-USE SMARTSET# [id number] Completed 09/30/2017, 05/21/2017, 04/21/2010, Additional history exists GARDASIL-HPV IMMUNIZATION SERIES Aged Out No longer eligible based on patient's age to complete this topic MENINGOCOCCAL (MENACTRA/MENVEO) Aged Out No longer eligible based on patient's age to complete this topic documented as of this encounter Medical Devices Not on filedocumented as of this encounter Visit Diagnoses Diagnosis Encounter for long-term (current) use of medications Encounter for long-term (current) use of other medications Type 2 diabetes mellitus with hemoglobin A1c goal of less than 8.0% (HCC) Urinary frequency Herpes zoster with complication Herpes zoster with unspecified complication documented in this encounter Care Teams Swing Manager Relationship Specialty Start Date End Date Radha Suarez DO [address] [place] [address] PCP - General Family Medicine 09/15/21 documented as of this encounter
--- OUTSIDE RECORDS SUMMARY | 2023-05-15 13:19 | External Medical Summary | Summary of Care ---
Author Name Unknown Organization [facility] Address [address] [place] [address] Phone [phone] Care Team Providers Care Furnace Caretaker Name Role Phone Radha Suarez DO Primary Care Provider [phone] Reason for Referral * Evaluate & Treat - Unlimited Visits (Within 3 days (urgent)) - Authorized Specialty Diagnoses / Procedures Referred By Frederick lazcano Referred To Contact Optometry Diagnoses Herpes zoster with complication Radha Suarez DO [address] [place] [address] Referral ID Status Reason Start Date Expiration Date Visits Requested Visits Authorized [id number] Authorized Specialty Services Required 3 [phone] Question Answer Referral Priority Within 3 days (urgent) Where should this appointment be scheduled? [facility] Referring to: [facility] Referring for: Optometry Conditions Optometry Conditions Other Optometry (comment) - shingles face, r/o eye involvement Reason for Visit * Reason Comments Re-Check Went to UC last wk f or UTI, also had pain on L side of face, not diagnosed with shingrix, SIOMNS and chills today Encounter Details Date Type Department Care Team (Late st Contact Info) Description 01/23/2023 2:40 PM EST Office Visit Family Practice [facility] [address] [place] [address] Radha Suarez DO [address] [place] [address] Herpes zoster with complication*; Type 2 diabetes mellitus with hemoglobin A1c goal of less than 8.0% ([facility]); Urinary frequency Allergies Active Allergy Reactions Criticality Noted Date [...] as of this encounter (statuses as of 02/01/2023) Medications Medication Sig Dispensed Refills Start Date [...] Dx: E11.9 100 Strip 3 01/23/2023 Active OneTouch Verio In Vitro Strip (Glucose Blood)Indications :Type 2 diabetes mellitus with hemoglobin A1c goal of less than 8.0% (HCC) USE TO TEST once daily Dx: E11.9 100 Strip 3 10/18/2020 3 Discontinue d(Refill) OneTouch Delica Lancets 33GIndications:Ty pe 2 diabetes mellitus with hemoglobin A1c goal of less than 8.0% (HCC) Test 1 time per day. Dx: E11.9 300 Each 3 10/20/2020 3 Discontinue d(Refill) valACYclovir HCl 1 GM Oral Tablet (Valtrex)Indicati ons:Herpes zoster without complication Take 1 Tablet by mouth in the morning and 1 Tablet at noon and 1 Tablet before bedtime. Do all this for 7 days. For 7 days for shingles. 21 Tablet 0 01/17/2023 3 Additional Information Patient not taking.Reported on 01/23/2023 Cephalexin 500 MG Oral CapsuleIndication s:UTI symptoms,Acute UTI Take 1 Capsule by mouth in the morning and 1 Capsule before bedtime. Do all this for 7 days. 14 Capsule 0 01/17/2023 3 documented as of this encounter (statuses as of 02/01/2023) Active Problems Problem Noted Date Diagnosed Date [...] as of this encounter (statuses as of 02/01/2023) Resolved Problems Problem Noted Date Diagnosed Date [...] as of this encounter (statuses as of 02/01/2023) Immunizations Name Administration Dates Next Due COVID-19 [...] Sign Reading Time Taken Comments Blood Pressure 122/72 01/23/2023 2:56 PM EST Pulse 72 01/23/2023 2:56 PM EST Temperature 36.3 C (97.3 F) 01/23/2023 2:56 PM ES T Respiratory Rate 16 01/23/2023 2:56 PM EST Oxygen Saturation - - Inhaled Oxygen Concentration - - Weight - - Height - - Body Mass Index - - documented in this encounter Progress Notes * Radha Suarez, DO - 01/23/2023 3:08 PM EST Subjective: Glory Tee is a 82 year old female. Chief Complaint Patient presents with Re-Check Went to UC last wk for UTI, also had pain on L side of face, not diagnosed with shingrix, SIMONS and chills today HPI: Patient presents for follow up today. Seen last week in urgent care for urinary sx. Treated with keflex - cx grew e.coli, sensitive. Pt continues to have sx of urinary frequency though dysuria has improved. Having a lot of incontinence. Has rx for Gemtesa which helped initially but doesn't seem to be working as well anymore. Hasn't been checking BG recently. Is trying to watch her blood sugar. Also seen for rash on the L side of her face. Given rx for shingles. She stopped this as culture was negative. C/o pain, tylenol and ibuprofen helps. Never had shingles vaccine. Pt c/o increased anxiety. Following w/psychiatry. Pt reports anxiety is better on current medications. 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) F32.1 Panic disorder F41.0 Vitamin B 12 deficiency E53.8 Type 2 diabetes mellitus with hemoglobin A1c goal of less than 8.0% ([facility]) E11.9 Chronic kidney disease, stage 3a ([facility]) N18.31 Diabetic retinopathy of left eye associated with type 2 diabetes mellitus (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) F33.1 Type 2 diabetes mellitus with stage 3a chronic kidney disease, without long-term current use of insulin ([facility]) E11.22, N18.31 Current Outpatient Medications Medication Sig Dispense Refill [...] 1 Capsule before bedtime. 180 Capsule 1 Cephalexin 500 MG Oral Capsule Take 1 Capsule by mouth in the morning and 1 Capsule before bedtime.Do all this for 7 days. 14 Capsule 0 Levothyroxine Sodium 175 MCG Oral Tablet TAKE 1 TABLET BY MOUTH ONCE DAILY AT LEAST 30 MINUTES BEFORE BREAKFAST OR OTHER MEDICATIONS 90 Tablet 0 Blood Glucose Monitoring Suppl (D-CARE GLUCOMETER) w/Device KIT Patient needs the One touch Ultra 2Glucometer. Patient is to test 4 times per day; E11.9 (Patient not taking: Reported on 01/23/2023) 1 Kit 0 OneTouch Verio In Vitro Strip (Glucose Blood) USE TO TEST once daily Dx: E11.9 (Patient not taking:Reported on 01/23/2023) 100 Strip 3 OneTouch Delica Lancets 33G Test 1 time per day. Dx: E11.9 (Patient not taking: Reported on 01/23/2023) 300 Each 3 valACYclovir HCl 1 GM Oral Tablet (Valtrex) Take 1 Tablet by mouth in the morning and 1 Tablet at noon and 1 Tablet before bedtime. Do all this for 7 days. For 7 days for shingles. (Patient not taking: Reported on 01/23/2023) 21 Tablet 0 No current facility-administered medications for this [...] Sulfa Antibiotics Hives Tetanus Toxoid Objective: BP 122/72 (BP Site: Left Arm, BP Position: Sitting, BP Cuff Size: Large) | Pulse 72 | Temp 36.3 C(97.3 F) (Tympanic) | Resp 16 Review of Systems: As per HPI, all other ROS neg. Physical Exam: General: alert, healthy, and no distress Heart: regular rate & rhythm, no murmur, and no gallops Lungs: chest symmetric with normal AP diameter, no chest deformities noted, no chest wall tenderness, lungs clear to auscultation Skin: several scabbed over lesions w/erythematous base R scientologist Herpes zoster with complication (Primary) - VARICELLA-ZOSTER VIRUS ANTIBODY, IGG; Future; Expected date: 01/23/2023 - VARICELLA-ZOSTER VIRUS ANTIBODY, IGM; Future; Expected date: 01/23/2023 - ADULT/PEDS OPHTHALMOLOGY/OPTOMETRY REFERRAL OP Type 2 diabetes mellitus with hemoglobin A1c goal of less than 8.0% ([facility]) - OneTouch Delica Lancets 33G; Test 1 time per day. Dx: E11.9 - OneTouch Verio In Vitro Strip (Glucose Blood); USE TO TEST once daily Dx: E11.9 - HEMOGLOBIN A1C; Future; Expected date: 01/23/2023 Urinary frequency - HEMOGLOBIN A1C; Future; Expected date: 01/23/2023 - CBC WITH WBC DIFFERENTIAL; Future; Expected date: 01/23/2023 Follow up: as needed. Radha Suarez DO documented in this encounter Plan of Treatment Upcoming Encounters Date Type Department Care Team (Late st Contact Info) Description 02/11/2023 1:00 PM EST PulmDiagnostic Sleep Lab [facility] [address] [facility] [place] [address] [facility] [address] [place] [address] 04/16/2023 10:00 AM EST Telemedicine Sleep Disorders Ctr [facility] [address] [facility] [place] [phone] Gayatri Small DO [address] [facility] [place] [address] 04/22/2023 9:00 AM EST Telemedicine Psychiatry, [place] [address] [place] [address] Mario Yu MD [address] [place] [address] 04/24/2023 2:20 PM EST Office Visit Family Practice [facility] [address] [place] [address] Radha Suarez DO [address] [place] [place] [address] Scheduled Referrals Name Type Priority Associated Diagnoses [...] Additional history exists CKD HGB USE SMARTSET 98852 01/24/202401/23, 01/23/2023, 09/18/2021, Additional history exists CKD PHOS USE SMARTSET 97308 01/24/202401/03, 09/18/2021, 03/31/2021, Additional history exists Depression Screening 01/24/2024 01/23/2023 Diabetic Eye Exam 01/27/2024 01/26/2023, , 01/26/2023, Additional history exists Pneumococcal Vaccine: 65+ Years Completed 07/04/2015, 01/03/2009, 03/04/2000 VITAMIN D LEVEL ONCE IN A LIFETIME-USE SMARTSET# [id number] Completed 09/30/2017, 05/21/2017, 04/21/2010, Additional history exists GARDASIL-HPV IMMUNIZATION SERIES Aged Out No longer eligible based on patient's age to complete this topic MENINGOCOCCAL (MENACTRA/MENVEO) Aged Out No longer eligible based on patient's age to complete this topic documented as of this encounter Medical Devices Not on filedocumented as of this encounter Results * VARICELLA-ZOSTER VIRUS ANTIBODY, IGM (01/23/2023 3:52 PM EST) Pathologist [facility] VZV Antibody (IGM) <=0.90 <=0.90 01/27/2023 6:41 PM EST [employer] [place] Comment: < or = 0.90 Negative 0.91 - 1.09 Equivocal > or = 1.10 Positive Results from any one IgM assay should not be used as a sole determinant of a current or recent infection. Because an IgM test can yield false positive results and low levels of IgM antibody may persist for more than 12 months post infection, reliance on a single test result could be misleading. If an acute infection is suspected, consider obtaining a new specimen and submit for both IgG and IgM testing in two or more weeks. Test Performed at: [facility] [address] [address] Froilan Zelaya M.D., Ph.D.,Director of Laboratories Blood Venous blood specimen / Unknown Venipuncture / Unknown 01/23/2023 3:52 PM EST 01/23/2023 3:52 PM EST Radha Suarez DO LAB BLOOD ORDERABLE S [employer] [address] [address] * (ABNORMAL) VARICELLA-ZOSTER VIRUS ANTIBODY, IGG (01/23/2023 3:52 PM EST) Pathologist [facility] Varicella-Zoste r Virus IgG Antibody Positive( A) Negative 01/25/2023 9:00 AM EST LABORATORY [facility] Comment:A positive result is consistent with having had varicella zoster virus or vaccination. Blood Venous blood specimen / Unknown Venipuncture / Unknown 01/23/2023 3:52 PM EST 01/23/2023 3:52 PM EST Radha Suarez DO LAB BLOOD ORDERABLE S LABORATORY [facility] [address] [facility] [place] [address] documented in this encounter Visit Diagnoses Diagnosis Herpes zoster with complication- Primary Herpes zoster with unspecified complication Type 2 diabetes mellitus with hemoglobin A1c goal of less than 8.0% (HCC) Urinary frequency documented in this encounter Care Teams Furnace Caretaker Relationship Specialty Start Date End Date [facility] Suarez DO [address] [facility] [place] [address] PCP - General Family Medicine 09/15/21 documented as of this encounter"
--- OUTSIDE RECORDS SUMMARY | 2023-05-15 13:19 | External Medical Summary | Summary of Care ---
Author Name Unknown Organization [facility] Address [address] [place] [address] Phone [phone] Care Team Providers Care Legal Arbitrator Name Role Phone Radha Suarez DO Primary Care Provider [phone] Reason for Visit * Reason Comments Re-Check Encounter Details Date Type Department Care Team (Late st Contact Info) Description 02/07/2023 3:15 PM EST Office Visit Urogynecology Arash Finley [address] [place] [address] Ann Esparza PA-C [address] [place] [address] Nurse Chevy Finley [address] [place] [address] OAB (overactive bladder)*; Urge incontinence; Urinary frequency; Urinary urgency Allergies Active Allergy Reactions Criticality Noted Date [...] as of this encounter (statuses as of 02/07/2023) Medications Medication Sig Dispensed Refills Start Date [...] MEDICATIONS 90 Tablet 0 01/21/2023 Active OneTouch Delroselia Lancets 33GIndications:Ty pe 2 [...] to 14 days. 22 g 1 02/06/2023 3 Active Cephalexin 500 MG Oral CapsuleIndication s:UTI symptoms,Acute UTI Take 1 Capsule by mouth in the morning and 1 Capsule before bedtime. Do all this for 7 days. 14 Capsule 0 01/17/2023 3 Discontinue d(Medicatio n List Clean Up) documented as of this encounter (statuses as of 02/07/2023) Active Problems Problem Noted Date Diagnosed Date [...] as of this encounter (statuses as of 02/07/2023) Resolved Problems Problem Noted Date Diagnosed Date [...] as of this encounter (statuses as of 02/07/2023) Immunizations Name Administration Dates Next Due COVID-19 [...] Sign Reading Time Taken Comments Blood Pressure 118/70 02/07/2023 3:21 PM EST Pulse - - Temperature - - Respiratory Rate - - Oxygen Saturation - - Inhaled Oxygen Concentration - - Weight - - Height - - Body Mass Index - - documented in this encounter Progress Notes * Ann Esparza PA-C - 02/07/2023 3:39 PM EST Glory Tee presents for a follow up visit at [facility] --Urogynecologic Division. She was previously seen for N32.81 OAB (overactive bladder) (primary encounter diagnosis) N39.41 Urge incontinence R35.0 Urinary frequency R39.15 Urinary urgency Since last seen, patient had been taking Gemtesa which controlled her OAB symptoms very well. However, a few weeks ago she was unable to have the prescription refilled due to cost and change in her prescription coverage. States it would be over $1000 to refill. Since then, her OAB symptoms have wors ened and she has increased frequency, urgency and urge incontinence. She was also treated for E. Coli UTI 3 weeks ago with Keflex. Continues to have urgency, frequency and dysuria. Her and her daughter report she had had some confusion and hallucinations which she gets when she has a UTI. Requests repeat testing today. Review of patient's allergies indicates: Allergen Reactions Nutritional Supplements Swelling, problems breathing Shellfish Allergy Hives Wasp Venom Swelling, problems breathing Pelon Inhibitors Other (Please comment) cough Amlodipine Besylate Rash Clarithromycin ? Gabapentin Neuro complications (Please comment) confusion Inderal La [Propranolol Hcl Er] Other (Please comment) Nerve pain and joint stiffness Iodine Hives Sulfa Antibiotics Hives Tetanus Toxoid Current Outpatient Medications Medication Sig Dispense Refill ASPIRIN 81 MG PO TABS one tablet by mouth daily TYLENOL 325 MG PO TABS Take by mouth . Losartan Potassium 100 MG Oral Tablet (Cozaar) [...] by mouth once daily 90 Tablet 1 DULoxetine HCl 60 MG Oral Capsule Delayed [...] at bedtime. As directed. 42.5 g 5 Gemtesa 75 MG Oral Tablet (Vibegron) Take 1 Tablet by mouth in the morning. 90 Tablet 2 OneTouch Delica Lancets 33G Test 1 time per day. Dx: E11.9 100 Each 3 OneTouch Verio In Vitro Strip (Glucose Blood) USE TO TEST once daily Dx: E11.9 100 Strip 3 Mupirocin 2 % External Ointment (Bactroban) Apply topically to affected area 3 times a day for 14 days. To affected area for up to 14 days. 22 g 1 No current facility-administered medications for this visit. ROS: Per HPI BP 118/70 GENERAL: alert, healthy, no distress, well nourished and well developed SKIN: Skin color, texture, and turgor normal. No rashes or significant lesions Impression: This is a 82 year old with N32.81 OAB (overactive bladder) (primary encounter diagnosis) N39.41 Urge incontinence R35.0 Urinary frequency R39.15 Urinary urgency Plan: UA and culture ordered. Discussed limiting caffeine intake and practicing daily kegel exercises. Discussed alternative OAB medications as well as third line therapies including botox treatments orsacral nerve modulation. Risks and benefits reviewed of each. Patient states she wants to look into getting the Gemtesa covered again before pursuing other OAB management options. Will contact office if needs assistance. Appears that prior auth was approved by primary insurance in 09/2021 but [employer] was covering most of cost and [employer] no longer covers Gemtesa asof 02/2023. If Gemtesa definitively is not covered, patient willing to try Myrbetriq 50mg daily. RTC in 3 months or sooner as needed. I spent a total of 20-29 minutes (exact time 20 mins) on the date of service in preparation, delivery, and documentation of the care provided to Glory Tee excluding any time spent in the performance of separately billed services. Ann Esparza PA-C 02/07/2023 3:40 PM Ann Esparza PA-C Urogynecology [facility] [address] [place] [address] documented in this encounter Nursing Notes * Kate Fajardo RN - 02/07/2023 3:26 PM EST Pt stopped bladder meds about a month ago due to cost. She is having more spasms than just leaking. documented in this encounter Plan of Treatment Upcoming Encounters Date Type Department Care Team (Late st Contact Info) Description 02/11/2023 1:00 PM EST PulmDiagnostic Sleep Lab Florina Tushar [address] [place] [address] [facility], [facility] [address] [place] [address] 04/16/2023 10:00 AM EST Telemedicine Sleep Disorders Ctr Florina Finley Hoffman [address] [place] [phone] Gayatri Small DO [address] [place] [address] 04/22/2023 9:00 AM EST Telemedicine Psychiatry, [place] [address] [place] [address] Mario Yu MD [address] [place] [address] 04/24/2023 2:20 PM EST Office Visit Family Practice [facility] [address] [place] [address] Radha Suarez DO [address] [place] [address] 05/10/2023 1:35 PM EST Office Visit Urogynecology [facility] [address] [place] [address] Ann Esparza PA-C [address] [place] [address] [facility] [address] [place] [address] Pending Results Name Type Priority Associated Diagnoses Date /Time URINALYSIS, REFLEX TO CULTURE (NOT FOR NEUTROPENIC PATIENTS) Lab Routine Urge incontinence Urinary frequency Urinary urgency 02/07/2023 4:10 PM EST URINALYSIS, REFLEX TO CULTURE (CUP ONLY) Lab Routine Urge incontinence Urinary frequency Urinary urgency 02/07/2023 4:10 PM EST URINALYSIS, REFLEX TO CULTURE Lab Routine Urge incontinence Urinary frequency Urinary urgency 02/07/2023 4:10 PM EST Health Maintenance Due Date Last [...] Additional history exists CKD HGB USE SMARTSET 14500 01/24/202401/23, 01/23/2023, 09/18/2021, Additional history exists CKD PHOS USE SMARTSET 63013 01/24/202401/03, 09/18/2021, 03/31/2021, Additional history exists Depression Screening 01/24/2024 01/23/2023 Diabetic Eye Exam 01/27/2024 01/26/2023, , 01/26/2023, Additional history exists Pneumococcal Vaccine: 65+ Years Completed 07/04/2015, 01/03/2009, 03/04/2000 VITAMIN D LEVEL ONCE IN A LIFETIME-USE SMARTSET# 15155 Completed 09/30/2017, 05/21/2017, 04/21/2010, Additional history exists GARDASIL-HPV IMMUNIZATION SERIES Aged Out No longer eligible based on patient's age to complete this topic MENINGOCOCCAL (MENACTRA/MENVEO) Aged Out No longer eligible based on patient's age to complete this topic documented as of this encounter Medical Devices Not on filedocumented as of this encounter Visit Diagnoses Diagnosis OAB (overactive bladder)- Primary Hypertonicity of bladder Urge incontinence Urinary frequency Urinary urgency Urgency of urination documented in this encounter Care Teams Legal Arbitrator Relationship Specialty Start Date End Date Radha Suarez DO [address] [place] [address] PCP - General Family Medicine 09/15/21 documented as of this encounter
--- OUTSIDE RECORDS SUMMARY | 2023-05-15 13:19 | External Medical Summary ---
Author Name Unknown Address Unknown Organization K01:LABORATORY [facility] [place] - [address] [place] [address] Laboratory Report Ordering Provider Test Date Status NANCY RYAN 01/23/2023 15:52:12 Final Observation Date Value Abnormality Reference (Units ) Status Vitamin B12 01/23/2023 15:52:12 [phone] (pg/mL) Final Performing Location [facility] [address] [place] [address]
--- OUTSIDE RECORDS SUMMARY | 2023-05-15 13:19 | External Medical Summary | Summary of Care ---
Author Name Unknown Organization [facility] Address [address] [place] [address] Phone [phone] Care Team Providers Care Assembler Ping Pong Table Name Role Phone Radha Suarez DO Primary Care Provider [phone] Encounter Details Date Type Department Care Team (Late st Contact Info) Description 01/25/2023 Telephone Access Center, [place] [address] [facility] *DO NOT REMOVE THIS DEPARTMENT* [place] [address] Request, External Referral Allergies Active Allergy Reactions Criticality Noted Date [...] as of this encounter (statuses as of 01/25/2023) Medications Medication Sig Dispensed Refills Start Date [...] goal of less than 8.0% ([facility]) Test 1 time per day. Dx: E11.9 100 Each 3 01/23/2023 Active OneTouch Verio In Vitro Strip (Glucose Blood)Indications:T ype 2 diabetes mellitus with hemoglobin A1c goal of less than 8.0% ([facility]) USE TO TEST once daily Dx: E11.9 100 Strip 3 01/23/2023 Active documented as of this encounter (statuses as of 01/25/2023) Active Problems Problem Noted Date Diagnosed Date [...] as of this encounter (statuses as of 01/25/2023) Resolved Problems Problem Noted Date Diagnosed Date [...] as of this encounter (statuses as of 01/25/2023) Immunizations Name Administration Dates Next Due COVID-19 [...] encounter Miscellaneous Notes * Telephone Encounter - Serentiy Mcguire OSA - 01/25/2023 1:54 PM EST Spoke with patient and her daughter. Appointment scheduled for tomorrow 01/26 @ 9am in [place] with Dr. Yanez. Patient aware and agreeable to date, time, and location. ALCON Manning 01/25/2023 1:54 PM * Telephone Encounter - Serenity Mcguire OSA - 01/25/2023 1:40 PM EST No available appointments within recommended time frame in [place]. Offered patient appointment tomorrow morning 01/26 @ 9am in [place] with Dr. Yanez. Patient states she will call back to accept or decline appointment after she seeks transportation. ALCON Manning 01/25/2023 1:42 PM * Telephone Encounter - Jeanne Kessler OSA - 01/25/2023 1:22 PM EST Good Afternoon This pt has an urgent referral for Herpes zoster with complication [B02.8] Pt wants to know if she can be seen in [facility] she said she cannot travel to [place]. Please advise documented in this encounter Plan of Treatment Upcoming Encounters Date Type Department Care Team (Late st Contact Info) Description 01/26/2023 9:00 AM EST Office Visit Ophthalmology, [place] [address] Matthew Yanez DO [address] [place] [address] 01/29/2023 9:00 AM EST Telemedicine Psychiatry, [place] [address] [place] [address] Mario Yu MD [address] [place] [address] 02/11/2023 1:00 PM EST PulmDiagnostic Sleep Lab Florina Finley [address] [place] [address] [facility] Home Study [facility]ina [facility] [place] [address] 04/16/2023 10:00 AM EST Telemedicine Sleep Disorders Ctr Florina Finley [place] [address] [place] [phone] Gayatri Small DO [address] [place] [address] 04/24/2023 2:20 PM EST Office Visit Family Practice [facility] [address] [place] [address] Radha Suarez DO [address] [place] [address] Health Maintenance Due Date Last Done Comments [...] Additional history exists CKD HGB USE SMARTSET 04720 01/24/202401/23, 01/23/2023, 09/18/2021, Additional history exists CKD PHOS USE SMARTSET 08035 01/24/202401/03, 09/18/2021, 03/31/2021, Additional history exists Depression Screening 01/24/2024 01/23/2023 Pneumococcal Vaccine: 65+ Years Completed 07/04/2015, 01/03/2009, 03/04/2000 VITAMIN D LEVEL ONCE IN A LIFETIME-USE SMARTSET# 17173 Completed 09/30/2017, 05/21/2017, 04/21/2010, Additional history exists GARDASIL-HPV IMMUNIZATION SERIES Aged Out No longer eligible based on patient's age to complete this topic MENINGOCOCCAL (MENACTRA/MENVEO) Aged Out No longer eligible based on patient's age to complete this topic documented as of this encounter Medical Devices Not on filedocumented as of this encounter Care Teams Assembler Ping Pong Table Relationship Specialty Start Date End Date Radha Suarez DO [address] [place] [address] PCP - General Family Medicine 09/15/21 documented as of this encounter
--- OUTSIDE RECORDS SUMMARY | 2023-05-15 13:19 | External Medical Summary | Summary of Care ---
Author Name Unknown Organization [facility] Address [address] [place] [address] Phone [phone] Care Team Providers Care Cleaning Custodian Name Role Phone Radha Suarez DO Primary Care Provider [phone] Encounter Details Date Type Department Care Team (Late st Contact Info) Description 01/25/2023 Telephone Access Center, [place] [address] [facility] *DO NOT REMOVE THIS DEPARTMENT* [place] [address] Request, External Referral Allergies Active [...] goal of less than 8.0% ([facility]) Test 1 time per day. Dx: E11.9 100 Each 3 01/23/2023 Active OneTouch Verio In Vitro Strip (Glucose Blood)Indications:T ype 2 diabetes mellitus with hemoglobin A1c goal of less than 8.0% ([facility]) USE TO TEST once daily Dx: E11.9 [...] encounter Miscellaneous Notes * Telephone Encounter - Serenity Mcguire OSA - 01/25/2023 1:54 PM EST Spoke with patient and her daughter. Appointment scheduled for tomorrow 01/26 @ 9am in [place] with Dr. Yanez. ALCON Manning 01/25/2023 1:54 PM * Telephone Encounter - Serenity Mcguire OSA - 01/25/2023 1:40 PM EST No available appointments within recommended time frame in [place]. Offered patient appointment tomorrow morning 01/26 @ 9am in [place] with Dr. Yanez. Patient states she will call back to accept or decline appointment after she seeks transportation. ALCON [place] 01/25/2023 1:42 PM * Telephone Encounter - Jeanne Kessler, ALCON - 01/25/2023 1:22 PM EST Good Afternoon This pt has an urgent referral for Herpes zoster with complication [B02.8] Pt wants to know if she can be seen in [facility] she said she cannot travel to [place]. Please advise documented in this encounter Plan of Treatment Upcoming Encounters Date Type Department Care Team (Late st Contact Info) Description 01/26/2023 9:00 AM EST Office Visit Ophthalmology, [place] [address] Matthew Yanez DO [address] [place] [address] 01/29/2023 9:00 AM EST Telemedicine Psychiatry, [place] [address] [place] [address] Mario Yu MD [address] [place] [address] 02/11/2023 1:00 PM EST PulmDiagnostic Sleep Lab Florina Finley [address] [place] [address] [place], Sleep Med Home Study [place] [address] [facility] [place] [address] 04/16/2023 10:00 AM EST Telemedicine Sleep Disorders Ctr Florina [place], [place] [address] [place] [phone] Gayatri Small DO [address] [place] [address] 04/24/2023 2:20 PM EST [facility] [address] [place] [address] Radha Suarez, DO [address] [place] [address] Health Maintenance Due Date Last Done Comments [...] Additional history exists CKD HGB USE SMARTSET 56922 01/24/202401/23, 01/23/2023, 09/18/2021, Additional history exists CKD PHOS USE SMARTSET 04978 01/24/202401/03, 09/18/2021, 03/31/2021, Additional history exists Depression Screening 01/24/2024 01/23/2023 Pneumococcal Vaccine: 65+ Years Completed 07/04/2015, 01/03/2009, 03/04/2000 VITAMIN D LEVEL ONCE IN A LIFETIME-USE SMARTSET# 94119 Completed 09/30/2017, 05/21/2017, 04/21/2010, Additional history exists GARDASIL-HPV IMMUNIZATION SERIES Aged Out No longer eligible based on patient's age to complete this topic MENINGOCOCCAL (MENACTRA/MENVEO) Aged Out No longer eligible based on patient's age to complete this topic documented as of this encounter Medical Devices Not on filedocumented as of this encounter Care Teams Cleaning Custodian Relationship Specialty Start Date End Date Radha Suarez DO [address] [facility] [place] [address] PCP - General Family Medicine 09/15/21 documented as of this encounter
--- OUTSIDE RECORDS SUMMARY | 2023-05-15 13:19 | External Medical Summary ---
Author Name Unknown Address Unknown Organization K01:LABORATORY [facility] [place] - [address] [facility] [address] [place] [id number] Laboratory Report Ordering Provider Test Date Status BEATRIZEMERALD 02/07/2023 16:10:52 Final Observation Date Value Abnormality Reference (Units) Status Bacteria identified in Specimen by Culture 02/07/2023 16:10:52 No significant growth Final Test: Culture, Urine, Quanti tative
Specimen Source: Urine, Clean Catch
Specimen Type: Urine
Specimen Date: 02/07/2023 4:10 PM
Result Date: 02/08/2023 7:09 PM
Result Status: Final result
Resulting Lab: LABORATORY [facility]
[address]
[facility] [address]

CULTURE

No significant growth

null Performing Location LABORATORY [facility] - [address] [place] [facility] [address]
--- OUTSIDE RECORDS SUMMARY | 2023-05-15 13:19 | External Medical Summary ---
Author Name Unknown Address Unknown Organization K01:[facility] - [address] [facility] [address] Laboratory Report Ordering Provider Test Date Status KRISTA NANCE 01/23/2023 15:52:12 Final Observation Date Value Abnormality Reference (Units ) Status SYNC LEUKOCYTES IN BLOOD BY AUTOMATED COUNT 01/23/2023 15:52:12 9.60 4.00-10.80 (K/uL) Final Segs 01/23/2023 15:52:12 57.3 40.0-75.0 (%) Final Lymphs % 01/23/2023 15:52:12 27.6 18.0-42.0 (%) Final Monos 01/23/2023 15:52:12 11.5 Above high normal 1.0-11.0 (%) Final Eosinophils 01/23/2023 15:52:12 2.4 0.0-6.0 (%) Final Basos 01/23/2023 15:52:12 0.8 0.0-2.0 (%) Final Immature Granulocyte, Percent 01/23/2023 15:52:12 0.4 0.0-2.0 (%) Final Absolute Segs 01/23/2023 15:52:12 5.50 1.80-7.70 (K/uL) Final Lymphs, absolute 01/23/2023 15:52:12 2.65 1.00-4.80 (K/ul) Final Monos, Abs 01/23/2023 15:52:12 1.10 0.00-1.10 (K/uL) Final Eos, Abs 01/23/2023 15:52:12 0.23 0.00-0.70 (K/uL) Final Basos, Abs 01/23/2023 15:52:12 0.08 0.00-0.20 (K/uL) Final Immature Granulocytes, Number 01/23/2023 15:52:12 0.04 0.00-0.20 (K/uL) Final Performing Location LABORATORY [facility] [place] - [address] [facility] [address]
--- OUTSIDE RECORDS SUMMARY | 2023-05-15 13:19 | External Medical Summary ---
Author Name Unknown Address Unknown Organization K01:LABORATORY [facility] - [address] [facility] [place] [address] Laboratory Report Ordering Provider Test Date Status EMERALD HENDERSON 02/07/2023 16:10:52 Final Observation Date Value Abnormality Reference (Units ) Status Color of Urine by Auto 02/07/2023 16:10:52 Yellow Colorless, Light Yellow, Yellow, Dark Yellow Final Clarity, Urine 02/07/2023 16:10:52 Clear Clear Final Glucose [Mass/volume] in Urine by Automated test strip 02/07/2023 16:10:52 Negative Negative (mg/dL) Final Bilirubin.total [Presence] in Urine by Automated test strip 02/07/2023 16:10:52 Negative Negative Final Ketones [Mass/volume] in Urine by Automated test strip 02/07/2023 16:10:52 Negative Negative (mg/dL) Final Specific gravity, Urine 02/07/2023 16:10:52 1.021 1.003-1.030 Final Hemoglobin [Presence] in Urine by Automated test strip 02/07/2023 16:10:52 Negative Negative Final pH, Urine 02/07/2023 16:10:52 6.0 5.0-7.5 (Units) Final Protein [Mass/volume] in Urine by Automated test strip 02/07/2023 16:10:52 Trace Abnormal Negative (mg/dL) Final Urobilinogen [Mass/volume] in Urine by Automated test strip 02/07/2023 16:10:52 Normal Normal (mg/dL) Final Nitrite [Presence] in Urine by Automated test strip 02/07/2023 16:10:52 Negative Negative Final Leukocyte esterase [Presence] in Urine by Automated test strip 02/07/2023 16:10:52 Moderate Abnormal Negative Final RBC, Urine 02/07/2023 16:10:52 0-2 0-2 (/HPF) Final WBC, Urine 02/07/2023 16:10:52 3-5 Abnormal 0-2 (/HPF) Final Bacteria [#/area] in Urine sediment by Microscopy high power field 02/07/2023 16:10:52 51-100 Abnormal 0-25 (/HPF) Final Hyaline casts, Urine 02/07/2023 16:10:52 5-9 Abnormal None (/LPF) Final Transitional cells [#/area] in Urine sediment by Microscopy high power field 02/07/2023 16:10:52 1-4 Abnormal None (/HPF) Final CULTURE, [facility] 02/07/2023 16:10:52 Final Quantitative urine culture t o be performed Performing Location LABORATORY [facility] - [facility] [address] [facility] [address]
--- OUTSIDE RECORDS SUMMARY | 2023-05-15 13:20 | External Medical Summary ---
Author Name Unknown Address Unknown Organization K01:LABORATORY [facility] [place] - [address] [facility] [address] Laboratory Report Ordering Provider Test Date Status NACNY RYAN 01/23/2023 15:52:12 Final Observation Date Value Abnormality Reference (Units ) Status HbA1C 01/23/2023 15:52:12 8.0 Above high normal 4. 0-5.6 (%) Final The use of HbA1c to monitor glycemic status is based on normal hemoglobin and HbA composition. This test should not be used in patients with abnormal hemoglobin that affects the half life of the red blood cell or the in vivo glycation rates. Glucose, estimated average 01/23/2023 15:52:12 183 Above high normal <126 (mg/dL) Tyshawn mae Performing Location LABORATORY [facility] [place] - [address] [facility] [address]
--- OUTSIDE RECORDS SUMMARY | 2023-05-15 13:20 | External Medical Summary ---
Author Name Unknown Address Unknown Organization K01:LABORATORY [facility] [place] - [address] [place] [address] Laboratory Report Ordering Provider Test Date Status KRISTA NANCE 01/23/2023 15:52:12 Final Observation Date Value Abnormality Reference (Units ) Status WBC, Total 01/23/2023 15:52:12 9.60 4.00-10.80 (K/uL) Final RBC 01/23/2023 15:52:12 5.13 3.85-5.15 (M/uL) Final Hemoglobin 01/23/2023 15:52:12 14.6 12.0-15.3 (g/dL) Final HCT 01/23/2023 15:52:12 47.5 Above high normal 36.0-45.2 (%) Final MCV 01/23/2023 15:52:12 92.6 81.5-97.5 (fL) Final MCH 01/23/2023 15:52:12 28.5 27.0-34.0 (pg) Final MCHC 01/23/2023 15:52:12 30.7 32.0-36.0 (g/dL) Final RDW 01/23/2023 15:52:12 14.3 11.5-15.5 (%) Final Platelets 01/23/2023 15:52:12 215 140-400 (K/uL) Final MPV 01/23/2023 15:52:12 13.4 6.6-11.1 (fL) Final Nucleated erythrocytes/100 leukocytes [Ratio] in Blood by Automated count 01/23/2023 15:52:12 0 <=0 (/100 WBCs) Final Performing Location [facility] - [address] [place] [address]
--- OUTSIDE RECORDS SUMMARY | 2023-05-15 13:20 | External Medical Summary ---
Author Name Unknown Address Unknown Organization K01:[facility] [address] [place] [address] Laboratory Report Ordering Provider Test Date Status NANCY RYAN 01/23/2023 15:52:12 Final Observation Date Value Abnormality Reference (Units ) Status Phosphate 01/23/2023 15:52:12 3.9 2.5-4.8 (m g/dL) Final Performing Location [facility] - [address] [place] [address]
--- OUTSIDE RECORDS SUMMARY | 2023-05-15 13:20 | External Medical Summary ---
Author Name Unknown Address Unknown Organization K01:[facility] - [address] [place] [address] Laboratory Report Ordering Provider Test Date Status KRISTA NANCE 01/23/2023 15:52:12 Final Observation Date Value Abnormality Reference (Units ) Status Varicella Zoster IgG interpretation 01/23/2023 15:52:12 Positive Abnormal Negative Final A positive result is consist ent with having had varicella zoster virus or vaccination. Performing Location [facility] - [address] [place] [address]
--- OUTSIDE RECORDS SUMMARY | 2023-05-15 13:20 | External Medical Summary | Summary of Care ---
Author Name Unknown Organization [facility] Address [address] [place] [address] Phone [phone] Care Team Providers Care Cargo Supervisor Name Role Phone Erick Radha Rosalino PORTER Primary Care Provider [phone] Reason for Visit * Reason Comments Rash Uti Encounter Details Date Type Department Care Team (Latest Contact Info) Description 01/17/2023 5:00 PM EST Convenient Care Visit [facility] [address] [place] [address] Aly Jay PA-C [address] [facility] [place] [place] [id number] UTI symptoms*; Acute UTI; Herpes zoster without complication; Hallucination Allergies Active Allergy Reactions Criticality Noted Date [...] as of this encounter (statuses as of 01/17/2023) Medications Medication Sig Dispensed Refills Start Date [...] day; E11.9 1 Kit 0 03/06/2018 Active estrogens, conjugated (PREMARIN) 0.625 MG/GM vaginal cream Administer 0.5 g into the vagina once a day Saturday and only. Use 0.5 g with applicator at bedtime 30 g 6 08/10/2019 Active OneTouch Verio In Vitro Strip (Glucose Blood)Indications: Type 2 diabetes mellitus with hemoglobin A1c goal of less than 8.0% ([facility]) USE TO TEST once daily Dx: E11.9 100 Strip 3 10/18/2020 Active OneTouch Delica Lancets 33GIndications:Typ e 2 diabetes mellitus with hemoglobin A1c goal of less than 8.0% ([facility]) Test 1 time per day. Dx: E11.9 300 Each 3 10/20/2020 Active EpiPen 2-Neymar 0.3 MG/0.3ML Injection Solution [...] the morning. 90 Tablet 2 10/15/2022 Active Levothyroxine Sodium 175 MCG Oral Tablet TAKE 1 TABLET BY MOUTH ONCE DAILY AT LEAST 30 MINUTES BEFORE BREAKFAST OR OTHER MEDICATIONS 90 Tablet 0 10/24/2022 Active DULoxetine HCl 60 MG Oral Capsule [...] shingles. 21 Tablet 0 01/17/2023 01/24/2023 Active Cephalexin 500 MG Oral CapsuleIndications :UTI symptoms,Acute UTI Take 1 Capsule by mouth in the morning and 1 Capsule before bedtime. Do all this for 7 days. 14 Capsule 0 01/17/2023 01/24/2023 Active documented as of this encounter (statuses as of 01/17/2023) Active Problems Problem Noted Date Diagnosed Date [...] as of this encounter (statuses as of 01/17/2023) Resolved Problems Problem Noted Date Diagnosed Date [...] as of this encounter (statuses as of 01/17/2023) Immunizations Name Administration Dates Next Due COVID-19 mRNA, LNP-s, No Pre serve, 2-Dose Series (AirPair) 05/24/2020,05/03/2020 Pneumococcal Conjugate Vacc, 13 Valent (Prevnar) [...] Sign Reading Time Taken Comments Blood Pressure 120/70 01/17/2023 5:05 PM EST Pulse 78 01/17/2023 5:05 PM EST Temperature 36.8 C (98.2 F) 01/17/2023 5:05 PM ES T Respiratory Rate 16 01/17/2023 5:05 PM EST Oxygen Saturation 94% 01/17/2023 5:05 PM EST Inhaled Oxygen Concentration - - Weight 93 kg (205 lb) 01/17/2023 5:05 PM EST Height 165.1 cm (5' 5") 01/17/2023 5:05 PM EST Body Mass Index 34.11 01/17/2023 5:05 PM EST documented in this encounter Patient Instructions * Patient Instructions* Aly Jay PA-C - 01/17/2023 5:30 PM EST For Shingles Valtrex every 8 hours for 7 days. Do not stop early Can use tylenol/motrin if you are allowed, as needed for pain. Follow-up with your PCP in 3 days. Sooner if worsens. If you start to have eye symptoms --> see an eye doctor or go to ER right away For UTI Keflex twice a day for 7 days. Do not stop early. Drink plenty of fluids and increase fluid intake over next 48-72 hours. Take all medications as prescribed, even if you are feeling better sooner so as to reduce risk of reinfection and to reduce the chance of antibiotic resistance developing. If your urine culture shows resistance, we will contact you and switch medications. If your urine culture was negative, we will let you know. Otherwise, assume that if you do not hear from us, the bacteria that grew will likely be treated byyour antibiotic. F/U with PCP with no improvement in 3-5 days. Go immediately to the ED with any change or worsening symptoms including chills, fevers, back pain. documented in this encounter Progress Notes * Aly Jay PA-C - 01/17/2023 5:10 PM EST Images from the original note were not included. Nursing Notes: Stephanie Connelly, RT 01/17/23 [id number] Signed Glory Edmond Tee is a 82 year old female who presents to walk-in clinic today complaining of Chief Complaint Patient presents with Rash Uti Main Symptoms: rash on her face, painful and red with small bumps X last week Vaginal pain, itchingand burning, cannot control her bladder X 1 WEEK Tried: nothing Pt accompanied by: self Subjective Glory Tee is a 82 year old female that presents for Rash (Uti ) Rash This is a new problem. The current episode started in the past 7 days. The problem has been gradually worsening since onset. Location: Left scalp and forehead/face. The rash is characterized by pain and itchiness (was blistering with vescicles, now scabs and dry.). She was exposed to nothing. Associated symptoms include fatigue. Pertinent negatives include no anorexia, congestion, cough, diarrhea, eye pain, facial edema, fever, joint pain, nail changes, rhinorrhea, shortness of breath, sore throat or vomiting. (Denies eye pain, pain with EOM, vision changes) Past treatments include nothing. Urinary Tract Infection Symptoms This is a new problem. The current episode started in the past 7 days. The problem occurs every urination. The problem has been unchanged. The quality of the pain is described as aching. The pain is moderate. There has been no fever. Associated symptoms include frequency and urgency. Pertinent negatives include no chills, discharge, flank pain, hematuria, hesitancy, nausea, possible , sweats or vomiting. Associated symptoms comments: +dysuria Denies vaginal dc. She has tried nothing for the symptoms. reports h/o incontinence on Gemtesa Of note, patient reports that a week or so ago she had a hallucination where she saw a cat in her room. (She does not have cats). It lasted a few seconds, then resolved. She reports h/o hallucinations 6-8 months ago, for which she saw her PCP. She has not had issues since, when she was placed on cymbalta. Denies SI/HI Objective BP 120/70 (BP Site: Left Arm, BP Position: Sitting, BP Cuff Size: Regular) | Pulse 78 | Temp 36.8 C (98.2 F) (Tympanic) | Resp 16 | Ht 1.651 m (5' 5") | Wt 93 kg (205 lb) | SpO2 94% | BMI 34.11 kg/m | BSA 2.07 m Body mass index is 34.11 kg/m. BP Readings from Last 3 Encounters: 01/17/23 120/70 07/06/22 130/88 04/20/22 126/82 Wt Readings from Last 3 Encounters: 01/17/23 93 kg (205 lb) 07/06/22 96.6 kg (213 lb) 07/04/22 96.9 kg (213 lb 11.2 oz) Physical Exam Vitals and nursing note reviewed. Constitutional: General: She is not in acute distress. Appearance: She is well-developed. She is not ill-appearing, toxic-appearing or diaphoretic. HENT: Head: Normocephalic and atraumatic. Right Ear: Tympanic membrane, ear canal and external ear normal. Left Ear: Tympanic membrane, ear canal and external ear normal. Nose: Nose normal. Mouth/Throat: Mouth: Mucous membranes are moist. Pharynx: Oropharynx is clear. Eyes: General: No scleral icterus. Extraocular Movements: Extraocular movements intact. Conjunctiva/sclera: Conjunctivae normal. Pupils: Pupils are equal, round, and reactive to light. Neck: Vascular: No JVD. Trachea: No tracheal deviation. Cardiovascular: Rate and Rhythm: Normal rate and regular rhythm. Pulses: Radial pulses are 2+ on the right side and 2+ on the left side. Heart sounds: Normal heart sounds. No murmur heard. No friction rub. No gallop. Pulmonary: Effort: No accessory muscle usage. Breath sounds: No decreased breath sounds, wheezing, rhonchi or rales. Chest: Chest wall: No mass, deformity, tenderness or crepitus. Abdominal: General: Bowel sounds are normal. Palpations: Abdomen is soft. There is no hepatomegaly or splenomegaly. Tenderness: There is no abdominal tenderness. There is no guarding or rebound. Musculoskeletal: General: Normal range of motion. Cervical back: Normal range of motion and neck supple. Right lower leg: No tenderness. No edema. Left lower leg: No tenderness. No edema. Skin: General: Skin is warm and dry. Capillary Refill: Capillary refill takes less than 2 seconds. Nails: There is no clubbing. Neurological: General: No focal deficit present. Mental Status: She is alert and oriented to person, place, and time. GCS: GCS eye subscore is 4. GCS verbal subscore is 5. GCS motor subscore is 6. Motor: Motor function is intact. Coordination: Coordination is intact. Psychiatric: Attention and Perception: Attention and perception normal. Mood and Affect: Mood normal. Mood is not anxious. Behavior: Behavior normal. Behavior is not agitated. Thought Content: Thought content normal. Thought content does not include homicidal or suicidal ideation. Judgment: Judgment normal. Assessment and plan 1. UTI symptoms Results for orders placed or performed in visit on 01/17/23 URINALYSIS, POINT OF CARE (ENTER/EDIT) Result Value Ref Range Color, Urine Kathrin Yellow or Light Yellow Clarity, Urine Cloudy (A) Clear Glucose, Urine Negative Negative mg/dL Bilirubin, Urine Negative Negative Ketone, Urine Negative Negative mg/dL Specific [place], Urine 1.020 1.003 - 1.030 Blood, Urine Negative Negative pH, Urine 6.0 5.0 - 7.5 units Protein, Urine Negative Negative mg/dL Urobilinogen, Urine 0.2 0.2 - 1.0 mg/dL Nitrite, Urine Positive (A) Negative Esterase, Urine Small (A) Negative *Note: Due to a large number of results and/or encounters for the requested time period, some results have not been displayed. A complete set of results can be found in Results Review. - URINALYSIS, POINT OF CARE (ENTER/EDIT) - CULTURE, URINE, QUANTITATIVE - Cephalexin 500 MG Oral Capsule; Take 1 Capsule by mouth in the morning and 1 Capsule before bedtime. Do all this for 7 days. Dispense: 14 Capsule; Refill: 0 2. Acute UTI Consistent with UTI. Will start meds and follow cutlure - Cephalexin 500 MG Oral Capsule; Take 1 Capsule by mouth in the morning and 1 Capsule before bedtime. Do all this for 7 days. Dispense: 14 Capsule; Refill: 0 3. Herpes zoster without complication No affecting eye Will start meds Eye doc follow-up - valACYclovir HCl 1 GM Oral Tablet (Valtrex); Take 1 Tablet by mouth in the morning and 1 Tablet at noon and 1 Tablet before bedtime. Do all this for 7 days. For 7 days for shingles. Dispense: 21 Tablet; Refill: 0 - HERPES SIMPLEX 1/2 AND VARICELLA ZOSTER, PCR 4. Hallucination - will follow-up with PCP regarding this Follow up For Shingles Valtrex every 8 hours for 7 days. Do not stop early Can use tylenol/motrin if you are allowed, as needed for pain. Follow-up with your PCP in 3 days. Sooner if worsens. If you start to have eye symptoms --> see an eye doctor or go to ER right away For UTI Keflex twice a day for 7 days. Do not stop early. Drink plenty of fluids and increase fluid intake over next 48-72 hours. Take all medications as prescribed, even if you are feeling better sooner so as to reduce risk of reinfection and to reduce the chance of antibiotic resistance developing. If your urine culture shows resistance, we will contact you and switch medications. If your urine culture was negative, we will let you know. Otherwise, assume that if you do not hear from us, the bacteria that grew will likely be treated byyour antibiotic. F/U with PCP with no improvement in 3-5 days. Go immediately to the ED with any change or worsening symptoms including chills, fevers, back pain. The above was discussed and understanding was expressed. Aly Jay PA-C documented in this encounter Nursing Notes * Stephanie Connelly RT - 01/17/2023 5:03 PM EST Glory Tee is a 82 year old female who presents to walk-in clinic today complaining of Chief Complaint Patient presents with Rash Uti Main Symptoms: rash on her face, painful and red with small bumps X last week Vaginal pain, itchingand burning, cannot control her bladder X 1 WEEK Tried: nothing Pt accompanied by: self documented in this encounter Miscellaneous Notes * Pt Handout (on AVS) - Aly Jay PA-C - 01/17/2023 5:31 PM EST [id number] Shingles You have been seen today for shingles. Shingles is a viral infection caused by the same virus that causes chickenpox. Anyone who has had chickenpox may get shingles later in life. The virus stays in the body, but remains asleep (dormant). Shingles often occurs in older people. Or in people with lowered immunity. But it can affect anyone at any age. Shingles starts as a tingling patch of skin on 1 side of the body. Small, painful blisters may thenappear. The rash rarely spreads to other parts of the body. Exposure to shingles can't cause shingles. However, it can cause chickenpox in anyone who has not had chickenpox or has not been vaccinated. The contagious period ends when all blisters have crusted over, generally 1 to 2 weeks after the illness starts. After the blisters heal, the affected skin may be sensitive or painful for weeks or months, gradually resolving over time. But, sometimes this can last longer and be permanent (called postherpetic neuralgia.) Shingles vaccines are available. Vaccination can help prevent shingles or make it less painful. It is generally advised for adults older than 50, even if you've had shingles in the past. Talk with your healthcare provider about when to get vaccinated and which vaccine is best for you. Home care Medicines may be prescribed to help relieve pain. Take these medicines as directed. Ask your healthcare provider or pharmacist before using [id number] medicines for helping treat pain and itching. In certain cases, antiviral medicines may be prescribed to reduce pain, shorten the illness, andprevent neuralgia. Take these medicines as directed. Compresses made from a solution of cool water mixed with cornstarch or baking soda may help relieve pain and itching. Gently wash skin daily with soap and water to help prevent infection. Be certain to rinse off all of the soap, which can be irritating. Trim fingernails and try not to scratch. Scratching the sores may leave scars. Stay home from work or school until all blisters have formed a crust and you are no longer contagious. Follow-up care Follow up with your healthcare provider as directed. The shingles vaccine (RZV vaccine) is advised for healthy people over age 50, even if you've had shingles before. This is because you can get shingles again. Two shots of the RZV vaccine are recommended. You should get the second RZV shot 2 to 6 months after the first. The vaccine makes it less likely that you will develop shingles in the future. If you do develop shingles, your symptoms will likely be milder than if you hadn?t been vaccinated. RZV is also advised even if you had the older shingles vaccine (zoster live vaccine, ZVL) in the past. That's because the RZV vaccine works better andprotects you from shingles longer. Wait until the shingles rash has gone away before getting the RSV vaccine. When to get medical advice Call your healthcare provider if you have any of these: Fever of 100.4F (38C) or higher, or as directed by your provider Affected skin is on the face or neck and any of the following occur: o Headache o Eye pain o Changes in vision o Sores near the eye o Weakness of facial muscles Blisters occurring on new areas of the body Joint pain, redness, or swelling Signs of skin infection: colored fluid leaking from the sores, warmth, increasing redness, fever, or increasing pain Symptoms get worse or new symptoms occur Last Reviewed Date: 03/04/202119998236-4490 [employer]. All rights reserved. This information is not intended as a substitute for professional medical care. Always follow your healthcare professional's instructions. documented in this encounter Plan of Treatment Upcoming Encounters Date Type Department Care Team (Late st Contact Info) Description 01/23/2023 9:00 AM EST [facility] [address] [place] [address] Mario Yu MD [address] [place] [address] 02/11/2023 1:00 PM EST [facility] Florina Finley [address] [facility] [place] [address] [facility] Florina [address] [facility] [place] [address] 04/16/2023 10:00 AM EST Telemedicine Sleep Disorders Ctr Florina Finley Julian [address] [facility] [place] [id number] Gayatri Small DO [address] [facility] [place] [address] 04/24/2023 2:20 PM EST Office Visit Family [facility] [address] [place] [address] Radha Suarez, DO [address] [place] [address] Pending Results Name Type Priority Associated Diagnoses Date /Time CULTURE, URINE, QUANTITATIVE Lab STAT UTI symptoms 01/17/2023 5:17 PM EST HERPES SIMPLEX 1/2 AND VARICELLA ZOSTER, PCR Lab STAT Herpes zoster without complication 01/17/2023 5:31 PM EST Health Maintenance Due Date Last [...] Additional history exists CKD HGB USE SMARTSET 96824 09/18/202209/18, 09/18/2021, 03/31/2021, Additional history exists CKD PHOS USE SMARTSET 06828 09/18/202209/01, 03/31/2021, 02/25/2018, Additional history exists TSH [...] D LEVEL ONCE IN A LIFETIME-USE SMARTSET# 42019 Completed 09/30/2017, 05/21/2017, 04/21/2010, Additional history exists GARDASIL-HPV IMMUNIZATION SERIES Aged Out No longer eligible based on patient's age to complete this topic MENINGOCOCCAL (MENACTRA/MENVEO) Aged Out No longer eligible based on patient's age to complete this topic documented as of this encounter Medical Devices Not on filedocumented as of this encounter Procedures Procedure Name Priority Date/Time Associated Diagnosis Comments URINALYSIS, POINT OF CARE (ENTER/EDIT) Routine 01/17/2023 5:16 PM EST UTI symptoms documented in this encounter Results * (ABNORMAL) URINALYSIS, POINT OF CARE (ENTER/EDIT) (01/17/2023 5:16 PM EST) Color, Urine Kathrin Yellow or Light Yellow Clarity, Urine Cloudy(A) Clear Glucose, Urine Negative Negative mg/dL Bilirubin, Urine Negative Negative Ketone, Urine Negative Negative mg/dL Specific [place], Urine 1.020 1.003 - 1.030 Blood, Urine Negative Negative pH, Urine 6.0 5.0 - 7.5 units Protein, Urine Negative Negative mg/dL Urobilinogen, Urine 0.2 0.2 - 1.0 mg/dL Nitrite, Urine Positive(A) Negative Esterase, Urine Small(A) Negative Urine 01/17/2023 5:16 PM EST Aly Jay PA-C LAB POINT O F CARE TEST ENTER/EDIT ORDERABLES documented in this encounter Visit Diagnoses Diagnosis UTI symptoms- Primary Other symptoms involving urinary system Acute UTI Urinary tract infection, site not specified Herpes zoster without complication Herpes zoster without mention of complication Hallucination Hallucinations documented in this encounter Care Teams Cargo Supervisor Relationship Specialty Start Date End Date Radha Suarez DO [address] [place] [address] PCP - General Family Medicine 09/15/21 documented as of this encounter
--- OUTSIDE RECORDS SUMMARY | 2023-05-15 13:20 | External Medical Summary ---
Author Name Unknown Address Unknown Organization K01:[facility] [place] [address] [place] [address] Laboratory Report Ordering Provider Test Date Status NANCY RYAN 01/23/2023 15:52:12 Final Observation Date Value Abnormality Reference (Units ) Status BUN 01/23/2023 15:52:12 18 6-20 (mg/dL) Final Creatinine 01/23/2023 15:52:12 1.0 0.5-1.0 (mg/dL) Final Glomerular filtration rate/1.73 sq M.predicted [Volume Rate/Area] in Serum, Plasma or Blood by Creatinine-based formula (CKD-EPI) 01/23/2023 15:52:12 59 Below low normal >=60 (mL/min) Final eGFR is calculated based on the CKD-EPI 2020 equation SODIUM 01/23/2023 15:52:12 139 135-146 (m mol/L) Final Potassium 01/23/2023 15:52:12 4.6 3.5-5.1 (m mol/L) Final Cl 01/23/2023 15:52:12 98 98-107 (mm ol/L) Final CO2 01/23/2023 15:52:12 31 22-32 (mmo l/L) Final Anion gap 01/23/2023 15:52:12 10 7-15 (mmol /L) Final Glucose 01/23/2023 15:52:12 129 Above high normal 70 -120 (mg/dL) Final Calcium 01/23/2023 15:52:12 9.7 8.4-10.2 ( mg/dL) Final Performing Location [facility] [place] [address] [place] [address]
--- OUTSIDE RECORDS SUMMARY | 2023-05-15 13:20 | External Medical Summary ---
Author Name Unknown Address Unknown Organization K01:LABORATORY [address] [facility] [address] Laboratory Report Ordering Provider Test Date Status KAVYA BAI 01/17/2023 17:31:21 Final Observation Date Value Abnormality Reference (Units ) Status Herpes simplex virus 1+2 DNA [Presence] in Specimen by KIRA with probe detection 01/17/2023 17:31:21 Negative Negative Final No Herpes Simplex Virus Type 1 detected by PCR (amplified probe). Herpes simplex virus 1+2 DNA [Presence] in Specimen by KIRA with probe detection 01/17/2023 17:31:21 Negative Negative Final No Herpes Simplex Virus Type 2 detected by PCR (amplified probe). Varicella zoster virus DNA [Presence] in Specimen by KIRA with probe detection 01/17/2023 17:31:21 Negative. No Varicella Zoster Virus detected by PCR (amplified Probe). Negative Final This test was developed and its performance characteristics determined by [employer]. It has not been cleared or approved by the FDA. The laboratory is regulated under CLIA as qualified to perform high- complexity testing. This test is used for clinical purposes. It should not be regarded as investigational or for research. Performing Location LABORATORY [address] [facility] [address]
--- OUTSIDE RECORDS SUMMARY | 2023-05-15 13:20 | External Medical Summary | Summary of Care ---
Author Name Unknown Organization [facility] Address [address] [place] [address] Phone [phone] Care Team Providers Care Care Specialist Name Role Phone Goyo Velasco DO Primary Care Provider [phone] Reason for Visit * Reason Comments eRx-Medication Refill Encounter Details Date Type Department Care Team (Late st Contact Info) Description 01/19/[address] [facility] [address] [facility] [address] Goyo Velasco DO [address] [facility] [address] Encounter for long-term (current) use of medications* Allergies Active Allergy Reactions Criticality Noted Date [...] as of this encounter (statuses as of 01/21/2023) Medications Medication Sig Dispensed Refills Start Date [...] day; E11.9 1 Kit 0 9 Active estrogens, conjugated (PREMARIN) 0.625 MG/GM vaginal cream Administer 0.5 g into the vagina once a day Saturday and only. Use 0.5 g with applicator at bedtime 30 g 6 0 Active OneTouch Verio In Vitro Strip (Glucose Blood)Indications :Type 2 diabetes mellitus with hemoglobin A1c goal of less than 8.0% ([facility]) USE TO TEST once daily Dx: E11.9 100 Strip 3 1 Active OneTouch Delica Lancets 33GIndications:Ty pe 2 diabetes mellitus with hemoglobin A1c goal of less than 8.0% ([facility]) Test 1 time per day. Dx: E11.9 300 Each 3 1 Active EpiPen 2-Neymar 0.3 MG/0.3ML Injection Solution Auto-injector ONE INJECTION INTO THIGH NEEDED FOR SEVERE ALLERGIC REACTION 1 Each 2 2 Active Premarin 0.625 MG/GM Vaginal Cream (Estrogens Conjugated)Indica tions:Urinary incontinence, mixed Administer 0.5 g into the vagina at bedtime. As directed. 42.5 g 5 3 Active Losartan Potassium 100 MG Oral Tablet (Cozaar) Take 1 Tablet by mouth in the morning. 90 Tablet 2 3 Active Omeprazole 20 MG Oral Capsule [...] the morning. 90 Tablet 2 3 Active Furosemide 40 MG Oral Tablet (Lasix) Take 1 tablet by mouth once daily 90 Tablet 1 3 Active Gemtesa 75 MG Oral Tablet (Vibegron) Take 1 Tablet by mouth in the morning. 90 Tablet 2 3 Active DULoxetine HCl 60 MG Oral Capsule Delayed Release Particles (Cymbalta) Take 1 Capsule by mouth in the morning and 1 Capsule before bedtime. 180 Capsule 1 3 Active valACYclovir HCl 1 GM Oral Tablet (Valtrex)Indicati ons:Herpes zoster without complication Take 1 Tablet by mouth in the morning and 1 Tablet at noon and 1 Tablet before bedtime. Do all this for 7 days. For 7 days for shingles. 21 Tablet 0 3 01/25/20 23 Active Cephalexin 500 MG Oral CapsuleIndication s:UTI symptoms,Acute UTI Take 1 Capsule by mouth in the morning and 1 Capsule before bedtime. Do all this for 7 days. 14 Capsule 0 3 01/25/20 23 Active Levothyroxine Sodium 175 MCG Oral Tablet TAKE 1 TABLET BY MOUTH ONCE DAILY AT LEAST 30 MINUTES BEFORE BREAKFAST OR OTHER MEDICATIONS 90 Tablet 0 3 Active Levothyroxine Sodium 175 MCG Oral Tablet TAKE 1 TABLET BY MOUTH ONCE DAILY AT LEAST 30 MINUTES BEFORE BREAKFAST OR OTHER MEDICATIONS 90 Tablet 0 3 01/22/20 23 Discontinued documented as of this encounter (statuses as of 01/21/2023) Active Problems Problem Noted Date Diagnosed Date [...] as of this encounter (statuses as of 01/21/2023) Resolved Problems Problem Noted Date Diagnosed Date [...] as of this encounter (statuses as of 01/21/2023) Immunizations Name Administration Dates Next Due COVID-19 [...] encounter Miscellaneous Notes * Telephone Encounter - Goyo Velasco DO - 01/21/2023 2:52 PM ESTSigned Prescriptions: Disp Refills Levothyroxine Sodium 175 MCG Oral Tablet 90 Tab*0 Sig: TAKE 1 TABLET BY MOUTH ONCE DAILY AT LEAST 30 MINUTES BEFORE BREAKFAST OR OTHER MEDICATIONS Authorizing Provider: GOYO VELASCO * Telephone Encounter - Caty Arroyo CPhT - 01/21/2023 1:05 PM EST Pt returning cb, relayed message back to pt. Transferred pt to scheduling for saima. Thank you, Caty Arroyo Door Operator [employer] 01/21/2023, 1:05 PM * Telephone Encounter - Antonino Connor CPhT - 01/21/2023 9:25 AM EST Pending Prescriptions: Disp Refills Levothyroxine Sodium 175 MCG Oral Tablet 90 Tab*0 Sig: TAKE 1 TABLET BY MOUTH ONCE DAILY AT LEAST 30 MINUTES BEFORE BREAKFAST OR OTHER MEDICATIONS * Telephone Encounter - Antonino Connor CPhT - 01/21/2023 9:25 AM EST Received message from [facility] regarding patient needing labs. Placed call to patient to advise. Left message on voicemail advising of required labs Thank you, Bereket Connor ([facility]) [employer] F[employer] III [facility] ([facility]) (formerly Telepharmacy) 01/21/2023, 9:25 AM * Telephone Encounter - Lilo Perez RP - 01/21/2023 5:31 AM ESTPending Prescriptions: Disp Refills Levothyroxine Sodium 175 MCG Oral Tablet 90 Tab*0 Sig: TAKE 1 TABLET BY MOUTH ONCE DAILY AT LEAST 30 MINUTES BEFORE BREAKFAST OR OTHER MEDICATIONS * Telephone Encounter - Lilo Perez RP - 01/21/2023 5:27 AM EST Unable to authorize medication refills for pended medication(s) at this time. Per refill protocol patient should have TSH on file within past year. Reviewed AMP report, Care Gaps/Health Maintenance, medications list, and for any routine labs typically ordered for this patient. Lab orders placed. Please contact patient to advise of labs ordered for blood draw AND URINE specimen (patient will have to be able to void to provide sample). Fasting is not required. Advise to obtain labs before her scheduled office visit 04/24/2023. After contacting patient, please forward request to Goyo Velasco DO. Thank You, Lilo Perez [facility] Clinical Pharmacist [facility] ([facility]) (formerly Telepharmacy) [phone] 01/21/2023, 5:29 AM documented in this encounter Plan of Treatment Upcoming Encounters Date Type Department Care Team (Late st Contact Info) Description 01/23/2023 9:00 AM EST [facility] [place] [address] Mario Yu MD [address] [place] [address] 01/23/2023 9:30 AM EST Laboratory Laboratory, [facility] [address] [place] [id number] [facility], Lab [facility] [address] [place] [address] 02/11/2023 1:00 PM EST PulmDiagnostic Sleep Lab [facility] [address] [place] [address] [facility] [address] [place] [address] 04/16/2023 10:00 AM EST Telemedicine Sleep Disorders Ctr [facility] [address] [place] [id number] Gayatri Small, DO [address] [place] [address] 04/24/2023 2:20 PM EST Office Visit Family Practice [facility] [address] [place] [address] Goyo Velasco, DO [address] [place] [address] Scheduled Orders Name Type Priority Associated Diagnoses Orde r Schedule HEMOGLOBIN A1C Lab Routine Encounter for long-term (current) use of medications Expected: 01/21/2023 (Approximate), Expires: 01/22/2024 BASIC METABOLIC PANEL Lab Routine Encounter for long-term (current) use of medications Expected: 01/21/2023 (Approximate), Expires: 01/22/2024 HGB Lab Routine Encounter for long-term (current) use of medications Expected: 01/21/2023 (Approximate), Expires: 01/22/2024 PHOSPHORUS Lab Routine Encounter for long-term (current) use of medications Expected: 01/21/2023 (Approximate), Expires: 01/22/2024 VITAMIN B12 Lab Routine Encounter for long-term (current) use of medications Expected: 01/21/2023 (Approximate), Expires: 01/22/2024 Health Maintenance Due Date Last Done Comments [...] Additional history exists CKD HGB USE SMARTSET 20800 09/18/202209/18, 09/18/2021, 03/31/2021, Additional history exists CKD PHOS USE SMARTSET 39809 09/18/202209/01, 03/31/2021, 02/25/2018, Additional history exists TSH [...] D LEVEL ONCE IN A LIFETIME-USE SMARTSET# 30589 Completed 09/30/2017, 05/21/2017, 04/21/2010, Additional history exists GARDASIL-HPV IMMUNIZATION SERIES Aged Out No longer eligible based on patient's age to complete this topic MENINGOCOCCAL (MENACTRA/MENVEO) Aged Out No longer eligible based on patient's age to complete this topic documented as of this encounter Medical Devices Not on filedocumented as of this encounter Visit Diagnoses Diagnosis Encounter for long-term (current) use of medications- Primary Encounter for long-term (current) use of other medications documented in this encounter Care Teams Care Specialist Relationship Specialty Start Date End Date Goyo Velasco DO [address] [place] [address] PCP - General Family Medicine 09/15/21 documented as of this encounter
--- OUTSIDE RECORDS SUMMARY | 2023-05-15 13:20 | External Medical Summary | Summary of Care ---
Author Name Unknown Organization [facility] Address [address] [place] [address] Phone [phone] Care Team Providers Care Bankman Name Role Phone Erick Radha Rosalino PORTER Primary Care Provider [phone] Reason for Visit * Reason Comments Follow Up Encounter Details Date Type Department Care Team Description 12/21/2022 Telemedicine Sleep Disorders Ctr [facility] [place] [address] [place] [address] Gayatri Small DO [address] [place] [address] ALCON (obstructive sleep apnea)*; Insomnia, unspecified type; Sleep-wake schedule disorder, delayed phase type Allergies Active Allergy Reactions Severity Noted Date Comments Pelon Inhibitors Other (Please [...] as of this encounter (statuses as of 12/21/2022) Medications Medication Sig Dispensed Refills Start Date [...] goal of less than 8.0% ([facility]) USE TO TEST once daily Dx: E11.9 100 Strip 3 10/18/2020 Active OneTouch Delica Lancets 33GIndications:Type 2 diabetes mellitus with hemoglobin A1c goal of less than 8.0% ([facility]) Test 1 time per day. Dx: [...] as of this encounter (statuses as of 12/21/2022) Active Problems Problem Noted Date MDD (major depressive disorder), recurre nt episode, moderate 04/30/2022 Type 2 diabetes mellitus wit h stage 3a chronic kidney disease, without long-term current use of insulin 04/30/2022 Obesity, Class II, BMI 35-39.9, isolated (see actual BMI) 09/25/2021 Gastroesophageal reflux disease without esophagitis 09/25/2021 Frequent falls 09/25/2021 Mass of left parotid gland 09/25/2021 Persistent insomnia 09/25/2021 Urinary incontinence, mixed 09/25/2021 High risk for fracture due to osteoporos is by DEXA scan 06/12/2021 Diabetic retinopathy of left eye associa dennise with type 2 diabetes mellitus 11/15/2020 Chronic kidney disease, stage 3a 021 Overview: Per CKD protocol Type 2 diabetes mellitus with hemoglobin A1c goal of less than 8.0% 03/03/2018 Vitamin B 12 deficiency 07/04/2015 Major depressive disorder, single episod e, moderate 09/17/2008 Panic disorder 09/17/2008 HTN, goal below 130/80 06/08/2008 Overview: Modified per HTN protocol #16. Hypothyroidism due to acquired atrophy o f thyroid 11/30/2004 documented as of this encounter (statuses as of 12/21/2022) Resolved Problems Problem Noted Date Resolved Date Type 2 diabetes mellitus wit h stage 3a chronic kidney disease 07/12/2020 09/25/2021 Overview: Per CKD protocol Type 2 diabetes mellitus wit h stage 3a chronic kidney disease 07/12/2020 08/18/2020 Overview: Per CKD protocol Post-traumatic osteoarthritis of right wrist 07/202009/25/2021 Carpal tunnel syndrome of right wrist 07/06/2020 09/25/2021 Type 2 diabetes mellitus wit h stage 3 chronic kidney disease, without long-term current use of insulin 04/06/202007/02 Overview: Per CKD protocol Hypertensive kidney disease with stage 3a chronic kidney disease 03/14/2020 09/25/2021 Overview: Per CKD protocol Diabetes mellitus with stage 3 chronic kidney di sease 03/14/2020 07/14/2020 Overview: Per CKD protocol ADVANCE DIRECTIVE INFORMATION 08/07/2019 Overview: Information offered-declined Hypertensive kidney disease with chronic kidney disease stage III 08/11/2018 03/17/2020 Overview: Per CKD protocol Type 2 diabetes mellitus with stage 3 chronic ki dney disease 08/11/2018 03/17/2020 Overview: Per CKD protocol Kidney disease, chronic, stage III (GFR 30-59 ml /min) 06/11/2017 09/11/2018 Overview: Per CKD protocol #1 Essential hypertension with goal blood pressure less than 140/90 02/21/2016 09/25/2021 Wrist fracture, bilateral 05/11/20142017 C1 cervical fracture 05/11/2014 04/02/2017 Other seborrheic keratosis 01/05/201304/02 Edema 02/21/2011 04/02/2017 Cellulitis of foot 02/19/2011 04/02/2017 Pain in right foot 02/19/2011 04/02/2017 Kidney disease, chronic, stage III (GFR 30-59 ml /min) 04/21/2010 10/08/2014 Anxiety state 09/17/2008 01/03/2009 Acute stress reaction 09/17/2008 01/03/2009 EXTRINSIC ASTHMA, UNSPEC 01/22/2006 010 Hypothyroidism 11/17/2004 01/22/2006 Menopause 11/17/2004 11/17/2004 Osteoporosis 11/17/2004 09/25/2021 LIPOMA SKIN NEC 06/20/2004 01/22/2006 Bronchitis 01/22/2006 Menopause 01/03/2009 documented as of this encounter (statuses as of 12/21/2022) Immunizations Name Administration Dates Next Due COVID-19 [...] drink = 0.6 oz pur e alcohol) Food Insecurity Answer Date Recorded Within the past 12 months, y ou worried that your food would run out before you got money to buy more. Never true 09/17/2019 Within the past 12 months, t he food you bought just didn't last and you didn't have money to get more. Never true 09/17/2019 Sex Assigned at Date Recorded Female 07/18/2021 1:06 PM E DT Job Start Date Occupation Industry Not on file Not on file Not on file documented as of this encounter Progress Notes * Gayatri Small, - 12/21/2022 11:16 AM EDT Sleep Medicine Follow-Up Clinic Note TELEMEDICINE ENCOUNTER Patient location: HOME. I was in a hospital or clinic location. After connecting through televideo,patient was verified with two unique identifiers. Patient (or authorized legal service representative) was then informed that this was a Telemedicine visit and being conducted confidentially over secure lines. Methods to assure confidentiality were taken. Patient acknowledged consent and understanding of pr ivacy and security of the Telemedicine visit. The patient agreed to participate. HISTORY: Ms. Glory Tee is a 82 year old female w/ a pmh of DM, hypothyroidism, HTN, MDD, panic disorder, Vit B12 deficiency, and GERD who was followed-up with today regarding possible sleep apnea and insomnia vs possible delayed sleep-wake phase. She did not keep the sleep log as she felt it "was not necessary" and difficult. She also did not have her WatchPAT study done and does not recall talking to scheduling about arranging it. She is concerned that the Cymbalta may be problematic to her sleep. She also recalls that 2 years ago her asked that they no longer sleep in the same bed. She thinks this was due to her incontinence which she now takes medication for, and she recalls that she slept much better prior to this change in sleep environment. Hudson Sleepiness Scale Question 12/21/2022 10:41 AM EDT - Filed by Charlene Singleton CMA What is the chance you will doze off in the following situation? Sitting and reading High chance of dozing Watching TV Moderate chance of dozing Sitting inactive in a public place, such as a theater or meeting Slight chance of dozing As a passenger in a car for an hour without a break High chance of dozing Lying down to rest in the afternoon when circumstances permit High chance of dozing When sitting and talking to someone No chance of dozing When sitting quietly after lunch without alcohol No chance of dozing In a car, while stopped for a few minutes in traffic No chance of dozing Score (range: 0 - 24) 12 Patient-Entered [facility] 2019 Msp: Part I And Employment Question 12/21/2022 10:42 AM EDT - Filed by Charlene Singleton CMA Are you currently employed? No, but Not Retired Do you have a spouse who is currently employed? No, but Not Retired Medicare requires that we periodically ask the following questions. Are you receiving benefits under the Black Lung Benefits Act (BL)? No Was the illness/injury due to a work-related accident/condition? No Are you receiving treatment for an injury or illness covered under no-fault (and/or medical-paymentcoverage) including premises or automobile? No Are you receiving treatment for an injury, or illness, for which another alliance party may be liable? No Are you entitled to Medicare based on: Age? Yes End-stage renal disease (ESRD)? No Patient-Entered Msp: [employer] Primary Branch Calculation (range: 0 - 5) 1 Do you have group health plan (GHP) coverage based on your own current employment or the employmentof your spouse? No Flu Vaccine Questionnaire Question 12/21/2022 10:42 AM EDT - Filed by Charlene Singleton CMA Get your flu shot at your upcoming appointment. Please select one of the options below. I would like to discuss this with my clinician 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 HTN, goal below 130/80 I10 Major depressive disorder, single episode, moderate (HCC) F32.1 Panic disorder F41.0 Vitamin B 12 deficiency E53.8 Type 2 diabetes mellitus with hemoglobin A1c goal of less than 8.0% (HCC) E11.9 Chronic kidney disease, stage 3a (HCC) N18.31 Diabetic retinopathy of left eye associated with type 2 diabetes mellitus (HCC) E11.319 High risk for fracture due to osteoporosis by DEXA scan M81.0 Obesity, Class II, BMI 35-39.9, isolated (see actual BMI) E66.9 Gastroesophageal reflux disease without esophagitis K21.9 Frequent falls R29.6 Mass of left parotid gland K11.8 Persistent insomnia G47.00 Urinary incontinence, mixed N39.46 MDD (major depressive disorder), recurrent episode, moderate ([facility]) F33.1 Type 2 diabetes mellitus with stage 3a chronic kidney disease, without long-term current use of insulin (HCC) E11.22, N18.31 Outpatient Medications Marked as Taking for the 12/21/22 encounter (Telemedicine) with Gayatri Baron, DO Medication Sig DULoxetine HCl 60 MG Oral Capsule Delayed Release Particles (Cymbalta) Take 1 Capsule by mouth in the morning and 1 Capsule before bedtime. Levothyroxine Sodium 175 MCG Oral Tablet TAKE 1 TABLET BY MOUTH ONCE DAILY AT LEAST 30 MINUTES BEFORE BREAKFAST OR OTHER MEDICATIONS Gemtesa 75 MG Oral Tablet (Vibegron) Take 1 Tablet by mouth in the morning. Furosemide 40 MG Oral Tablet (Lasix) Take 1 tablet by mouth once daily Metoprolol Succinate ER 100 MG Oral Tablet Extended Release 24 Hour (toPROL XL) Take 1 Tablet by mouth in the morning. Omeprazole 20 MG Oral Capsule Delayed Release (PriLOSEC) TAKE 1 CAPSULE BY MOUTH ONCE DAILY ONE HOUR BEFORE THE FIRST MEAL OF THE DAY Losartan Potassium 100 MG Oral Tablet (Cozaar) Take 1 Tablet by mouth in the morning. Premarin 0.625 MG/GM Vaginal Cream (Estrogens Conjugated) Administer 0.5 g into the vagina at bedtime. As directed. EpiPen 2-Neymar 0.3 MG/0.3ML Injection Solution Auto-injector ONE INJECTION INTO THIGH NEEDED FOR SEVERE ALLERGIC REACTION OneTouch DelCanvace Lancets 33G Test 1 time per day. Dx: E11.9 OneTouch Verio In Vitro Strip (Glucose Blood) USE TO TEST once daily Dx: E11.9 estrogens, conjugated (PREMARIN) 0.625 MG/GM vaginal cream Administer 0.5 g into the vagina once a day Saturday and only. Use 0.5 g with applicator at bedtime Blood Glucose Monitoring Suppl ([employer] GLUCOMETER) w/Device KIT Patient needs the One touch Ultra 2Glucometer. Patient is to test 4 times per day; E11.9 TYLENOL 325 MG PO TABS Take by mouth . ASPIRIN 81 MG PO TABS one tablet by mouth daily PHYSICAL EXAM: Unable to attain full exam due to nature of encounter Constitutional: Alert, oriented in no acute distress Skin: no markings on face Chest: Normal respiratory effort at rest Neuro: Normal speech and comprehension Psych: Appropriate mood and affect ASSESSMENT/PLAN: Probable Obstructive Sleep Apnea as suggested by snoring, non-refreshing sleep, daytime sleepiness or fatigue, depression, nocturia, nocturnal GERD, neck size, obesity, hypertension, fasting hyperglycemia, insulin resistance. Concern for Delayed Sleep Wake Phase Concern for Chronic Insomnia Contacted scheduling to have WatchPAT scheduled May revisit the possibility of obtaining diagnostic sleep logs in future Exercise should be undertaken daily, with respect given to any orthopedic limitations. Physical therapy or physical medicine consultation may be warranted. Strenuous exercise, which activates the sympathetic nervous system (adrenaline system) not only helps with weight loss, glucose, and mood, but also improves sleep quality, and upper respiratory muscle tone during sleep. Avoid driving, operating heavy machinery or engaging in any activity that requires full alertness if feeling sleepy, drowsy or otherwise impaired. RTC 3-4 weeks after sleep study Gayatri Small DO This visit was completed via real time teleheath video connection. All issues as above were discussed and addressed, and a limited physical exam was performed. If it was felt that the patient should be evaluated in clinic then they were directed there. The patient verbally consented to visit. I spent a total of 20-29 minutes (exact time 20 mins) on the date of service in preparation, delivery, and documentation of the care provided to Glory Tee excluding any time spent in the performance of separately billed services. documented in this encounter Nursing Notes * Charlene Singleton CMA - 12/21/2022 10:43 AM EDT 3 month return. Did not do the sleep log felt that is was not necessary. Was not happy answering the epworth questions . She just wants to know why she is not sleeping. documented in this encounter Plan of Treatment Upcoming Encounters Date Type Specialty Care Team Description 01/23/2023 Telemedicine Psychiatry Mario Yu MD [address] [facility] [place] [address] 04/24/2023 Office Visit Family Medicine Radha Suarez DO [address] [facility] [place] [address] Health Maintenance Due Date Last Done Comments Zoster Vaccines (1 of 2) 1992 FOBT ANNUALLY,AGES 18-90 04/20/2012 012 (Not indicated), 06/22/1998 *BISPHONATE OR OTHER ACCEPTABLE MEDICATION NEEDED FOR OSTEOPOROSIS (REFER TO SMARTSET #1146) 10/13/2018 DXA Scan 07/17/2019 07/16/2017, 02/02, 02/21/2009, Additional history exists DIABETES-EYE EXAM 09/16/2021 09/16/2020, , 10/10/2018 Depression Screening 07/18/2022 07/18/2021 Diabetic Foot Exam 07/18/2022 07/18/2021, 0 08/13/2019, 08/25/2018 Albumin/Creatinine Ratio 09/18/2022 022, 07/05/2014, 06/12/2013, Additional history exists CKD HGB USE SMARTSET 12200 09/18/202209/18, 09/18/2021, 03/31/2021, Additional history exists CKD PHOS USE SMARTSET 76215 09/18/202209/01, 03/31/2021, 02/25/2018, Additional history exists TSH 09/18/2022 09/18/2021, 03/05, 02/19/2020, Additional history exists COVID-19 Vaccine (2022- season) 2022 05/24/2020, 05/03/2020 Influenza Vaccine (FLU shot) (#1) 2022 GFR 01/04/2023 07/04/2022, 09/01, 03/31/2021, Additional history exists HbA1c 01/04/2023 07/04/2022, 09/01, 06/12/2021, Additional history exists Pneumococcal Vaccine: 65+ Years Completed 07/04/2015, 01/03/2009, 03/04/2000 VITAMIN D LEVEL ONCE IN A LIFETIME-USE SMARTSET# 09330 Completed 09/30/2017, 05/21/2017, 04/21/2010, Additional history exists [...] as of this encounter Visit Diagnoses Diagnosis ALCON (obstructive sleep apnea)- Primary Obstructive sleep apnea (adult) (pediatric) Insomnia, unspecified type Sleep-wake schedule disorder, 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
--- OUTSIDE RECORDS SUMMARY | 2023-05-15 13:20 | External Medical Summary | Summary of Care ---
Author Name Unknown Organization [facility] Address [address] [place] [address] Phone [phone] Care Team Providers Care Land Use Planner Name Role Phone Goyo Velasco DO Primary Care Provider [phone] Reason for Visit * Reason Onset Date Comments Medication Refill 10/24/2022 Encounter Details Date Type Department Care Team (Late st Contact Info) Description 10/24/2022 Refill Family Practice [facility] [address] [facility] [address] Goyo Velasco DO [address] [facility] [address] Preventative health care*; Hypothyroidism due to acquired atrophy of thyroid; Encounter for long-term (current) use of medications Allergies Active Allergy Reactions Criticality Noted Date [...] as of this encounter (statuses as of 01/18/2023) Medications Medication Sig Dispensed Refills Start Date [...] hemoglobin A1c goal of less than 8.0% ([facility]) USE TO TEST once daily Dx: E11.9 100 Strip 3 10/18/2020 Active OneTouch Delica Lancets 33GIndications:Ty pe 2 diabetes mellitus with hemoglobin A1c goal of less than 8.0% ([facility]) Test 1 time per day. Dx: [...] OTHER MEDICATIONS 90 Tablet 0 10/24/2022 Active Levothyroxine Sodium 175 MCG Oral Tablet TAKE 1 TABLET BY MOUTH ONCE DAILY AT LEAST 30 MINUTES BEFORE BREAKFAST OR OTHER MEDICATIONS 90 Tablet 1 05/02/2022 3 Discontinue d(Refill) DULoxetine HCl 60 MG Oral Capsule Delayed Release Particles (Cymbalta) Take 1 Capsule by mouth in the morning and 1 Capsule before bedtime. 180 Capsule 1 06/13/2022 3 Discontinue d(Refill) documented as of this encounter (statuses as of 01/18/2023) Active Problems Problem Noted Date Diagnosed Date [...] as of this encounter (statuses as of 01/18/2023) Resolved Problems Problem Noted Date Diagnosed Date [...] as of this encounter (statuses as of 01/18/2023) Immunizations Name Administration Dates Next Due COVID-19 mRNA, LNP-s, No Pre serve, 2-Dose Series (Fusion Antibodies) 05/24/2020,05/03/2020 Pneumococcal Conjugate Vacc, 13 Valent (Prevnar) [...] encounter Miscellaneous Notes * Telephone Encounter - Ibis Marroquin solidworks drafter - 01/18/2023 7:07 PM EST Received message from [facility] regarding patient needing appointment and labs. Letter was sent out to patient to advise. Thank you, Ibis Marroquin Shot Core Drill Operator [facility] 01/18/2023,7:07 PM * Telephone Encounter - Guy Magana RPh - 10/24/2022 2:49 PM EDT Signed Prescriptions: Disp Refills Levothyroxine Sodium 175 MCG Oral Tablet 90 Tab*0 Sig: TAKE 1 TABLET BY MOUTH ONCE DAILY AT LEAST 30 MINUTES BEFORE BREAKFAST OR OTHER MEDICATIONS Authorizing Provider: GOYO VELASCO Ordering User: GUY MAGANA * Telephone Encounter - Guy Magana RPh - 10/24/2022 2:44 PM EDT Provided 90 days supply with 0 refill. Per refill protocol patient should have F/U OV with PCP and TSH and Alb/Creat on file within past year. Reviewed AMP report, Care Gaps/Health Maintenance, medications list, and for any routine labs typically ordered for this patient. Lab orders placed. Please contact patient to schedule office visit with her PRIMARY CARE and advise of labs ordered for blood draw AND URINE specimen (patient will have to be able to void to provide sample).. Recommendpatient to fast if able for labs. Patient may still have water and regular medications. Advise to obtain labs before requesting the next refill. Last Visit: 04/18/2022 - Follow up in 6 months (in office), 04/06/2020 (telemedicine) Next Visit: Visit date not found Guy Davenport PharmD Clinical Pharmacist [facility] ([facility]) (formerly Telepharmacy) [phone] 10/24/2022, 2:46 PM documented in this encounter Plan of Treatment Upcoming Encounters Date Type Department Care Team (Late st Contact Info) Description 01/23/2023 9:00 AM EST Telemedicine Psychiatry, [place] [address] [place] [address] Mario Yu MD [address] [place] [address] 02/11/2023 1:00 PM EST PulmDiagnostic Sleep Lab [facility] [address] [facility] [place] [address] [facility], Sleep Med Home Study [address] [place] [address] 04/16/2023 10:00 AM EST Telemedicine Sleep Disorders Ctr [facility] [address] [facility] [place] [id number] Gayatri Small, DO [address] [facility] [place] [address] 04/24/2023 2:20 PM EST Office Visit Family Practice [facility] [address] [facility] [place] [address] Goyo Velasco, DO [address] [facility] [place] [address] Scheduled Orders Name Type Priority Associated Diagnoses Orde r Schedule ALBUMIN / CREATININE RATIO, URINE Lab Routine Preventative health care Expected: 10/31/2022, Expires: 10/25/2023 TSH WITH FREE T4 IF INDICATED Lab Routine Hypothyroidism due to acquired atrophy of thyroid Encounter for long-term (current) use of medications Expected: 10/31/2022 (Approximate), Expires: 10/25/2023 Health Maintenance Due Date Last Done Comments [...] Additional history exists CKD HGB USE SMARTSET 72002 09/18/202209/18, 09/18/2021, 03/31/2021, Additional history exists CKD PHOS USE SMARTSET 41003 09/18/202209/01, 03/31/2021, 02/25/2018, Additional history exists TSH [...] D LEVEL ONCE IN A LIFETIME-USE SMARTSET# 29004 Completed 09/30/2017, 05/21/2017, 04/21/2010, Additional history exists GARDASIL-HPV IMMUNIZATION SERIES Aged Out No longer eligible based on patient's age to complete this topic MENINGOCOCCAL (MENACTRA/MENVEO) Aged Out No longer eligible based on patient's age to complete this topic documented as of this encounter Medical Devices Not on filedocumented as of this encounter Visit Diagnoses Diagnosis Preventative health care- Primary Routine general medical examination at a health care facility Hypothyroidism due to acquired atrophy of thyroid Encounter for long-term (current) use of medications Encounter for long-term (current) use of other medications documented in this encounter Care Teams Land Use Planner Relationship Specialty Start Date End Date Goyo Velasco DO [address] [place] [address] PCP - General Family Medicine 09/15/21 documented as of this encounter
--- OUTSIDE RECORDS SUMMARY | 2023-05-15 13:20 | External Medical Summary ---
Author Name Unknown Address Unknown Organization : Laboratory Report Ordering Provider Test Date Status BEATA NANCEKANER 01/23/2023 15:52:12 Final Observation Date Value Abnormality Reference (Units ) Status Varicella Zoster IgM 01/23/2023 15:52:12 <=0.90 <=0.90 Final < or = 0.90 Negative
0. 91 - 1.09 Equivocal
> or = 1.10 [...]
two or more weeks.

Test Performed at:
[facility]
[address]
[place] [address]
Froilan Zelaya M.D., Ph.D.,Director of Laboratories Performing Location
--- OUTSIDE RECORDS SUMMARY | 2023-05-15 13:20 | External Medical Summary ---
Author Name Unknown Address Unknown Organization K01:[facility] [place] [address] [facility] [address] Laboratory Report Ordering Provider Test Date Status KAVYA BAI 01/17/2023 17:17:26 Final <10,000 colonies/ml mixed no rmal alvin Observation Date Value Abnormality Reference (Units ) Status Bacteria identified in Specimen by Culture 01/17/2023 17:17:26 [id number]^ESCHE RICHIA COLI Abnormal Final >100,000 colonies/mL Escheri omar coli Performing Location [facility] [place] [address] [facility] [address] Ordering Provider Test Date Status KAVYA BAI 01/17/2023 17:17:26 Final Observation Date Value Abnormality Reference (Units ) Status Ampicillin 01/17/2023 17:17:26 8 Susceptible Final Cefazolin 01/17/2023 17:17:26 <=4 Susceptible Final Cefepime susceptibility 01/17/2023 17:17:26 <=1 Susceptible Final Ceftriaxone suceptibility 01/17/2023 17:17:26 <=1 Susceptible Final Ciprofloxacin 01/17/2023 17:17:26 <=0.25 Susceptible Final Due to serious side effects, the FDA has advised against using Ciprofloxacin to treat uncomplicated UTIs and respiratory tract infections unless there are no alternative treatment options. Gentamicin susceptibility 01/17/2023 17:17:26 <=1 Susc eptible Final Nitrofurantoin susceptibility 01/17/2023 17:17:26 <=16 Susceptible Final Piperacillin + Tazobactamsusceptibility 01/17/2023 17:17:26 <=4 Susceptible Final TMP-SMZ susceptibility 01/17/2023 17:17:26 <=20 Suscept ible Final Test: Culture, Urine, Quanti tative
Specimen Source: Urine, Clean Catch
Specimen Type: Urine
Specimen Date: 01/17/2023 5:17 PM
Result Date: 01/19/2023 3:32 PM
Result Status: Final result
Abnormal: Yes
Resulting Lab: [facility] [place]
[address]
[facility] [address]

CULTURE

>100,000 colonies/mL Escherichia coli (Abnormal)

<10,000 colonies/ml mixed normal alvin

SUSCEPTIBILITY

Escherichia coli
METHOD MICROBROTH DILUTIONS

AMPICILLIN 8 Susceptible
CEFAZOLIN <=4 Susceptible
CEFEPIME <=1 Susceptible
CEFTRIAXONE <=1 Susceptible
CIPROFLOXACIN <=0.25 Susceptible [1]
GENTAMICIN <=1 Susceptible
NITROFURANTOIN <=16 Susceptible
PIPERACILLIN TAZOBACTAM <=4 Susceptible
TRIMETH/SULFAMETHOXAZOLE <=20 Susceptible

[1] Due to serious side effects, the FDA has advised against using
Ciprofloxacin to treat uncomplicated UTIs and respiratory tract infections
unless there are no alternative treatment options.

null Performing Location [facility] [place] [address] [facility] [address]
--- OUTSIDE RECORDS SUMMARY | 2023-05-15 13:21 | External Medical Summary | Summary of Care ---
Author Name Unknown Organization [facility] Address [address] [place] [address] Phone [phone] Care Team Providers Care Fuel Truck Driver Name Role Phone Erick Radha Rosalino PORTER Primary Care Provider [phone] Encounter Details Date Type Department Care Team Description 11/28/2022 [facility] [address] [place], [place] [id number] Mario Yu MD [address], [place] [id number] GABBY (generalized anxiety disorder)*; Depressive disorder Allergies Active Allergy Reactions Severity Noted Date [...] as of this encounter (statuses as of 11/28/2022) Medications Medication Sig Dispensed Refills Start Date [...] before bedtime. 180 Capsule 1 11/28/2022 Active DULoxetine HCl 60 MG Oral Capsule Delayed Release Particles (Cymbalta) Take 1 Capsule by mouth in the morning and 1 Capsule before bedtime. 180 Capsule 1 06/13/2022 Discontinue d(Refill) documented as of this encounter (statuses as of 11/28/2022) Active Problems Problem Noted Date MDD (major [...] as of this encounter (statuses as of 11/28/2022) Resolved Problems Problem Noted Date Resolved Date [...] as of this encounter (statuses as of 11/28/2022) Immunizations Name Administration Dates Next Due COVID-19 [...] Progress Notes * Mario Yu MD - 11/28/2022 9:14 AM EDT OUTPATIENT PSYCHIATRY RETURN VISIT DIVISION OF PSYCHIATRY [address] [address] Name: Glory Tee : 1940 Date and Time Patient was Seen: 11/28/2022 at 9:14 AM After connecting through [employer], patient was verified with two unique identifiers. Patient (or authorized legal door to door sales representative) was then informed that this [...] that I have reviewed their record in [facility] and presented the opportunity for them to [...] This note was completed, in part, utilizing vogogo Direct voice recognition software. Grammatical errors, random [...] Time: 0900 Stop Time: 919 Total direct [id number] time: 20 minutes Physical Location of patient: Home CC: Follow-up Glory Tee is a 82 year old female referred by primary care provider. She has a history of depression, anxiety, DM2, CKD, HTN, osteoporosis and current arm fracture. She used to work as a realtor. She has 3 children. INTERVAL HISTORY: Glory reports that she is still doing better. She notes that she is still worrying less than before. She feels like her anxiety is manageable. She notes that she is sleeping better at night. Her energy is fairly good. She can concentrate okay. She notes that her eating is fair. She denies significant depression. She has been trying to get out of the house more often. Pt reports good adherence with medication. Pt [...] Current Outpatient Medications Medication Sig Dispense Refill DULoxetine HCl 60 MG Oral Capsule Delayed Release Particles (Cymbalta) Take 1 Capsule by mouth in the morning and 1 Capsule before bedtime. 180 Capsule 1 ASPIRIN 81 MG PO TABS one tablet by mouth daily TYLENOL 325 MG PO TABS Take by mouth . Blood Glucose Monitoring Suppl (D-CARE GLUCOMETER) w/Device KIT Patient needs the One touch Ultra 2Glucometer. Patient is to test 4 times per day; E11.9 1 Kit 0 estrogens, conjugated (PREMARIN) 0.625 MG/GM vaginal cream Administer 0.5 g into the vagina once a day Saturday and only. Use 0.5 g with applicator at bedtime 30 g 6 OneTouch Verio In Vitro Strip (Glucose Blood) USE TO TEST once daily Dx: E11.9 100 Strip 3 Petra SystemsTouch Delica Lancets 33G Test 1 time per day. Dx: E11.9 300 Each 3 EpiPen 2-Neymar 0.3 MG/0.3ML Injection Solution Auto-injector [...] mouth in the morning. 90 Tablet 2 Levothyroxine Sodium 175 MCG Oral Tablet TAKE 1 TABLET BY MOUTH ONCE DAILY AT LEAST 30 MINUTES BEFORE BREAKFAST OR OTHER MEDICATIONS 90 Tablet 0 No current facility-administered medications for this visit. RECENT LABS/IMAGING: No results found for this or any previous visit (from the past 672 hour(s)). VITALS There were no vitals filed for this visit. Wt Readings from Last 3 Encounters: 07/06/22 96.6 kg (213 lb) 07/04/22 96.9 kg (213 lb 11.2 oz) 04/20/22 103.7 kg (228 lb 9.6 oz) There is no height or weight on file to calculate BMI. CURRENT MEDICATIONS: Current Outpatient Medications Medication Sig Dispense Refill DULoxetine HCl 60 MG Oral Capsule Delayed Release Particles (Cymbalta) Take 1 Capsule by mouth in the morning and 1 Capsule before bedtime. 180 Capsule 1 ASPIRIN 81 MG PO TABS one tablet by mouth daily TYLENOL 325 MG PO TABS Take by mouth . Blood Glucose Monitoring Suppl (D-CARE GLUCOMETER) w/Device KIT Patient needs the One touch Ultra 2Glucometer. Patient is to test 4 times per day; E11.9 1 Kit 0 estrogens, conjugated (PREMARIN) 0.625 MG/GM vaginal cream Administer 0.5 g into the vagina once a day Saturday and only. Use 0.5 g with applicator at bedtime 30 g 6 Petra SystemsToEdison DC Systems Verio In Vitro Strip (Glucose Blood) USE TO TEST once daily Dx: E11.9 100 Strip 3 Prelertuch Delica Lancets 33G Test 1 time per day. Dx: E11.9 300 Each 3 EpiPen 2-Neymar 0.3 MG/0.3ML Injection Solution Auto-injector [...] mouth in the morning. 90 Tablet 2 Levothyroxine Sodium 175 MCG Oral Tablet TAKE 1 TABLET BY MOUTH ONCE DAILY AT LEAST 30 MINUTES BEFORE BREAKFAST OR OTHER MEDICATIONS 90 Tablet 0 No current facility-administered medications for this visit. FAMILY HISTORY: Family History Problem Relation Age of Onset Stroke Mother Anxiety Disorder Mother Heart Disorder Father ME Alcohol and Other Disorders Associated Grandmother (Paternal) [...] negative: no focal neurologic defect MENTAL STATUS EVALUATION: Appearance: age-appropriate and casually dressed Muscle strength and tone: no abnormal involuntary movement or gross abnormality of muscle strength and tone noticeable via tele-medicine encounter Gait and Station: No abnormalities noted via tele-medicine encounter Behavior: cooperative Speech: normal, rate, tone and volume Mood: "better" Affect: type - euthymic; range - full [...] EMS. Time Spent on Visit: 30 minutes Billing code: [id number] TREATMENT PLAN: Treatment plan was developed on 09/23/21, treatment will continue to focus on goals below; Treatment update will occur when clinically indicated or by 03/26/2023. Patient's goals captured in patient's words: "get better" Crisis Planning: Patient and/or family aware of how to contact provider between sessions Patient/Family Received Copy of Treatment Plan: Patient has access to [employer] Signature Obtained on Treatment Plan: Treatment plan [...] track patient's improvement based on clinical assessment: [place] Suicide Screen Mario Yu MD Psychiatrist, [facility] 11/28/2022 documented in this encounter Plan of Treatment Upcoming Encounters Date Type Specialty Care Team Description 12/21/2022 Office Visit Sleep Disorders Gayatri Small, DO [address] [place] [address] 01/23/2023 Telemedicine Psychiatry Mario Yu MD [address] [place] [address] 04/24/2023 Office Visit Family Medicine Radha Suarez, DO [address] [place] [address] Health Maintenance Due Date Last Done Comments Zoster Vaccines (1 of 2) 1992 FOBT ANNUALLY,AGES 18-90 04/20/2012 012 (Not indicated), 06/22/1998 *BISPHONATE OR OTHER ACCEPTABLE MEDICATION NEEDED FOR OSTEOPOROSIS (REFER TO SMARTSET #1146) 10/13/2018 DXA Scan 07/17/2019 07/16/2017, 02/02, 02/21/2009, Additional history exists COVID-19 Vaccine (3 - Pfizer series) 07/19/2020 05/24/2020, 05/03/2020 DIABETES-EYE EXAM 09/16/2021 09/16/2020, , 10/10/2018 Depression Screening 07/18/2022 07/18/2021 Diabetic Foot Exam 07/18/2022 07/18/2021, 0 08/13/2019, 08/25/2018 Albumin/Creatinine Ratio 09/18/2022 022, 07/05/2014, 06/12/2013, Additional history exists CKD HGB USE SMARTSET 93920 09/18/202209/18, 09/18/2021, 03/31/2021, Additional history exists CKD PHOS USE SMARTSET 37230 09/18/202209/01, 03/31/2021, 02/25/2018, Additional history exists TSH 09/18/2022 09/18/2021, 03/05, 02/19/2020, Additional history exists Influenza Vaccine (FLU shot) (#1) 2022 GFR 01/04/2023 07/04/2022, 09/01, 03/31/2021, Additional history exists HbA1c 01/04/2023 07/04/2022, 09/01, 06/12/2021, Additional history exists Pneumococcal Vaccine: 65+ Years Completed 07/04/2015, 01/03/2009, 03/04/2000 VITAMIN D LEVEL ONCE IN A LIFETIME-USE SMARTSET# 26344 Completed 09/30/2017, 05/21/2017, 04/21/2010, Additional history exists [...] classified documented in this encounter Care Teams Fuel Truck Driver Relationship Specialty Start Date End Date Radha Suarez, DO [address] [place] [address] PCP - General Family Medicine 09/15/21 documented as of this encounter
--- NOTE | 2023-05-15 16:26 | Communication Note ---
Date of Service: May 15, 2023 Patient refuses to get MRI due to claustrophobia. Discussed with patient's son and at bedside. Patient prefers to be discharged home. Neurology consult pending. Explained the patient's condition in detail with both patient and her family. Family plans to convince patient to remain hospitalized.
[2023-05-15] MEDS: LORazepam 0.5 MG in SYRINGE 0.25 ML IV SCH (19:48)
--- NOTE | 2023-05-15 20:15 | Neurology Consultation ---
Date of Consultation May 15, 2023 Assessment & Plan (1) Headache: Plan 83 y/o female with history of HTN, hypothyroidism, DM, CKD, that presented following a headache with transient visual symptoms. Clinical history is less suggestive of a vascular event with no loss of vision or diplopia and more suggestive of headache with migraineous features, although the pt does not endorse a history of migraines. Given her age and risk factors, would proceed with additional imaging with MRI. 1. MRI brain pending (pt has declined contrast) 2. MRA head/neck and MRV 3. ESR/CRP 3. Opthalmology consultation 4. Dermatology consultation Telehealth Consultation Telehealth Information Telehealth Information: I performed this visit using a real-time telehealth connection between my location and the patients location ([facility]). After connecting through interactive tele-video, patient was identified by name and date of and/or wristband check.Patient (or authorized healthcare accounting representative) was informed that this was a telemedicine visit and it was being conducted confidentially over secure lines. My office door was closed and no one else was present in the room with me.Patient (or authorized healthcare accounting representative) provided consent to proceed with the visit, expressed an understanding of privacy and security of the telemedicine visit, and gave p ermission to have a hospital accounting representative in the room in order to assist with the visit and to conduct portions of the visit, as needed. I informed the patient (or authorized healthcare accounting representative) that I reviewed their record and presented the opportunity for them to ask any questions regarding the visit today. The patient agreed to participate. History of Present Illness Reason for Consultation: headache, visual change Requesting Physician: James Joaquin MD Attending Physician: James Joaquin MD History of Present Illness 83 y/o female that presented with headache and visual changes. She states that around 630 pm yesterday, she noticed that she had zig lines in her vision on both sides. This lasted for 30 minutes and then her started to have a dull achey holocephalic headache. She is not aware of any photophobia, phonophobia, or nausea. She states that the headache went away and her vision returned to normal within 45 minutes. She states that she does get headaches but these are infrequent, occurring twice per year. She is unable to really describe prior headaches as she states that headaches are infrequent. She also states that she never previously had more frequent headaches. She describes having had sores in her scalp which started in January and she states was diagnosed as shingles. She states over last weekend they seemed more sore. She called her daughter who recommended that she go to the emergency department. She then went and picked her up and brought her to the ED. She states that since she fell several years ago injuring her neck and arm, she he has had numbness involving in her right arm. She also has chronic neck pain. She denies any numbness/tingling, weakness, vision loss, diplopia, curtain closing like vision effect, dizziness, or gait impairment. Allergies Allergy/AdvReac Type Severity Reaction Status Date / Time bee venom protein (honey bee) Allergy Severe ANAPHYLAXIS Verified 05/15/23 00:18 iodine Allergy Severe ANAPHYLAXIS Verified 05/15/23 00:18 shellfish derived Allergy Severe SOB, HIVES Verified 05/15/23 00:18 Sulfa (Sulfonamide Allergy Intermediate HIVES AND Verified 05/15/23 00:18 Antibiotics) ITCHING amlodipine Allergy Mild RASH Verified 05/15/23 00:18 clarithromycin Allergy Mild RASH Verified 05/15/23 00:18 gabapentin Allergy Unknown UNKNOWN Verified 05/15/23 00:18 [email or web address] [From Myrbetriq] AdvReac Intermediate Hallucinati Verified 05/15/23 11:13 ng amoxicillin AdvReac Unknown Unknown Verified 05/15/23 00:18 INHALERS AdvReac Unknown SENSITIVE Uncoded 05/15/23 00:18 TO INHALERS, PERFUMES, ETC... Home Medications Medication Instructions Recorded Confirmed Type aspirin 81 mg tablet,delayed 81 mg PO QAM 02/25/18 05/15/23 History release (Sadie Low Dose Aspirin) epinephrine 0.3 mg/0.3 mL 0.3 mg IM UD PRN Allergic Reaction 02/25/18 05/15/23 History injection, auto-injector levothyroxine 175 mcg tablet 175 mg PO DAILYBB 02/25/18 05/15/23 History blood sugar diagnostic ([employer]Netuch #100 ea 02/28/18 05/15/23 Rx Verio test strips) lancets 30 gauge ([employer] Lobo #100 ea 02/28/18 05/15/23 Rx Lancets) omeprazole 20 mg tablet,delayed 20 mg PO DAILYBB 04/03/19 05/15/23 History release losartan 100 mg tablet 100 mg PO QAM 02/11/20 05/15/23 History furosemide 40 mg tablet (Lasix) 40 mg PO QAM 10/05/20 05/15/23 History metoprolol succinate 100 mg 100 mg PO QAM 10/05/20 05/15/23 History tablet,extended release 24 hr acetaminophen 650 mg 650 mg PO AMHS 05/15/23 05/15/23 History tablet,extended release duloxetine 60 mg capsule,delayed 60 mg PO AMHS 05/15/23 05/15/23 History release Patient History Medical History CKD (chronic kidney disease) stage 3, GFR 30-59 ml/min Type 2 diabetes mellitus Hypothyroidism C1 cervical fracture Depression HTN (hypertension) Asthma Family History Other No pertinent family history Social History Smoking Status: Never smoker Do You Dip or Chew Tobacco: No; Hx Alcohol Use: No Hx Substance Use: No Preferred Language: Irish Communication Ability: Effective Plant Puller Required: No Beliefs That Will Affect Care: None marital status: Current Living Situation: Spouse Current Living Situation Comment: [facility] Apartment Feels Safe at Home: Yes Safety Concerns: Feels Safe At This Time Assistive Devices: Denture - Upper, Denture - Lower and Glasses Review of Systems Negative except as listed in HPI Physical Exam AAO X 3 No aphasia or dysarthria VFF grossly intact EOMI, no nystagmus Facial sensations intact No facial asymmetry Tongue protrudes midline Motor: Moves all four extremities antigravity, no drift Sensation: Intact to light touch throughout Cerebellar: FTN intact Results & Data Vital Signs (Past 12 Hours) Vital Signs Temp Pulse Pulse Resp BP Pulse Ox Pulse Ox 05/15/23 17:52 68 05/15/23 17:31 05/15/23 17:25 05/15/23 15:50 36.5 C 72 20 126/75 92 05/15/23 08:14 93 05/15/23 08:00 73 23 141/89 H 94 O2 Del Method O2 Del Method 05/15/23 17:52 05/15/23 17:31 Room Air 05/15/23 17:25 Room Air 05/15/23 15:50 Room Air 05/15/23 08:14 Room Air 05/15/23 08:00 Room Air Laboratory Results WBC 11.94, HGB 12.5, HCT 38.3, Plts 178, INR 0.9, Saodium 136, Potassium 4.0, Chloride 98, Carbon Dioxide 33, BUN 17, Creatinine 1.03, Glucose 214, alkaline phoshatase 102, AST 18, ALT 14, urinalysis negative nitrite, negative leukocyte esterase Diagnostic Findings CTH: No evidence of acute intracranial pathology. CXR: No acute cardiopulmonary findings.
--- NOTE | 2023-05-16 | Magnetic Resonance Report ---
Exam(s): MRI HEAD Without Contrast EXAM: MR Head Without Intravenous Contrast CLINICAL HISTORY: Reason for exam: Stroke like Symtoms. TECHNIQUE: Magnetic resonance images of the head/brain without intravenous contrast in multiple planes. COMPARISON: Comparison made to prior head CT from May 14, 2023. FINDINGS: Brain: Moderate nonspecific white matter changes. There is a dilated perivascular space or remote lacunar infarct of the left thalamus. The flow voids of the base of the brain are intact. No mass. No hemorrhage. No acute infarct. Ventricles: Mild to moderate ventriculomegaly. Bones/joints: Hyperostosis frontalis interna. No acute fracture. Sinuses: Unremarkable as visualized. No acute sinusitis. Mastoid air cells: Unremarkable as visualized. No mastoid effusion. Orbits: Unremarkable as visualized. IMPRESSION: No evidence of acute intracranial pathology. Electronically signed by: Maryse Baker MD 05/15/23 23:59 PM
[2023-05-16 07:53] LABS: Estimated Average Glucose 223 mg/dl; Hemoglobin A1C 9.4 % (4.5-5.6)
[2023-05-16 07:56] LABS: Hematocrit (blood only) 43.3 % (37.0-47.0); Hemoglobin 14.2 g/dl (12.0-16.0); Mean Corpuscular Hemoglobin 28.2 pg (25.0-34.0); Mean Corpuscular Hgb Conc 32.8 g/dL (32.0-36.0); Mean Corpuscular Volume 86.1 fL (80.0-100.0); Mean Platelet Volume 12.3 fL (9.4-12.4); Platelet Count 221 K/uL (130-400); RDW Coefficient of Variation 13.8 % (11.5-14.5); RDW Standard Deviation 42.9 fL (36.4-46.3); Red Blood Count 5.03 M/uL (4.20-5.40); White Blood Count 10.62 K/ul (4.8-10.8)
[2023-05-16 08:13] LABS: BUN Creatinine Ratio 17.3 (10-20); Calcium 9.4 mg/dl (8.6-10.3); Creatinine Clr Calc Pharmacy 50.4 ml/min; Est GFR (African American) 62.7 ml/min; Est GFR (Non-African American) 54.1 ml/min; Magnesium 1.8 mg/dl (1.7-2.4); Potassium 4.6 mmol/L (3.5-5.1)
[2023-05-16 08:27] LABS: Thyroid Stimulating Hormone 2.383 uIu/ml (0.300-4.500)
--- NOTE | 2023-05-16 12:55 | Hospitalist Progress Note ---
Date of Service May 16, 2023 Assessment & Plan (1) Headache: Plan: Strokelike symptoms Presents with headache, transient visual changes Headaches uncommon per patient. Admits to have poor sleep usually. Myrbetriq discontinued 2 weeks ago due to hallucinations. DD:Complex Migraine Infection with shingles in Jan 24 per family --CT Head:No evidence of acute intracranial pathology. --MRI Brain:No evidence of acute intracranial pathology. TSH normal ESR 24 CRP 0.82 Patient prefers to get MRA, MRV as outpatient No focal deficits on exam Continue PT OT Advised to follow-up with neurology, ophthalmology as outpatient Patient prefers to be discharged home today Hypomagnesemia Replete electrolytes as needed Monitor Hypertension BP elevated likely situational Continue losartan, metoprolol Monitor BP better Hypothyroidism Continue levothyroxine Scalp lesion--POA ? secondary to recent Shingles Advised to follow-up with dermatology as outpatient GERD Continue PPI DM Type II: Was on metformin previously HbA1c 9.4 ISS, basal Insulin, Accu checks, Diabetic diet Monitor BGs Plans to resume metformin on discharge Diabetic education received Bronchial asthma No signs of exacerbation Monitor Cognitive impairment as per records Follows with [facility] neurology Currently seem to have no issues Anxiety/mood disorder Follows with [facility] [place] psychiatrist Continue home medications DVT Px: Lovenox SQ Code Status Full code Disposition Home Admission and Anticipated Discharge Date Admission Date: May 15, 2023 Subjective Patient is seen and examined at bedside Feels a lot better today Headache much improved Discussed with patient's family at bedside Denies any chest pain, dyspnea, focal weakness, dizziness, nausea, vomiting, abdominal pain, focal weakness Review of Systems Review of Systems: All systems reviewed & are unremarkable except as noted in Subjective Physical Exam Physical Exam: Physical Exam: Vitals signs as noted above General Appearance:Obese, no apparent distress Head: normocephalic, Atraumatic, +Scalp lesions Eyes: normal inspection, EOMI Neck: supple, Trachea midline Respiratory/Chest: Normal breath sounds, CTA, No accessory muscle use Cardiovascular: S1, S2, No murmur Abdomen/GI:Soft, Non tender, Bowel sounds present Extremities/Musculoskeletal:normal inspection, Trace edema Neurologic/Psych:AAOX3, grossly no focal neurological deficits Skin: normal color, warm Results & Data Results & Data Vital Signs (Past 12 Hours) Vital Signs Temp Pulse Pulse Resp BP Pulse Ox O2 Del Method 05/16/23 11:13 36.3 C L 72 18 118/57 L 93 Room Air 05/16/23 08:15 Room Air 05/16/23 08:12 36.7 C 72 16 148/78 H 94 Room Air 05/16/23 07:06 75 Laboratory Results Short CBC 05/16/23 Range/Units 07:29 WBC 10.62 (4.8-10.8) K/ul Hgb 14.2 (12.0-16.0) g/dl Hct 43.3 (37.0-47.0) % Plt Count 221 (130-400) K/uL BMP 05/16/23 07:29 Sodium 138 Potassium 4.6 Chloride 101 Carbon Dioxide 32 BUN 17 Creatinine 0.98 Glucose 162 H Calcium 9.4
--- NOTE | 2023-05-16 13:07 | Discharge Summary ---
Date of Service May 16, 2023 Admission HPI Per Admitting Provider History obtained from patient and records. Medical history significant for bronchial asthma, hypertension, DM2 oral medications, anxiety/mood disorder, cognitive impairment as per records, hypothyroidism, postherpetic neuralgia. Last confinement April 2019 for syncope attributed to orthostasis and UTI. Yesterday, patient noted achy posterior headache symptoms associated with transient blurred zigzaggy vision. Some pain from residual shingles lesions on her scalp from a few months ago which patient picks on from time to time. No facial droop, arm or leg weakness, or slurred speech witnessed at home. No prior episodes. No chest pain, no SOB. BP kind of high at home. Compliant with home medications. No recent head trauma. Myrbetriq discontinued 2 weeks ago due to hallucinations. Patient brought to the ER for evaluation. Patient currently comfortable. MEDICAL HISTORY: As above. SURGICAL HISTORY: Hysterectomy, lipoma surgery, wrist surgery, FAMILY HISTORY: Heart disease. Stroke PERSONAL AND SOCIAL HISTORY: Nonsmoker, no chronic intake of alcoholic beverages, retired realtor, lives with her . Admission Exam Per Admitting Provider GENERAL: Slightly uncomfortable, slightly anxious, obese, no respiratory distress SKIN: Normal color, warm HEENT: Dried ulcerated lesions, left scalp, pink palpebral conjunctivae, no ptosis, dry buccal mucosa NECK : Supple, short neck, no tenderness CHEST : CTA, no tenderness HEART : RRR, no obvious murmurs ABDOMEN: Some distention, nontender EXTREMITIES : Minimal LE swelling, no LE tenderness, no other conspicuous deformities noted NEUROLOGIC : Coherent, no facial asymmetry, no other gross focality Principal Diagnosis Strokelike symptoms likely complex migraine Scalp lesion Hypomagnesemia Discharge Data Allergies Allergy/AdvReac Type Severity Reaction Status Date / Time bee venom protein (honey bee) Allergy Severe ANAPHYLAXIS Verified 05/15/23 00:18 iodine Allergy Severe ANAPHYLAXIS Verified 05/15/23 00:18 shellfish derived Allergy Severe SOB, HIVES Verified 05/15/23 00:18 Sulfa (Sulfonamide Allergy Intermediate HIVES AND Verified 05/15/23 00:18 Antibiotics) ITCHING amlodipine Allergy Mild RASH Verified 05/15/23 00:18 clarithromycin Allergy Mild RASH Verified 05/15/23 00:18 gabapentin Allergy Unknown UNKNOWN Verified 05/15/23 00:18 mirabegron [From Myrbetriq] AdvReac Intermediate Hallucinati Verified 05/15/23 11:13 ng amoxicillin AdvReac Unknown Unknown Verified 05/15/23 00:18 INHALERS AdvReac Unknown SENSITIVE Uncoded 05/15/23 00:18 TO INHALERS, PERFUMES, ETC... Consultations 05/14/23 23:50 ED Decision to Admit Stat 05/15/23 12:31 Consult Neurology Routine Procedures Performed Laboratory Results WBC 10.62 K/ul (4.8-10.8) 05/16/23 07:29 RBC 5.03 M/uL (4.20-5.40) 05/16/23 07:29 Hgb 14.2 g/dl (12.0-16.0) 05/16/23 07:29 Hct 43.3 % (37.0-47.0) 05/16/23 07:29 MCV 86.1 fL (80.0-100.0) 05/16/23 07:29 MCH 28.2 pg (25.0-34.0) 05/16/23 07:29 MCHC 32.8 g/dL (32.0-36.0) 05/16/23 07:29 RDW Std Deviation 42.9 fL (36.4-46.3) 05/16/23 07:29 RDW Coeff of Papa 13.8 % (11.5-14.5) 05/16/23 07:29 Plt Count 221 K/uL (130-400) 05/16/23 07:29 MPV 12.3 fL (9.4-12.4) 05/16/23 07:29 Immature Gran % (Auto) 0.3 % 05/15/23 04:23 Neut % (Auto) 57.9 % 05/15/23 04:23 Lymph % (Auto) 28.4 % 05/15/23 04:23 [place] % (Auto) 10.4 % 05/15/23 04:23 Eos % (Auto) 2.4 % 05/15/23 04:23 Baso % (Auto) 0.6 % 05/15/23 04:23 Neut # (Auto) 6.91 K/uL (1.40-6.50) H 05/15/23 04:23 Lymph # (Auto) 3.39 K/uL (1.20-3.40) 05/15/23 04:23 [place] # (Auto) 1.24 K/uL (0.11-0.59) H 05/15/23 04:23 Eos # (Auto) 0.29 K/uL (0.00-0.50) 05/15/23 04:23 Baso # (Auto) 0.07 K/uL (0.00-0.20) 05/15/23 04:23 Immature Gran # (Auto) 0.04 K/uL (0.01-0.20) 05/15/23 04:23 ESR 24 mm/hr (0-30) 05/16/23 07:29 PT 10.1 Seconds (9.0-12.0) 05/14/23 21:30 INR 0.9 (0.9-1.1) 05/14/23 21:30 APTT 25 Seconds (21-31) 05/14/23 21:30 PTT Ratio 0.9 05/14/23 21:30 Sodium 138 mmol/L (136-145) 05/16/23 07:29 Potassium 4.6 mmol/L (3.5-5.1) 05/16/23 07:29 Chloride 101 mmol/L (98-107) 05/16/23 07:29 Carbon Dioxide 32 mmol/L (21-32) 05/16/23 07:29 Anion Gap 5 (3-11) 05/16/23 07:29 BUN 17 mg/dl (6-23) 05/16/23 07:29 Creatinine 0.98 mg/dl (0.6-1.2) 05/16/23 07:29 Est Cr Clr Drug Dosing 50.4 ml/min 05/16/23 07:29 Est GFR ( Amer) 62.7 ml/min 05/16/23 07:29 Est GFR (Non-Af Amer) 54.1 ml/min 05/16/23 07:29 BUN/Creatinine Ratio 17.3 (10-20) 05/16/23 07:29 Glucose 162 mg/dl (70-99(Fasting)) H 05/16/23 07:29 POC Glucose 225 mg/dl (70-99) H 05/16/23 12:11 Estimat Average Glucose 223 mg/dl 05/16/23 07:29 Hemoglobin A1c 9.4 % (4.5-5.6) H 05/16/23 07: Calcium 9.4 mg/dl (8.6-10.3) 05/16/23 07: Magnesium 1.8 mg/dl (1.7-2.4) 05/16/23 07:29 Total Bilirubin 0.4 mg/dl (0.2-1.0) 05/14/23 21:30 AST 18 U/L (13-39) 05/14/23 21:30 ALT 14 U/L (7-52) 05/14/23 21:30 Alkaline Phosphatase 102 U/L (34-104) 05/14/23 21:30 C-Reactive Protein 0.81 mg/dl (0-0.5) H 05/16/23 07:29 Total Protein 7.0 gm/dl (6.0-8.3) 05/14/23 21:30 Albumin 3.9 gm/dl (3.4-5.0) 05/14/23 21:30 Globulin 3.1 gm/dl (2.5-4.0) 05/14/23 21:30 Albumin/Globulin Ratio 1.3 (0.9-2) 05/14/23 21:30 TSH 2.383 uIu/ml (0.300-4.500) 05/16/23 07:29 Urine Color Yellow 05/14/23 22:34 Urine Appearance Clear (Clear) 05/14/23 22:34 Urine pH 5.5 (4.5-7.5) 05/14/23 22:34 Ur Specific [place] 1.013 (1.000-1.030) 05/14/23 22:34 Urine Protein Negative (Negative) 05/14/23 22:34 Urine Glucose (UA) Negative (Negative) 05/14/23 22:34 Urine Ketones Negative (Negative) 05/14/23 22:34 Urine Blood Negative (Negative) 05/14/23 22:34 Urine Nitrite Negative (Negative) 05/14/23 22:34 Urine Bilirubin Negative (Negative) 05/14/23 22:34 Urine Urobilinogen Negative (Negative) 05/14/23 22:34 Ur Leukocyte Esterase Negative (Negative) 05/14/23 22:34 Impressions Chest X-Ray 05/14/23 21:07 XR chest 1V not portable CLINICAL HISTORY: stroke alert COMPARISON STUDY: Chest radiograph August 29, 2021. FINDINGS: Patient is mildly rotated. Lung volumes are normal. Lungs are clear. There is no pneumothorax or pleural effusion. Cardiac size is stable. Mediastinal contours are normal. There is no evidence for pulmonary edema. IMPRESSION: No acute cardiopulmonary findings. ACT 112: Negative or not required by law. Electronically signed by: Lucien Saleh M.D. 05/15/2023 7:[address] 05/14/23 21:07 Exam(s): CT HEAD Without Contrast EXAM: CT Head Without Intravenous Contrast CLINICAL HISTORY: Reason for exam: Neuro deficit, acute, stroke suspected. TECHNIQUE: Axial computed tomography images of the head/brain without intravenous contrast. Automated exposure control was utilized for the study. A dose lowering technique was utilized adhering to the principles of ALARA. COMPARISON: Comparison made to prior brain MRI from March 17, 2020. FINDINGS: Brain: Unremarkable. No hemorrhage. Moderate nonspecific white matter changes. No edema. Ventricles: Mild to moderate ventriculomegaly. Bones/joints: Unremarkable. No acute fracture. Soft tissues: Unremarkable. Sinuses: Unremarkable as visualized. No acute sinusitis. Mastoid air cells: Unremarkable as visualized. No mastoid effusion. IMPRESSION: No evidence of acute intracranial pathology. Electronically signed by: Maryse Baker MD 05/14/23 23:39 PM Brain MRI 05/15/23 17:22 Exam(s): MRI HEAD Without Contrast EXAM: MR Head Without Intravenous Contrast CLINICAL HISTORY: Reason for exam: Stroke like Symt[place]. TECHNIQUE: Magnetic resonance images of the head/brain without intravenous contrast in multiple planes. COMPARISON: Comparison made to prior head CT from May 14, 2023. FINDINGS: Brain: Moderate nonspecific white matter changes. There is a dilated perivascular space or remote lacunar infarct of the left thalamus. The flow voids of the base of the brain are intact. No mass. No hemorrhage. No acute infarct. Ventricles: Mild to moderate ventriculomegaly. Bones/joints: Hyperostosis frontalis interna. No acute fracture. Sinuses: Unremarkable as visualized. No acute sinusitis. Mastoid air cells: Unremarkable as visualized. No mastoid effusion. Orbits: Unremarkable as visualized. IMPRESSION: No evidence of acute intracranial pathology. Electronically signed by: Maryse Baker MD 05/15/23 23:59 PM Ordered Studies 05/14/23 21:07 CT head/brain wo con Stat 05/15/23 17:22 MRI Brain [MR brain wo con] Urgent Hospital Course (1) Headache: Strokelike symptoms Presents with headache, transient visual changes Headaches uncommon per patient. Admits to have poor sleep usually. Myrbetriq discontinued 2 weeks ago due to hallucinations. DD:Complex Migraine Infection with shingles in Jan 24 per family --CT Head:No evidence of acute intracranial pathology. --MRI Brain:No evidence of acute intracranial pathology. TSH normal ESR 24 CRP 0.82 Patient prefers to get MRA, MRV as outpatient No focal deficits on exam Continue PT OT Advised to follow-up with neurology, ophthalmology as outpatient Patient prefers to be discharged home today Hypomagnesemia Replete electrolytes as needed Monitor Hypertension BP elevated likely situational Continue losartan, metoprolol Monitor BP better Hypothyroidism Continue levothyroxine Scalp lesion--POA ? secondary to recent Shingles Advised to follow-up with dermatology as outpatient GERD Continue PPI DM Type II: Was on metformin previously HbA1c 9.4 ISS, basal Insulin, Accu checks, Diabetic diet Monitor BGs Plans to resume metformin on discharge Diabetic education received Bronchial asthma No signs of exacerbation Monitor Cognitive impairment as per records Follows with [facility] neurology Currently seem to have no issues Anxiety/mood disorder Follows with [facility] [place] Continue home medications DVT Px: Lovenox SQ Code Status Full code Disposition Home Total Time Total Time Spent Total Time Spent (In Minutes): 56 minutes Discharge Plan Discharge Items Patient Disposition: Home - Self-Care Reason For Visit: HTN, HYPOMAGNESEMIA Discharge Diagnosis: Strokelike symptoms likely complex migraine Scalp lesion Hypomagnesemia Uncontrolled diabetes mellitus Activity: Per Instructions section Exercise/Sports: Gradually increase as tolerated Non-emergency contact: Primary Care Provider, Specialist, Neurologist and Cargo Operations Agent Call non-emergency contact if: you have any medication questions, your symptoms worsen, your pain is concerning for you and you have a fever Follow-up/Referrals: Radha Suarez, [Primary Care Provider] - Diet: Carb Consistent or DM2 and Heart Healthy Addtl Attending Provider Instructions: Follow-up with your primary care physician in 1 week Follow-up with your neurologist Dr. Randi Wing in 1 to 2 weeks with MRA head/neck and MRV head as outpatient Follow-up with your garage door installer as advised for further management of change in vision Follow-up with your wheat washer as advised -- Start taking metformin as prescribed for better management of your diabetes mellitus. Discuss with your physician for further adjustment of medications as needed. Seek immediate medical attention if your symptoms reoccur or worsen Please take all medications as instructed on discharge list below. Please call if you have any questions or problems. You can reach a [facility] hospitalist on duty at [facility] 24 hours a day by calling [phone] Risk Factors for Stroke: You can reduce your chances of stroke by working with your medical provider to adopt a healthy lifestyle. Some specific ways to lower your chance of stroke are: * If you are a smoker, now is the time to stop smoking cigarettes * If you are diabetic, improve the control of your blood sugars * Avoid excessive amounts of alcohol * Control high blood pressure * Lose weight if you are overweight * Be sure to lead an active lifestyle * Eat a healthy diet low in salt, cholesterol and fat You should know about other risk factors for stroke that you are unable to control. These include: * Age 55 years or older * Male gender * Certain racial groups: , or / * Family History of Stroke, Mini stroke or Heart Attack * Sickle Cell Disease Follow Up: It is important for you to keep your follow up appointments with your medical provider. Who to Call and When: Medical Emergencies: Call 911 immediately if you experience any of the following warning signs and symptoms of Stroke: * Sudden numbness or weakness of the face, arm or leg, especially on one side of the body * Sudden confusion, trouble speaking or understanding * Sudden trouble seeing in one or both eyes * Sudden trouble walking, dizziness, loss of balance or coordination * Sudden severe headache with no cause Do not delay calling 911 if you experience any warning signs or symptoms of a stroke. Delay in seeking medical attention may affect what treatments can be given to you. . Pending Studies at Discharge: No Stand-Alone Forms: My [facility], Smoking Cessation Medications and DC Order Prescriptions: New metformin 500 mg tablet extended release 24 hr 500 mg PO BID Qty: 60 0RF Continued levothyroxine 175 mcg tablet 175 mg PO DAILYBB aspirin [Sadie Low Dose Aspirin] 81 mg Tablet,Delayed Release (Dr/Ec) 81 mg PO QAM epinephrine 0.3 mg/0.3 mL Auto-Injector 0.3 mg IM UD PRN (Reason: Allergic Reaction) (DME) OneTouch Verio test strips strip See Dose Instructions .ROUTE .MEDSUPPLY Qty: 100 0RF Dose Instruction: As directed Rx Instructions: use to test twice daily. Dx: E11.9 (DME) lancets [OneTouch Delica Lancets] 30 gauge misc See Dose Instructions .ROUTE .MEDSUPPLY Qty: 100 0RF Dose Instruction: As directed Rx Instructions: Use to test twice daily. Dx code: E11.9 omeprazole 20 mg Tablet,Delayed Release (Dr/Ec) 20 mg PO DAILYBB losartan 100 mg tablet 100 mg PO QAM metoprolol succinate 100 mg tablet extended release 24 hr 100 mg PO QAM furosemide [Lasix] 40 mg tablet 40 mg PO QAM duloxetine 60 mg capsule,delayed release(DR/EC) 60 mg PO [facility]HS acetaminophen [Tylenol Arthritis] 650 mg Tablet Extended Release 650 mg PO AMHS Discharge Orders: Discharge Order (Routine); Ordered 05/16/23 Ordered By: James Joaquin Admission Data Admit Date/Time: 05/15/23 03:54 Attending Provider: James Joaquin Admit Provider: Chandler Jean Primary Care Provider: Radha Suarez Other Providers: Chandler Jean; Sandra Crain; Linwood Price; Sandra Jacobo; Darwin Irene; Kalen Sullivan; Satinder Gonzalez; Alvarez Mahan; Donna Campbell; Sebastian Herrmann; Deo Brandon; Nadja Grove; Shorty Mcrae; Randi Wing; Zeynep Elam; Alvarez Horton
--- NOTE | 2023-05-16 13:09 | Communication Note ---
Date of Service: May 16, 2023 Tried to call daughter over the phone. Unable to reach. at bedside during encounter today.
--- NOTE | 2023-05-16 14:55 | Communication Note ---
Date of Service: May 16, 2023 Received a message from RN at the time of discharge, patient now prefers to remain hospitalized and get further testing. Will cancel the discharge.
--- NOTE | 2023-05-16 22:35 | Magnetic Resonance Report ---
Exam(s): MRA HEAD Without Contrast EXAM: MR Angiography Head Without Intravenous Contrast CLINICAL HISTORY: Reason for exam: Stroke like symptoms. TECHNIQUE: Magnetic resonance angiography images of the head without intravenous contrast. COMPARISON: None FINDINGS: Right internal carotid artery: No acute findings. Intracranial segment is patent with no significant stenosis. No aneurysm. Right anterior cerebral artery: Hypoplastic or absent A1 segment of the right YAZMIN is likely congenital or chronic. Right middle cerebral artery: No occlusion or significant stenosis. 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 Right posterior cerebral artery: Unremarkable. No occlusion or significant stenosis. No aneurysm. Right vertebral artery: Unremarkable as visualized. Left internal carotid artery: No acute findings. Intracranial segment is patent with no significant stenosis. No aneurysm. Left anterior cerebral artery: Unremarkable. No occlusion or significant stenosis. No aneurysm. Left middle cerebral artery: Unremarkable. No occlusion or significant stenosis. No aneurysm. Left posterior cerebral artery: Unremarkable. No occlusion or significant stenosis. No aneurysm. Left vertebral artery: Unremarkable as visualized. Basilar artery: Unremarkable. No occlusion or significant stenosis. No aneurysm. IMPRESSION: No significant stenosis or occlusion in the central or large intracranial arteries. 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 Electronically signed by: Chriss Hammer M.D. 05/16/23 22:34 PM
--- NOTE | 2023-05-16 23:03 | Magnetic Resonance Report ---
Exam(s): MRA NECK Without Contrast EXAM: MR Angiography Neck Without Intravenous Contrast CLINICAL HISTORY: Reason for exam: Stroke like symptoms. TECHNIQUE: Magnetic resonance angiography images of the neck without intravenous contrast. COMPARISON: None FINDINGS: Right common carotid artery: Unremarkable. No significant stenosis. No dissection or occlusion. Right internal carotid artery: Unremarkable. Extracranial segment is patent with no significant stenosis. No dissection or occlusion. Right external carotid artery: Unremarkable. No occlusion. Right vertebral artery: Unremarkable. No significant stenosis. No dissection or occlusion. Left common carotid artery: Unremarkable. No significant stenosis. No dissection or occlusion. Left internal carotid artery: Unremarkable. Extracranial segment is patent with no significant stenosis. No dissection or occlusion. Left external carotid artery: Unremarkable. No occlusion. Left vertebral artery: Unremarkable. No significant stenosis. No dissection or occlusion. Soft tissues: Unremarkable as visualized. CAROTID STENOSIS REFERENCE USING NASCET CRITERIA: % ICA stenosis = (1 - narrowest ICA diameter/diameter of distal cervical ICA) x 100. Mild - <50% stenosis. Moderate - 50-69% stenosis. Severe - 70-94% stenosis. Near occlusion - 95-99% stenosis. Occluded - 100% stenosis. IMPRESSION: Normal neck MRA. Electronically signed by: Chriss Hammer M.D. 05/16/23 23:02 PM
--- NOTE | 2023-05-17 00:33 | Magnetic Resonance Report ---
Exam(s): MRV HEAD EXAM: MR Venography Head Without Intravenous Contrast CLINICAL HISTORY: Reason for exam: Stroke like symptoms. TECHNIQUE: Magnetic resonance venography images of the head without intravenous contrast. 3D and MIP reconstructed images were created and reviewed. COMPARISON: No relevant prior studies available. FINDINGS: Superior sagittal sinus: Unremarkable. Patent. Straight sinus: Unremarkable. Patent. Transverse sinuses: Unremarkable. Patent. Sigmoid sinuses: Unremarkable. Patent. Internal jugular veins: Unremarkable as visualized. Internal cerebral and cortical veins: Unremarkable as visualized. IMPRESSION: Negative MRV of the brain. Electronically signed by: Maryse Baker MD 05/17/23 00:33 AM
--- NOTE | 2023-05-17 06:05 | Electrocardiogram Report ---
Test Reason : Blood Pressure : / mmHG Vent. Rate : 084 BPM Atrial Rate : 084 BPM P-R Int : 160 ms QRS Dur : 084 ms QT Int : 354 ms P-R-T Axes : -23 001 024 degrees QTc Int : 418 ms Normal sinus rhythm Normal ECG When compared with ECG of 29-AUG-2021 17:19, No significant change was found Confirmed by Delfino Balderrama ([id number]) on 05/17/2023 6:05:26 AM Referred By: REFERRED SELF Confirmed By:Delfino Balderrama
[2023-05-17 07:58] LABS: Hematocrit (blood only) 40.1 % (37.0-47.0); Hemoglobin 13.1 g/dl (12.0-16.0); Mean Corpuscular Hemoglobin 28.3 pg (25.0-34.0); Mean Corpuscular Hgb Conc 32.7 g/dL (32.0-36.0); Mean Corpuscular Volume 86.6 fL (80.0-100.0); Mean Platelet Volume 12.4 fL (9.4-12.4); Platelet Count 183 K/uL (130-400); RDW Coefficient of Variation 13.7 % (11.5-14.5); RDW Standard Deviation 43.5 fL (36.4-46.3); Red Blood Count 4.63 M/uL (4.20-5.40); White Blood Count 10.33 K/ul (4.8-10.8)
[2023-05-17 08:11] LABS: BUN Creatinine Ratio 21.2 (10-20); Calcium 8.9 mg/dl (8.6-10.3); Creatinine Clr Calc Pharmacy 49.9 ml/min; Est GFR (African American) 61.9 ml/min; Est GFR (Non-African American) 53.4 ml/min; Potassium 4.2 mmol/L (3.5-5.1)
--- NOTE | 2023-05-17 11:05 | Communication Note ---
Date of Service: May 17, 2023 Neurology update: 83 y/o female with history of HTN, hypothyroidism, DM, CKD, that presented following a headache with transient visual symptoms. MRI brain with concern for left frontal infarct on my review, would recommend requesting re-evaluation of imaging by radiology. Additionally, recommend Aspirin 81 mg, atorvastatin 40 mg, LDL, A1C, TTE, neurochecks q4, and ziopatch on discharge. 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 MRV with no acute findings. Recommend dermatology consultation and opathlmology follow- up.
[2023-05-17] MEDS ORDERED: PHARMACIST DISCHARGE MED REC CONSULT PRN (11:20)
[2023-05-17] MEDS: ATORVASTATIN 40 MG TAB PO SCH (12:58)
--- NOTE | 2023-05-17 13:42 | Pharmacy Report ---
- Date of Service May 17, 2023 - Pharmacy CVA/TIA Medication Review Medications to Prevent Stroke handout has been added to the patients discharge packet. Antiplatelet(s) * Aspirin 81 mg PO daily Cholesterol * High intensity statin: atorvastatin 40 mg daily DVT Prophylaxis * Enoxaparin SQ 40 mg daily Therapeutic Anticoagulation * No history of Afib/Aflutter noted Type 2 Diabetes * Patient has T2DM, but per Dr. Joaquin, a diabetes medication with proven CVD benefit will be deferred to their outpatient provider due to familiarity with risks/benefits of such therapies. "Medications to prevent stroke" handout has already been added to the patient's discharge packet, which instructs the patient to follow up with their outpatient provider to evaluate which diabetes medication with proven CVD benefit is best for them
--- NOTE | 2023-05-17 13:56 | Hospitalist Progress Note ---
Date of Service May 17, 2023 Assessment & Plan (1) Headache: Plan: Acute ischemic stroke Left frontal stroke Left cerebellar stroke Patient presents with headache, transient visual changes Headaches uncommon per patient. Admits to have poor sleep usually. Myrbetriq discontinued 2 weeks ago due to hallucinations. Discussed with Dr. Wing from neurology. She reviewed the MRI brain; suspected possible stroke in the left frontal lobe. Discussed with Dr. 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 Patient's MRI from March 2020 shows 4 X 3 mm aneurysm in M2 inferior division. Plan to continue on aspirin Started on Lipitor 40 mg Echocardiogram ordered PT OT eval Uncontrolled type 2 diabetes mellitus History of type 2 diabetes mellitus; patient stopped using metformin several years ago A1c during the hospitalization is 9.4 Discussed with patient and patient's daughter that patient has multiple risk factors (uncontrolled hypertension, diabetes, hyperlipidemia). Discussed about restarting metformin as outpatient. Patient will likely need additional antidiabetic agents as well given her A1c of 9.4%. They are agreeable on starting metformin for the time being; will follow-up with primary care regarding additional agents. Hypertension Continue losartan, metoprolol Monitor BP Hypothyroidism Continue levothyroxine Scalp lesion--POA Was started on mupirocin as outpatient with no response Recommended that patient continue to use ketoconazole. Added hydrocortisone Patient will have follow-up with primary care doctor. If lesion is still persistent; will need dermatology referral GERD Continue PPI Bronchial asthma No signs of exacerbation Monitor Anxiety/mood disorder Follows with [facility] psychiatrist Continue home medications DVT Px: Lovenox SQ Code Status Full code Disposition Patient is hospitalized with acute stroke. Needs close monitoring. Possible DC tomorrow a.m. if clinically stable Time spent evaluating patient, direct bedside care, chart review, placing orders, interpretation of diagnostic studies, discussion with consultants, patient, and family members, as well as other required patient management activities is 60 minutes Please note the above document was generated using voice recognition software. It may contain grammatical, syntax or spelling errors. Any formal questions or concerns about the content, text or information contained within the body of this dictation should be directly addressed to the provider for clarification Admission and Anticipated Discharge Date Admission Date: May 15, 2023 Subjective Patient is seen and examined at bedside. She is comfortably lying in the bed; not in distress. She denies fever, chills, chest pain, shortness of breath, focal weakness/numbness. Discussed with Dr. Wing from neurology. She reviewed the MRI brain; suspected possible stroke in the left frontal lobe. Discussed with Dr. Saleh from radiology who reviewed the images again; 1.1 cm focus of restriction diffusion within periventricular left frontal lobe and additional 0.4 cm focus of restriction diffusion within left cerebral lobe. Review of Systems Review of Systems: All systems reviewed & are unremarkable except as noted in Subjective Physical Exam Physical Exam: Physical Exam: Vitals signs as noted above General Appearance:Obese, no apparent distress Head: normocephalic, Atraumatic, +Scalp lesions Eyes: normal inspection, EOMI Neck: supple, Trachea midline Respiratory/Chest: Normal breath sounds, CTA, No accessory muscle use Cardiovascular: S1, S2, No murmur Abdomen/GI:Soft, Non tender, Bowel sounds present Extremities/Musculoskeletal:normal inspection, Trace edema Neurologic/Psych:AAOX3, grossly no focal neurological deficits Skin: normal color, warm Results & Data Results & Data Vital Signs (Past 12 Hours) Vital Signs Temp Pulse Pulse Resp BP BP Pulse Ox 05/17/23 11:29 37.0 C 69 18 145/70 H 91 05/17/23 08:00 83 05/17/23 07:59 36.8 C 75 18 165/81 H 90 05/17/23 03:04 36.7 C 73 18 164/87 H 91 O2 Del Method 05/17/23 11:29 Room Air 05/17/23 08:00 05/17/23 07:59 Room Air 05/17/23 03:04 Room Air
--- NOTE | 2023-05-17 19:21 | Neurology Progress Note ---
Date of Service May 17, 2023 Assessment & Plan (1) Headache: Plan 83 y/o female with history of HTN, hypothyroidism, DM, CKD, that presented following a headache with transient visual symptoms. MRI with small left frontal and left cerebellar acute infarcts, likely embolic. Discussed risks vs benefit of short course of dual antiplatelets with the patient and her daughter, but the patient would like to proceed with single antiplatelet with aspirin at this time. Given possibility of cardio embolic infarcts, would proceed with zio patch at discharge. 1. Aspirin 81 mg 2 .Atorvastatin 40 mg 3. LDL 4. Scalp examination 5. Opthalmology consultation 6. Dermatology consultation 7. Zio patch on discharge 8. Optimal blood glucose control Subjective Telehealth Information I performed this visit using a real-time telehealth connection between my location and the patients location ([facility]). After connecting through interactive tele-video, patient was identified by name and date of and/or wristband check.Patient (or authorized healthcare brand representative) was informed that this was a telemedicine visit and it was being conducted confidentially over secure lines. My office door was closed and no one else was present in the room with me.Patient (or authorized healthcare brand representative) provided consent to proceed with the visit, expressed an understanding of privacy and security of the telemedicine visit, and gave permission to have a hospital brand representative in the room in order to assist with the visit and to conduct portions of the visit, as needed. I informed the patient (or authorized healthcare brand representative) that I reviewed their record and presented the opportunity for them to ask any questions regarding the visit today. The patient agreed to participate. She states that she is experiencing scalp pain. She also has some blurred vision which she wonders is related to dry eyes. She denies any vision loss or diplopia. Physical Exam AAO X 3 No aphasia or dysarthria VFF grossly intact EOMI, no nystagmus Facial sensations intact No facial asymmetry Tongue protrudes midline Motor: Moves all four extremities antigravity, no drift Sensation: Intact to light touch throughout Cerebellar: FTN intact Results & Data Vital Signs (Past 12 Hours) Vital Signs Temp Pulse Pulse Resp BP Pulse Ox O2 Del Method 05/17/23 15:20 61 05/17/23 15:19 37.0 C 64 18 152/75 H 91 Room Air 05/17/23 11:29 37.0 C 69 18 145/70 H 91 Room Air 05/17/23 08:00 83 05/17/23 07:59 36.8 C 75 18 165/81 H 90 Room Air Laboratory Results A1C 9.4, ESR 24, Diagnostic Findings MRI Brain:Upon further review, note is made of a 1.1 cm focus of restricted d iffusion within the periventricular left frontal lobe. This is hypointense on the ADC map. There is an additional 0.4 cm focus of restricted diffusion within the left cerebellar hemisphere. These represent small acute infarcts. There is no mass effect or evidence for hemorrhagic conversion. MRA head/neck:No significant stenosis or occlusion in the central or large intracranial arteries. 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 MRV:Negative MRV of the brain. TTE: EF 55-60%, normal left atrium, no shunt EKG: Normal sinus rhythym
[2023-05-17] MEDS: HYDROCORTISONE 1% CRM 30 GM TUBE EXT SCH (20:49)
[2023-05-18 07:00] LABS: Basophils # (auto) 0.08 K/uL (0.00-0.20); Basophils % (auto) 0.7 %; Eosinophils # (auto) 0.33 K/uL (0.00-0.50); Hematocrit (blood only) 42.5 % (37.0-47.0); Hemoglobin 13.9 g/dl (12.0-16.0); Immature Granulocytes # (auto) 0.03 K/uL (0.01-0.20); Immature Granulocytes % (auto) 0.3 %; Lymphocytes # (auto) 3.06 K/uL (1.20-3.40); Lymphocytes % (auto) 27.8 %; Mean Corpuscular Hemoglobin 28.5 pg (25.0-34.0); Mean Corpuscular Hgb Conc 32.7 g/dL (32.0-36.0); Mean Corpuscular Volume 87.1 fL (80.0-100.0); Mean Platelet Volume 12.7 fL (9.4-12.4); Monocytes # (auto) 1.31 K/uL (0.11-0.59); Monocytes % (auto) 11.9 %; Neutrophils # (auto) 6.19 K/uL (1.40-6.50); Neutrophils % (auto) 56.3 %; Platelet Count 203 K/uL (130-400); RDW Standard Deviation 44.8 fL (36.4-46.3); Red Blood Count 4.88 M/uL (4.20-5.40)
[2023-05-18 07:12] LABS: BUN Creatinine Ratio 20.5 (10-20); Calcium 9.6 mg/dl (8.6-10.3); Chol HDL Ratio 2.1 (0-5); Creatinine Clr Calc Pharmacy 56.1 ml/min; Est GFR (African American) 71.4 ml/min; Est GFR (Non-African American) 61.6 ml/min; Potassium 4.3 mmol/L (3.5-5.1)
[2023-05-18 07:18] LABS: Troponin I High Sensitivity 15.8 pg/ml (0-14)
--- NOTE | 2023-05-18 10:57 | Cardiology Consultation ---
Date of Consultation May 18, 2023 Assessment & Plan (1) Accelerated junctional rhythm: (2) Acute CVA (cerebrovascular accident): (3) HTN (hypertension): (4) Dyslipidemia, goal LDL below 70: (5) Type 2 diabetes mellitus: Plan 83-year-old female admitted with acute cerebrovascular accident, possibly embolic. No significant stenosis or occlusion of the cervical or cerebral arterial circulation per imaging. No evidence of atrial fibrillation on telemetry. Echocardiogram without intracardiac shunt. Agree with neurology recommendation for at least short-term dual antiplatelet therapy at this time. Recommend 14-day outpatient ZIO monitor. Risk factor modification including blood pressure, lipid, and glucose control. Consider addition of calcium channel uma therapy, amlodipine to improve blood pressure control at discharge. Patient declined dual antiplatelet therapy. Continue aspirin and high intensity statin therapy. Diabetes management as per internal medicine. Findings and recommendations discussed with hospitalist for continuity of care. Thank you for allow me to participate in the care of your patient. History of Present Illness Reason for Consultation: Junctional rhythm Requesting Physician: Dr. Miles Attending Physician: Jackson Baker MD History of Present Illness 83-year-old female admitted with headache and visual changes. MRI of the brain demonstrating left frontal lobe, and left cerebellar acute CVA, possibly embolic. Cardiology consultation requested due to transient accelerated junctional rhythm at 100 bpm overnight. No atrial fibrillation on telemetry since admission. Patient denies chest discomfort, palpitations, lightheadedness, dizziness, syncope, or near syncope. Chronically treated with aspirin therapy. Declined course of dual antiplatelet therapy recommended by neurology. Review resting 2D transthoracic echocardiogram reveals mitral annular calcification, preserved LV systolic function, no evidence of intracardiac shunt. Currently patient is resting comfortably. Denies recurrent headache or visual changes over the past 24 hours. No focal weakness, slurred speech, or paresthesias. Risk factors include diabetes, hypertension, dyslipidemia. Allergies Allergy/AdvReac Type Severity Reaction Status Date / Time bee venom protein (honey bee) Allergy Severe ANAPHYLAXIS Verified 05/15/23 00:18 iodine Allergy Severe ANAPHYLAXIS Verified 05/15/23 00:18 shellfish derived Allergy Severe SOB, HIVES Verified 05/15/23 00:18 Sulfa (Sulfonamide Allergy Intermediate HIVES AND Verified 05/15/23 00:18 Antibiotics) ITCHING amlodipine Allergy Mild RASH Verified 05/15/23 00:18 clarithromycin Allergy Mild RASH Verified 05/15/23 00:18 gabapentin Allergy Unknown UNKNOWN Verified 05/15/23 00:18 mirabegron [From Myrbetriq] AdvReac Intermediate Hallucinati Verified 05/15/23 11:13 ng amoxicillin AdvReac Unknown Unknown Verified 05/15/23 00:18 INHALERS AdvReac Unknown SENSITIVE Uncoded 05/15/23 00:18 TO INHALERS, PERFUMES, ETC... Home Medications Medication Instructions Recorded Confirmed Type aspirin 81 mg tablet,delayed 81 mg PO QAM 02/25/18 05/15/23 History release (Sadie Low Dose Aspirin) epinephrine 0.3 mg/0.3 mL 0.3 mg IM UD PRN Allergic Reaction 02/25/18 05/15/23 History injection, auto-injector levothyroxine 175 mcg tablet 175 mg PO DAILYBB 02/25/18 05/15/23 History blood sugar diagnostic (Cellceutixuch #100 ea 02/28/18 05/15/23 Rx Verio test strips) lancets 30 gauge ([facility] #100 ea 02/28/18 05/15/23 Rx Lancets) omeprazole 20 mg tablet,delayed 20 mg PO DAILYBB 04/03/19 05/15/23 History release losartan 100 mg tablet 100 mg PO QAM 02/11/20 05/15/23 History furosemide 40 mg tablet (Lasix) 40 mg PO QAM 10/05/20 05/15/23 History metoprolol succinate 100 mg 100 mg PO QAM 10/05/20 05/15/23 History tablet,extended release 24 hr acetaminophen 650 mg 650 mg PO AMHS 05/15/23 05/15/23 History tablet,extended release duloxetine 60 mg capsule,delayed 60 mg PO AMHS 05/15/23 05/15/23 History release metformin 500 mg tablet,extended 500 mg PO BID #60 tabs 05/16/23 Rx release 24 hr Patient History Medical History CKD (chronic kidney disease) stage 3, GFR 30-59 ml/min Type 2 diabetes mellitus Hypothyroidism C1 cervical fracture Depression HTN (hypertension) Asthma Family History Other No pertinent family history Social History (Reviewed 05/18/23 @ 10:51 by MILIND Guerrero Smoking Status: Never smoker Do You Dip or Chew Tobacco: No; Hx Alcohol Use: No Hx Substance Use: No Preferred Language: Yakut Communication Ability: Effective Dewer Required: No Beliefs That Will Affect Care: None marital status: Current Living Situation: Spouse Current Living Situation Comment: Custodial Apartment Feels Safe at Home: Yes Safety Concerns: Feels Safe At This Time Assistive Devices: None Review of Systems Review of Systems: All systems reviewed & are unremarkable except as noted in Subjective Physical Exam Constitutional: well nourished and + obese; no acute distress Respiratory: no respiratory distress, no labored breathing and no retractions Auscultation: lungs clear to auscultation bilaterally; no crackles, no rales, no rhonchi and no wheezes Cardiovascular: Rate/Rhythm: regular rate and regular rhythm Heart Sounds: normal S1 and normal S2; no murmur Vessels: no JVD and no carotid bruit Extremities: no edema Gastrointestinal (Abdomen): Inspection/Auscultation: normal bowel sounds; abdomen not distended Percussion/Palpation: abdomen soft; abdomen nontender, no guarding and abdomen not rigid Results & Data Vital Signs (Past 12 Hours) Vital Signs Temp Pulse Pulse Resp BP Pulse Ox O2 Del Method 05/18/23 07:50 36.6 C 77 16 176/66 H 92 Room Air 05/18/23 04:35 72 05/18/23 00:54 99 H 05/18/23 00:39 36.7 C 103 H 20 128/78 92 Room Air Laboratory Results Cardiac Enzymes 05/18/23 Range/Units 06:00 Troponin I High Sens 15.8 H (0-14) pg/ml Lipids 05/18/23 Range/Units 06:00 Triglycerides 139 (0-150) mg/dl Cholesterol 162 (0-200) mg/dl HDL Cholesterol 76 mg/dl Cholesterol/HDL Ratio 2.1 (0-5) CBC 05/18/23 Range/Units 06:00 WBC 11.00 H (4.8-10.8) K/ul RBC 4.88 (4.20-5.40) M/uL Hgb 13.9 (12.0-16.0) g/dl Hct 42.5 (37.0-47.0) % Plt Count 203 (130-400) K/uL Neut # (Auto) 6.19 (1.40-6.50) K/uL Lymph # (Auto) 3.06 (1.20-3.40) K/uL Preble # (Auto) 1.31 H (0.11-0.59) K/uL Eos # (Auto) 0.33 (0.00-0.50) K/uL Baso # (Auto) 0.08 (0.00-0.20) K/uL Comprehensive Metabolic Panel 05/18/23 Range/Units 06:00 Sodium 141 (136-145) mmol/L Potassium 4.3 (3.5-5.1) mmol/L Chloride 104 (98-107) mmol/L Carbon Dioxide 32 (21-32) mmol/L BUN 18 (6-23) mg/dl Creatinine 0.88 (0.6-1.2) mg/dl Glucose 131 H (70-99(Fasting)) mg/dl Calcium 9.6 (8.6-10.3) mg/dl Intake and Output 05/17/23 05/18/23 05/18/23 22:59 06:59 14:59 Intake Total 450 / 1590 Balance 450 / 1590 Intake: Oral 450 / 1590 (3) HTN (hypertension) Hypertension type: unspecified Qualified Code(s): I10 - Essential (primary) hypertension (5) Type 2 diabetes mellitus Diabetes mellitus chcf insulin use: without chcf use Diabetes mellitus complication status: with kidney complications Diabetes mellitus complication detail: with chronic kidney disease Chronic kidney disease stage: stage 3 (moderate) Qualified Code(s): E11.22 - Type 2 diabetes mellitus with diabetic chronic kidney disease; N18.3 - Chronic kidney disease, stage 3 (moderate)
--- NOTE | 2023-05-18 12:03 | Communication Note ---
Date of Service: May 18, 2023 Neurology update: 83 y/o female with history of HTN, hypothyroidism, DM, CKD, that presented following a headache with transient visual symptoms. MRI with s mall left frontal and left cerebellar acute infarcts, likely embolic. on Neurochecks q4. TTE: EF 55-60%, normal left atrium, no shunt. A1C 9.4. LDL 58. ESR 24. Accelerated junctional rhythm overnight, cardiology consulted and recommends proceeding with zio patch. DAPT declined, pt will continue aspirin 81 mg and atorvastatin 40 mg. Pt with scalp pain and concern for scalp lesions, would recommend dermatology evaluation. If any concern for infection, would consider LP. Would optimize blood glucose control and intermediate manager bp goal <130/80. Unclear cause of more recent blurred vision, pt would likely benefit from evaluation by opthalmology. If any concern for vision loss or diplopia or new neurological symptoms, would obtain repeat imaging.
[2023-05-18] MEDS ORDERED: STROKE PATIENT DISCHARGE STA (12:35)
--- NOTE | 2023-05-18 13:31 | Electrocardiogram Report ---
Test Reason : Blood Pressure : / mmHG Vent. Rate : 100 BPM Atrial Rate : 098 BPM P-R Int : 000 ms QRS Dur : 086 ms QT Int : 338 ms P-R-T Axes : 000 012 013 degrees QTc Int : 436 ms Accelerated Junctional rhythm with retrograde conduction Abnormal ECG When compared with ECG of 14-MAY-2023 21:25, Junctional rhythm has replaced Sinus rhythm Confirmed by Xander Sandhu ([id number]) on 05/18/2023 1:31:13 PM Referred By: REFERRED SELF Confirmed By:Xander Sandhu
--- NOTE | 2023-05-18 13:32 | Discharge Summary ---
Date of Service May 18, 2023 Admission HPI Per Admitting Provider Possible migraine with transient visual phenomena Patient currently asymptomatic. Hypomagnesemia possibly contributory hypertension, slightly elevated bronchial asthma, not in acute exacerbation Cognitive impairment as per records, patient mentating well currently [place] [facility] [place] DM2 oral medications, suboptimal control as of recent hemoglobin A1c of 8 last January 2023 anxiety/mood disorder, patient follows with [facility] psychiatrist hypothyroidism, euthyroid as of recent outpatient TSH this year OBS Medical telemetry Consider MRI brain, Neurology consult if with recurrence of headache with visual phenomena Replace magnesium Basal insulin, ISS BG goal [id number], update hemoglobin A1c PT OT eval DVT prophylaxis Lovenox 40 mg subcutaneous daily Full code Patient's daughter requesting updates providers. Ms. Tennille Malik, contact numbers [phone]. Text document was generated using [email or web address] voice recognition software. It may contain grammatical or spelling errors. Kindly contact undersigned for clarification of any documentation item in question. Admission Exam Per Admitting Provider GENERAL: Slightly uncomfortable, slightly anxious, obese, no respiratory distress SKIN: Normal color, warm HEENT: Dried ulcerated lesions, left scalp, pink palpebral conjunctivae, no ptosis, dry buccal mucosa NECK : Supple, short neck, no tenderness CHEST : CTA, no tenderness HEART : RRR, no obvious murmurs ABDOMEN: Some distention, nontender EXTREMITIES : Minimal LE swelling, no LE tenderness, no other conspicuous deformities noted NEUROLOGIC : Coherent, no facial asymmetry, no other gross focality Principal Diagnosis Acute ischemic stroke Accelerated junctional rhythm Discharge Exam Physical Exam: Vitals signs as noted above General Appearance:Obese, no apparent distress Head: normocephalic, Atraumatic, +Scalp lesions Eyes: normal inspection, EOMI Neck: supple, Trachea midline Respiratory/Chest: Normal breath sounds, CTA, No accessory muscle use Cardiovascular: S1, S2, No murmur Abdomen/GI:Soft, Non tender, Bowel sounds present Extremities/Musculoskeletal:normal inspection, Trace edema Neurologic/Psych:AAOX3, grossly no focal neurological deficits Skin: normal color, warm Discharge Data Allergies Allergy/AdvReac Type Severity Reaction Status Date / Time bee venom protein (honey bee) Allergy Severe ANAPHYLAXIS Verified 05/15/23 00:18 iodine Allergy Severe ANAPHYLAXIS Verified 05/15/23 00:18 shellfish derived Allergy Severe SOB, HIVES Verified 05/15/23 00:18 Sulfa (Sulfonamide Allergy Intermediate HIVES AND Verified 05/15/23 00:18 Antibiotics) ITCHING amlodipine Allergy Mild RASH Verified 05/15/23 00:18 clarithromycin Allergy Mild RASH Verified 05/15/23 00:18 gabapentin Allergy Unknown UNKNOWN Verified 05/15/23 00:18 mirabegron [From Myrbetriq] AdvReac Intermediate Hallucinati Verified 05/15/23 11:13 ng amoxicillin AdvReac Unknown Unknown Verified 05/15/23 00:18 INHALERS AdvReac Unknown SENSITIVE Uncoded 05/15/23 00:18 TO INHALERS, PERFUMES, ETC... Consultations 05/14/23 23:50 ED Decision to Admit Stat 05/15/23 12:31 Consult Neurology Routine 05/18/23 08:00 Consult Cardiology Routine Ordered Studies 05/14/23 21:07 CT head/brain wo con Stat 05/15/23 17:22 MRI Brain [MR brain wo con] Urgent 05/16/23 14:55 MR angio head wo con Routine MR angio neck wo con Routine MR venography head wo con Routine Hospital Course (1) Headache: Acute ischemic stroke Left frontal stroke Left cerebellar stroke Patient presents with headache, transient visual changes Headaches uncommon per patient. Admits to have poor sleep usually. Myrbetriq discontinued 2 weeks ago due to hallucinations. Discussed with Dr. Wing from neurology. She reviewed the MRI brain; suspected possible stroke in the left frontal lobe. Discussed with Dr. 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 Patient's MRI from March 2020 shows 4 X 3 mm aneurysm in M2 inferior division. Echocardiogram shows EF of 55 to 60% with grade 1 diastolic dysfunction During the hospitalization, patient was started on Lipitor 40 mg. Her aspirin was continued. PT OT AGRICULTURAL AGENT eval was done. She was discharged home with instruction to follow-up with neurology as outpatient. She was asked to follow-up with PCP and obtain ophthalmology referral. Accelerated junctional rhythm During the hospitalization, patient had episode of accelerated junctional rhythm overnight on telemetry. Patient was asymptomatic Evaluated by cardiology; recommend 14-day outpatient Zio patch monitoring Uncontrolled type 2 diabetes mellitus History of type 2 diabetes mellitus; patient stopped using metformin several years ago A1c during the hospitalization is 9.4 Discussed with patient and patient's daughter that patient has multiple risk factors (uncontrolled hypertension, diabetes, hyperlipidemia). Discussed about restarting metformin as outpatient. Patient will likely need additional antidiabetic agents as well given her A1c of 9.4%. They are agreeable on starting metformin for the time being; will follow-up with primary care regarding additional agents. No other medication changes were done. Please note the above document was generated using voice recognition software. It may contain grammatical, syntax or spelling errors. Any formal questions or concerns about the content, text or information contained within the body of this dictation should be directly addressed to the provider for clarification Total Time Total Time Spent Total Time Spent (In Minutes): 45 Total Time Includes: Examination of the Patient, Discharge Planning, Medication Reconciliation, Communication With Other Providers and Other Discharge Plan Discharge Items Patient Disposition: Home - Self-Care Reason For Visit: HTN, HYPOMAGNESEMIA Discharge Diagnosis: Acute ischemic stroke Hypomagnesemia Uncontrolled diabetes mellitus Accelerated junctional rhythm Activity: Per Instructions section Exercise/Sports: Gradually increase as tolerated Non-emergency contact: Primary Care Provider, Specialist, Neurologist and Support Technician Call non-emergency contact if: you have any medication questions, your symptoms worsen, your pain is concerning for you and you have a fever Follow-up/Referrals: Sandra Crain PA-C [Physician [employer]] - (Date & Time 06/03/2023 11:20 AM Provider Sandra Crain PA-C Department Neurology [facility] ) Radha Suarez DO [Primary Care Provider] - (Date & Time 05/22/2023 1:40 PM Provider Radha Suarez DO Department Family Practice [facility] ) Diet: Carb Consistent or DM2 and Heart Healthy Addtl Attending Provider Instructions: You were admitted to the hospital due to headache. Your evaluated by neurology and underwent MRI of the brain. You were found to have stroke in left frontal and left cerebellar area. You are recommended to take aspirin and Lipitor by the neurologist. Please obtain referral for ophthalmology from your primary care doctor. During the hospitalization, you are found to have accelerated junctional rhythm. You need to have follow-up with your primary care doctor and obtain Zio patch monitoring (extended monitor tech) to check for any episode of atrial fibrillation. You may need to be on anticoagulation(blood thinner) depending on the result. You were prescribed hydrocortisone cream for the lesion on your scalp. If it does not get better with the cream; you will need referral to the toe puncher. You were started on metformin 500 mg twice daily for type 2 diabetes mellitus. Take it after a meal. Your A1c level was 9.4%. You may need additional medication due to high A1c level; please discuss this with your primary care doctor. Risk Factors for Stroke: You can reduce your chances of stroke by working with your medical provider to adopt a healthy lifestyle. Some specific ways to lower your chance of stroke are: * If you are a smoker, now is the time to stop smoking cigarettes * If you are diabetic, improve the control of your blood sugars * Avoid excessive amounts of alcohol * Control high blood pressure * Lose weight if you are overweight * Be sure to lead an active lifestyle * Eat a healthy diet low in salt, cholesterol and fat You should know about other risk factors for stroke that you are unable to control. These include: * Age 55 years or older * Male gender * Certain racial groups: , or / * Family History of Stroke, Mini stroke or Heart Attack * Sickle Cell Disease Follow Up: It is important for you to keep your follow up appointments with your medical provider. Who to Call and When: Medical Emergencies: Call 911 immediately if you experience any of the following warning signs and symptoms of Stroke: * Sudden numbness or weakness of the face, arm or leg, especially on one side of the body * Sudden confusion, trouble speaking or understanding * Sudden trouble seeing in one or both eyes * Sudden trouble walking, dizziness, loss of balance or coordination * Sudden severe headache with no cause Do not delay calling 911 if you experience any warning signs or symptoms of a stroke. Delay in seeking medical attention may affect what treatments can be given to you. . Pending Studies at Discharge: No Stand-Alone Forms: My [facility], Smoking Cessation, Medications to Prevent Stroke Medications and DC Order Prescriptions: New metformin 500 mg tablet extended release 24 hr 500 mg PO BID Qty: 60 0RF atorvastatin 40 mg Tablet 40 mg PO QAM Qty: 30 0RF hydrocortisone 1 % Ointment 1 applic EXT BID Qty: 28.35 0RF Continued levothyroxine 175 mcg tablet 175 mg PO DAILYBB aspirin [Sadie Low Dose Aspirin] 81 mg Tablet,Delayed Release (Dr/Ec) 81 mg PO QAM epinephrine 0.3 mg/0.3 mL Auto-Injector 0.3 mg IM UD PRN (Reason: Allergic Reaction) (DME) OneTouch Verio test strips strip See Dose Instructions .ROUTE .MEDSUPPLY Qty: 100 0RF Dose Instruction: As directed Rx Instructions: use to test twice daily. Dx: E11.9 (DME) lancets [OneTouch Delica Lancets] 30 gauge misc See Dose Instructions .ROUTE .MEDSUPPLY Qty: 100 0RF Dose Instruction: As directed Rx Instructions: Use to test twice daily. Dx code: E11.9 omeprazole 20 mg Tablet,Delayed Release (Dr/Ec) 20 mg PO DAILYBB losartan 100 mg tablet 100 mg PO QAM metoprolol succinate 100 mg tablet extended release 24 hr 100 mg PO QAM furosemide [Lasix] 40 mg tablet 40 mg PO QAM duloxetine 60 mg capsule,delayed release(DR/EC) 60 mg PO [facility] acetaminophen 650 mg Tablet Extended Release 650 mg PO [facility]HS Discharge Orders: Discharge Order (Routine); Ordered 05/18/23 Ordered By: Jackson Baker Admission Data Admit Date/Time: 05/17/23 12:42 Attending Provider: Jackson Baker Admit Provider: Chandler Jean Primary Care Provider: Radha Suarez Other Providers: Chandler Jean; Sandra Crain; Linwood Price; Sandra Jacobo; Darwin Irene; Kalen Sullivan; Satinder Gonzalez; Alvarez Mahan; Donna Campbell; Sebastian Herrmann; Deo Brandon; Nadja Grove; Shorty Mcrae; Randi Wing; Zeynep Elam; Alvarez Horton; Jhonny Rondon Other Interventions: Discharge Summary Assessment (RN) Last Done: 05/18/23 12:51
--- NOTE | 2023-05-20 11:10 | Pharmacy Report ---
Pharmacist Stroke Counseling - Date of Service May 20, 2023 - Scope: Pharmacy has been consulted to provide medication discharge counseling for this patient admitted with ischemic stroke as per the Pharmacist Discharge Counseling for Stroke Patients Protocol. - Medications on Discharge: Home Medications Medication Instructions Recorded Confirmed aspirin 81 mg tablet,delayed 81 mg PO QAM 02/25/18 05/15/23 release (Sadie Low Dose Aspirin) epinephrine 0.3 mg/0.3 mL 0.3 mg IM UD PRN Allergic Reaction 02/25/18 05/15/23 injection, auto-injector levothyroxine 175 mcg tablet 175 mg PO DAILYBB 02/25/18 05/15/23 omeprazole 20 mg tablet,delayed 20 mg PO DAILYBB 04/03/19 05/15/23 release losartan 100 mg tablet 100 mg PO QAM 02/11/20 05/15/23 furosemide 40 mg tablet (Lasix) 40 mg PO QAM 10/05/20 05/15/23 metoprolol succinate 100 mg 100 mg PO QAM 10/05/20 05/15/23 tablet,extended release 24 hr acetaminophen 650 mg 650 mg PO [facility] 05/15/23 05/15/23 tablet,extended release duloxetine 60 mg capsule,delayed 60 mg PO [facility] 05/15/23 05/15/23 release New Rx's Medication Instructions Recorded blood sugar diagnostic (OneTouch #100 ea 02/28/18 Verio test strips) lancets 30 gauge (OneTouch Delica #100 ea 02/28/18 Lancets) metformin 500 mg tablet,extended 500 mg PO BID #60 tabs 05/16/23 release 24 hr atorvastatin 40 mg tablet 40 mg PO QAM #30 tabs 05/18/23 hydrocortisone 1 % topical ointment 1 applic EXT BID #28.35 grams 05/18/23 - Action: The above medications, specifically ones for stroke treatment/prophylaxis, have been reviewed in detail with the patient and/or patient new accounts banking representative(s) prior to discharge. This includes indication, common adverse reactions, drug interactions, and medication administration. Medication counseling has been employed using the teach-back method to ensure understanding. - Outcome: The patient and/or patient new accounts banking representative(s) have demonstrated understanding of the medications. Additional comments: Spoke with patient and her daughter over the phone to discuss medications on discharge. Daughter helps with managing patient's medications. Reviewed new medications with patient and discussed adverse reactions/monitoring, etc. No concerns from patient or daughter with obtaining medications. Talked about the importance of bringing an updated medication list with patient to her next PCP appt (Sat) this week. No other pertinent positives on interview today Thank you for allowing pharmacy to be involved in the care of this patient. Luciano macdonald call [phone] with any additional questions
--- NOTE | 2023-05-27 13:48 | Coding Query ---
CODING QUERY FOR UNCONTROLLED DIABETES To promote full compliance with coding requirements relating to patient care, provider participation is requested in all cases of government affairs director uncertainty. Please assist us with the question(s) below: Coding Question: The term uncontrolled Diabetes was used throughout the record. To be able to code this diagnosis properly, could you please clarify the diagnosis below: ( ) Uncontrolled Diabetes meaning hypoglycemia ( X ) Uncontrolled Diabetes meaning hyperglycemia ( ) Other (please specify) Principal Diagnosis: "that condition established after study, to be chiefly responsible for occasioning the admission of the patient to the hospital for care." Co-Existing Principal Diagnosis: "when two or more diagnoses equally meet the criteria for principal diagnosis as determined by the circumstances of admission, diagnostic work up, and/or therapy provided, and the Alphabetic Index, Tabular List, or another coding guideline does not provide sequencing direction, any one of the diagnoses may be sequenced first." "When the physician has documented what appears to be a current diagnosis in the body of the record, but has not included the diagnosis in the final diagnostic statement, the physician should be asked whether the diagnosis should be added." (Source Coding [facility] 2 QTR90. p3-4) MONA
== END 2023-05-18 14:12 | disposition home or self-care (01) | DRG 65 ==
LOC: ED 20:59 → EDINP 20:59 → SUATTDRO 05-15 03:54 → 2N 05-15 05:19